=== PATIENT | male | born 1960 | race Caucasian/White ===

== ENCOUNTER → 2017-06-23 07:42 | Outpatient (CLI) | payer MEDICAID, SELFPAY ==
[2017-06-23 08:14] VITALS: PULSE 100; PULSE 101; PULSE 102; PULSE 103; PULSE 104; PULSE 88; PULSE 90; PULSE 97; O2SAT 94; O2SAT 95; O2SAT 96; O2SAT 98
--- NOTE | 2017-06-24 05:35 | WT_ITS ---
PSN 6 Minute Walk Test - 6 Minute Walk Test 6 Minute Walk Test: 6 Minute Walk Test PSN:6-Minute Walk Test Start: 06/23/17 08: 14 Freq: Status: Active Protocol: RESP.6MINW Document 06/23/17 08:14 AJ (Rec: 06/23/17 08:16 AJ [id number]) 6 Minute Walk Test Date Performed 06/23/17 Time Performed 07:50 Height 5 ft 7 in Weight: 118.841 kg Weight in Pounds 262.[address]: Gordon Verde Assistive device used: None Pre-test Oxygen Delivery Method Room Air Pulse Ox (%) 96 Pulse Rate (60-100 beats/min) 90 Dyspnea Israel Scale (0-10) 0 Exertion Israel Scale (6-20) 6 1st minute Oxygen Delivery Method Room Air Pulse Ox (%) 95 Pulse Rate (60-100 beats/min) 97 2nd minute Oxygen Delivery Method Room Air Pulse Ox (%) 94 Pulse Rate (60-100 beats/min) 100 3rd minute Oxygen Delivery Method Room Air Pulse Ox (%) 95 Pulse Rate (60-100 beats/min) 101 H 4th minute Oxygen Delivery Method Room Air Pulse Ox (%) 95 Pulse Rate (60-100 beats/min) 102 H 5th minute Oxygen Delivery Method Room Air Pulse Ox (%) 96 Pulse Rate (60-100 beats/min) 103 H 6th minute Oxygen Delivery Method Room Air Pulse Ox (%) 96 Pulse Rate (60-100 beats/min) 104 H Dyspnea Israel Scale (0-10) 1 Exertion Israel Scale (6-20) 14 Post-test Oxygen Delivery Method Room Air Pulse Ox (%) 98 Pulse Rate (60-100 beats/min) 88 Full Laps Walked 18 Partial Lap, Number of Tiles Walked 53 Total Distance Walked (ft) 1115 - Interpretation Interpretation: The patient was able to ambulate 1115 feet over the course of 6 minutes on room air with no assistive devices. The patient did not have any significant desaturation with testing, but did have a slight elevation in heart rate with a peak heart rate of 104 bpm. These findings are consistent with deconditioning. The patient did report leg pain at the end of ambulation and did present to the ER for evaluation. These findings are consistent with deconditioning. - Recommendations Recommendations: No supplemental oxygen is indicated at this time. Patient may benefit from initiation of an exercise program.
== END ==
PROVIDERS: Family Provider Internal Medicine; PCP Internal Medicine; Visit Provider Internal Medicine Critical Care Medicine
DX: J44.9 Chronic obstructive pulmonary disease, unspecified (principal)
CPT/HCPCS: 94618

== ENCOUNTER 2017-06-23 10:56 | Emergency (ER) | payer MEDICAID, SELFPAY ==
[2017-06-23 10:57] VITALS: BP 131/77; PULSE 69; RESP 18; TEMP 36.7; O2SAT 96; BMI 40.7
--- NOTE | 2017-06-23 11:24 | VDLE_ITS ---
Reason For Study: RLE Pain RIGHT LEFT GSV is normal. CFV is compressible, spontaneous, phasic, CFV is compressible, spontaneous, phasic, competent, and demonstrates normal competent and demonstrates normal augmentation. augmentation. FV is compressible, spontaneous, phasic, competent and demonstrates normal augmentation. POP V is compressible, spontaneous, phasic, competent and demonstrates normal augmentation. T/P Trunk is compressible. PTV is compressible. RT PerV is compressible. Procedure Exam performed portable in ED. A preliminary report was called and/or faxed to Dr. Jean. Interpretation Summary Deep veins of the right lower extremity are patent and compressible segmentally. There is no evidence of right lower extremity deep vein thrombosis. Valvular competence appears intact within the proximal deep venous system on the right . The right greater saphenous vein appears patent and compressible segmentally. Ordering Physician: Benson Jean Referring Physician: Mony Morrison Performed By: Ashleigh Cox, IRAJ, RVT
--- NOTE | 2017-06-23 11:29 | ED.DCSUM_ITS ---
- ER Visit Summary Date of Service: 06/23/17 Chief Complaint: Leg pain History of Present Illness: The patient is a 56 M with pain behind his right knee. The patient went to urgent care and was concerned he needed an x-ray. No specific injury, but the pain has been gradually getting worse over days. He was sent to the emergency department to check for DVT. He has no history of DVTs. No chest pain or shortness of breath. Physical Examination: Afebrile and vital signs unremarkable. Right leg shows normal inspection. No edema. He does have some tenderness in the right popliteal fossa region. Neurovascular intact distally. Good range of motion. Test Results: US and x-ray pending. Emergency Department Course and Treatment: Ultrasound negative for clot. X-ray showed no acute abnormalities. Treatment Plan: Rest, ice, elevate. Anti-inflammatories for pain. Follow-up with primary care. Disposition: Discharged Impression: 1. Right knee pain This note was generated with [employer] dictation software. It may contain incorrect words, spelling, and punctuation that were not noted in review of the chart prior to signing ED Disposition - Plan for ED Patient: Chief Complaint: Lower Extremity Injury Referrals: Mony Morrison MD [Primary Care Provider] -
--- NOTE | 2017-06-23 12:30 | RAD_ITS ---
STUDY: X-RAY - RIGHT KNEE REASON FOR EXAM: Male, 56 years old. 7 day history of pain. No known injury. TECHNIQUE: 4 view(s) of the knee. COMPARISON: None. FINDINGS: Normal visualized distal femur. Normal visualized proximal tibia and fibula. Normal proximal tibiofibular articulation. Normal medial femorotibial compartment. Normal lateral femorotibial compartment. Normal patellofemoral articulation. Small joint effusion. RAD/Knee 4 or More Views IMPRESSION: Small joint effusion. Electronically Signed: Reji Muñiz MD at 12:54 EDT Tel [phone], Service support ,
--- NOTE | 2017-06-23 13:36 | ED.DEP ---
ED Disposition - Plan for ED Patient: Chief Complaint: Lower Extremity Injury Instructions: ED Knee Pain [facility] Referrals: Mony Morrison MD [Primary Care Provider] -
[2017-06-23 13:59] VITALS: BP 154/79; PULSE 72; RESP 16; O2SAT 97
== END 2017-06-23 14:00 | disposition home or self-care (01) ==
LOC: ED 11:24
PROVIDERS: Emergency Provider Emergency Medicine; Family Provider Internal Medicine; PCP Internal Medicine
DX: M25.561 Pain in right knee (principal); J44.9 Chronic obstructive pulmonary disease, unspecified; E11.9 Type 2 diabetes mellitus without complications; I10 Essential (primary) hypertension; G47.33 Obstructive sleep apnea (adult) (pediatric); Z72.0 Tobacco use; Z79.82 Long term (current) use of aspirin; Z79.899 Other long term (current) drug therapy
CPT/HCPCS: 73564; 93971; 94618; 99282

== ENCOUNTER → 2017-06-24 06:56 | Outpatient (CLI) | payer MEDICAID, SELFPAY ==
--- NOTE | 2017-06-24 10:44 | PFTCOMP ---
COMPLETE PULMONARY FUNCTION TEST INTERPRETATION Brief HPI: Patient is a 56 year old male, currently under the care of Dr. Verde, who presents to [facility] for complete pulmonary function tests secondary to diagnosis of COPD. Respiratory therapist reports good effort and reproducible results. Interpretation: Forced expiration spirometry shows no large airways obstructive ventilatory defect with an FEV1 of 74% predicted. There is no significant bronchodilator response by ATS criteria. Spirograms are of good quality and plateau slowly, indicating slowly emptying areas of the lungs. The respiratory flow volume loop shows a normal pattern. Lung volumes by body plethysmography show a normal total lung capacity at 6.71 L, 111% predicted. There is a trend towards air-trapping in remaining lung volumes, but this does not reach clinical significance by ATS criteria. Diffusion capacity by carbon monoxide is normal at 83% predicted. The airway resistance is normal. Compared to previous pulmonary function tests from 09/03/2016, there has been no significant change. Impression: These pulmonary function tests are grossly within normal limits. There is some subtle signs of small airways obstruction.
--- NOTE | 2017-06-24 10:47 | PFTCOMP_ITS ---
COMPLETE PULMONARY FUNCTION TEST INTERPRETATION Brief HPI: Patient is a 56 year old male, currently under the care of Dr. Verde, who presents to [facility] for complete pulmonary function tests secondary to diagnosis of COPD. Respiratory therapist reports good effort and reproducible results. Interpretation: Forced expiration spirometry shows no large airways obstructive ventilatory defect with an FEV1 of 74% predicted. There is no significant bronchodilator response by ATS criteria. Spirograms are of good quality and plateau slowly, indicating slowly emptying areas of the lungs. The respiratory flow volume loop shows a normal pattern. Lung volumes by body plethysmography show a normal total lung capacity at 6.71 L , 111% predicted. There is a trend towards air-trapping in remaining lung volumes, but this does not reach clinical significance by ATS criteria. Diffusion capacity by carbon monoxide is normal at 83% predicted. The airway resistance is normal. Compared to previous pulmonary function tests from 09/03/2016, there has been no significant change. Impression: These pulmonary function tests are grossly within normal limits. There is some subtle signs of small airways obstruction.
== END ==
PROVIDERS: Family Provider Internal Medicine; PCP Internal Medicine; Visit Provider Internal Medicine Critical Care Medicine
DX: J44.9 Chronic obstructive pulmonary disease, unspecified (principal); F17.200 Nicotine dependence, unspecified, uncomplicated
CPT/HCPCS: 94060; 94726; 94729

== ENCOUNTER 2017-09-22 14:26 | Emergency (ER) | payer MEDICAID, SELFPAY ==
[2017-09-22 14:26] VITALS: BP 147/73; PULSE 73; RESP 16; TEMP 36.8; O2SAT 97; BMI 40.7
--- NOTE | 2017-09-22 15:13 | ED.VISSUMM ---
- ER Visit Summary Date of Service: 09/22/17 Chief Complaint: Low back pain History of Present Illness: The patient is a 56 M low back pain for the past few weeks. 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 Patient states pain down his leg to the back of his calf. Occasional tingling. No loss of bowel or bladder control. Patient has seen chiropractor 4 times since then, states symptoms relieved only short-term. Last seen a week ago. Has not seen his PCP. Has not tried any medications. History of gastric reflux, no ulcer history. Denies acute kidney injury. States had back pain in the past however self-limiting. No new injuries. Physical Examination: General: Alert and oriented ?3, no acute distress HEENT: Normocephalic, atraumatic. Moist mucosa membranes Neck: supple, nontender. Cardiovascular: Regular rate and rhythm, no murmurs Respiratory: Normal breath sounds, symmetric, no distress Abdomen: Soft, nontender, nondistended Back: Tender palpation right lower lumbar, no midline tenderness. Straight leg test negative bilaterally. 1+ patellar reflex bilaterally. Extremities: Nontender, no edema, pulses intact ?4 Neuro: no focal neurological deficits. Test Results: Lumbar spine x-rays: Degenerative changes noted. No fracture or dislocation. Emergency Department Course and Treatment: Patient presents with sciatica symptoms. No cauda equina symptoms. Has not seen his PCP, has seen the chiropractor. Did obtain a baseline lumbar film noted degenerative changes. Started on Motrin. Given muscle relaxer for nighttime use. Will call his PCP outpatient evaluation and further treatment. All questions were answered. Treatment Plan: [] Disposition: Discharge Impression: Sciatica This note was generated with [employer] dictation software. It may contain incorrect words, spelling, and punctuation that were not noted in review of the chart prior to signing ED Disposition - Plan for ED Patient: Disposition: Home or Assisted Living Chief Complaint: Back Diagnosis: Sciatica Instructions: ED Sciatica Prescriptions: Diazepam [Valium] 5 mg PO QHS PRN PRN #10 tablet PRN Reason: back spasm Ibuprofen 600 mg PO 4X/DAY PRN #30 tablet PRN Reason: Pain Referrals: Mony Morrison MD [Primary Care Provider] - 2 Days
[2017-09-22] MEDS: Ibuprofen 600 MG Tablet PO (15:16)
== END 2017-09-22 16:35 | disposition home or self-care (01) ==
PROVIDERS: Emergency Provider Emergency Medicine; Family Provider Internal Medicine; PCP Internal Medicine
DX: M54.40 Lumbago with sciatica, unspecified side (principal); I10 Essential (primary) hypertension; K21.9 Gastro-esophageal reflux disease without esophagitis; Z79.82 Long term (current) use of aspirin; Z79.899 Other long term (current) drug therapy; Z87.891 Personal history of nicotine dependence
CPT/HCPCS: 72100; 99282

== ENCOUNTER 2018-12-11 11:07 | Emergency (ER) | payer MEDICAID, SELFPAY ==
[2018-12-11 11:09] VITALS: BP 159/84; PULSE 80; RESP 16; TEMP 36.1; O2SAT 99; BMI 45.1
--- NOTE | 2018-12-11 11:20 | ED.DCSUM_ITS ---
History of Present Illness Chief Complaint: Back Detail of Chief Complaint: Sciatica Informant: Patient Onset: Weeks - 2 to 3 weeks Maximum Severity: Moderate Narrative: Patient presents with right-sided sciatica ongoing for the past 2 or 3 weeks. He is been seeing his chiropractor. He states typically when he gets like this he needs to be on a course of steroids. He is been taking tybq-zwv-jyndgjw painkillers such as Tylenol at home. Pain does radiate down the right leg. He has had no problems with bowel or bladder control. No direct trauma to his back. 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 Past Medical History - Allergies and Home Meds Allergies/Adverse Reactions: Allergies Penicillins Allergy (Verified 12/11/18 11:09) Unknown venom-honey bee [bee venom (honey bee)] Allergy (Verified 12/11/18 11:09) Swelling Primary Care Physician: Mony Morrison MD [Primary Care Provider] - Prior records reviewed: Yes Past Medical History: - - Reviewed Surgical History: no surgical history Smoking Status: Current every day smoker Drugs: Marijuana - Family History Maternal Family History: Family History (Last Reviewed 03/05/18 @ 07:05 by Elaine Rosenberg) Mother Cancer Father Diabetes Sister Diabetes Family History: Reports: - - mother of skin CA Paternal Family History: Family History (Last Reviewed 03/05/18 @ 07:05 by Elaine Rosenberg) Mother Cancer Father Diabetes Sister Diabetes Family History: Reports: Diabetes, Dementia, - - father is in a NH and has demnetia and PD and DM Sibling Family History: Family History (Last Reviewed 03/05/18 @ 07:05 by Elaine Rosenberg) Mother Cancer Father Diabetes Sister Diabetes Family History: Reports: Diabetes - in his sister Review of Systems General: Denies: Chills, Fever Eyes: Denies: Visual changes - bilaterally ENT: Denies: Bilateral ear pain Cardiovascular: Denies: Chest pain Respiratory: Denies: Dyspnea, Cough Gastrointestinal: Denies: Abdominal pain, Nausea, Vomiting, Diarrhea Musculoskeletal: Reports: Back pain, Extremity Pain - Right leg pain radiating from back Skin: Denies: Rash Neurological: Denies: Headache, Weakness, Parasthesia, Numbness Psych: Denies: Depression Hematologic: Denies: Easy bruising Allergy: Denies: Uticaria Physical Exam Vital Signs/Narrative: Vital Signs Temp Pulse Resp BP Pulse Ox 12/11/18 11:09 97 F L 80 16 159/84 H 99 Inital Vital Signs reviewed: Yes General: Well nourished, Well developed ENT: Moist mucous membranes Neck: Supple Cardiovascular: Regular rate, Regular rhythm Respiratory: No distress, CTA bilaterally Abdomen: Soft, Nontender, Normal bowel sounds Back: - - Reproducible tenderness in the right lower lumbar paraspinal muscles and over the sciatic notch. No midline tenderness. No ecchymosis or abrasions. Extremities: Nontender Skin: Normal color, No rash Neurological: Alert, Oriented x3, Normal Strength, Normal Sensation, - - Straight leg raise test is negative. Psychological: Normal affect Diagnostic/Tx/Re-eval - Medical Decision Making Patient be given a prednisone taper. He will continue to take his wazm-yhy-vejpwpy pain medication and follow-up with his chiropractor. ED Disposition - Plan for ED Patient: Disposition: Home or Assisted Living Diagnosis: Sciatica Instructions: BACK PAIN w/ SCIATICA Prescriptions: Prednisone 10 mg PO DAILY #63 tablet Referrals: Mony Morrison MD [Primary Care Provider] - 1 Week if not improving
[2018-12-11] MEDS: predniSONE 20 MG Tablet 60 MG PO (11:28)
== END 2018-12-11 11:36 | disposition home or self-care (01) ==
LOC: ED 11:34
PROVIDERS: Emergency Provider Emergency Medicine; Family Provider Internal Medicine; PCP Internal Medicine
DX: M54.31 Sciatica, right side (principal); F17.200 Nicotine dependence, unspecified, uncomplicated; Z88.0 Allergy status to penicillin
CPT/HCPCS: 99283

== ENCOUNTER → 2019-02-11 08:55 | Outpatient (CLI) | payer MEDICAID, SELFPAY ==
--- NOTE | 2019-02-11 14:01 | PFT ---
INTRODUCTION: The patient is a 58-year-old male who presents for pulmonary function studies secondary to a diagnosis of COPD. Respiratory therapy reports good patient effort. Bronchodilators were used during testing. INTERPRETATION: Forced expiration spirometry demonstrates the presence of a mild large airways obstructive ventilatory defect. There was no significant response to aerosolized bronchodilators. Spirograms are of good quality and plateau gradually. Body plethysmography was performed and reveals lung volumes to be within normal limits. Diffusing capacity by single breath CO is also within normal limits. When compared to previous pulmonary function studies from June 2017, there has been an 11% reduction in FEV1 along with a 27% reduction in total lung capacity. IMPRESSION: Irreversible mild large airways obstructive ventilatory defect with preserved lung volumes and diffusing capacity.
== END ==
PROVIDERS: Family Provider Internal Medicine; PCP Internal Medicine; Referring Provider Internal Medicine Critical Care Medicine; Visit Provider Internal Medicine Critical Care Medicine
DX: J44.9 Chronic obstructive pulmonary disease, unspecified (principal)
CPT/HCPCS: 94060; 94726; 94729

== ENCOUNTER → 2019-03-22 20:00 | Outpatient (CLI) | payer MEDICAID, SELFPAY ==
[2019-03-02 12:54] VITALS: BMI 47.0
== END ==
PROVIDERS: PCP Internal Medicine; Referring Provider Internal Medicine Critical Care Medicine; Visit Provider Internal Medicine Critical Care Medicine
DX: G47.33 Obstructive sleep apnea (adult) (pediatric) (principal)
CPT/HCPCS: 95811

== ENCOUNTER → 2019-04-14 07:30 | Outpatient (CLI) | payer MEDICAID, SELFPAY ==
[2019-03-02 12:54] VITALS: BMI 47.0
== END ==
PROVIDERS: PCP Internal Medicine; Referring Provider Nurse Practitioner Acute Care; Visit Provider Nurse Practitioner Acute Care
DX: Z46.89 Encounter for fitting and adjustment of other specified devices (principal)

== ENCOUNTER → 2019-07-01 13:00 | Outpatient (CLI) | payer MEDICAID, SELFPAY ==
[2019-05-26 08:48] VITALS: BMI 44.9
== END ==
PROVIDERS: PCP Internal Medicine; Referring Provider Nurse Practitioner Acute Care; Visit Provider Nurse Practitioner Acute Care
DX: G47.33 Obstructive sleep apnea (adult) (pediatric) (principal)
CPT/HCPCS: 98960; G0463

== ENCOUNTER → 2019-07-20 07:55 | Outpatient (CLI) | payer MEDICAID, SELFPAY ==
[2019-07-08 07:46] VITALS: BMI 44.9
--- NOTE | 2019-07-20 07:56 | CT_ITS ---
STUDY: LOW DOSE CT LUNG CANCER SCREENING REASON FOR EXAM: Male, 58 years old. CURRENT SMOKER X 1 PPD FOR 42 YRS, COPD, DB RADIATION DOSAGE (If Supplied By Facility): CTDIvol = ( 4.02 ) mGy, DLP = ( 144.46 ) mGycm TECHNIQUE: No contrast was administered. Low dose technique was utilized (average mAS-38 and kVp 120). 1.25 mm axial source images with a slice interval of 1.25-mm were reconstructed in lung windows. 2.5 mm axial source images with a slice interval of 2.5-mm were reconstructed in lung windows. 5.0 mm axial source images with a slice interval of 5.0-mm were reconstructed in soft tissue windows. Nodule measured using lung windows on PACS and/or independent workstation with automated measurement of minimum and maximum diameter. Nodule measurement reported as average diameter rounded to the nearest whole number. Growth is defined as an increase ins size of greater than 1.5 mm. COMPARISON: Comparison is made with prior examination dated October 31, 2015. NODULES: There is a 1.3 cm x 2.7 cm x 2.1 cm irregular infiltrate/nodular density in the posterior aspect of the left upper lobe as seen on axial image #61 and coronal image #2014. Correlation with a PET scan is recommended for further evaluation. There is also evidence of a 6 mm noncalcified nodule in the lateral aspect of the right upper lobe as seen on axial image #98. This was not seen on prior study. Stable small calcified granuloma in the lateral aspect of the right upper lobe. Aorta: Mild atherosclerotic plaque of the aortic arch. Coronary arteries: Coronary artery calcification. Mediastinal nodes: Small mediastinal lymph nodes. Other chest and abdominal findings: Stable 2 cm x 2 cm fat-containing nodule in the right adrenal gland. CT/Low Dose CT Lung Screening IMPRESSION: Lung-RADS category 4B - Chest CT with or without contrast, PET/CT and/or tissue sampling can be obtained depending on the probability of malignancy and comorbidities. IMPORTANT NOTES FOR USE: ACR Lung-RADS Version 1.0 Assessment Categories Release Date: June 07, 2013 Category: Coded 0-4 bases on nodule(s) with highest degree of suspicion. Negative screen is defined as categories 1 and 2; a positive screen is defined as categories 3 and 4. Category 3 and 4A nodules that are unchanged on interval CT should be coded as category 2, and individuals returned to screening in 12 months. Category 4X: Category 3 or 4 nodules with additional imaging findings that increase the suspicion of lung cancer, such as spiculation, GGN that doubles in size in 1 year, enlarged lymph notes, etc. Category Modifiers: S (significant finding unrelated to lung cancer) and C (prior history of treated lung cancer) may be added to the 0-4 Lung-RADS Electronically Signed: Reji Muñiz, at 8:46 EDT , Service support ,
== END ==
PROVIDERS: PCP Internal Medicine; Referring Provider Nurse Practitioner Acute Care; Visit Provider Nurse Practitioner Acute Care
DX: F17.210 Nicotine dependence, cigarettes, uncomplicated (principal)
CPT/HCPCS: G0297

== ENCOUNTER → 2019-09-21 15:50 | Outpatient (CLI) | payer MEDICAID, SELFPAY ==
[2019-09-01 13:42] VITALS: BMI 44.9
--- NOTE | 2019-09-21 16:00 | PET_ITS ---
EXAMINATION: FDG PET-CT INDICATIONS: A 58-year-old male with a reported history of pulmonary nodularity presenting for restaging examination. COMPARISON EXAMINATION: Previous CT of the chest report dated 07/20/19. TECHNIQUE: Following the intravenous administration of 14.7 mCi of F-18 deoxyglucose via the left hand, multiplanar image acquisitions of the head, neck, chest, abdomen and pelvis to level of mid-thigh, lower extremities obtained at one hour post radiopharmaceutical administration contemporaneously interpreted with the current CT of the head, neck, chest, abdomen and pelvis to level of mid-thigh, lower extremities dated 09/21/19 via coregistration and previous CT of the chest report dated 07/20/19 reveal: SERUM GLUCOSE LEVEL: 105 mg/dl. HEIGHT: 65 inches. WEIGHT: 279 lbs. FINDINGS: 1. There is no quantitative scintigraphic evidence of abnormal increased glucose metabolism within the context of the left upper posterior lung-left upper lobe to correlate with structural changes noted on review of CT of the thorax dated 07/20/19. 2. Anatomic stability may be ensured in the left hemithorax parenchymal abnormality with repeat CT of the thorax in 3 months. (Sarah, Seminars in Thoracic and Cardiovascular Surgery 14:292, 2002). 3. Normal physiologic distribution of the radiopharmaceutical is apparent in the hepatic and splenic parenchyma, both renal units, bladder and visualized intestinal tract. The visualized portion of the cerebral cortex demonstrate symmetric and preserved glucose metabolism. Prominent radiopharmaceutical concentration is observed in the left ventricular myocardium commensurate with the [place]. Pertinent CT findings are as follows. CHEST: The vague density defined in the left upper posterior lung-left upper lobe demonstrates no evidence of discernable increased FDG concentration. There is atherosclerotic calcification defined in the thoracic aorta without evidence of dilatation-aneurysm formation. Coronary arterial calcification is demonstrated. Bilateral axillary soft tissue densities with fatty hilus are nonglucose avid. Scattered mediastinal soft tissue demonstrates no evidence of increased tracer uptake. A noncalcified nodular density noted in the right lower lateral lung demonstrates no evidence of increased glucose avidity. ABDOMEN AND PELVIS: Atherosclerotic calcification is defined in the abdominal aorta without evidence of dilatation, aneurysm formation. Pelvic arterial calcification is observed. Calcified granuloma formation is noted within the splenic parenchyma. Bilateral inguinal soft tissue with fatty hilus reveals no evidence of facilitated FDG uptake. SKELETAL: Degenerative changes defined in the cervical, thoracic and lumbar spine demonstrate no evidence of glucose hypermetabolism. PET/PET/CT Tumor Base -Thigh Init IMPRESSION: 1. NEGATIVE EXAMINATION. There is no quantitative scintigraphic evidence of abnormal increased glucose metabolism within the context of the left upper posterior and right lower lateral lung to correlate with structural changes noted on review of CT of the thorax dated 07/20/19. 2. Anatomic stability may be ensured in the nonglucose avid bilateral hemithorax pulmonary parenchymal densities with repeat CT of the thorax in three-six months. (Sarah, Seminars in Thoracic and Cardiovascular Surgery 14:292, 2002). Electronic Signature Pete Moss D.O. Accurate Quantification of SUVs for this report are calculated using the exclusive [employer] Technology. Exclusive [place].S. Patent [employer]? Technology (U.S. Patent No. [id number]). Electronically Signed: Pete Moss DO at 21:59 EDT Tel , Service support ,
== END ==
PROVIDERS: PCP Internal Medicine; Referring Provider Nurse Practitioner Acute Care; Visit Provider Nurse Practitioner Acute Care
DX: R91.8 Other nonspecific abnormal finding of lung field (principal)
CPT/HCPCS: 78815; A9552

== ENCOUNTER → 2020-01-13 08:04 | Outpatient (CLI) | payer MEDICAID, SELFPAY ==
[2019-09-01 13:42] VITALS: BMI 44.9
--- NOTE | 2020-01-13 08:05 | CT_ITS ---
STUDY: CT CHEST WITHOUT CONTRAST REASON FOR EXAM: Male, 59 years old. FOLLOW UP LUNG NODULE -- TOBACCO DEPENDENCY--+SMOKER 1PPD RADIATION DOSAGE (If Supplied By Facility): CTDIvol = ( 20.72 ) mGy, DLP = ( 656.69 ) mGycm TECHNIQUE: Transaxial imaging was performed without the administration of intravenous contrast material. Multiplanar coronal and sagittal images were reformatted. Individualized dose optimization techniques were used for this CT. COMPARISON: Comparison is made with prior study dated 07/20/2019. FINDINGS: Small benign-appearing bilateral axillary lymph nodes. The previously seen infiltrate/nodular density in the posterior aspect of the left upper lobe has resolved. Stable 7 mm noncalcified nodule in the lateral aspect of the right upper lobe as seen on axial image #86. There is no demonstrated pleural abnormality. There are calcifications of the coronary arteries. Normal mediastinum. Calcified right hilar lymph nodes. Normal unenhanced pulmonary arteries. There is atherosclerotic calcification of the aortic arch . There are degenerative changes of the thoracic spine. 2.9 cm x 3.1 cm fat-containing nodule in the right adrenal gland. CT/Chest without Contrast IMPRESSION: The previously seen infiltrate/nodule in the posterior aspect of the left upper lobe has cleared. Stable nodular density in the lateral aspect of the right upper lobe. Electronically Signed: Reji Muñiz, at 9:55 EST , Service support ,
== END ==
PROVIDERS: PCP Internal Medicine; Referring Provider Internal Medicine Critical Care Medicine; Visit Provider Internal Medicine Critical Care Medicine
DX: R91.1 Solitary pulmonary nodule (principal); F17.210 Nicotine dependence, cigarettes, uncomplicated
CPT/HCPCS: 71250

== ENCOUNTER → 2021-01-09 07:50 | Outpatient (CLI) | payer MEDICAID, SELFPAY ==
--- NOTE | 2021-01-09 07:53 | CT_ITS ---
STUDY: LOW DOSE CT LUNG CANCER SCREENING REASON FOR EXAM: Male, 60 years old. Tobacco Dependency RADIATION DOSAGE (If Supplied By Facility): CTDIvol = ( 3.18 ) mGy, DLP = ( 101.65 ) mGycm TECHNIQUE: No contrast was administered. Low dose technique was utilized (average mAS-38 and kVp 120). 1.25 mm axial source images with a slice interval of 1.25-mm were reconstructed in lung windows. 2.5 mm axial source images with a slice interval of 2.5-mm were reconstructed in lung windows. 5.0 mm axial source images with a slice interval of 5.0-mm were reconstructed in soft tissue windows. Nodule measured using lung windows on PACS and/or independent workstation with automated measurement of minimum and maximum diameter. Nodule measurement reported as average diameter rounded to the nearest whole number. Growth is defined as an increase ins size of greater than 1.5 mm. COMPARISON: Comparison is made with prior study dated 01/13/2020. NODULES: The previously seen noncalcified nodule in the peripheral lateral aspect of the right upper lobe has increased in size. It presently measures 10.7 mm. It previously measured 7 mm. This is best seen on axial image #88. Emphysema: Patchy focal alveolar nodular infiltrates in the right upper lobe. These were not seen on prior study. Clinical correlation is recommended. Patchy nodular alveolar infiltrates are also seen in the posterior basilar segment of the right lower lobe. Endobronchial lesion: None Aorta: Atherosclerotic calcific plaques. Coronary arteries: Coronary artery calcification. Heart: Pulmonary artery: Mediastinal nodes: Small mediastinal lymph nodes. Other chest and abdominal findings: CT/Low Dose CT Lung Screening IMPRESSION: Lung-RADS category 4B - Chest CT with or without contrast, PET/CT and/or tissue sampling can be obtained depending on the probability of malignancy and comorbidities. IMPORTANT NOTES FOR USE: ACR Lung-RADS Version 1.1 Assessment Categories Release Date: 2018 Category: Coded 0-4 bases on nodule(s) with highest degree of suspicion. Negative screen is defined as categories 1 and 2; a positive screen is defined as categories 3 and 4. Category 3 and 4A nodules that are unchanged on interval CT should be coded as category 2, and individuals returned to screening in 12 months. Category 4X: Category 3 or 4 nodules with additional imaging findings that increase the suspicion of lung cancer, such as spiculation, GGN that doubles in size in 1 year, enlarged lymph notes, etc. Category Modifiers: S (significant finding unrelated to lung cancer) Electronically Signed: Reji Muñiz MD at 12:50 EST , Service support ,
== END ==
PROVIDERS: PCP Internal Medicine; Referring Provider Internal Medicine Critical Care Medicine; Visit Provider Internal Medicine Critical Care Medicine
DX: F17.201 Nicotine dependence, unspecified, in remission (principal)
CPT/HCPCS: 71271

== ENCOUNTER → 2021-01-23 14:52 | Outpatient (CLI) | payer MEDICAID, SELFPAY ==
--- NOTE | 2021-01-23 14:30 | PET_ITS ---
EXAMINATION: FDG PET-CT INDICATIONS: A 60-year-old male with reported history of pulmonary nodularity. COMPARISON EXAMINATION: CT of the chest report dated 01/09/21 TECHNIQUE: Following the intravenous administration of 13.54 mCi of F-18 deoxyglucose via the left wrist, multiplanar image acquisitions of the neck, chest, abdomen and pelvis to level of mid thigh, obtained at one hour post radiopharmaceutical administration contemporaneously interpreted with the current CT of the neck, chest, abdomen and pelvis, to level of mid thigh, dated 01/23/21 via coregistration reveals: BLOOD GLUCOSE LEVEL:?? 115 mg/dl?HEIGHT:?65 inches?WEIGHT: 269 lbs. FINDINGS: 1. There is no quantitative scintigraphic evidence of abnormal increased glucose metabolism in the right hemithorax pulmonary parenchyma, right upper lobe to correlate with changes on review of CT of the thorax dated 01/15/21. 2. Normal physiologic distribution of the radiopharmaceutical is apparent in the hepatic and splenic parenchyma, both renal units, bladder and visualized intestinal tract. The visualized portion of the cerebral cortical-subcortical structures demonstrate symmetric and preserved glucose metabolism. Diffuse radiopharmaceutical concentration is noted in all four quadrants of the abdomen and pelvis. Prominent radiopharmaceutical concentration is identified in the left ventricular myocardium commensurate with the [place]. Pertinent CT findings are as follows: CHEST: The non-calcified ovoid density manifest in the right mid lateral lung-right upper lobe demonstrates no evidence of increased glucose metabolism. Several additional subcentimeter right upper lung-right upper lobe parenchymal densities reveal no evidence of increased tracer uptake. There is atherosclerotic calcification defined in the thoracic aorta without evidence of dilatation-aneurysm formation. Coronary arterial calcification is observed. Bilateral axillary soft tissue with fatty hilus is ametabolic. Mediastinal and calcified, non-calcified thoracic perihilar soft tissue reveals no evidence of increased tracer uptake. ABDOMEN AND PELVIS: There is atherosclerotic calcification defined in the abdominal aorta without evidence of dilatation-aneurysm formation. Pelvic arterial calcification is observed. Calcified granuloma formation is noted within the splenic parenchyma. Bilateral inguinal soft tissue with fatty hilus is non-glucose avid. SKELETAL: Degenerative changes are noted in the cervical, thoracic and lumbar spine without evidence of increased radiopharmaceutical concentration. PET/PET/CT Tumor Base -Thigh Init IMPRESSION: 1. NEGATIVE EXAMINATION. There is no quantitative scintigraphic evidence of recurrent-metastatic viable neoplasm. 2. There is no evidence of abnormal increased glucose metabolism within the context of the right lateral lung non-glucose avid right upper lobe parenchymal density to correlate with changes defined on CT of the chest dated 01/15/21. 3. Anatomic, metabolic stability may be ensured in the non-glucose avid right upper lobe parenchymal density with repeat FDG PET-CT imaging and/or CT of the chest in 3-6 months if clinically indicated. (Sarah, Seminars in Thoracic and Cardiovascular Surgery 14:292, 2001). Electronic Signature Pete Moss D.O. Accurate Quantification of SUVs for this report are calculated using the exclusive [employer]. ([place].S. Patent No. [id number] [id number]). Standardization and correction of the FDG SUV metric via [employer] technology allow for vendor non-specific objective quantitative examination comparison and optimization of the sensitivity and specificity of the FDG PET-CT examination. Electronically Signed: Pete Moss DO at 23:14 EST Tel , Service support ,
== END ==
PROVIDERS: PCP Internal Medicine; Referring Provider Nurse Practitioner Acute Care; Visit Provider Nurse Practitioner Acute Care
DX: R91.8 Other nonspecific abnormal finding of lung field (principal)
CPT/HCPCS: 78815; A9552

== ENCOUNTER 2021-04-11 08:14 | Outpatient (CLI) | payer MEDICAID, SELFPAY ==
--- NOTE | 2021-04-11 08:19 | CT_ITS ---
STUDY: CT CHEST WITHOUT CONTRAST REASON FOR EXAM: Male, 60 years old. Follow lung mass RADIATION DOSAGE (If Supplied By Facility): CTDIvol = ( 20.15 ) mGy, DLP = ( 800.57 ) mGycm TECHNIQUE: Transaxial imaging was performed without the administration of intravenous contrast material. Multiplanar coronal and sagittal images were reformatted. Individualized dose optimization techniques were used for this CT. COMPARISON: Comparison is made with prior study dated 01/09/2021. FINDINGS: Stable small benign-appearing bilateral axillary lymph nodes. This is an 8.8 mm noncalcified nodule in the peripheral lateral aspect of the right upper lobe as seen on axial image #53. This has decreased slightly in size. Stable 2 mm noncalcified nodule in the anterior lateral aspect of the right upper lobe as seen on axial image #45. There is a 4.8 mm calcified granuloma in the posterior medial segment of the right lower lobe. Mild degree of emphysematous changes. There is no demonstrated pleural abnormality. There are calcifications of the coronary arteries. There are multiple small lymph nodes within the mediastinum, which are normal in size and morphology most compatible with reactive lymph hyperplasia. Calcified right hilar lymph nodes. Normal unenhanced pulmonary arteries. There is atherosclerotic calcification of the aortic arch with tortuosity and elongation of the aortic arch and descending thoracic aorta. There are multi-level degenerative changes of the thoracic spine. Small hiatal hernia. CT/Chest without Contrast IMPRESSION: 8.8 mm noncalcified nodule in the peripheral lateral aspect of the right upper lobe as seen on axial image #53. This has decreased slightly in size as compared to prior study. Electronically Signed: Reji Muñiz MD at 11:13 EST ,
== END 2021-04-11 23:59 | disposition home or self-care (01) ==
LOC: CT 08:15
PROVIDERS: PCP Internal Medicine; Referring Provider Nurse Practitioner Acute Care; Visit Provider Nurse Practitioner Acute Care
DX: R91.1 Solitary pulmonary nodule (principal)
CPT/HCPCS: 71250

== ENCOUNTER → 2021-10-11 | Outpatient (CLI) | payer MEDICAID, SELFPAY ==
--- NOTE | 2021-10-11 07:37 | CT_ITS ---
INDICATION: f/u lung nodule EXAMINATION: CT CHEST WITHOUT CONTRAST - CT Chest W/O Contrast Injection TECHNIQUE: Helically acquired images were obtained of the chest. A radiation dose optimization technique was used for this scan. IV Contrast dosage and agent: None. COMPARISON: 04/11/2021 FINDINGS: LUNGS, PLEURA AND LARGE AIRWAYS: Interval increase in the size of the noncalcified nodule in the periphery of the right upper lobe of the lungs on image 57 and 8 mm in diameter to 14 mm in diameter worrisome for bronchogenic carcinoma. Correlation with PET CT scan is recommended. Other smaller nodules in the right upper lobe appear similar in size. No other noncalcified nodule or mass. No pleural effusion or thickening. No pneumothorax. THYROID: No thyroid lesions. HEART AND PERICARDIUM: Heart size is normal. No pericardial effusion. CORONARY ARTERIES: Coronary artery calcification is seen. VESSELS: Thoracic aorta is not dilated. MEDIASTINUM AND DANNIE: No mediastinal or hilar adenopathy. Esophagus is unremarkable. No hiatal hernia. UPPER ABDOMEN: Adenoma the right adrenal gland. BONES: No suspicious lytic or blastic abnormality. CT/Chest without Contrast IMPRESSION: Enlarging right upper lobe nodule worrisome for bronchogenic carcinoma and correlation with PET CT scan is recommended. Electronically Signed: Pete Hines MD at 8:59 EDT ,
== END | disposition home or self-care (01) ==
LOC: CT 07:36
PROVIDERS: PCP Internal Medicine; Referring Provider Internal Medicine Critical Care Medicine; Visit Provider Internal Medicine Critical Care Medicine
DX: R91.1 Solitary pulmonary nodule (principal)
CPT/HCPCS: 71250

== ENCOUNTER 2021-10-29 19:43 | Inpatient (IN) | payer MEDICAID, SELFPAY ==
[2021-10-29 19:44] VITALS: BP 130/106; PULSE 92; RESP 16; TEMP 36.3; O2SAT 99; BMI 43.9
--- NOTE | 2021-10-29 19:50 | RAD_ITS ---
We are attempting to reach an attending provider to discuss findings. An addendum with communication details will be sent when the communication is complete. STUDY: X-RAY CHEST REASON FOR EXAM: Male, 61 years old. Shortness of breath. Status post procedure. TECHNIQUE: PA and lateral views of the chest. COMPARISON: Chest, 10/29/2021 ([id number]) FINDINGS: There is a large right apical pneumothorax of greater than 50% lung volume. There is diffuse interstitial changes and collapse of the right lung. Left lung appears unchanged. There is no demonstrated pleural abnormality. Normal size heart. Normal mediastinum and jaime. Normal visualized pulmonary arteries. Normal visualized aortic arch and descending thoracic aorta. Normal visualized thoracic spine. Normal visualized ribs, clavicles, and shoulders. There is no demonstrated abnormality of the visualized soft tissue structures of the upper abdomen. RAD/Chest PA and Lateral IMPRESSION: Marked increase in right pneumothorax when compared to the prior study. Electronically Signed: Preston Rouse DO at 20:36 EDT ,
--- NOTE | 2021-10-29 20:23 | RAD_ITS ---
STUDY: X-RAY CHEST REASON FOR EXAM: Male, 61 years old. Chest tube insertion. TECHNIQUE: Single AP portable view of the chest. COMPARISON: 10/29/2021) 1956). FINDINGS: There is now a smallbore catheter with its tip in the lateral mid right thorax. This appears incompletely positioned within the thorax. There is slight decrease in the right pneumothorax predominantly inferiorly. There is an approximate 30% apical pneumothorax remaining. Lungs are otherwise unchanged. Normal size heart. Normal mediastinum and jaime. Normal visualized pulmonary arteries. Normal visualized aortic arch and descending thoracic aorta. Normal visualized thoracic spine. Normal visualized ribs, clavicles, and shoulders. There is no demonstrated abnormality of the visualized soft tissue structures of the upper abdomen. RAD/Chest 1 View (Portable) IMPRESSION: 1. Right chest tube which appears kinked in the scan and the tip does not appear to be fully within the chest cavity. 2. Reduction of right chest tube predominantly in the inferior hemithorax. Apical pneumothorax remains. Electronically Signed: Preston Rouse DO at 21:10 EDT ,
[2021-10-29 20:56] VITALS: O2SAT 94
[2021-10-29 20:59] VITALS: BP 142/79; PULSE 79; RESP 22; O2SAT 95
[2021-10-29 20:59] LABS: Absolute Neutrophil Count 6.7 X10^3/uL (2.0-7.7); Basophil# 0.04 X10^3/uL; Basophil% 0.5 % (0-1); Eosinophil# 0.02 X10^3/uL; Eosinophils% 0.2 % (0-5); Hematocrit 43.5 % (40-54); Hemoglobin 14.6 g/dL (13.0-16.5); Lymphocyte % 10.7 % (19-41); Mean Corp Hgb Conc 33.6 g/dL (32-36); Mean Corpuscular Hgb 29.6 pg (27.0-32.0); Mean Corpuscular Volume 88.1 fL (80-94); Mean Platelet Vol. 8.8 fl (6.2-12.0); Monocyte# 0.73 X10^3/uL; Monocyte% 8.6 % (0-10); NRBC Flagged by Analyzer 0 % (0-5); Neutrophil # 6.73 X10^3/uL (2.7-7.7); Neutrophil % 79.6 % (47-70); Platelet Count 310 K/mm3 (150-450); RBC Distribution Width CV 13.5 % (11.6-14.6); RBC Distribution Width SD 43.6 fl (35.1-43.9); Red Blood Count 4.94 M/mm3 (4.6-6.2); White Blood Count 8.5 K/mm3 (4.4-11.0)
--- NOTE | 2021-10-29 21:02 | ED.VIS.DYS ---
HPI History of Present Illness Chief Complaint: Shortness of Breath Detail of Chief Complaint: Hartness of breath after needle biopsy of lung mass right side of the chest Informant: patient Onset/Context/Timing Onset: Today and Hours Context: sudden Timing: Continuous Quality: Positive for Dyspnea on exertion; Negative for Orthopnea, PND or Wheezing Current Severity: Moderate Maximum Severity: Severe Worsened by: Exertion Relieved by: Nothing Associated Symptoms cough; Negative for rhinorrhea, post nasal drip, ear pain, fever, sore throat, subjective, chills, sweats, clear sputum, white sputum, yellow sputum or green sputum Chest Pain: Positive for Continuous and Sharp Narrative Narrative: Patient is a 61-year-old male with history of obstructive sleep apnea, COPD, lung mass who had a needle biopsy performed today. He presents because of shortness of breath at rest and is worse with activity. He arrived by ambulance. Patient is in respiratory distress. He is not hypoxic on oxygen. He does have history of restless leg syndrome, obesity, tobacco abuse and hiatal hernia. He also admits to smoking marijuana for his anxiety. Patient denies fever, chills night sweats. Patient denies ocular, visual auditory symptoms. Patient denies history of VTE. Patient is not on anticoagulant. Patient denies leg pain, swelling discoloration. Patient denies GI symptoms. PE Risk Factors: Negative for Cancer, OCP + Smoking + > 35, Prior DVT or PE, Recent immobilization, Recent surgery or Recent travel Prior similar symptoms: No Recent Illness/Hospitalization: No [facility] Medical History (Updated 10/29/21 @ 21:[address] Jose Prieto MD) Anxiety and depression Chest pain COPD (chronic obstructive pulmonary disease) Hiatal hernia with GERD HTN (hypertension) Hyperglycemia Marijuana smoker Morbid obesity with BMI of 40.0-44.9, adult Nicotine addiction ALEXANDRA (obstructive sleep apnea) Poor dentition Home Medications amlodipine 10 mg tablet 10 mg PO DAILY 10/31/15 [History Last Taken 10/31/15] bupropion HCl 150 mg 24 hr tablet, extended release 150 mg PO DAILY 10/31/15 [History Last Taken Unknown] losartan 100 mg-hydrochlorothiazide 12.5 mg tablet 1 tab PO DAILY 10/31/15 [History Last Taken 10/31/15] aspirin 81 mg tablet,delayed release 81 mg PO DAILY ##30 11/01/15 [Rx Last Taken 10/21/21] omeprazole 20 mg capsule,delayed release 20 mg PO DAILY 07/26/16 [History Last Taken Unknown] montelukast 10 mg tablet 10 mg PO DAILY #30 tabs 03/29/21 [Rx Last Taken Unknown] budesonide-formoterol HFA 160 mcg-4.5 mcg/actuation aerosol inhaler (Symbicort) 2 puff inhalation BID #1 ea 05/21/21 [Rx Last Taken Unknown] fluticasone propionate 50 mcg/actuation nasal spray,suspension 2 spray intranasal DAILY #16 grams 06/25/21 [Rx Last Taken Unknown] tiotropium bromide 2.5 mcg/actuation mist for inhalation (Spiriva Respimat) 2 puff inhalation QDAY #4 grams 06/25/21 [Rx Last Taken Unknown] metformin 500 mg tablet 500 mg PO DAILY 10/12/21 [History Last Taken Unknown] cetirizine 10 mg capsule (Zyrtec) 10 mg PO HS 10/29/21 [History Last Taken Unknown] Allergy/AdvReac Type Severity Reaction Status Date / Time Penicillins Allergy Unknown Verified 10/29/21 19:46 venom-honey bee Allergy Swelling Verified 10/29/21 19:46 [bee venom (honey bee)] Family History Mother Cancer Father Diabetes Sister Diabetes Surgical History History of arthroplasty of left knee History of tonsillectomy Social History (Updated 10/29/21 @ 21:[address] Jose Prieto MD) household members: none Smoking Status: Current every day smoker tobacco type: cigarettes Tobacco: How many years used: 40 how long ago did patient quit smokin ppd second hand exposure: Yes alcohol intake: current alcohol intake frequency: holidays/special occasions only substance use type: marijuana caffeine: Yes Type: coffee Number of servings: 3 what type of physical activity do you participate in: walking ROS ROS ED Constitutional Constitutional ED: Denies chills, fever(s), sweats or weight loss Eyes Eyes: Denies blurry vision, change in vision or diplopia ENT ENT ED: Denies ear pain, rhinorrhea or sore throat Cardiovascular Cardiovascular: Reports chest pain; Denies orthopnea or paroxysmal nocturnal dyspnea Respiratory/Chest Respiratory/Chest: Reports cough, dyspnea and dyspnea on exertion; Denies orthopnea or paroxysmal nocturnal dyspnea Gastrointestinal Gastrointestinal: Denies abdominal pain, constipation, melena, nausea or vomiting Genitourinary Genitourinary ED: Denies dysuria, hematuria or urinary frequency Musculoskeletal Musculoskeletal: Denies arthralgias, back pain, myalgias or neck pain Integumentary Denies Abrasions or rash Neurologic Neurologic: Denies headache(s), paresthesias or weakness Psychiatric Psychiatric: Denies anxiety or depression Endocrine Endocrinology: Denies cold intolerance, heat intolerance, polydipsia or polyphagia Hematologic/Lymphatic Hematologic/Lymphatic: Denies easy bleeding or easy bruising EXAM Physical Exam Const Vital Signs: 10/29/21 19:44 10/29/21 20:56 10/29/21 20:59 Temperature 97.4 F L Temperature Source Temporal Pulse Rate 92 79 Respiratory Rate 16 22 H Respiratory Effort Short of Breath Blood Pressure 130/106 H 142/79 H Blood Pressure Mean 114 100 Pulse Ox 99 95 Oxygen Delivery Method Room Air Nasal Cannula Nasal Cannula Oxygen Flow Rate (L/min) 2 2 Positive well nourished, well developed and obese General Appearance ED: well developed; Negative for NAD or pallor Nutritional Appearance: obese HEENT Reports TM's clear and dry mucous membranes HEENT Narrative: Nares patent. Ears normal. Mucosa dry. Uvula midline. No deviation tongue with protrusion. Posterior pharynx out erythema or exudate. atraumatic; Negative for tenderness Tympanic Membrane ED: Yes TM's clear Mouth ED: Yes dry mucous membranes Mouth: dry mucous membranes Eyes PERRL and EOMs intact bilaterally General Eye ED: Negative for pale conjunctiva or scleral icterus Neck no lymphadenopathy, supple and no meningeal signs Neck Narrative: Trachea is midline. There is no inspiratory expiratory stridor. Resp No normal respiratory effort and No clear to auscultation bilaterally Resp Narrative: Patient has no breath sounds noted on the right. Auscultation: rales left base Cardio regular rate, regular rhythm, S1 normal heart sound, S2 normal heart sound and no murmurs GI non-tender, non-distended and no masses Auscultation: normoactive bowel sounds Back/Spine no CVA tenderness and normal to inspection Extremity General Extremety ED: Negative for edema or tenderness General Extremity: Negative for edema Neuro oriented x3, CN's II-XII intact bilaterally and no sensory deficits noted Sensorium / Orientation: alert Psych Mood & Affect: anxious Skin no wounds Skin Narrative: Patient has a dressing over the anterior chest, site of biopsy General Skin Exam: Negative for jaundice or pallor MDM MDM MDM Narrative Medical decision making narrative: Patient presents with shortness of breath status post biopsy. Chest x-ray reveals on her present pneumothorax. Differential is pneumothorax versus pneumonia versus hemothorax. Thoracostomy tube placed/Heimlich valve. Case was staffed with Dr. Gordon Verde. He recommended admission to hospitalist service with consultation to him. Lab Data Attestation: I reviewed the patient's lab results. Lab results narrative: I was asked to see patient immediately. Patient's chest x-ray was 100% pneumothorax on the right. Patient was consented for a Heimlich valve. Labs: Laboratory Results - last 24 hr 10/29/21 20:46 WBC 8.5 RBC 4.94 Hgb 14.6 Hct 43.5 MCV 88.1 MCH 29.6 MCHC 33.6 RDW Std Deviation 43.6 RDW Coeff of Ruben 13.5 Plt Count 310 MPV 8.8 Immature Gran % (Auto) 0.400 Neut % (Auto) 79.6 H Lymph % (Auto) 10.7 L [place] % (Auto) 8.6 Eos % (Auto) 0.2 Baso % (Auto) 0.5 Absolute Neuts (auto) 6.7 Absolute Lymphs (auto) 0.90 Nucleated RBC % 0 Radiography Chest X-Ray - ED: 1 View (100% pneumothorax on the right.) and Read by ED Physician (Chest x-ray after thoracostomy tube placement/Heimlich valve placement reveals significant improvement. There is no subcutaneous air noted. Cardiac silhouette and size unremarkable. There is a mass noted in the right side. Osseous structures appear normal.) Diagnostic Testing: Clinical Impression(s) from Imaging Studies Chest X-Ray 10/29/21 19:50 IMPRESSION: Marked increase in right pneumothorax when compared to the prior study. Electronically Signed: Preston Rouse DO at 20:36 EDT Reading Location ID and State: [address] [place] [address] Tel [phone], Service support , ADDENDUM: 10/29/212045 IMPRESSION: Marked increase in right pneumothorax when compared to the prior study. N.B. : JOSE PRIETO MD, confirmed on 10/29/2021 20:39:33 (ET) that the referring physician received the results and does not require a verbal communication. Electronically Signed: Preston Rouse DO at 20:36 EDT Reading Location ID and State: [address] [place] [address] Tel [phone], Service support , Procedures Other Procedures Procedure(s): Patient was consented for thoracostomy tube/Heimlich valve. Patient was prepped draped sterile manner. The area anesthetized. The catheter was placed with air bubbles noted. Heimlich valve indicates proper function. Patient states his breathing is improved. X-ray obtained after thoracostomy tube reveals significant expansion. Discharge Plan Triage Chief Complaint: Shortness of Breath ED Provider: Jose Prieto Dx/Rx/DC Orders Clinical Impression: Iatrogenic pneumothorax, Shortness of breath, Nicotine dependence in remission, COPD (chronic obstructive pulmonary disease) Prescriptions: No Action Spiriva Respimat 2.5 mcg/actuation mist 2 puff inhalation QDAY Qty: 4 6RF fluticasone propionate 50 mcg/actuation spray,suspension 2 spray INTRANASAL DAILY Qty: 16 3RF metformin 500 mg tablet 500 mg PO DAILY amlodipine 10 MG tablet 10 mg PO DAILY Label Comments: blood pressure losartan-hydrochlorothiazide 1 TAB tablet 1 tab PO DAILY Label Comments: blood pressure bupropion HCl [Wellbutrin XL] 150 MG tablet extended release 24 hr 150 mg PO DAILY Label Comments: depression aspirin 81 MG tablet,delayed release (DR/EC) 81 mg PO DAILY Qty: 30 0RF Label Comments: heart health omeprazole 20 MG capsule 20 mg PO DAILY Label Comments: acid reflux Zyrtec 10 mg capsule 10 mg PO HS montelukast 10 mg tablet 10 mg PO DAILY Qty: 30 6RF budesonide-formoterol [Symbicort] 160-4.5 mcg/actuation HFA aerosol inhaler 2 puff inhalation BID Qty: 1 3RF Rx Instructions: administer with spacer, rinse mouth after each use Primary Care Provider: Mony Morrison Referrals: Mony Morrison MD [Primary Care Provider] - Disposition Disposition: Acute Care Hospital [facility]
[2021-10-29 21:09] VITALS: BP 143/79; PULSE 79; RESP 17; RESP 22; TEMP 36.8; O2SAT 95
[2021-10-29 21:17] LABS: Anion Gap 6 (5-15); BUN 17 mg/dL (7-18); BUN/Creat Ratio 18.5 RATIO (10-20); Calcium,Total 8.9 mg/dL (8.5-10.1); Chloride 104 mmol/L (98-107); Creatinine, Serum 0.92 mg/dL (0.70-1.30); EST Glomerular Filtration Rate 89 mL/min (>60); Est Glom Filt Rate - Afr Amer 108 mL/min (>60); Estimated Creatinine Clearance 74.28 ml/min; Glucose 138 mg/dL (74-106); Sodium Level 140 mmol/L (136-145)
--- NOTE | 2021-10-29 21:18 | HP.PCM_ITS ---
[facility] - General General Date of Admission: 10/29/21 Date of Service: 10/29/21 HPI Prabhjot FERMIN, is a 61 M with a significant past medical history of COPD presents to the emergency room by squad due to acute shortness of breath. Earlier today the patient had a right upper lobe needle core biopsy done of a lung mass that is suspicious for bronchogenic carcinoma. Patient had no complications from the procedure and was discharged however later developed acute shortness of breath. In the emergency room chest x-ray reveals a greater than 50% right pneumothorax and a chest tube was placed and patient had relief of his dyspnea. Chest tube was left in place and patient is to be observed overnight in the hospital and plain goods hemmer will be consulted. [facility] Medical History (Updated 10/29/21 @ 21:[address] Jose Prieto MD) Anxiety and depression Chest pain COPD (chronic obstructive pulmonary disease) Hiatal hernia with GERD HTN (hypertension) Hyperglycemia Marijuana smoker Morbid obesity with BMI of 40.0-44.9, adult Nicotine addiction ALEXANDRA (obstructive sleep apnea) Poor dentition Home Medications amlodipine 10 mg tablet 10 mg PO DAILY 10/31/15 [History Last Taken 10/29/21] bupropion HCl 150 mg 24 hr tablet, extended release (Wellbutrin XL) 150 mg PO DAILY 10/31/15 [History Last Taken 10/29/21] losartan 100 mg-hydrochlorothiazide 12.5 mg tablet 1 tab PO DAILY 10/31/15 [History Last Taken 10/29/21] aspirin 81 mg tablet,delayed release 81 mg PO DAILY ##30 11/01/15 [Rx Last Taken 10/21/21] omeprazole 20 mg capsule,delayed release 20 mg PO DAILY 07/26/16 [History Last Taken 10/29/21] budesonide-formoterol HFA 160 mcg-4.5 mcg/actuation aerosol inhaler (Symbicort) 2 puff inhalation BID #1 ea 05/21/21 [Rx Last Taken 10/29/21] fluticasone propionate 50 mcg/actuation nasal spray,suspension 2 spray intranasal DAILY #16 grams 06/25/21 [Rx Last Taken 10/29/21] tiotropium bromide 2.5 mcg/actuation mist for inhalation (Spiriva Respimat) 2 puff inhalation QDAY #4 grams 06/25/21 [Rx Last Taken 10/29/21] metformin 500 mg tablet 500 mg PO DAILY 10/12/21 [History Last Taken Unknown] cetirizine 10 mg tablet 10 mg PO DAILY 10/29/21 [History Last Taken 10/29/21] montelukast 10 mg tablet 10 mg PO QHS ALLERGIES 10/29/21 [History Last Taken 10/28/21] pregabalin 25 mg capsule 25 mg PO BID 10/29/21 [History Last Taken 10/29/21] Allergy/AdvReac Type Severity Reaction Status Date / Time Penicillins Allergy Unknown Verified 10/29/21 19:46 venom-honey bee Allergy Swelling Verified 10/29/21 19:46 [bee venom (honey bee)] Family History Mother Cancer Father Diabetes Sister Diabetes Surgical History History of arthroplasty of left knee History of tonsillectomy Social History (Updated 10/29/21 @ 21:[address] Jose Prieto MD) household members: none Smoking Status: Current every day smoker tobacco type: cigarettes Tobacco: How many years used: 40 how long ago did patient quit smokin ppd second hand exposure: Yes alcohol intake: current alcohol intake frequency: holidays/special occasions only substance use type: marijuana caffeine: Yes Type: coffee Number of servings: 3 what type of physical activity do you participate in: walking ROS Constitutional Constitutional: Denies chills or fever(s) Eyes Eyes: Denies blurry vision ENT HEENT: Denies abnormal hearing Cardiovascular Cardiovascular: Reports chest pain; Denies palpitations Respiratory/Chest Respiratory/Chest: Reports shortness of breath with exertion Gastrointestinal Gastrointestinal: Denies abdominal pain Genitourinary Genitourinary: Denies dysuria Musculoskeletal Musculoskeletal: Denies back pain Integumentary Integumentary: Denies jaundice Neurologic Neurologic: Denies abnormal gait Psychiatric Psychiatric: Reports anxiety Hematologic/Lymphatic Hematologic/Lymphatic: Denies anemia Vital Signs Vital Signs Vital Signs: 10/29/21 19:44 10/29/21 20:56 10/29/21 20:59 Temperature 97.4 F L Temperature Source Temporal Pulse Rate 92 79 Respiratory Rate 16 22 H Respiratory Effort Short of Breath Blood Pressure 130/106 H 142/79 H Blood Pressure Mean 114 100 Pulse Ox 99 95 Oxygen Delivery Method Room Air Nasal Cannula Nasal Cannula Oxygen Flow Rate (L/min) 2 2 Weight Weight: 264 lb Body Mass Index (BMI) 43.9 Physical Exam Const oriented x3 General Appearance: cooperative and well developed HEENT normocephalic Eyes PERRL Neck no lymphadenopathy General: trachea midline Lymph Lymphatic: no lymphadenopathy noted Resp normal air movement and clear to auscultation bilaterally Cardio regular rhythm, S1 normal heart sound and S2 normal heart sound GI normal to inspection, nondistended, normoactive bowel sounds Extremity normal capillary refill Skin General Skin Exam: no breakdown Neuro CN's II-XII intact bilaterally Psych cooperative and affect normal Appearance: appropriate Results Lab / Micro Data Result Diagrams: 10/29/21 20:46 10/29/21 20:46 Labs: Laboratory Results - last 24 hr 10/29/21 20:46: WBC 8.5, RBC 4.94, Hgb 14.6, Hct 43.5, MCV 88.1, MCH 29.6, MCHC 33.6, RDW Std Deviation 43.6, RDW Coeff of Ruben 13.5, Plt Count 310, MPV 8.8, Immature Gran % (Auto) 0.400, Neut % (Auto) 79.6 H, Lymph % (Auto) 10.7 L, [place] % (Auto) 8.6, Eos % (Auto) 0.2, Baso % (Auto) 0.5, Absolute Neuts (auto) 6.7, Absolute Lymphs (auto) 0.90, Nucleated RBC % 0 10/29/21 20:46: Sodium 140, Potassium 4.0, Chloride 104, Carbon Dioxide 30.0, Anion Gap 6, BUN 17, Creatinine 0.92, Estim Creat Clear Calc 74.28, Est GFR (MDRD) Af Amer 108, Est GFR (MDRD) Non-Af 89, BUN/Creatinine Ratio 18.5, Glucose 138 H, Calcium 8.9 Radiology Impression Chest X-Ray 10/29/21 19:50 IMPRESSION: Marked increase in right pneumothorax when compared to the prior study. Electronically Signed: Preston Rouse DO at 20:36 EDT Reading Location ID and State: [facility] / [place] Tel [phone], Service support , ADDENDUM: 10/29/212045 IMPRESSION: Marked increase in right pneumothorax when compared to the prior study. N.B. : JOSE PRIETO MD, confirmed on 10/29/2021 20:39:33 (ET) that the referring physician received the results and does not require a verbal communication. Electronically Signed: Preston RouseDO at 20:36 EDT , Chest X-Ray 10/29/21 20:23 IMPRESSION: 1. Right chest tube which appears kinked in the scan and the tip does not appear to be fully within the chest cavity. 2. Reduction of right chest tube predominantly in the inferior hemithorax. Apical pneumothorax remains. Electronically Signed: Preston NasimDO at 21:10 EDT , Assessment & Plan Assessment/Plan (1) Iatrogenic pneumothorax: (2) Mass of upper lobe of right lung: (3) Nicotine dependence in remission: QUALIFIERS: Nicotine product type: cigarettes Qualified Code(s): F17.211 - Nicotine dependence, cigarettes, in remission (4) Smoking greater than 40 pack years: (5) Obesity: QUALIFIERS: Obesity type: due to excess calories Obesity classification: adult class 3 (BMI >= 40) Serious obesity comorbidity presence: with serious comorbidity Body mass index: BMI 40.0-44.9 Qualified Code(s): E66.01 - Morbid (severe) obesity due to excess calories; Z68.41 - Body mass index (BMI) 40.0-44.9, adult (6) Marijuana smoker: (7) COPD (chronic obstructive pulmonary disease): QUALIFIERS: COPD type: unspecified COPD Qualified Code(s): J44.9 - Chronic obstructive pulmonary disease, unspecified PLAN: Plan 1. Shortness of breath acute secondary to pneumothorax. Chest tube in place, pulse oxygenation stable and he is in no respiratory distress at present time. Repeat chest x-ray in the morning, consult pulmonary physician Dr. Verde. Anticipate likely discharge tomorrow. Continue oxygen per protocol 2. Nicotine dependence and marijuana?cessation encouraged 3. COPD?continue routine home medications 4. DVT prophylaxis we will use SCDs Charges/Coding Visit Charges OBSV E&M: 66714 Initial observation care L2
[2021-10-29 22:31] VITALS: BP 128/72; PULSE 76; RESP 20; TEMP 37.1; O2SAT 95
[2021-10-29 22:35] VITALS: BMI 41.3
[2021-10-29] MEDS: Pregabalin 25 MG Capsule PO (22:59)
[2021-10-29] MEDS: Montelukast 10 MG Tablet PO (22:59)
[2021-10-30] VITALS (10 sets, daily range): BP systolic 139–161; BP diastolic 73–94; PULSE 59–88; RESP 18–22; TEMP 36.4–37.3; O2SAT 91–97
[2021-10-30] MEDS: Ipratropium/Albuterol Sulfate 3 ML AMPUL.NEB INHALATION ×4 (00:35→19:45)
--- NOTE | 2021-10-30 05:46 | CON.PCM.CC_ITS ---
Assessment & Plan Assessment/Plan (1) Iatrogenic pneumothorax: PLAN: Plan RECOMMENDATIONS: 1. Place patient on supplemental oxygen to aid in pneumothorax resorption. 2. Hook chest tube to Pleur-evac and wall suction. Maintain chest tube to wall suction throughout today. 3. Obtain repeat chest x-ray in the morning. 4. Continue scheduled bronchodilators. IMPRESSIONS: 1. Iatrogenic pneumothorax following CT-guided lung biopsy The patient developed an iatrogenic pneumothorax following CT-guided lung biopsy yesterday. He underwent small bore chest tube placement and was admitted to the hospital. Given the patient's underlying lung disease, I would recommend that he be maintained on wall suction today along with supplemental oxygen to aid in pneumothorax resorption. Plan to repeat chest x-ray in the morning in hopes for chest tube removal tomorrow, pending resolution of his pneumothorax. 2. COPD The patient has been on a stable inhaler regimen as an outpatient with Spiriva Respimat and as needed albuterol. The patient is stable from a respiratory perspective. Plan to continue scheduled DuoNebs as ordered. 3. Obstructive sleep apnea The patient remains noncompliant with the use of nocturnal Pap therapy, despite recommendations to the contrary. 4. Nicotine dependence in remission/morbid obesity/hypertension/GERD Complicates care, management, recovery and prognosis. Continue home medications as indicated. This note was generated with [employer] dictation software. It may contain incorrect words, spelling, and punctuation that were not noted in checking the note before signing. HPI Consult Data Date of Consult: 10/30/21 HPI Narrative Reason for Consultation: Iatrogenic pneumothorax HPI Narrative: The patient is a 61-year-old male, with a history as outlined below, who presented to the emergency department with worsening shortness of breath fol lowing CT-guided lung biopsy earlier in the day. The patient has a known history of tobacco dependency in remission, mild obstructive lung disease along with a right upper lobe lung nodule. The patient is followed by myself in the pulmonary medicine clinic on an outpatient basis. Recent CT chest at the beginning of October 2021 demonstrated interval size increase in his right upper lobe pulmonary nodule to 1.4 cm. Accordingly, the patient was referred to undergo a CT-guided lung biopsy, which was completed yesterday. Following the procedure, a small apical pneumothorax was noted. On presentation to the emergency department, the patient was noted to be afebrile and hemodynamically stable. He was initially documented to be saturating 92% on room air. Initial laboratory evaluation revealed no evidence of a leukocytosis. Chemistry profile was unrevealing. Chest x-ray demonstrated an enlarging right pneumothorax. A small bore chest tube was subsequently placed and the patient was admitted to the medical surgical floor for further management. This morning, the patient does report some mild right-sided chest discomfort, but is otherwise clinically stable. [facility] Medical History Anxiety and depression Chest pain COPD (chronic obstructive pulmonary disease) Hiatal hernia with GERD HTN (hypertension) Hyperglycemia Marijuana smoker Morbid obesity with BMI of 40.0-44.9, adult Nicotine addiction ALEXANDRA (obstructive sleep apnea) Poor dentition Home Medications amlodipine 10 mg tablet 10 mg PO DAILY 10/31/15 [History Last Taken 10/29/21] bupropion HCl 150 mg 24 hr tablet, extended release (Wellbutrin XL) 150 mg PO DAILY depression 10/31/15 [History Last Taken 10/29/21] losartan 100 mg-hydrochlorothiazide 12.5 mg tablet 1 tab PO DAILY hypertension 10/31/15 [History Last Taken 10/29/21] aspirin 81 mg tablet,delayed release 81 mg PO DAILY ##30 11/01/15 [Rx Last Taken 10/22/21] omeprazole 20 mg capsule,delayed release 20 mg PO DAILY GERD 07/26/16 [History Last Taken 10/29/21] budesonide-formoterol HFA 160 mcg-4.5 mcg/actuation aerosol inhaler (Symbicort) 2 puff inhalation BID #1 ea 05/21/21 [Rx Last Taken 10/29/21] fluticasone propionate 50 mcg/actuation nasal spray,suspension 2 spray intranasal DAILY #16 grams 06/25/21 [Rx Last Taken 10/29/21] tiotropium bromide 2.5 mcg/actuation mist for inhalation (Spiriva Respimat) 2 puff inhalation QDAY #4 grams 06/25/21 [Rx Last Taken 10/29/21] metformin 500 mg tablet 500 mg PO DAILY diabetes 10/12/21 [History Last Taken Unknown] cetirizine 10 mg tablet 10 mg PO DAILY allergies 10/29/21 [History Last Taken 10/29/21] montelukast 10 mg tablet 10 mg PO QHS ALLERGIES 10/29/21 [History Last Taken 10/28/21] pregabalin 25 mg capsule 25 mg PO BID back pain 10/29/21 [History Last Taken 10/29/21] Allergy/AdvReac Type Severity Reaction Status Date / Time Penicillins Allergy Unknown Verified 10/29/21 19:46 venom-honey bee Allergy Swelling Verified 10/29/21 19:46 [bee venom (honey bee)] Family History Mother Cancer Father Diabetes Sister Diabetes Surgical History History of arthroplasty of left knee History of tonsillectomy Social History (Updated 10/29/21 @ 21:[address] Jose Prieto MD) household members: none Smoking Status: Current every day smoker tobacco type: cigarettes Tobacco: How many years used: 40 how long ago did patient quit smokin ppd second hand exposure: Yes alcohol intake: current alcohol intake frequency: holidays/special occasions only substance use type: marijuana caffeine: Yes Type: coffee Number of servings: 3 what type of physical activity do you participate in: walking ROS ROS Narrative 10 systems were reviewed with pertinent positives as noted in the HPI above. Physical Exam Const alert, oriented x3 and no apparent distress Nutritional Appearance: morbidly obese HEENT normocephalic and head/scalp atraumatic Eyes PERRL, EOMs intact bilaterally and conjunctivae normal Neck supple General: trachea midline Chest inspection of chest normal Resp normal respiratory effort Resp Narrative: Small bore chest tube in place with Heimlich valve Auscultation: diminished lung sounds; Negative for rales, rhonchi or wheezes Cardio regular rate and regular rhythm GI normal to inspection, nondistended, normoactive bowel sounds Extremity no clubbing, cyanosis or edema Skin no rashes or lesions noted Neuro CN's II-XII intact bilaterally, moves all extremities and no focal motor defi cits Psych cooperative and affect normal Lab / Micro Data Result Diagrams: 10/29/21 20:46 10/29/21 20:46 Labs: Laboratory Results - last 24 hr 10/29/21 20:46: WBC 8.5, RBC 4.94, Hgb 14.6, Hct 43.5, MCV 88.1, MCH 29.6, MCHC 33.6, RDW Std Deviation 43.6, RDW Coeff of Ruben 13.5, Plt Count 310, MPV 8.8, Immature Gran % (Auto) 0.400, Neut % (Auto) 79.6 H, Lymph % (Auto) 10.7 L, [place] % (Auto) 8.6, Eos % (Auto) 0.2, Baso % (Auto) 0.5, Absolute Neuts (auto) 6.7, Absolute Lymphs (auto) 0.90, Nucleated RBC % 0 10/29/21 20:46: Sodium 140, Potassium 4.0, Chloride 104, Carbon Dioxide 30.0, Anion Gap 6, BUN 17, Creatinine 0.92, Estim Creat Clear Calc 74.28, Est GFR (MDRD) Af Amer 108, Est GFR (MDRD) Non-Af 89, BUN/Creatinine Ratio 18.5, Glucose 138 H, Calcium 8.9 Radiology Impression Chest X-Ray 10/29/21 19:50 IMPRESSION: Marked increase in right pneumothorax when compared to the prior study. Electronically Signed: Preston Rouse DO at 20:36 EDT Reading Location ID and State: [address] [place] [address] Tel [phone], Service support , ADDENDUM: 10/29/212045 IMPRESSION: Marked increase in right pneumothorax when compared to the prior study. N.B. : JOSE PRIETO MD, confirmed on 10/29/2021 20:39:33 (ET) that the referring physician received the results and does not require a verbal communication. Electronically Signed: Preston Rouse DO at 20:36 EDT Reading Location ID and State: [address] [place] [address] Tel [phone], Service support , Chest X-Ray 10/29/21 20:23 IMPRESSION: 1. Right chest tube which appears kinked in the scan and the tip does not appear to be fully within the chest cavity. 2. Reduction of right chest tube predominantly in the inferior hemithorax. Apical pneumothorax remains. Electronically Signed: Preston Rouse DO at 21:10 EDT Reading Location ID and State: [facility] [place] Tel [phone], Service support , Charges/Coding Visit Charges Inpatient E&M: 93590 Init Hosp L3
--- NOTE | 2021-10-30 05:55 | RAD_ITS ---
INDICATION: Pneumothorax EXAMINATION/TECHNIQUE: X-RAY - XR Chest 2 Views COMPARISON: 10/29 at 8:23 PM. FINDINGS: LINES/DEVICES: Chest drainage tube visualized along the lateral aspect of the right mid lung field. LUNGS: Right apical pneumothorax demonstrates slight prominence in comparison to the prior study. Mild prominence of the bronchovascular markings is visualized, subtle haziness overlying the right costophrenic angle is seen. The left costophrenic angle is unremarkable. No evidence of left pneumothorax. MEDIASTINUM AND CARDIOVASCULAR STRUCTURES: Cardiac silhouette not enlarged. Central airways and mediastinal contour are unremarkable. BONES AND SOFT TISSUES: Subcutaneous surgical emphysema visualized along the right lateral chest wall demonstrates prominence in comparison to the prior study. RAD/Chest PA and Lateral IMPRESSION: Right apical pneumothorax demonstrates slight prominence in comparison to the prior study. Right lateral chest wall subcutaneous surgical emphysema. Electronically Signed: Taran Dorsey MD at 11:31 EDT ,
[2021-10-30] MEDS: Budesonide Respules 0.5 MG/2 ML AMPUL.NEB. INHALATION ×2 (06:53→19:45)
--- NOTE | 2021-10-30 07:21 | PN.HOSP_ITS ---
Subjective Subjective Follow-up for iatrogenic pneumothorax. Patient had pneumothorax after CT-guided lung biopsy. History of COPD, right lung nodule and is still smoking. Patient started smoking early and then he quit recently but relapsed. He was smoking prior to admission. Objective Data Objective Data Vital Signs: Vital Signs Temp Pulse Resp BP Pulse Ox O2 Del Method O2 Flow Rate 98.7 F 80 20 H 139/94 H 96 Nasal Cannula 2 10/30/21 03:50 10/30/21 03:50 10/30/21 03:50 10/30/21 03:50 10/30/21 03:50 10/30/21 05:00 10/30/21 05:00 FiO2 90 10/30/21 00:35 Oxygen Flow Rate (L/min) 2 Oxygen Delivery Method Nasal Cannula Weight: 248 lb 7.375 oz Body Mass Index (BMI) 41.3 Intake & Output: Intake and Output for Last 24 Hours 10/28/21 10/29/21 10/30/21 23:59 23:59 23:59 Output Total 0 / 0 Balance 0 / 0 Lab / Micro Data Result Diagrams: 10/29/21 20:46 10/29/21 20:46 Labs: Laboratory Results - last 24 hr 10/29/21 20:46: WBC 8.5, RBC 4.94, Hgb 14.6, Hct 43.5, MCV 88.1, MCH 29.6, MCHC 33.6, RDW Std Deviation 43.6, RDW Coeff of Ruben 13.5, Plt Count 310, MPV 8.8, Immature Gran % (Auto) 0.400, Neut % (Auto) 79.6 H, Lymph % (Auto) 10.7 L, [place] % (Auto) 8.6, Eos % (Auto) 0.2, Baso % (Auto) 0.5, Absolute Neuts (auto) 6.7, Absolute Lymphs (auto) 0.90, Nucleated RBC % 0 10/29/21 20:46: Sodium 140, Potassium 4.0, Chloride 104, Carbon Dioxide 30.0, Anion Gap 6, BUN 17, Creatinine 0.92, Estim Creat Clear Calc 74.28, Est GFR (MDRD) Af Amer 108, Est GFR (MDRD) Non-Af 89, BUN/Creatinine Ratio 18.5, Glucose 138 H, Calcium 8.9 Radiography Diagnostic Testing: Radiology Impression Chest X-Ray 10/29/21 19:50 IMPRESSION: Marked increase in right pneumothorax when compared to the prior study. Electronically Signed: Preston Rouse at 20:36 EDT Reading Location ID and State: [address] [place] [address] Tel [phone], Service support , ADDENDUM: 10/29/212045 IMPRESSION: Marked increase in right pneumothorax when compared to the prior study. N.B. : MICKY PRIETO MD, confirmed on 10/29/2021 20:39:33 (ET) that the referring physician received the results and does not require a verbal communication. Electronically Signed: Preston Rouse at 20:36 EDT Reading Location ID and State: [address] [place] [address] Tel [phone], Service support , Chest X-Ray 10/29/21 20:23 IMPRESSION: 1. Right chest tube which appears kinked in the scan and the tip does not appear to be fully within the chest cavity. 2. Reduction of right chest tube predominantly in the inferior hemithorax. Apical pneumothorax remains. Electronically Signed: Preston Rouse DO at 21:10 EDT Reading Location ID and State: [address] [place] [address] Tel [phone], Service support , Physical Exam Narrative Physical exam General: Alert, Oriented x3, Cooperative, morbid obesity BMI 41.3 kg/m? HEENT: Atraumatic, PERRLA, EOMI, Normocephalic Oral: No Gingival or Mucosal Lesions/ Ulcerations Neck: Supple, No JVD, Negative Carotid Bruits Lungs: Air entry diminished in the right apex. Small bore right-sided chest tube with underwater seal, connected to wall suction. No air bubble/air leak. No crepitation/rhonchi Cardiovascular: Regular rate, Regular Rhythm, Normal S1, Normal S2, No murmurs Abdomen: Bowel Sounds Present, Soft, Non Tender, Non-Distended : No renal angle tenderness. No suprapubic tenderness. Extremities: No edema, Capillary Refill Less than 3 Seconds Skin: No rashes, No breakdown Musculoskeletal: No Tenderness to Palpation of Joints or Extremities Neurological: Cranial nerves II-XII grossly intact, DTR 2+/4 and Symmetrical, Neuro grossly intact Psych/Mental Status: Normal Affect, Appropriate. Assessment & Plan Assessment/Plan (1) Iatrogenic pneumothorax: (2) Mass of upper lobe of right lung: (3) Nicotine dependence in remission: QUALIFIERS: Nicotine product type: cigarettes Qualified Code(s): F17.211 - Nicotine dependence, cigarettes, in remission (4) Smoking greater than 40 pack years: (5) Obesity: QUALIFIERS: Body mass index: BMI 40.0-44.9 Obesity classification: adult class 3 (BMI >= 40) Obesity type: due to excess calories Serious obesity comorbidity presence: with serious comorbidity Qualified Code(s): E66.01 - Morbid (severe) obesity due to excess calories; Z68.41 - Body mass index (BMI) 40.0-44.9, adult (6) Marijuana smoker: (7) COPD (chronic obstructive pulmonary disease): QUALIFIERS: COPD type: unspecified COPD Qualified Code(s): J44.9 - Chronic obstructive pulmonary disease, unspecified PLAN: Plan This is 61-year-old gentleman admitted with acute worsening of shortness of breath after elective CT-guided lung biopsy on the day of admission. Patient has a history of COPD with chronic smoking and follows in pulmonary clinic. Recent CT chest showed interval increase of right upper lobe nodule 1.4 cm therefore had a scheduled CT-guided lung biopsy. Mild obstructive lung disease. 1. Iatrogenic right upper lobe pneumothorax: Patient is smallbore chest tube. Chest x-ray before procedure and after procedures followed. Patient is still has significant right pneumothorax. Chest tube with underwater seal connected to wall suction. Discussed with the machine hoop maker. Continue oxygen per protocol 2. Chronic cigarette smoking/nicotine dependence and marijuana?nicotine cessation encouraged. Patient has 40 pack years of smoking. 3. COPD with mild ventilatory obstructive lung disease and obstructive sleep apnea, morbid obesity?continue routine home medications. Patient is not interested to nocturnal CPAP therapy. On his Spiriva and as needed albuterol as an outpatient. DuoNeb inpatient as needed. 4. DVT prophylaxis SCDs Charges/Coding Visit Charges Inpatient E&M: 21243 Subs Hosp L2
[2021-10-30] MEDS: HYDROmorphone 0.5 MG/0.5 ML SYRINGE IV ×2 (08:15→12:07)
[2021-10-30] MEDS: 0.9% Saline Lock 10 ML Syringe IV ×4 (08:16→20:48)
[2021-10-30] MEDS: Aspirin E.C. 81 MG Tablet PO (08:59)
[2021-10-30] MEDS: Fluticasone 0.05% 1 SPRAY NASAL.SRY 2 SPRAY NASAL (09:01)
[2021-10-30] MEDS: Loratadine 10 MG Tablet PO (09:01)
[2021-10-30] MEDS: Losartan Potassium 100 MG Tablet PO (09:01)
[2021-10-30] MEDS: Pantoprazole Sodium 20 MG Tablet PO (09:02)
[2021-10-30] MEDS: amLODIPine 10 MG Tablet PO (09:02)
[2021-10-30] MEDS: hydroCHLOROthiazide 12.5mg 12.5 MG PO (09:02)
[2021-10-30] MEDS: buPROPion (XL) 150 MG TABLET.XL PO (09:02)
--- NOTE | 2021-10-30 09:52 | NURSING ---
Pt refused glucophage stating he no longer takes this medication at home. ADENIKE Cintron made aware. Lyrica not in stock in [facility] at this time, note sent to pharmacy and ADENIKE Cintron aware. Will administer when available.
[2021-10-30] MEDS: Pregabalin 25 MG Capsule PO ×2 (10:22→20:48)
--- NOTE | 2021-10-30 13:46 | CASEMGMT ---
ADENIKE ROSE Assessment: Face to Face with pt for initial transition planning/care coordination assessment. ADENIKE ROSE introduced self and role at [facility], pt voices understanding and consents to assessment. Pt is A/O x4 and answers all questions appropriately at this time. Pt has visitor at bedside. Care providers, pharmacy, and demographics verified/updated. Admitting Dx: R pneumothorax PCP:Tamiko Specialists:margarito Verde; Maldonado, prabhakar Preferred Pharmacy: [facility] Insurance: [facility] Prescription Benefit: yes LW/HPOA: Pt denies having a LW/DPOA and denies need for info regarding AD. Pt asked many questions regarding but did not want to speak to SW or receive rack card. LNOK: Quan Gonzáles, brother Living Arrangements: Pt lives with nephew in a single story house with 2 steps to enter with a rail. Pt reports he is I in ADL's and denies concerns at home. Transportation: Pt drives self and denies concerns with transportation. DME/HHC/SNF: Pt has a bipap at home, no other AD. Pt denies hx of HHC or SNF stays. Pt states no concerns with going home at time of dc. Pt states no further concerns/needs. CM to follow. Advised pt to ask CM if any further question/concerns/needs arise, voices understanding. Pt Goal: Home Plan: Home
[2021-10-30] MEDS: HYDROmorphone 1 MG/ML Syringe IV ×2 (16:01→20:48)
[2021-10-30] MEDS: Montelukast 10 MG Tablet PO (20:48)
[2021-10-31] VITALS (8 sets, daily range): BP systolic 146–151; BP diastolic 71–91; PULSE 64–87; RESP 12–22; TEMP 36.6–36.7; O2SAT 93–96
[2021-10-31] MEDS: 0.9% Saline Lock 10 ML Syringe IV (03:28)
[2021-10-31] MEDS: HYDROmorphone 1 MG/ML Syringe IV (03:28)
[2021-10-31] MEDS: Ipratropium/Albuterol Sulfate 3 ML AMPUL.NEB INHALATION ×3 (06:55→19:06)
[2021-10-31] MEDS: Budesonide Respules 0.5 MG/2 ML AMPUL.NEB. INHALATION ×2 (06:55→19:06)
[2021-10-31] MEDS: Aspirin E.C. 81 MG Tablet PO (07:40)
[2021-10-31] MEDS: Loratadine 10 MG Tablet PO (07:40)
[2021-10-31] MEDS: Fluticasone 0.05% 1 SPRAY NASAL.SRY 2 SPRAY NASAL (07:40)
[2021-10-31] MEDS: Losartan Potassium 100 MG Tablet PO (07:40)
[2021-10-31] MEDS: hydroCHLOROthiazide 12.5mg 12.5 MG PO (07:41)
[2021-10-31] MEDS: Pantoprazole Sodium 20 MG Tablet PO (07:41)
--- NOTE | 2021-10-31 08:08 | RAD_ITS ---
We are attempting to reach an attending provider to discuss findings. An addendum with communication details will be sent when the communication is complete. STUDY: X-RAY CHEST REASON FOR EXAM: Male, 61 years old. PTX follow up TECHNIQUE: Single AP portable view of the chest. COMPARISON: 10/30/2021 FINDINGS: Interval retraction of the right-sided small bore thoracostomy tube into the chest wall with a small apical pneumothorax. Subcutaneous emphysema in the right chest wall. The lungs are clear and expanded. There is no demonstrated pleural abnormality. Normal size heart. Normal mediastinum and jaime. Normal visualized pulmonary arteries. Normal visualized aortic arch and descending thoracic aorta. Normal visualized thoracic spine. Normal visualized ribs, clavicles, and shoulders. There is no demonstrated abnormality of the visualized soft tissue structures of the upper abdomen. RAD/Chest 1 View (Portable) IMPRESSION: Interval retraction of right-sided small bore thoracostomy tube into the chest wall with a small apical pneumothorax. Electronically Signed: Pete Hines MD at 9:30 EDT ,
--- NOTE | 2021-10-31 08:58 | CASEMGMT ---
Patient Link referral made at this time.
--- NOTE | 2021-10-31 10:16 | PN.CC_ITS ---
Assessment & Plan Assessment/Plan (1) Iatrogenic pneumothorax: PLAN: Plan RECOMMENDATIONS: 1. Continue supplemental oxygen to aid in pneumothorax resorption. 2. Given the nonfunctional nature of the small bore chest tube, will plan to remove. Obtain follow-up chest x-ray in 2 hours. 3. Continue scheduled bronchodilators. 4. At a minimum, I would recommend we continue to monitor the patient overnight. If there is no significant pneumothorax present on chest x-ray in the morning he can be discharged home. IMPRESSIONS: 1. Iatrogenic pneumothorax following CT-guided lung biopsy The patient developed an iatrogenic pneumothorax following CT-guided lung biopsy yesterday. He underwent small bore chest tube placement and was admitted to the hospital. The patient was initially maintained on wall suction. However, his chest tube eventually became retracted and was no longer functional. Accordingly, the small bore chest tube was removed. Plan to continue to monitor the patient clinically with repeat chest imaging. If the small apical pneumothorax remained stable, no additional intervention will be required. However, if the patient develops a large pneumothorax, tube thoracotomy will need to be entertained. 2. COPD The patient has been on a stable inhaler regimen as an outpatient with Spiriva Respimat and as needed albuterol. The patient is stable from a respiratory perspective. Plan to continue scheduled DuoNebs as ordered. 3. Obstructive sleep apnea The patient remains noncompliant with the use of nocturnal Pap therapy, despite recommendations to the contrary. 4. Nicotine dependence in remission/morbid obesity/hypertension/GERD Complicates care, management, recovery and prognosis. Continue home medications as indicated. This note was generated with [employer] dictation software. It may contain incorrect words, spelling, and punctuation that were not noted in checking the note before signing. Subjective Subjective The patient was seen and examined at the bedside this morning. Events from the last 24 hours have been reviewed. The patient is currently afebrile, hemodynamically stable and maintaining appropriate oxygen saturations on 4 L/min via nasal cannula. Chest imaging from this morning revealed a small residual right apical pneumothorax. However, the patient's small bore chest tube does not appear to be adequately positioned within the chest wall anymore. Objective Data Objective Data The patient's most recent lab work, culture data and imaging studies have all been personally reviewed. Vital Signs: Vital Signs Temp Pulse Resp BP Pulse Ox O2 Del Method O2 Flow Rate 97.9 F 64 18 149/81 H 94 Nasal Cannula 4 10/31/21 09:15 10/31/21 09:15 10/31/21 09:15 10/31/21 09:15 10/31/21 09:15 10/31/21 09:15 10/31/21 09:15 FiO2 90 10/30/21 00:35 Oxygen Flow Rate (L/min) 4 Oxygen Delivery Method Nasal Cannula Weight: 248 lb 7.375 oz Body Mass Index (BMI) 41.3 Intake & Output: Intake and Output for Last 24 Hours 10/29/21 10/30/21 10/31/21 23:59 23:59 23:59 Intake Total 1000 / 1000 Output Total 750 / 750 Balance 250 / 250 Lab / Micro Data Attestation: I reviewed the patient's lab results. Result Diagrams: 10/29/21 20:46 10/29/21 20:46 Radiography Diagnostic Testing: Radiology Impression Chest X-Ray 10/30/21 05:55 IMPRESSION: Right apical pneumothorax demonstrates slight prominence in comparison to the prior study. Right lateral chest wall subcutaneous surgical emphysema. Electronically Signed: Taran Dorsey MD at 11:31 EDT , Chest X-Ray 10/31/21 08:08 IMPRESSION: Interval retraction of right-sided small bore thoracostomy tube into the chest wall with a small apical pneumothorax. Electronically Signed: Pete Hines MD at 9:30 EDT , Physical Exam Const alert, oriented x3 and no apparent distress Nutritional Appearance: morbidly obese HEENT normocephalic and head/scalp atraumatic Eyes PERRL, EOMs intact bilaterally and conjunctivae normal Neck supple General: trachea midline Chest inspection of chest normal Chest: chest tube Resp normal respiratory effort Auscultation: diminished lung sounds; Negative for rales, rhonchi or wheezes Cardio regular rate and regular rhythm GI normal to inspection, nondistended, normoactive bowel sounds Extremity no clubbing, cyanosis or edema Skin no rashes or lesions noted Neuro CN's II-XII intact bilaterally, moves all extremities and no focal motor deficits Psych cooperative and affect normal Charges/Coding Visit Charges Inpatient E&M: 16528 Subs Hosp L3
[2021-10-31] MEDS: amLODIPine 10 MG Tablet PO (10:32)
[2021-10-31] MEDS: Pregabalin 25 MG Capsule PO ×2 (10:32→20:39)
[2021-10-31] MEDS: buPROPion (XL) 150 MG TABLET.XL PO (10:32)
--- NOTE | 2021-10-31 12:15 | RAD_ITS ---
STUDY: X-RAY CHEST REASON FOR EXAM: Male, 61 years old. chest tube removal TECHNIQUE: Single AP portable view of the chest. COMPARISON: 11/01/2019 03/21/2010 FINDINGS: Interval removal of the right-sided thoracostomy tube with no change in the small apical pneumothorax. Also no change in the subcutaneous emphysema in the right chest wall. The lungs are clear and expanded. There is no demonstrated pleural abnormality. Normal size heart. Normal mediastinum and jaime. Normal visualized pulmonary arteries. Normal visualized aortic arch and descending thoracic aorta. Normal visualized thoracic spine. Normal visualized ribs, clavicles, and shoulders. There is no demonstrated abnormality of the visualized soft tissue structures of the upper abdomen. RAD/Chest 1 View (Portable) IMPRESSION: Interval removal of a right-sided thoracostomy tube with no change in small pneumothorax. Electronically Signed: Pete Hines MD at 13:17 EDT ,
--- NOTE | 2021-10-31 16:21 | PN.HOSP_ITS ---
Subjective Subjective Follow-up for iatrogenic pneumothorax. Patient not returned to oxygen nasal cannula and removes it. Most recent pulse ox 90% on 4 L of oxygen. Objective Data Objective Data Vital Signs: Vital Signs Temp Pulse Resp BP Pulse Ox O2 Del Method O2 Flow Rate 98.0 F 74 20 H 151/71 H 95 Nasal Cannula 4 10/31/21 14:00 10/31/21 14:00 10/31/21 14:00 10/31/21 14:00 10/31/21 14:00 10/31/21 14:00 10/31/21 14:00 FiO2 90 10/30/21 00:35 Oxygen Flow Rate (L/min) 4 Oxygen Delivery Method Nasal Cannula Weight: 248 lb 7.375 oz Body Mass Index (BMI) 41.3 Intake & Output: Intake and Output for Last 24 Hours 10/29/21 10/30/21 10/31/21 23:59 23:59 23:59 Intake Total 1000 / 1000 500 / 500 Output Total 750 / 750 Balance 250 / 250 500 / 500 Lab / Micro Data Result Diagrams: 10/29/21 20:46 10/29/21 20:46 Radiography Diagnostic Testing: Radiology Impression Chest X-Ray 10/31/21 08:08 IMPRESSION: Interval retraction of right-sided small bore thoracostomy tube into the chest wall with a small apical pneumothorax. Chest X-Ray 10/31/21 12:15 IMPRESSION: Interval removal of a right-sided thoracostomy tube with no change in small pneumothorax. Electronically Signed: Pete Hines MD at 13:17 EDT , Physical Exam Narrative Physical exam General: Alert, Oriented x3, Cooperative, morbid obesity BMI 41.3 kg/m? HEENT: Atraumatic, PERRLA, EOMI, Normocephalic Oral: No Gingival or Mucosal Lesions/ Ulcerations Neck: Supple, No JVD, Negative Carotid Bruits Lungs: Air entry diminished in the right apex. Mild subcutaneous right sided chest wall emphysema. Small bore right-sided chest tube on the chest wall on chest x-ray. No air bubble/air leak on underwater seal. No crepitation/rhonchi Cardiovascular: Regular rate, Regular Rhythm, Normal S1, Normal S2, No murmurs Abdomen: Bowel Sounds Present, Soft, Non Tender, Non-Distended : No renal angle tenderness. No suprapubic tenderness. Extremities: No edema, Capillary Refill Less than 3 Seconds Skin: No rashes, No breakdown Musculoskeletal: No Tenderness to Palpation of Joints or Extremities Neurological: Cranial nerves II-XII grossly intact, DTR 2+/4 and Symmetrical, Neuro grossly intact Psych/Mental Status: Normal Affect, Appropriate. Assessment & Plan Assessment/Plan (1) Iatrogenic pneumothorax: (2) Mass of upper lobe of right lung: (3) Nicotine dependence in remission: QUALIFIERS: Nicotine product type: cigarettes Qualified Code(s): F17.211 - Nicotine dependence, cigarettes, in remission (4) Smoking greater than 40 pack years: (5) Obesity: QUALIFIERS: Obesity type: due to excess calories Obesity classification: adult class 3 (BMI >= 40) Serious obesity comorbidity presence: with serious comorbidity Body mass index: BMI 40.0-44.9 Qualified Code(s): E66.01 - Morbid (severe) obesity due to excess calories; Z68.41 - Body mass index (BMI) 40.0-44.9, adult (6) Marijuana smoker: (7) COPD (chronic obstructive pulmonary disease): QUALIFIERS: COPD type: unspecified COPD Qualified Code(s): J44.9 - Chronic obstructive pulmonary disease, unspecified PLAN: Plan This is 61-year-old gentleman admitted with acute worsening of shortness of breath after elective CT-guided lung biopsy on the day of admission. Patient has a history of COPD with chronic smoking and follows in pulmonary clinic. Recent CT chest showed interval increase of right upper lobe nodule 1.4 cm therefore had a scheduled CT-guided lung biopsy. Mild obstructive lung disease. 1. Iatrogenic right upper lobe pneumothorax: Patient is smallbore chest tube. Chest x-ray before procedure and after procedures followed. Patient is still has significant right pneumothorax. Chest tube with underwater seal connected to wall suction. Discussed with the hoisting engineer pile driving. Continue oxygen per protocol 10/31: Repeat chest x-ray individually reviewed and shows a small bore chest tube and right-sided chest wall. Mild subcutaneous chest wall emphysema but no obvious crepitation felt. Critical finding on chest x-ray, discussed with the radiologist. Discussed with the hoisting engineer pile driving and chest tube removed as it was nonfunctional. His pneumothorax was small, no additional intervention recommended or required. Continue scheduled bronchodilator. Repeat chest x-ray tomorrow morning. 2. Chronic cigarette smoking/nicotine dependence and marijuana?nicotine cessation encouraged. Patient has 40 pack years of smoking. 3. COPD with mild ventilatory obstructive lung disease and obstructive sleep apnea, morbid obesity?continue routine home medications. Patient is not interested to nocturnal CPAP therapy. On his Spiriva and as needed albuterol as an outpatient. DuoNeb inpatient as needed. 4. DVT prophylaxis SCDs Charges/Coding Visit Charges Inpatient E&M: 46102 Subs Hosp L2
[2021-10-31] MEDS: Montelukast 10 MG Tablet PO (20:39)
[2021-11-01] VITALS (8 sets, daily range): BP systolic 130–151; BP diastolic 61–86; PULSE 68–80; RESP 16–18; TEMP 36.4–36.7; O2SAT 93–97
--- NOTE | 2021-11-01 05:55 | RAD_ITS ---
STUDY: X-RAY CHEST REASON FOR EXAM: Male, 61 years old patient with small apical right-sided pneumothorax. TECHNIQUE: Single AP portable view of the chest. COMPARISON: Chest radiograph dated 10/31/2021. FINDINGS: There is a large amount of soft tissue emphysema within the right lateral chest wall. This appears similar to previous study. The lungs are clear and hyperexpanded. There is residual right apical pneumothorax measuring approximately 1.9 cm. This appears similar to previous study. No pleural effusions are visualized. Normal size heart. Normal mediastinum and jaime. Normal visualized pulmonary arteries. Normal visualized aortic arch and descending thoracic aorta. Normal visualized thoracic spine. Normal visualized ribs, clavicles, and shoulders. There is no demonstrated abnormality of the visualized soft tissue structures of the upper abdomen. RAD/Chest 1 View (Portable) IMPRESSION: Unchanged appearance of right apical pneumothorax and right-sided soft tissue emphysema. Electronically Signed: Sonia Pretty MD at 7:20 EDT ,
[2021-11-01] MEDS: Ipratropium/Albuterol Sulfate 3 ML AMPUL.NEB INHALATION ×2 (06:42→13:37)
[2021-11-01] MEDS: Budesonide Respules 0.5 MG/2 ML AMPUL.NEB. INHALATION (06:42)
--- NOTE | 2021-11-01 08:45 | PN.CC_ITS ---
Assessment & Plan Assessment/Plan (1) Iatrogenic pneumothorax: PLAN: Plan RECOMMENDATIONS: 1. Continue supplemental oxygen to aid in pneumothorax resorption. 2. Continue scheduled bronchodilators. 3. Encourage incentive spirometer use and mobilize patient as tolerated. 4. Perform walking oximetry study. 5. Given stability in the size of the small right apical pneumothorax, the patient can be discharged home with outpatient pulmonary follow-up. IMPRESSIONS: 1. Iatrogenic pneumothorax following CT-guided lung biopsy The patient developed an iatrogenic pneumothorax following CT-guided lung biopsy. He underwent small bore chest tube placement and was admitted to the hospital. The patient was initially maintained on wall suction. However, his chest tube eventually became retracted and was no longer functional. Accor dingly, the small bore chest tube was removed. Despite this, the patient's right apical pneumothorax remains exceedingly small. Therefore, the patient can likely be discharged home with outpatient pulmonary follow-up at this time. I would recommend a walking oximetry study prior to consideration for discharge home. 2. COPD The patient has been on a stable inhaler regimen as an outpatient with Spiriva Respimat and as needed albuterol. The patient is stable from a respiratory perspective. Plan to continue scheduled DuoNebs as ordered. 3. Obstructive sleep apnea The patient remains noncompliant with the use of nocturnal Pap therapy, despite recommendations to the contrary. 4. Nicotine dependence in remission/morbid obesity/hypertension/GERD Complicates care, management, recovery and prognosis. Continue home medications as indicated. This note was generated with [email or web address] dictation software. It may contain incorrect words, spelling, and punctuation that were not noted in checking the note before signing. Subjective Subjective The patient was seen and examined at the bedside this morning. Events from the last 24 hours have been reviewed. The patient small bore chest tube was removed yesterday after was found to be no longer functional and retracted out of the chest wall. The patient's chest imaging from this morning appears stable with only a small right apical pneumothorax, unchanged from previous. Objective Data Objective Data The patient's most recent lab work, culture data and imaging studies have all been personally reviewed. Vital Signs: Vital Signs Temp Pulse Resp BP Pulse Ox O2 Del Method O2 Flow Rate 98.1 F 68 18 141/81 H 96 Nasal Cannula 4 11/01/21 07:57 11/01/21 07:57 11/01/21 07:57 11/01/21 07:57 11/01/21 07:57 11/01/21 08:02 11/01/21 08:02 FiO2 90 10/30/21 00:35 Oxygen Flow Rate (L/min) 4 Oxygen Delivery Method Nasal Cannula Weight: 248 lb 7.375 oz Body Mass Index (BMI) 41.3 Intake & Output: Intake and Output for Last 24 Hours 10/30/21 10/31/21 11/01/21 23:59 23:59 23:59 Intake Total 1000 / 1000 900 / 900 Output Total 750 / 750 Balance 250 / 250 900 / 900 Lab / Micro Data Attestation: I reviewed the patient's lab results. Result Diagrams: 10/29/21 20:46 10/29/21 20:46 Radiography Diagnostic Testing: Radiology Impression Chest X-Ray 10/31/21 08:08 IMPRESSION: Interval retraction of right-sided small bore thoracostomy tube into the chest wall with a small apical pneumothorax. Electronically Signed: Pete Hines MD at 9:30 EDT , ADDENDUM: 10/31/21 1047 IMPRESSION: Interval retraction of right-sided small bore thoracostomy tube into the chest wall with a small apical pneumothorax. N.B. : The above Results were Read Back by Pete Hines MD to Renetta Cameron OT, and understanding confirmed on 10/31/2021 10:40:15 (ET). Electronically Signed: Pete Hines MD at 9:30 EDT , ADDENDUM: 10/31/21 1144 IMPRESSION: Interval retraction of right-sided small bore thoracostomy tube into the chest wall with a small apical pneumothorax. N.B. : The above Results were Read Back by Pete Hines MD to Steve Schmitz MD, and understanding confirmed on 10/31/2021 11:37:20 (ET). Electronically Signed: Pete Hines MD at 9:30 EDT , Chest X-Ray 10/31/21 12:15 IMPRESSION: Interval removal of a right-sided thoracostomy tube with no change in small pneumothorax. Electronically Signed: Pete Hines MD at 13:17 EDT , Chest X-Ray 11/01/21 05:55 IMPRESSION: Unchanged appearance of right apical pneumothorax and right-sided soft tissue emphysema. Electronically Signed: Sonia Pretty MD at 7:20 EDT , Physical Exam Const alert, oriented x3 and no apparent distress Nutritional Appearance: morbidly obese HEENT normocephalic and head/scalp atraumatic Eyes PERRL, EOMs intact bilaterally and conjunctivae normal Neck supple General: trachea midline Chest inspection of chest normal Resp normal respiratory effort Auscultation: diminished lung sounds; Negative for rales, rhonchi or wheezes Cardio regular rate and regular rhythm GI normal to inspection, nondistended, normoactive bowel sounds Extremity no clubbing, cyanosis or edema Skin no rashes or lesions noted Neuro CN's II-XII intact bilaterally, moves all extremities and no focal motor deficits Psych cooperative and affect normal Charges/Coding Visit Charges Inpatient E&M: 16955 Subs Hosp L2
[2021-11-01] MEDS: Aspirin E.C. 81 MG Tablet PO (09:07)
[2021-11-01] MEDS: Loratadine 10 MG Tablet PO (09:07)
[2021-11-01] MEDS: Losartan Potassium 100 MG Tablet PO (09:08)
[2021-11-01] MEDS: Pregabalin 25 MG Capsule PO (09:08)
[2021-11-01] MEDS: hydroCHLOROthiazide 12.5mg 12.5 MG PO (09:08)
[2021-11-01] MEDS: Fluticasone 0.05% 1 SPRAY NASAL.SRY 2 SPRAY NASAL (09:08)
[2021-11-01] MEDS: Pantoprazole Sodium 20 MG Tablet PO (09:09)
[2021-11-01] MEDS: buPROPion (XL) 150 MG TABLET.XL PO (09:09)
[2021-11-01] MEDS: amLODIPine 10 MG Tablet PO (09:09)
--- NOTE | 2021-11-01 10:31 | DCINST_ITS ---
Discharge Instructions Diet Discharge Diet: Low fat / Low cholesterol and 2000 mg Sodium Diet Activity Discharge Activity: Return to Normal Activity and May Not Drive (For 2 weeks until sees PCP) Dressing / Incision Call your doctor if you observe: Fever of 101 or Higher, Coldness, Increased Pain, Numbness or Tingling, Change in Color, Inability to urinate, Inability to have a bowel movement, Shortness of breath, Dizziness, Fainting spells, Swelling in the ankles, Chest pain, Prolonged hiccupping, Increased palpitations (irregular heartbeat), Calf discomfort and Uncontrolled pain Follow Up Care Test Results: Test results from this visit will be discussed in further detail at your follow- up appointment, if applicable. Discharge Plan Admission Admit Date/Time: 10/29/21 21:26 Primary Reason for Your Visit: Iatrogenic right apical pneumothorax Attending Provider: Steve Schmitz Primary Care Provider: Mony Morrison Consulting Providers: Bony Capellan ; Gordon Verde ; Shukri Govea ; Rylie Edwards NP ; Naveen Hill Discharge Orders/Prescriptions Prescriptions: Continued Spiriva Respimat 2.5 mcg/actuation mist 2 puff inhalation QDAY Qty: 4 6RF fluticasone propionate 50 mcg/actuation spray,suspension 2 spray INTRANASAL DAILY Qty: 16 3RF metformin 500 mg tablet 500 mg PO DAILY amlodipine 10 MG tablet 10 mg PO DAILY Label Comments: blood pressure losartan-hydrochlorothiazide 1 TAB tablet 1 tab PO DAILY Label Comments: blood pressure bupropion HCl [Wellbutrin XL] 150 MG tablet extended release 24 hr 150 mg PO DAILY Label Comments: depression aspirin 81 MG tablet,delayed release (DR/EC) 81 mg PO DAILY Qty: 30 0RF Label Comments: heart health omeprazole 20 MG capsule 20 mg PO DAILY Label Comments: acid reflux cetirizine 10 mg Tablet 10 mg PO DAILY pregabalin 25 mg capsule 25 mg PO BID montelukast 10 mg tablet 10 mg PO QHS budesonide-formoterol [Symbicort] 160-4.5 mcg/actuation HFA aerosol inhaler 2 puff inhalation BID Qty: 1 3RF Rx Instructions: administer with spacer, rinse mouth after each use Referrals / Follow Up: Mony Morrison MD [Primary Care Provider] - Within 1 Week Brown,Gordon, DO [Med Staff - Active Staff] - Within 2 Weeks Disposition Disposition (needs filled in before D/C Order can be placed): Home, Self Care
--- NOTE | 2021-11-01 10:49 | CASEMGMT ---
Addendum entered by Yari Kraft 11/01/21 14:27: Pt did not qualify for home oxygen. Original Note: ADENIKE CM in to pt room, discussed local in network DME companies should pt need oxygen. Pt states he would like to use [employer] as he gets his bipap from there. Discussed to call [employer] once home for delivery of concentrator. Also made pt aware a pox will be provided if he qualifies for home oxygen. Pt verbalizes understanding and denies further homegoing needs.
--- NOTE | 2021-11-01 11:24 | PHA.DC.MR ---
Pharmacy Service has performed discharge medication reconciliation for this patient. No new medications at time of discharge medication review. Medications reviewed are from previously reported home medications. Home Medications amlodipine 10 mg tablet 10 mg PO DAILY 10/31/15 bupropion HCl 150 mg 24 hr tablet, extended release (Wellbutrin XL) 150 mg PO DAILY depression 10/31/15 losartan 100 mg-hydrochlorothiazide 12.5 mg tablet 1 tab PO DAILY hypertension 10/31/15 aspirin 81 mg tablet,delayed release 81 mg PO DAILY ##30 11/01/15 omeprazole 20 mg capsule,delayed release 20 mg PO DAILY GERD 07/26/16 budesonide-formoterol HFA 160 mcg-4.5 mcg/actuation aerosol inhaler (Symbicort) 2 puff inhalation BID #1 ea 05/21/21 fluticasone propionate 50 mcg/actuation nasal spray,suspension 2 spray intranasal DAILY #16 grams 06/25/21 tiotropium bromide 2.5 mcg/actuation mist for inhalation (Spiriva Respimat) 2 puff inhalation QDAY #4 grams 06/25/21 metformin 500 mg tablet 500 mg PO DAILY diabetes 10/12/21 cetirizine 10 mg tablet 10 mg PO DAILY allergies 10/29/21 montelukast 10 mg tablet 10 mg PO QHS ALLERGIES 10/29/21 pregabalin 25 mg capsule 25 mg PO BID back pain 10/29/21 The patient's discharge medication list was reviewed for discrepancies and discrepancies were resolved.
--- NOTE | 2021-11-01 14:06 | PCM.DC.SUM ---
Providers Date of Admission: 10/29/21 Date of Discharge: 11/01/21 Primary Care Physician: Dr. Mony Morrison MD Consultations 10/29/21 22:15 Consult: Contact Lens Flashing Puncher / Pulmonary Medicine Routine Consulting Provider: Pulmonary Medicine wong Varela Reason for Consult: Right pneumothorax EMERGENT Consult: No MD Notified: Yes Date Notified: 10/29/21 Time Notified: 21:33 Method of Notification: ED Physician Initiated Reason For Visit: RIGHT PNEUMOTHORAX Diagnosis Discharge Diagnosis (1) Iatrogenic pneumothorax: Status: Acute Code(s): J95.811 - Postprocedural pneumothorax Medications at Discharge Home Medications amlodipine 10 mg tablet 10 mg PO DAILY 10/31/15 bupropion HCl 150 mg 24 hr tablet, extended release (Wellbutrin XL) 150 mg PO DAILY depression 10/31/15 losartan 100 mg-hydrochlorothiazide 12.5 mg tablet 1 tab PO DAILY hypertension 10/31/15 aspirin 81 mg tablet,delayed release 81 mg PO DAILY ##30 11/01/15 omeprazole 20 mg capsule,delayed release 20 mg PO DAILY GERD 07/26/16 budesonide-formoterol HFA 160 mcg-4.5 mcg/actuation aerosol inhaler (Symbicort) 2 puff inhalation BID #1 ea 05/21/21 fluticasone propionate 50 mcg/actuation nasal spray,suspension 2 spray intranasal DAILY #16 grams 06/25/21 tiotropium bromide 2.5 mcg/actuation mist for inhalation (Spiriva Respimat) 2 puff inhalation QDAY #4 grams 06/25/21 metformin 500 mg tablet 500 mg PO DAILY diabetes 10/12/21 cetirizine 10 mg tablet 10 mg PO DAILY allergies 10/29/21 montelukast 10 mg tablet 10 mg PO QHS ALLERGIES 10/29/21 pregabalin 25 mg capsule 25 mg PO BID back pain 10/29/21 Hospital Course Summary of Care Provided Hospital Course: This is 61-year-old gentleman admitted with acute worsening of shortness of breath after elective CT-guided lung biopsy on the day of admission. Patient has a history of COPD with chronic smoking and follows in pulmonary clinic. Recent CT chest showed interval increase of right upper lobe nodule 1.4 cm therefore had a scheduled CT-guided lung biopsy. Mild obstructive lung disease. 1. Iatrogenic right upper lobe pneumothorax: Patient is smallbore chest tube. Chest x-ray before procedure and after procedures followed. Patient is still has significant right pneumothorax. Chest tube with underwater seal connected to wall suction. Discussed with the thread pulling machine attendant. Continue oxygen per protocol 10/31: Repeat chest x-ray individually reviewed and shows a small bore chest tube and right-sided chest wall. Mild subcutaneous chest wall emphysema but no obvious crepitation felt. Critical finding on chest x-ray, discussed with the radiologist. Discussed with the thread pulling machine attendant and chest tube removed as it was nonfunctional. His pneumothorax was small, no additional intervention recommended or required. Continue scheduled bronchodilator. 10/19/21: Repeat chest x-ray today shows residual right apical pneumothorax measuring about 1.9 cm. Continue oxygen supplement. Pulmonary follow-up reviewed. Patient can be discharged on oxygen supplement. Continue incentive spirometry. Advised quitting smoking. 2. Chronic cigarette smoking/nicotine dependence and marijuana?nicotine cessation encouraged. Patient has 40 pack years of smoking. 3. COPD with mild ventilatory obstructive lung disease and obstructive sleep apnea, morbid obesity?continue routine home medications. Patient is not interested to nocturnal CPAP therapy. On his Spiriva and as needed albuterol as an outpatient. DuoNeb inpatient as needed. 4. DVT prophylaxis SCDs Physical Exam Narrative Physical exam General: Alert, Oriented x3, Cooperative, morbid obesity BMI 41.3 kg/m? HEENT: Atraumatic, PERRLA, EOMI, Normocephalic Oral: No Gingival or Mucosal Lesions/ Ulcerations Neck: Supple, No JVD, Negative Carotid Bruits Lungs: Air entry diminished bilaterally mild subcutaneous right sided chest wall emphysema. No crepitation/rhonchi Cardiovascular: Regular rate, Regular Rhythm, Normal S1, Normal S2, No murmurs Abdomen: Bowel Sounds Present, Soft, Non Tender, Non-Distended : No renal angle tenderness. No suprapubic tenderness. Extremities: No edema, Capillary Refill Less than 3 Seconds Skin: No rashes, No breakdown Musculoskeletal: No Tenderness to Palpation of Joints or Extremities Neurological: Cranial nerves II-XII grossly intact, DTR 2+/4 and Symmetrical, Neuro grossly intact Psych/Mental Status: Normal Affect, Appropriate. Weight / BMI Weight Weight: 248 lb 7.375 oz Body Mass Index (BMI) 41.3 ABG / Lab / Microbiology Data Result Diagrams: 10/29/21 20:46 10/29/21 20:46 Radiography Diagnostic Testing: Radiology Impression Chest X-Ray 10/31/21 08:08 IMPRESSION: Interval retraction of right-sided small bore thoracostomy tube into the chest wall with a small apical pneumothorax. Electronically Signed: Pete Hines MD at 9:30 EDT Reading Location ID and State: [id number] / [place] [employer] , Service support , ADDENDUM: 10/31/21 1047 IMPRESSION: Interval retraction of right-sided small bore thoracostomy tube into the chest wall with a small apical pneumothorax. N.B. : The above Results were Read Back by Pete Hines MD to Renetta Cameron OT, and understanding confirmed on 10/31/2021 10:40:15 (ET). Electronically Signed: Pete Hines MD at 9:30 EDT Reading Location ID and State: [id number] / [place] [employer] , Service support , ADDENDUM: 10/31/21 1144 IMPRESSION: Interval retraction of right-sided small bore thoracostomy tube into the chest wall with a small apical pneumothorax. N.B. : The above Results were Read Back by Pete Hines MD to Steve Schmitz MD, and understanding confirmed on 10/31/2021 11:37:20 (ET). Electronically Signed: Pete Hines MD at 9:30 EDT Reading Location ID and State: [id number] / [place] [employer] , Service support , Chest X-Ray 10/31/21 12:15 IMPRESSION: Interval removal of a right-sided thoracostomy tube with no change in small pneumothorax. Electronically Signed: Pete Hines MD at 13:17 EDT Reading Location ID and State: [id number] / [place] [employer] , Service support , Chest X-Ray 11/01/21 05:55 IMPRESSION: Unchanged appearance of right apical pneumothorax and right-sided soft tissue emphysema. Electronically Signed: Sonia Pretty MD at 7:20 EDT Reading Location ID and State: [facility] / [place] , Service support , Meaningful Use Info Meaningful Use Diagnoses (Choose all that apply): None applicable Discharge Plan Admission Admit Date/Time: 10/29/21 21:26 Primary Reason for Your Visit: Iatrogenic right apical pneumothorax Attending Provider: Steve Schmitz Primary Care Provider: Mony Morrison Consulting Providers: Bony Capellan ; Gordon Verde ; Shukri Govea ; Rylie Edwards NP ; [place]aveen [place] Discharge Orders/Prescriptions Prescriptions: Continued Spiriva Respimat 2.5 mcg/actuation mist 2 puff inhalation QDAY Qty: 4 6RF fluticasone propionate 50 mcg/actuation spray,suspension 2 spray INTRANASAL DAILY Qty: 16 3RF metformin 500 mg tablet 500 mg PO DAILY amlodipine 10 MG tablet 10 mg PO DAILY Label Comments: blood pressure losartan-hydrochlorothiazide 1 TAB tablet 1 tab PO DAILY Label Comments: blood pressure bupropion HCl [Wellbutrin XL] 150 MG tablet extended release 24 hr 150 mg PO DAILY Label Comments: depression aspirin 81 MG tablet,delayed release (DR/EC) 81 mg PO DAILY Qty: 30 0RF Label Comments: heart health omeprazole 20 MG capsule 20 mg PO DAILY Label Comments: acid reflux cetirizine 10 mg Tablet 10 mg PO DAILY pregabalin 25 mg capsule 25 mg PO BID montelukast 10 mg tablet 10 mg PO QHS budesonide-formoterol [Symbicort] 160-4.5 mcg/actuation HFA aerosol inhaler 2 puff inhalation BID Qty: 1 3RF Rx Instructions: administer with spacer, rinse mouth after each use Referrals / Follow Up: Gordon Verde DO [Med Staff - Active Staff] - Within 2 Weeks Mony Morrison MD [Primary Care Provider] - Within 1 Week Disposition Disposition (needs filled in before D/C Order can be placed): Home, Self Care Charges/Coding Visit Charges Inpatient E&M: 41421 Disch Hosp
== END 2021-11-01 15:45 | disposition home or self-care (01) | DRG 143 ==
LOC: ED 21:09 → MS3 21:37
PROVIDERS: Admitting Provider Family Medicine; Emergency Provider Emergency Medicine; PCP Internal Medicine; Visit Provider Internal Medicine
DX: J95.811 Postprocedural pneumothorax (principal); E66.01 Morbid (severe) obesity due to excess calories; I95.9 Hypotension, unspecified; J44.9 Chronic obstructive pulmonary disease, unspecified; Z68.41 Body mass index [BMI] 40.0-44.9, adult; T81.82XA Emphysema (subcutaneous) resulting from a procedure, initial encounter; G47.33 Obstructive sleep apnea (adult) (pediatric); I10 Essential (primary) hypertension; F41.9 Anxiety disorder, unspecified; F17.210 Nicotine dependence, cigarettes, uncomplicated; K21.9 Gastro-esophageal reflux disease without esophagitis; R11.10 Vomiting, unspecified; R91.1 Solitary pulmonary nodule; F32.A Depression, unspecified; Z91.19 Patient's noncompliance with other medical treatment and regimen; Z79.82 Long term (current) use of aspirin; Z79.51 Long term (current) use of inhaled steroids
CPT/HCPCS: 36415; 71045; 71046; 77012; 80048; 85025; 85049; 85610; 85730; 88172; 88305; 88313; 94640; 99156; 99157; 99285; 99406; J7030; J7050; A4216

== ENCOUNTER → 2021-10-29 | Outpatient (CLI) | payer MEDICAID, SELFPAY ==
[2021-10-29] VITALS (14 sets, daily range): BP systolic 54–154; BP diastolic 13–98; PULSE 50–74; RESP 12–25; TEMP 36.4; O2SAT 88–97; BMI 43.2
--- NOTE | 2021-10-29 | ASPIGT_PTH ---
PATIENT: LARISA FERMIN LOC: [place] U#:[id number] AGE/SX: 61/M ROOM: RE10/29/[address]: MANDI Duran : 1960 BED: DIS: 10/29/2021 SPEC #: [id number] RECD: 10/29/21 10:25 STATUS: FACUNDO JULIANNE #: [id number] DUDLEY: 10/29/21 00:[address]: Rylie Edwards NP DEPT: SURGICAL PATHOLOGY RECD BY: Alli Low ENTERED: 10/29/21 10:26 SP TYPE: ASP RAD OTHR DR: Dr. Mony Morrison MD Tissues: Lung, NOS Procedures: FNA Specimen Adequacy Special Stain Group II Surgery Specimen Level IV Imprint (control) HEADER OPERATION: Right lung, CT-guided core biopsy PRE-OP DIAGNOSIS: Lung nodule TISSUE SUBMITTED: Right lung 20-gauge core x3 MICROSCOPIC DIAGNOSIS Right lung mass, CT-guided core biopsy: Scant minute fragment of lung parenchymal tissue, negative for malignancy. See comment. LINDA:yesenia 10/30/2021 COMMENT The specimen is evaluated at the time of biopsy by Dr. Fontana. Immediate Evaluation = Negative for malignant cells. Correlation with clinical, radiologic findings and appropriate follow up are necessary. Re-biopsy is suggested if clinically indicated. Case has been reviewed in consultation with Dr. Hendrickson who concurs with the above diagnosis. IDC:AM MICROSCOPIC DESCRIPTION Slides are reviewed. GROSS DESCRIPTION Received in fixative is one container labeled with the patient's name and designated right lung. The specimen consists of a scant amount of soft tissue. The specimen is totally submitted for cell block preparation. One touch imprint is prepared at the time of core biopsy. / LINDA:yesenia 10/29/2021 TC:5 CPT: 31007, 84799
[2021-10-29 08:17] LABS: Platelet Count 293 K/mm3 (150-450)
[2021-10-29 08:27] LABS: International Normalized Ratio 0.9; Prothrombin Time (Protime)PT. 12.1 SECONDS (11.7-14.9)
[2021-10-29 08:28] LABS: Partial Thromboplast Time 25.3 Seconds (24.1-36.2)
--- NOTE | 2021-10-29 09:09 | CT_ITS ---
FINDINGS: PROCEDURE: CT-guided percutaneous left lung biopsy. CLINICAL HISTORY: Male, 61 years old. mass RUL incereased size CONSENT: Informed, written consent was obtained from the patient, prior to procedure and following discussion of risks, benefits, alternatives and personnel. Patient oriented dose modulation technique utilized. SEDATION: VERSED 2 mg and FENTANYL 100 mcg intravenous. PERFORMING PHYSICIAN: Taran Dorsey MD DATE OF PROCEDURE: 10/29/2021 BULLET CASTING OPERATOR: None. ESTIMATED BLOOD LOSS: Negligible SPECIMENS REMOVED: Sample sent to laboratory with appropriate orders. COMPLICATIONS: None TECHNIQUE: Patient was positioned supine on the CT table. A timeout procedure was obtained. Images CT scan scan of the chest was performed and demonstrated the 1 cm lesion in the inferior lateral right upper lobe. An access site was marked on the patient''s skin after which the overlying skin was prepared in standard, sterile fashion. The skin was anesthetized with lidocaine and a small skin incision was made. Under CT fluoroscopic guidance a 19-gauge coaxial introducer needle was intermittently advanced in to the proximity of the lesion. A 20 gauge coaxial core biopsy needle was then inserted through the needle and a core biopsy specimen was obtained and evaluated by the pathologist on site. 2 additional 20-gauge core biopsy specimens were then obtained and placed in formalin and sent to lab for analysis. The access needle was removed and sterile dressing was applied. Follow-up imaging demonstrated minimal parenchymal contusions, no evidence of pneumothorax is seen. The patient tolerated the procedure well with no immediate complications and was transferred to recovery in stable condition. Serial follow-up chest x-rays will be obtained. CT/Biopsy/Inj or Needle Placement IMPRESSION: Technically successful percutaneous CT biopsy of a right upper lobe lesion,three 20-gauge core biopsy specimens obtained and sent to lab for analysis. Electronically Signed: Taran Dorsey MD at 10:48 EDT ,
[2021-10-29] MEDS: Midazolam 2 MG/2 ML Syringe IV ×2 (09:27→09:37)
[2021-10-29] MEDS: fentaNYL 100 MCG/2 ML Ampul IV ×2 (09:27→09:37)
--- NOTE | 2021-10-29 09:30 | RAD_ITS ---
INDICATION: post biopsy -- Immediately post lung biopsy EXAMINATION/TECHNIQUE: X-RAY - XR Chest 2 Views COMPARISON: CT scan of the chest obtained the same day. FINDINGS: LINES/DEVICES: None. LUNGS: Subtle patchy density visualized in the inferior lateral aspect of the right upper lobe consistent with focal parenchymal contusion that was visualized on the CT scan. No evidence of pneumothorax or pleural fluid is seen. No consolidation, edema or effusion. MEDIASTINUM AND CARDIOVASCULAR STRUCTURES: Cardiac silhouette not enlarged. Central airways and mediastinal contour are unremarkable. BONES AND SOFT TISSUES: Unremarkable. RAD/Chest Insp/Exp 2 View IMPRESSION: Subtle focal parenchymal contusion in the right lung at the biopsy site, no evidence of pneumothorax is seen. Electronically Signed: Taran Dorsey MD at 10:44 EDT ,
[2021-10-29] MEDS: Lidocaine 2% (10 ml mdv) 10 ML Vial INFILT (09:35)
[2021-10-29] MEDS: 0.9% Normal Saline 1,000 ML 999 ML IV (10:12)
--- NOTE | 2021-10-29 10:30 | RAD_ITS ---
INDICATION: post bx, hypotension, vomiting EXAMINATION/TECHNIQUE: X-RAY - XR Chest 1 View COMPARISON: Chest x-ray obtained same day.. FINDINGS: LINES/DEVICES: None. LUNGS: A small apical pneumothorax is seen. Follow-up chest x-ray will be obtained. Pneumothorax demonstrates no increase in comparison to the prior study. No consolidation, edema or effusion. MEDIASTINUM AND CARDIOVASCULAR STRUCTURES: Cardiac silhouette not enlarged. Central airways and mediastinal contour are unremarkable. BONES AND SOFT TISSUES: Unremarkable. RAD/Chest 1 View (Portable) IMPRESSION: A small apical pneumothorax is seen. Follow-up chest x-ray will be obtained. Electronically Signed: Taran Dorsey MD at 12:28 EDT ,
--- NOTE | 2021-10-29 12:13 | RAD_ITS ---
INDICATION: POST BX EXAMINATION/TECHNIQUE: X-RAY - XR Chest 2 Views COMPARISON: Chest x-ray obtained same day 2 hours prior. FINDINGS: LINES/DEVICES: None. LUNGS: Small right apical pneumothorax demonstrates no significant change in comparison to the prior study. Subtle parenchymal contusion at the biopsy site demonstrate no change. No evidence of pleural fluid is seen. The right costophrenic angle is unremarkable. MEDIASTINUM AND CARDIOVASCULAR STRUCTURES: Cardiac silhouette not enlarged. Central airways and mediastinal contour are unremarkable. BONES AND SOFT TISSUES: Unremarkable. RAD/Chest Insp/Exp 2 View IMPRESSION: Right apical pneumothorax demonstrates no significant change in comparison to the prior study. Electronically Signed: Taran Dorsey MD at 12:54 EDT ,
== END | disposition home or self-care (01) ==
LOC: CT 08:01
PROVIDERS: PCP Internal Medicine; Referring Provider Nurse Practitioner Acute Care; Visit Provider Nurse Practitioner Acute Care
DX: R91.1 Solitary pulmonary nodule (principal); J93.9 Pneumothorax, unspecified; I95.9 Hypotension, unspecified; R11.10 Vomiting, unspecified; R06.02 Shortness of breath
CPT/HCPCS: 32408; 36415; 71045; 71046; 85049; 85610; 85730; 88305; 88313; 99156; 99157; 77012; 88172; J7030; J7050; A4216

== ENCOUNTER → 2021-11-14 | Outpatient (CLI) | payer MEDICAID, SELFPAY ==
--- NOTE | 2021-11-14 08:00 | PET_ITS ---
EXAMINATION: FDG PET-CT INDICATIONS: A 61-year-old male with a history of pulmonary nodularity. COMPARISON EXAMINATION: FDG PET CT report dated 01/23/21. INDEX LESION SIZE SUV INTERPRETATION NEW: Right upper lung, right upper lobe 14.4 mm 2.7 Fulfills quantitative criteria for viable neoplasm, histopathologic analysis recommended. TECHNIQUE: Following the intravenous administration of 12.17 mCi of F-18 deoxyglucose via the right hand, multiplanar image acquisitions of the head, neck, chest, abdomen and pelvis to level of mid-thigh, lower extremities obtained at one hour post radiopharmaceutical administration contemporaneously interpreted with the current CT of the head, neck, chest, abdomen and pelvis to level of mid-thigh, lower extremities dated 11/14/21 via coregistration and FDG PET CT report dated 01/23/21 reveal: SERUM GLUCOSE LEVEL: 116mg/dl. HEIGHT: 65 inches. WEIGHT: 254 lbs. FINDINGS: Head/Neck: There is no evidence of abnormal increased glucose metabolism in the pharyngeal mucosal space, parapharyngeal space, bilateral-lateral and anterior neck, hypopharynx and distribution of the laryngeal structures. The visualized portion of the cerebral cortical-subcortical structures demonstrate symmetric and preserved glucose metabolism. CHEST: A focus of enhanced glucose metabolism is identified in the right upper lateral hemithorax pulmonary parenchyma, right upper lobe. The calculated maximum standard uptake value is 2.7. The maximum axial diameter of the metabolic, morphologic abnormality is 14.4 mm. Prominent radiopharmaceutical concentration is identified in the left ventricular myocardium commensurate with the [place]. Prominent tracer uptake is defined in the descending thoracic commensurate with activated leukocytes associated with atherosclerotic plaque formation. Subcutaneous emphysema is noted in the right anterolateral chest wall. Otherwise the previously defined morphologic-anatomic changes described on the prior FDG PET-CT report dated 01/23/21, are essentially unchanged on the current examination. Abdomen/Pelvis: Normal physiologic distribution of the radiopharmaceutical is apparent in the hepatic (3.6) and splenic parenchyma, both renal units, bladder and visualized intestinal tract. Diffuse radiopharmaceutical concentration is noted in all four quadrants of the abdomen and pelvis. Otherwise the previously defined morphologic-anatomic changes described on the prior FDG PET-CT report dated 01/23/21, are essentially unchanged on the current examination. Skeletal: Degenerative changes are noted in the cervical, thoracic and lumbar spine without evidence of increased radiopharmaceutical concentration. There is no visualized sclerotic-lytic changes manifest on review of the appendicular-axial skeletal structures. PET/PET/CT Tumor Base -Thigh Init IMPRESSION: 1. Increased FDG uptake defined in the right upper lung field, right upper lobe fulfills quantitative criteria for viable neoplasm. Histopathologic analysis is recommended. (Morales et al, Annals of Internal Medicine, 138:724, 2003). 2. Overall, compared to the prior FDG PET CT study dated 01/23/21, the currently defined metabolic, morphologic abnormality noted in the right upper lung field, right upper lobe warrants histopathologic investigation. Electronic Signature Pete Moss D.O. Accurate Quantification of SUVs for this report are calculated using the exclusive [employer]. (U.S. Patent No. [id number] [id number] 983). Standardization and correction of the FDG SUV metric via [employer] technology allow for vendor non-specific objective quantitative examination comparison and optimization of the sensitivity and specificity of the FDG PET-CT examination. Electronically Signed: Pete Moss, at 8:42 EDT ,
== END | disposition home or self-care (01) ==
LOC: ONC 07:45
PROVIDERS: PCP Internal Medicine; Referring Provider Nurse Practitioner Acute Care; Visit Provider Nurse Practitioner Acute Care
DX: R91.8 Other nonspecific abnormal finding of lung field (principal)
CPT/HCPCS: 78815; A9552

== ENCOUNTER → 2022-02-07 | Outpatient (CLI) | payer MEDICAID, SELFPAY ==
[2022-02-07 14:29] LABS: ALB/GLOB Ratio 0.9 RATIO (0.9-2.4); AST(SGOT) 8 U/L (15-37); Alanine Aminotransfer ALT/SGPT 19 U/L (16-61); Albumin, Serum 3.2 g/dL (3.2-5.0); Alkaline Phosphatase 65 U/L (45-117); Anion Gap 2 (5-15); BUN 12 mg/dL (7-18); Calcium,Total 8.5 mg/dL (8.5-10.1); Chloride 101 mmol/L (98-107); EST Glomerular Filtration Rate 104 mL/min (>60); Est Glom Filt Rate - Afr Amer 126 mL/min (>60); Globulin 3.4 g/dL (2.2-4.2); Glucose 116 mg/dL (74-106); Potassium 3.8 mmol/L (3.5-5.1); Protein, Total 6.6 g/dL (6.4-8.2); Sodium Level 135 mmol/L (136-145)
== END | disposition home or self-care (01) ==
PROVIDERS: PCP Internal Medicine
DX: C34.91 Malignant neoplasm of unspecified part of right bronchus or lung (principal)
CPT/HCPCS: 36415; 80053

== ENCOUNTER → 2022-02-18 | Outpatient (CLI) | payer MEDICAID, SELFPAY ==
--- NOTE | 2022-02-18 16:56 | MRI_ITS ---
INDICATION: LUNG CA, METASTATIC EVALUATION, no neuro symptoms EXAMINATION: MRI - MR Brain WO/W Contrast TECHNIQUE: Multiplanar and multisequence MR images of the brain were obtained without and with gadolinium. IV Contrast Dosage and Agent: 22 cc Clariscan. COMPARISON: None. FINDINGS: BRAIN AND EXTRA-AXIAL SPACES: No intracranial mass, mass effect, or midline shift. No enhancing lesion. No hemorrhage, territorial infarct or acute ischemia. Mild T2 signal hyperintensity in the white matter consistent with microvascular ischemia. Basal cisterns are unremarkable. SELLA: Pituitary gland is normal in height. AUDITORY SYSTEM: Unremarkable. BONES/JOINTS: Unremarkable. SINUSES: Unremarkable as visualized. Clear. MASTOID AIR CELLS: Unremarkable as visualized. Clear. ORBITS: Unremarkable as visualized. VASCULATURE: Normal flow voids in the major intracranial circulation. MRI/Brain W/WO Contrast IMPRESSION: No acute findings. No enhancing lesion. Mild chronic microvascular ischemic changes. Electronically Signed: Emily Almazan MD at 21:59 EST Reading Location ID and State: [id number] / Tel , Service support ,
== END | disposition home or self-care (01) ==
PROVIDERS: PCP Internal Medicine
DX: C34.91 Malignant neoplasm of unspecified part of right bronchus or lung (principal)
CPT/HCPCS: 70553; A9575

== ENCOUNTER 2022-05-12 16:02 | Emergency (ER) | payer MEDICAID, SELFPAY ==
[2022-05-12 16:04] VITALS: BP 140/85; PULSE 96; RESP 20; TEMP 36.9; O2SAT 94; BMI 38.1
--- NOTE | 2022-05-12 16:14 | RAD_ITS ---
EXAM: XR CHEST, 2 VIEWS CLINICAL INDICATION: cough TECHNIQUE: Frontal and lateral views of the chest. This report was created using [employer] (acquired by [employer] in 2014) report generation technology. COMPARISON: 11/01/2021 FINDINGS: LUNGS AND PLEURAL SPACES: There is a small right-sided pleural effusion. No pneumothorax. HEART: Unremarkable. Cardiac silhouette not enlarged. MEDIASTINUM: Central airways and mediastinal contour are unremarkable. BONES/JOINTS: Unremarkable. SOFT TISSUES: Unremarkable. RAD/Chest PA and Lateral IMPRESSION: Small right-sided pleural effusion. Electronically Signed: Naif Xiao MD at 17:04 EDT ,
--- NOTE | 2022-05-12 16:14 | EX.ED.DYSGE1 ---
HPI History of Present Illness Chief Complaint: Cold Sx Detail of Chief Complaint: Cold symptoms x4 days Informant: patient Narrative Narrative: Patient presents to the emergency department with cold-like symptoms x4 days. He has had sinus drainage as well as cough and sore throat as well as body aches and intermittent headaches. Denies sick contacts. He has had no fever. He has not had a COVID-vaccine or flu vaccine. Patient is a smoker. Patient at times bringing up green to milky white phlegm. PFSH PFSH Medical History Anxiety and depression Chest pain COPD (chronic obstructive pulmonary disease) Hiatal hernia with GERD HTN (hypertension) Hyperglycemia Iatrogenic pneumothorax Marijuana smoker Mass of upper lobe of right lung Morbid obesity with BMI of 40.0-44.9, adult Nicotine addiction Nicotine dependence in remission Obesity ALEXANDRA (obstructive sleep apnea) Poor dentition Smoking greater than 40 pack years Home Medications amlodipine 10 mg tablet 10 mg PO DAILY 10/31/15 [History Last Taken 10/29/21] bupropion HCl 150 mg 24 hr tablet, extended release (Wellbutrin XL) 150 mg PO DAILY depression 10/31/15 [History Last Taken 10/29/21] losartan 100 mg-hydrochlorothiazide 12.5 mg tablet 1 tab PO DAILY hypertension 10/31/15 [History Last Taken 10/29/21] omeprazole 20 mg capsule,delayed release 20 mg PO DAILY GERD 07/26/16 [History Last Taken 10/29/21] cetirizine 10 mg tablet 10 mg PO DAILY allergies 10/29/21 [History Last Taken 10/29/21] pregabalin 25 mg capsule 25 mg PO BID back pain 10/29/21 [History Last Taken 10/29/21] budesonide-formoterol HFA 160 mcg-4.5 mcg/actuation aerosol inhaler (Symbicort) 2 puff inhalation BID #3 ea 11/27/21 [Rx Last Taken Unknown] fluticasone propionate 50 mcg/actuation nasal spray,suspension 2 spray intranasal DAILY #16 grams 11/27/21 [Rx Last Taken Unknown] tiotropium bromide 2.5 mcg/actuation mist for inhalation (Spiriva Respimat) 2 puff inhalation QDAY #4 grams 01/18/22 [Rx Last Taken Unknown] montelukast 10 mg tablet 10 mg PO QHS ALLERGIES #90 tabs 03/06/22 [Rx Last Taken Unknown] azithromycin 250 mg tablet 250 mg PO DAILY #4 TABLETS 05/12/22 [Rx Last Taken Unknown] benzonatate 200 mg capsule 200 mg PO TID PRN cough #20 caps 05/12/22 [Rx Last Taken Unknown] Allergy/AdvReac Type Severity Reaction Status Date / Time Penicillins Allergy Unknown Verified 05/12/22 16:05 venom-honey bee Allergy Swelling Verified 05/12/22 16:05 [bee venom (honey bee)] Family History Mother Cancer Father Diabetes Sister Diabetes Surgical History History of arthroplasty of left knee History of tonsillectomy Social History household members: none Smoking Status: Current every day smoker tobacco type: cigarettes Tobacco: How many years used: 40 how long ago did patient quit smokin ppd second hand exposure: Yes alcohol intake: current alcohol intake frequency: holidays/special occasions only substance use type: marijuana caffeine: Yes Type: coffee Number of servings: 3 what type of physical activity do you participate in: walking ROS ROS ED Review of Systems ROS Unobtainable: other Constitutional Constitutional ED: Reports lethargy; Denies chills, fever(s), sweats or weight loss Eyes Eyes: Denies blurry vision, change in vision or diplopia ENT ENT ED: Reports rhinorrhea and sore throat Cardiovascular Cardiovascular: Denies chest pain, orthopnea or racing heartbeat Respiratory/Chest Respiratory/Chest: Reports cough; Denies dyspnea, dyspnea on exertion, orthopnea or sputum Gastrointestinal Gastrointestinal: Denies abdominal pain, diarrhea, nausea or vomiting Genitourinary Genitourinary ED: Denies dysuria, hematuria or urinary frequency Musculoskeletal Musculoskeletal: Denies arthralgias, back pain, myalgias or neck pain Integumentary Denies abscess, Abrasions or rash Neurologic Neurologic: Denies headache(s) or weakness Psychiatric Psychiatric: Denies anxiety, depression or suicidal thoughts Endocrine Endocrinology: Denies polydipsia, polyphagia or polyuria Hematologic/Lymphatic Hematologic/Lymphatic: Denies easy bleeding, easy bruising or lymphadenopathy Allergic/Immunologic Allergic/Immunologic ED: Denies mouth swelling, tongue swelling or urticaria EXAM Physical Exam Const Vital Signs: 05/12/22 16:04 05/12/22 16:21 Temperature 98.5 F Temperature Source Temporal Pulse Rate 96 Respiratory Rate 20 H Respiratory Effort Short of Breath Labored Blood Pressure 140/85 H Blood Pressure Mean 103 Pulse Ox 94 Oxygen Delivery Method Room Air Room Air Positive well nourished and well developed General Appearance ED: well developed and NAD HEENT Reports TM's clear and moist mucous membranes normocephalic and atraumatic; Negative for trauma or tenderness Tympanic Membrane ED: Yes TM's clear Eyes PERRL and EOMs intact bilaterally General Eye ED: Negative for pale conjunctiva or scleral icterus Neck no lymphadenopathy, supple and no JVD General: Negative for tenderness Chest Wall inspection of chest normal and palpation of chest normal Chest: Negative for tenderness Resp normal respiratory effort and clear to auscultation bilaterally Effort and Inspection: Negative for respiratory distress or pain with movement Auscultation: Negative for rhonchi, wheezes or diminished lung sounds Cardio regular rate, regular rhythm, S1 normal heart sound, S2 normal heart sound and no murmurs Peripheral Pulses: pulses 2+ throughout GI normal to inspection, nondistended, normoactive bowel sounds, soft to palpation, non-tender, non-distended and no masses Back/Spine no CVA tenderness and no thoracic nor lumbar tenderness Extremity normal to inspection General Extremety ED: Negative for edema General Extremity: Negative for edema Neuro oriented x3, CN's II-XII intact bilaterally, no sensory deficits noted and gait normal Sensorium / Orientation: awake, alert, oriented to person, oriented to place and oriented to time Motor Exam: strength 5/5 throughout and strength abnormal Psych mental status grossly normal Skin no rashes or lesions noted and no wounds MDM MDM MDM Narrative Medical decision making narrative: Patient with URI symptoms for 4 days and some sputum. Chest x-ray does not show pneumonia. COVID and flu testing were negative. Patient was started on Zithromax and Tessalon Perles. Advised to follow-up with primary care physician 3 to 5 days. Patient advised to return if increasing shortness of breath or condition should worsen anyway. Radiography Diagnostic Testing: Clinical Impression(s) from Imaging Studies Chest X-Ray 05/12/22 16:14 IMPRESSION: Small right-sided pleural effusion. Electronically Signed: Naif Xiao MD at 17:04 EDT , 1 view chest x-ray obtained interpreted by myself as small right-sided pleural effusion. There is no evidence of infiltrate or pneumothorax. Radiology in agreement. Discharge Plan Triage Chief Complaint: Cold Sx ED Provider: Berenice Redding Dx/Rx/DC Orders Clinical Impression: Bronchitis Instructions: ED Upper Resp Infec Abx Tx Prescriptions: New azithromycin [azithromycin] 250 mg tablet 250 mg PO DAILY Qty: 4 0RF benzonatate 200 mg capsule 200 mg PO TID PRN (Reason: cough) Qty: 20 0RF No Action budesonide-formoterol [Symbicort] 160-4.5 mcg/actuation HFA aerosol inhaler 2 puff inhalation BID Qty: 3 3RF Rx Instructions: administer with spacer, rinse mouth after each use fluticasone propionate 50 mcg/actuation spray,suspension 2 spray INTRANASAL DAILY Qty: 16 11RF amlodipine 10 MG tablet 10 mg PO DAILY Label Comments: blood pressure losartan-hydrochlorothiazide 1 TAB tablet 1 tab PO DAILY Label Comments: blood pressure bupropion HCl [Wellbutrin XL] 150 MG tablet extended release 24 hr 150 mg PO DAILY Label Comments: depression omeprazole 20 MG capsule 20 mg PO DAILY Label Comments: acid reflux cetirizine 10 mg Tablet 10 mg PO DAILY pregabalin 25 mg capsule 25 mg PO BID Spiriva Respimat 2.5 mcg/actuation mist 2 puff inhalation QDAY Qty: 4 11RF montelukast 10 mg tablet 10 mg PO QHS Qty: 90 3RF Primary Care Provider: Mony Morrison Referrals: Mony Morrison MD [Primary Care Provider] - 3-5 Days Disposition Disposition: Home, Self Care
[2022-05-12 16:21] VITALS: O2SAT 94
[2022-05-12] MEDS: Azithromycin 250 MG Tablet 500 MG PO (18:22)
== END 2022-05-12 18:26 | disposition home or self-care (01) ==
PROVIDERS: Emergency Provider Emergency Medicine; PCP Internal Medicine; Visit Provider Emergency Medicine
DX: J40 Bronchitis, not specified as acute or chronic (principal); J44.9 Chronic obstructive pulmonary disease, unspecified; J02.9 Acute pharyngitis, unspecified; I10 Essential (primary) hypertension; F17.210 Nicotine dependence, cigarettes, uncomplicated; Z28.310 Unvaccinated for COVID-19; Z79.899 Other long term (current) drug therapy
CPT/HCPCS: 71046; 87428; 99283

== ENCOUNTER → 2022-05-31 | Outpatient (CLI) | payer MEDICAID, SELFPAY ==
[2022-05-31 16:19] LABS: ALB/GLOB Ratio 0.9 RATIO (0.9-2.4); AST(SGOT) 16 U/L (15-37); Alanine Aminotransfer ALT/SGPT 22 U/L (16-61); Albumin, Serum 3.4 g/dL (3.2-5.0); Alkaline Phosphatase 70 U/L (45-117); Anion Gap 5 (5-15); BUN 16 mg/dL (7-18); Calcium,Total 9.2 mg/dL (8.5-10.1); Chloride 101 mmol/L (98-107); EST Glomerular Filtration Rate 81 mL/min (>60); Est Glom Filt Rate - Afr Amer 98 mL/min (>60); Globulin 3.6 g/dL (2.2-4.2); Glucose 102 mg/dL (74-106); Potassium 3.9 mmol/L (3.5-5.1); Sodium Level 134 mmol/L (136-145)
== END | disposition home or self-care (01) ==
LOC: LAB 14:44
PROVIDERS: PCP Internal Medicine
DX: C34.91 Malignant neoplasm of unspecified part of right bronchus or lung (principal)
CPT/HCPCS: 36415; 80053

== ENCOUNTER → 2022-06-11 | Outpatient (CLI) | payer MEDICAID, SELFPAY ==
--- NOTE | 2022-06-11 07:54 | CT_ITS ---
STUDY: CT CHEST T ABDOMEN WITH CONTRAST REASON FOR EXAM: Male, 61 years old. RIGHT LUNG CA follow-up. Prior right lobectomy. RADIATION DOSAGE (If Supplied By Facility): CTDIvol = ( 14.84 ) mGy, DLP = ( 631.20 ) mGycm TECHNIQUE: Transaxial imaging was performed following intravenous administration of IV 100mL Isovue-370. Multiplanar coronal and sagittal images were reformatted. Individualized dose optimization techniques were used for this CT. COMPARISON: Comparison is made with prior examination of October 11, 2021. FINDINGS: CHEST A right-sided Port-A-Cath is seen with the tip in the superior vena cava. Mildly enlarged right axillary lymph node measuring 1.7 cm. This was not visualized on prior examination due to imaging parameters. The patient is status post right upper lobectomy with loss in the right hemithorax. There is a 2 mm noncalcified nodule in the anterior medial aspect of the right middle lobe as seen on axial image #55 and coronal image #101. Stable focal linear scar in the lateral posterior aspect of the right lower lateral. Stable calcified granuloma in the posterior medial segment of the right lower lobe. There is no demonstrated pleural abnormality. There are calcifications of the coronary arteries. Normal mediastinum. Normal hilar regions. Normal unenhanced pulmonary arteries. There is atherosclerotic calcification of the aortic arch. There are degenerative changes of the thoracic spine. There is no demonstrated abnormality of the visualized upper abdomen. CT/Chest WITH Contrast IMPRESSION: Status post right upper lobectomy. 2 mm noncalcified nodule in the anterior medial aspect of the right middle lobe axial maximum #55 and coronal image #101. Electronically Signed: Reji Muñiz MD at 14:55 EDT ,
== END | disposition home or self-care (01) ==
LOC: CT 07:52
PROVIDERS: PCP Internal Medicine
DX: C34.91 Malignant neoplasm of unspecified part of right bronchus or lung (principal)
CPT/HCPCS: 71260; Q9967

== ENCOUNTER → 2022-09-03 | Outpatient (CLI) | payer MEDICAID, SELFPAY ==
--- NOTE | 2022-09-03 17:31 | CT_ITS ---
STUDY: CT CHEST WITH CONTRAST REASON FOR EXAM: Male, 61 years old. mediastinal lymphadenopathy. Shortness of breath. History of lung cancer. RADIATION DOSAGE (If Supplied By Facility): CTDIvol = ( 16.25 ) mGy, DLP = ( 726.23 ) mGycm TECHNIQUE: Transaxial imaging was performed following intravenous administration of IV 100mL Isovue-300. Multiplanar coronal and sagittal images were reformatted. Individualized dose optimization techniques were used for this CT. COMPARISON: Comparison is made with prior study of June 11, 2022. FINDINGS: CHEST A right-sided portacatheter is seen with the tip in the superior vena cava. Stable 1.7 cm lymph node in the right axilla. Once again, the patient is status post right upper lobectomy with volume loss in the right hemithorax. Stable 2 mm noncalcified nodule in the anterior medial aspect of the right middle lobe as seen on axial image #51. There is a new 1.17 cm nodule in the peripheral lateral aspect of the right middle lobe as seen on axial image #66. There is no demonstrated pleural abnormality. There are calcifications of the coronary arteries. There is a new 1 cm rounded nodule in the lateral aspect of the pericardial fat on the right side. There is a 2.3 cm x 1.4 cm lymph node in the right paratracheal region. There is also evidence of precarinal lymph node. Enlargement of the right hilar lymph nodes. Normal unenhanced pulmonary arteries. Normal aorta arch and descending thoracic aorta. There are multi-level degenerative changes of the thoracic spine. There is evidence of a 3 cm x 2.3 cm hypodense nodule in the right adrenal gland. This is unchanged. CT/Chest WITH Contrast IMPRESSION: Status post right upper lobectomy. New 1.17 cm nodule in the peripheral lateral aspect of the right middle lobe as seen on axial image #66. Right paratracheal and right precarinal lymph node. Enlarged right hilar lymph nodes. Electronically Signed: Reji Muñiz MD at 14:28 EDT ,
[2022-09-03 18:09] LABS: CREATININE FINGERSTICK 1.2 mg/dL (0.70-1.30); EGFR FINGERSTICK > 60.0000 mL/min (>60)
== END | disposition home or self-care (01) ==
LOC: CT 17:29
PROVIDERS: PCP Internal Medicine; Referring Provider Nurse Practitioner Acute Care; Visit Provider Nurse Practitioner Acute Care
DX: C34.90 Malignant neoplasm of unspecified part of unspecified bronchus or lung (principal)
CPT/HCPCS: 71260; Q9967

== ENCOUNTER → 2022-09-17 | Outpatient (CLI) | payer MEDICAID, SELFPAY | END | disposition home or self-care (01) | LOC: SL 11:11 | PROVIDERS: PCP Internal Medicine; Visit Provider Nurse Practitioner Acute Care | DX: G47.33 Obstructive sleep apnea (adult) (pediatric) (principal) | CPT/HCPCS: 98960; G0463 ==

== ENCOUNTER → 2022-11-05 | Outpatient (CLI) | payer MEDICAID, SELFPAY ==
--- NOTE | 2022-11-05 08:00 | PET_ITS ---
PROCEDURE: WHOLE BODY PET/CT SCAN, MID SKULL TO MID THIGH REASON FOR EXAM: New right middle lobe mass. Personal history of adenocarcinoma of the right lung. COMPARISON EXAMINATION: PET scan 11/14/2021, chest CT 09/03/2022. TECHNIQUE: Following the intravenous administration of 11.9 mCi of F-18 FDG, multiplanar imaging acquisitions of the neck, chest, abdomen/pelvis to the mid thigh, obtained at 1 hour post radiopharmaceutical administration. Interpretation is with co-registeration of similar anatomic distribution of CT. Findings: Normal and physiologic distribution of radioisotope identified in the expected intensity of the hepatic and splenic parenchyma, urinary tract and gastrointestinal structures. There is gross anatomic distribution of the intracranial contents. INDEX LESION SIZE SUV INTERPRETATION: 1. Soft tissue nodules of the anterior and lateral epicardial fat (described as right middle lobe on prior chest CT) on image 118 of series 202 measures up to 2.1 x 2.4 cm (SUV 4.8). The nodule measured up to 1.2 cm on recent chest CT. 2. Left subpectoral lymph node on image 72 series 2 measures 1.5 x 1.6 cm (SUV 6.0), new since prior PET scan 3. Mildly nodular pleural thickening of the anterior and posterior right hemithorax on image 111 of series 202 measures of 1.4 x 1.7 cm (SUV 4.2). 4. 2.3 x 2.3 cm (SUV 8.7) soft tissue nodule right lateral to the trachea on image [address] portion of the exam: Right upper lobectomy. No pleural effusion. Axillary lymph nodes are stable, without abnormal FDG activity. Normal heart and pericardium. There are calcifications of the coronary arteries. Normal unenhanced pulmonary arteries. There is atherosclerotic calcification of the aortic arch with tortuosity and elongation of the aortic arch and descending thoracic aorta. Normal liver. Normal gallbladder and extrahepatic biliary system. There are multiple benign calcified granulomata of the spleen. Normal pancreas. 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 No hydronephrosis. Normal visualized stomach. No dilated small bowel. No colon wall thickening. The appendix is visualized and appears normal. There is diffuse atherosclerotic calcification of the abdominal aorta, without a demonstrated aneurysm. Normal inferior vena cava. Normal urinary bladder. There are diffuse degenerative changes of the visualized lumbar spine. PET/PET/CT Tumor Base -Thigh Init IMPRESSION: 1. ABNORMAL EXAMINATION. Right epicardial nodule (reported as right middle lobe on prior CT), right paratracheal adenopathy, right subpectoral adenopathy and nodular right pleural activity meet criteria for viable neoplasm. 2. Chronic changes, as detailed above. Electronically Signed: Constantin Olson MD ([place]) at 9:29 EDT ,
== END | disposition home or self-care (01) ==
LOC: ONC 08:01
PROVIDERS: PCP Internal Medicine; Referring Provider Nurse Practitioner Acute Care; Visit Provider Nurse Practitioner Acute Care
DX: R91.8 Other nonspecific abnormal finding of lung field (principal)
CPT/HCPCS: 78815; A9552

== ENCOUNTER → 2023-01-09 | Outpatient (CLI) | payer MEDICAID, SELFPAY ==
[2023-01-09 11:17] LABS: ALB/GLOB Ratio 0.8 RATIO (0.9-2.4); AST(SGOT) 8 U/L (15-37); Alanine Aminotransfer ALT/SGPT 15 U/L (16-61); Albumin, Serum 3.2 g/dL (3.2-5.0); Alkaline Phosphatase 71 U/L (45-117); Anion Gap 6 (5-15); BUN 17 mg/dL (7-18); BUN/Creat Ratio 17.1 RATIO (10-20); Chloride 98 mmol/L (98-107); Creatinine, Serum 0.99 mg/dL (0.70-1.30); EST Glomerular Filtration Rate 81 mL/min (>60); Est Glom Filt Rate - Afr Amer 99 mL/min (>60); Globulin 3.9 g/dL (2.2-4.2); Glucose 120 mg/dL (74-106); Potassium 4.5 mmol/L (3.5-5.1); Protein, Total 7.1 g/dL (6.4-8.2); Sodium Level 135 mmol/L (136-145)
== END | disposition home or self-care (01) ==
LOC: LAB 10:16
PROVIDERS: PCP Internal Medicine; Referring Provider Internal Medicine Hematology & Oncology; Visit Provider Internal Medicine Hematology & Oncology
DX: C34.91 Malignant neoplasm of unspecified part of right bronchus or lung (principal)
CPT/HCPCS: 36415; 80053

== ENCOUNTER → 2023-01-17 | Outpatient (CLI) | payer MEDICAID, SELFPAY ==
--- NOTE | 2023-01-17 06:47 | MRI_ITS ---
HISTORY: LUNG CA RESTAGING, NO NEURO COMPLAINTS. TECHNIQUE: Multiplanar and multisequence MR images of the brain were obtained before and after the intravenous administration of 20 cc Clariscan. 657 images. COMPARISON: 02/18/2022. FINDINGS: BRAIN PARENCHYMA: Mild foci of increased T2 FLAIR signal in the bilateral cerebral white matter, similar to prior. No enhancing lesion in the brain parenchyma. No abnormal focus of restricted diffusion to suggest acute infarct. No acute intracranial hemorrhage identified. CSF SPACES: Cerebral ventricles, cortical sulci, and other extra-axial CSF spaces within normal limits in size for age. No significant midline shift or other mass effect.No extra-axial fluid collection. VASCULAR SYSTEM: Major intracranial flow voids are maintained. PARANASAL SINUSES AND MASTOID AIR CELLS: Very mild right maxillary sinus mucosal thickening. ORBITS: Symmetric contents. MRI/Brain W/WO Contrast IMPRESSION: No evidence for enhancing intracranial mass. Mild chronic small vessel ischemic gliosis. Electronically Signed: Cici An MD at 12:20 EST ,
== END | disposition home or self-care (01) ==
LOC: MRI 06:29
PROVIDERS: PCP Internal Medicine; Referring Provider Internal Medicine Hematology & Oncology; Visit Provider Internal Medicine Hematology & Oncology
DX: C34.91 Malignant neoplasm of unspecified part of right bronchus or lung (principal)
CPT/HCPCS: 70553; A9575

== ENCOUNTER → 2023-01-22 | Outpatient (CLI) | payer MEDICAID, SELFPAY ==
[2023-01-22] VITALS (14 sets, daily range): BP systolic 95–154; BP diastolic 50–83; PULSE 67–77; RESP 13–18; TEMP 36.4; O2SAT 92–98; BMI 37.5
--- NOTE | 2023-01-22 | IMM_PTH ---
PATIENT: LARISA FERMIN LOC: CT U#:[id number] AGE/SX: 62/M ROOM: RE01/22/[address]: Dr. Fernandez Patel MD : 1960 BED: DIS: 01/22/2023 SPEC #: [id number] RECD: 01/22/23 13:15 STATUS: FACUNDO REQ #: [id number] DUDLEY: 01/22/23 00:[address]: Fernandez Patel DEPT: IMMUNOHISTOCHEMISTRY RECD BY: Emily Mcclellan ENTERED: 01/22/23 13:16 SP TYPE: IMMUNO OTHR DR: Dr. Mony Morrison MD Tissues: Chest wall, NOS Procedures: RCC (add) NAPSIN A (add) CK20 (add) CK5-6 (add) CK7 (add) CK8 (add) HEP PAR (add) TTF1 (add) Pankeratin (initial) P40 (add) PSAP (add) PHYSICIAN & [address] [address] SPECIMEN INFORMATION: Tissue Source: Right chest wall Clinical Info: Right lung nodule Specimen Number: [id number] CPT code: 01017, 22215 x10 METHODOLOGY: Deparaffinized sections of prefer/formalin-fixed tissue or PAP/DQ stained slides are incubated with monoclonal/polyclonal antibodies/oligonucleotide probes. Localization is made via biotin free immunoperoxidase method. Appropriate controls are performed and reacted as expected. Results on target cell population are indicated in the following table: RESULTS: ANTIBODY / CLONE RESULT AE1-3 (AE1/AE3/PCK26) positive CK7 (OV-TL12/30) positive CK8 (54dsofN09) positive CK20 (KS20.8) negative TTF-1 (8G7G3/1) negative Napsin A (Rabbit Polyclonal) negative HepPar (OCh1E5) positive, rare cells RCC (PN-15) negative PSAP (PASE/4LJ) negative CK5-6 (D5 & 1684) negative P40 (BC28) negative These tests were developed and their performance characteristics determined by [facility]. They may not have been cleared or approved by the U.S. Food and Drug Administration. The FDA has determined that such clearance or approval is not necessary. The above immunohistochemical/dualISH markers are ordered and reviewed by the Pathologist. INTERPRETATION: Right chest wall, CT-guided core biopsy: Metastatic adenocarcinoma. See comment. SJ:yesenia 01/23/2023 Comment: IHC profile is noncontributory for primary site of origin. Case has been reviewed in consultation with Dr. Hendrickson who concurs with the above diagnosis. IDC:AM
[2023-01-22 08:59] LABS: Absolute Neutrophil Count 4.9 X10^3/uL (2.0-7.7); Basophil# 0.04 X10^3/uL; Basophil% 0.6 % (0-1); Eosinophil# 0.03 X10^3/uL; Eosinophils% 0.5 % (0-5); Hematocrit 42.6 % (40-54); Hemoglobin 14.1 g/dL (13.0-16.5); Lymphocyte % 13.7 % (19-41); Mean Corp Hgb Conc 33.1 g/dL (32-36); Mean Corpuscular Hgb 29.1 pg (27.0-32.0); Mean Platelet Vol. 8.4 fl (6.2-12.0); Monocyte# 0.72 X10^3/uL; NRBC Flagged by Analyzer 0 % (0-5); Neutrophil # 4.86 X10^3/uL (2.7-7.7); Neutrophil % 73.9 % (47-70); Platelet Count 321 K/mm3 (150-450); RBC Distribution Width CV 12.9 % (11.6-14.6); RBC Distribution Width SD 41.8 fl (35.1-43.9); Red Blood Count 4.84 M/mm3 (4.6-6.2); White Blood Count 6.6 K/mm3 (4.4-11.0)
[2023-01-22 09:11] LABS: Partial Thromboplast Time 26.5 Seconds (24.1-36.2); Prothrombin Time (Protime)PT. 13.3 SECONDS (11.7-14.9)
[2023-01-22] MEDS: Midazolam 2 MG/2 ML Syringe IV (10:03)
[2023-01-22] MEDS: fentaNYL 100 MCG/2 ML Ampul IV ×2 (10:05→10:25)
[2023-01-22] MEDS: Lidocaine 2% (20 ml mdv) 20 ML Vial INFILT (10:21)
--- NOTE | 2023-01-22 10:30 | RAD_ITS ---
STUDY: X-RAY CHEST REASON FOR EXAM: Male, 62 years old. Immediately post biopsy -- Immediately post lung biopsy TECHNIQUE: Single AP portable view of the chest. COMPARISON: Comparison is made with prior study dated May 12, 2022. FINDINGS: The patient is status post right lung biopsy. No evidence of pneumothorax. RAD/Chest 1 View IMPRESSION: No evidence of pneumothorax on the immediate post right lung biopsy radiograph. Electronically Signed: Reji Muñiz MD at 10:48 EST ,
--- NOTE | 2023-01-22 10:30 | ASPIGT_PTH ---
PATIENT: LARISA FERMIN LOC: CT U#:[id number] AGE/SX: 62/M ROOM: RE01/22/[address]: Dr. Fernandez Patel MD : 1960 BED: DIS: 01/22/2023 SPEC #: [id number] RECD: 01/22/23 10:50 STATUS: FACUNDO REMarcus #: [id number] DUDLEY: 01/22/23 10:[address]: Fernandez Patel DEPT: SURGICAL PATHOLOGY RECD BY: Karina Zapata ENTERED: 01/22/23 10:50 SP TYPE: ASP RAD OT DR: Dr. Mony Morrison MD Tissues: Lung, NOS Procedures: FNA Specimen Adequacy Special Stain Group II Surgery Specimen Level IV Imprint (control) HEADER OPERATION: CT-guided lung biopsy PRE-OP DIAGNOSIS: Right lung nodule TISSUE SUBMITTED: Right lung nodule 20-gauge x5 MICROSCOPIC DIAGNOSIS Right chest wall nodule, CT guided biopsy: Metastatic adenocarcinoma. See comment. LINDA/yesenia 01/23/2023 COMMENT The specimen is evaluated at the time of biopsy by Dr. Fontana. Immediate Evaluation = Malignant cells present derived from non-small cell carcinoma. Immunohistochemistry ([id number]) supports the above diagnosis. IHC profile is noncontributory for primary site of origin. Case has been reviewed in consultation with Dr. Hendrickson who concurs with the above diagnosis. IDC:AM MICROSCOPIC DESCRIPTION Slides are reviewed. GROSS DESCRIPTION Received in fixative is one container labeled with the patient's name and designated chest. The specimen consists of multiple irregular fragments of light campbell soft tissue that in aggregate measure 1.0 x 0.2 x 0.1 cm. The specimen is totally submitted in one cassette. Two touch imprints are prepared at the time of core biopsy. / LINDA:yesenia 01/22/2023 TC:0 CPT: 36366, 01187 ADDENDUM ADDENDUM ADDENDUM ADDENDUM ADDENDUM ADDENDUM ADDENDUM ADDENDUM ADDENDUM ADDENDUM ADDENDUM ADDENDUM ADDENDUM ADDENDUM ADDENDUM ADDENDUM ADDENDUM ADDENDUM ADDENDUM ADDENDUM ADDENDUM ADDENDUM ADDENDUM ADDENDUM ADDENDUM 02/26/2023 08:55 ADDENDUM 02/26/2023 08:55 ADDENDUM 02/26/2023 08:55 ADDENDUM 02/26/2023 08:55 ADDENDUM 02/26/2023 08:55 PD-L1 (KEYTRUDA) IMMUNOHISTOCHEMICAL ANALYSIS FROM [facility] RESULTS: Tumor proportion score: 5% / Positive [facility] ADVANCED LUNG CANCER NGS REPORT FROM [facility] RESULT SUMMARY: Abnormal DETECTED GENOMIC ALTERATIONS: Tier II: Variants of Potential Clinical Significance STK11 p.? KRAS p.([id number]) IMMUNOTHERAPY BIOMARKERS: Tumor Mutation [place]: Low (4.7 Mutations / MB) Microsatellite Instability: MSI Negative (3.45%) PERTINENT NEGATIVE RESULTS: The following genes are NEGATIVE for clinically relevant mutations. Mutational hotspots and surrounding exonic regions were interrogated for DNA level point mutations and indels (fusions not assayed). AKT1, ALK, ATR, BRAF, CHEK1, DDR2, EGFR, ERBB2, ERBB3, FGFR1, HRAS, MAP2K1, MET, NRAS, NTRK1, PIK3CA, POLD1, POLE, ROS1, TERT, TP53 Please see complete report in e-chart or EMR
--- NOTE | 2023-01-22 10:39 | PCM.OP.PRO ---
Procedure Report Date of Procedure: 01/22/23 Assessment & Plan Assessment/Plan (1) Metastatic adenocarcinoma: PLAN: PROCEDURE: CT GUIDED CORE NEEDLE biopsy of right chest wall/pericardial lesion ORDERING PROVIDER: Dr. Patel INDICATION: Male, 62 years old. Right chest wall/pericardial lesion. PROVIDER: FREDI Fernando CONSENT: Written informed consent was obtained having explained the risks, benefits and alternatives in detail with the patient who accepted the risks and agreed to proceed. Laboratory review and clinical assessment was performed. PRE-PROCEDURE SEDATION ASSESSMENT: Current history and physical dictated by referring physician and reviewed. No clinical changes since date of exam. Patient has an ASA Class of 2. PROCEDURAL SEDATION PROTOCOL: The Drugs used were: 2 mg Versed, IV, and 50 mcg Fentanyl, IV. The sedation time was: 26 minutes, starting at 1003 and terminated at 1029. The procedural sedation protocol was independently monitored by the department nurse. RADIATION DOSAGE (If Supplied By Facility): CTDIvol = 23.39 mGy, DLP = 653.53 mGycm Individualized dose optimization techniques were used for this CT. TECHNIQUE: The patient was placed in a supine position. A noncontrast CT was performed to localize the lesion in the right anterior chest wall. The skin surface was prepped and draped in a sterile fashion. 2% lidocaine was used for local anesthesia. Using CT guidance, a 20-gauge coaxial biopsy device was advanced to the periphery of the lesion. A total of 6 core specimens were obtained. Specimens were microscopically reviewed by pathology in the CT suite and placed in formalin solution. A sterile occlusive dressing was applied to the biopsy site. The patient tolerated the procedure well. An immediate chest xray was ordered, per protocol. A negative biopsy does not exclude malignancy. Further imaging or clinical followup based on patient condition and degree of clinical suspicion for malignancy. Suggest rebiopsy, if biopsy results do not match with clinical scenario. IMPRESSION: 1. CT directed core needle biopsy of right chest wall/pericardial lesion using CT image guidance with image documentation as described. Pathology results are pending. 2. Procedural Sedation protocol utilized with independent monitoring by the department nurse. Procedures Radiology Radiology CT Procedures: 13264 Biopsy Lung (RIGHT CHEST WALL/PERICARDIAL LESION)
== END | disposition home or self-care (01) ==
LOC: CT 08:45
PROVIDERS: PCP Internal Medicine; Referring Provider Internal Medicine Medical Oncology; Visit Provider Internal Medicine Medical Oncology
DX: C34.2 Malignant neoplasm of middle lobe, bronchus or lung (principal); R91.1 Solitary pulmonary nodule
CPT/HCPCS: 21550; 36415; 71045; 77012; 85025; 85610; 85730; 88172; 88305; 88313; 88341; 88342; 99156; A4216

== ENCOUNTER 2023-02-14 12:53 | Emergency (ER) | payer MEDICAID, SELFPAY ==
[2023-02-14 12:54] VITALS: BP 132/76; PULSE 89; RESP 14; TEMP 36.8; O2SAT 96; BMI 34.7
--- NOTE | 2023-02-14 13:12 | RAD_ITS ---
STUDY: X-RAY - ABDOMEN/PELVIS REASON FOR EXAM: Male, 62 years old. Constipation TECHNIQUE: Multiple AP views of the abdomen / pelvis. COMPARISON: None. FINDINGS: There is right lower lung consolidation and pleural effusion. There is moderate gaseous distention of small bowel loops. There is no demonstrated free abdominal air. Normal soft tissue structures. There are diffuse degenerative changes of the visualized lumbar spine. RAD/Abdomen Single View IMPRESSION: Gaseous distention of small bowel loops with ileus or partial obstruction.. Electronically Signed: Boy Gaines MD at 14:04 EST ,
--- NOTE | 2023-02-14 13:12 | ED.VIS.GI ---
HPI HPI - GI History of Present Illness Chief Complaint: Constipation Informant: patient Abdominal Pain/Flank Pain Onset: Days Context: Gradual Onset Timing: Continuous Current Severity: Mild Maximum Severity: Mild Nausea/Vomiting/Emesis GI Symptom: Negative for Nausea or Vomiting Diarrhea/Melena/Hematochezia GI Symptom: Negative for Diarrhea, Melena or Hematochezia Associated Symptoms Associated Symptoms: Negative for Dysuria, Frequency or Hematuria Narrative Narrative: 62-year-old male history of COPD undergoing chemotherapy for lung cancer. States has been constipated since Friday. This has happened to him before. He denies any abdominal pain other than feeling full and no vomiting. States that he does not watch it while he is getting his chemotherapy gets constipation. Prior similar symptoms: Yes Recent Illness/Hospitalization: No PFSH PFSH Medical History Anxiety and depression Chest pain COPD (chronic obstructive pulmonary disease) Hiatal hernia with GERD HTN (hypertension) Hyperglycemia Iatrogenic pneumothorax Marijuana smoker Mass of upper lobe of right lung Morbid obesity with BMI of 40.0-44.9, adult Nicotine addiction Nicotine dependence in remission Obesity ALEXANDRA (obstructive sleep apnea) Poor dentition Smoking greater than 40 pack years Home Medications amlodipine 10 mg tablet 10 mg PO DAILY 10/31/15 [History Last Taken 10/29/21] bupropion HCl 150 mg 24 hr tablet, extended release (Wellbutrin XL) 150 mg PO DAILY depression 10/31/15 [History Last Taken 10/29/21] losartan 100 mg-hydrochlorothiazide 12.5 mg tablet 1 tab PO DAILY hypertension 10/31/15 [History Last Taken 10/29/21] omeprazole 20 mg capsule,delayed release 20 mg PO DAILY GERD 07/26/16 [History Last Taken 10/29/21] cetirizine 10 mg tablet 10 mg PO DAILY allergies 10/29/21 [History Last Taken 10/29/21] pregabalin 25 mg capsule 25 mg PO BID back pain 10/29/21 [History Last Taken 10/29/21] fluticasone propionate 50 mcg/actuation nasal spray,suspension 2 spray intranasal DAILY #16 grams 08/26/22 [Rx Last Taken Unknown] montelukast 10 mg tablet 10 mg PO QHS ALLERGIES #90 tabs 08/26/22 [Rx Last Taken Unknown] tiotropium bromide 2.5 mcg/actuation mist for inhalation (Spiriva Respimat) 2 puff inhalation QDAY #4 grams 08/26/22 [Rx Last Taken Unknown] budesonide-formoterol HFA 160 mcg-4.5 mcg/actuation aerosol inhaler (Symbicort) 2 puff inhalation BID #3 ea 01/01/23 [Rx Last Taken Unknown] Allergy/AdvReac Type Severity Reaction Status Date / Time Penicillins Allergy Unknown Verified 02/14/23 12:54 venom-honey bee Allergy Swelling Verified 02/14/23 12:54 [bee venom (honey bee)] Family History Mother Cancer Father Diabetes Sister Diabetes Surgical History History of arthroplasty of left knee History of bronchoscopy History of tonsillectomy Social History household members: none Smoking Status: Current every day smoker tobacco type: cigarettes Tobacco: How many years used: 40 how long ago did patient quit smokin ppd second hand exposure: Yes alcohol intake: current alcohol intake frequency: holidays/special occasions only substance use type: marijuana caffeine: Yes Type: coffee Number of servings: 3 what type of physical activity do you participate in: walking ROS ROS ED ROS Narrative Constipation. No vomiting. No fever. Review of Systems ROS Unobtainable: Denies due to encephalopathy Constitutional Constitutional ED: Denies chills or fever(s) ENT ENT ED: Denies ear pain Cardiovascular Cardiovascular: Denies chest pain Respiratory/Chest Respiratory/Chest: Denies cough or dyspnea Gastrointestinal Gastrointestinal: Reports constipation; Denies abdominal pain, diarrhea, melena, nausea or vomiting Genitourinary Genitourinary ED: Denies dysuria or hematuria Musculoskeletal Musculoskeletal: Denies arthralgias Integumentary Denies abscess Neurologic Neurologic: Denies headache(s) Psychiatric Psychiatric: Denies anxiety Endocrine Endocrinology: Denies polydipsia Hematologic/Lymphatic Hematologic/Lymphatic: Denies easy bleeding Allergic/Immunologic Allergic/Immunologic ED: Denies mouth swelling or tongue swelling EXAM Physical Exam Narrative Exam Narrative: Well-appearing 62-year-old male. Vital signs stable afebrile. HEENT exam unremarkable. Neck nontender. Lungs clear to auscultation bilaterally. Heart regular rhythm no murmur. Abdomen soft, nontender, nondistended, normal bowel sounds without peritoneal signs. No signs of obstruction. Moving all 4 extremities. Nontender no edema. Neurologically is awake and alert with no focal motor deficits. Const Vital Signs: 02/14/23 12:54 Temperature 98.2 F Temperature Source Temporal Pulse Rate 89 Respiratory Rate 14 Blood Pressure 132/76 H Blood Pressure Mean 94 Pulse Ox 96 Oxygen Delivery Method Room Air Positive well nourished and well developed; Negative for cachectic, contractures or unkempt General Appearance ED: well developed and NAD; Negative for unkempt, cachectic, contractures or pallor Nutritional Appearance: Negative for cachectic HEENT Reports moist mucous membranes normocephalic and atraumatic; Negative for trauma or tenderness Eyes PERRL and EOMs intact bilaterally General Eye ED: Negative for pale conjunctiva or scleral icterus Neck no lymphadenopathy, supple and no JVD General: Negative for tenderness Carotids: Negative for other Lymph Lymphatic: other Resp normal respiratory effort and clear to auscultation bilaterally Effort and Inspection: Negative for respiratory distress Auscultation: Negative for rales, rhonchi or wheezes Cardio regular rate, regular rhythm, S1 normal heart sound, S2 normal heart sound and no murmurs Rate: Negative for bradycardia or tachycardic Rhythm: Negative for abnormal rhythm GI non-tender, non-distended and no masses Inspection: Negative for abdominal distention Auscultation: normoactive bowel sounds Palpation: soft; Negative for tender or guarding Back/Spine no CVA tenderness General Back: Negative for CVA tenderness Cervical Spine: Negative for cervical spine tenderness Thoracic Spine / Upper Back: Negative for thoracic spinal tenderness Lumbar Spine / Lower Back: Negative for lumbar spinal tenderness Coccyx: Negative for other Extremity full ROM General Extremety ED: Negative for edema or tenderness General Extremity: Negative for edema Neuro CN's II-XII intact bilaterally and moves all extremities Sensorium / Orientation: alert, oriented to person, oriented to place and oriented to time; Negative for orientation impaired, confused, lethargic or stuporous Motor Exam: strength 5/5 throughout; Negative for general weakness or strength abnormal Psych mental status grossly normal and thought process normal Appearance: Negative for unkempt Attitude: No agitated Mood & Affect: Negative for depressed, anxious or tearful Skin no wounds General Skin Exam: Negative for jaundice or pallor Lesions: no lesions Rashes: no rashes Trauma: Negative for abrasion Nails: Negative for discolored MDM MDM MDM Narrative Medical decision making narrative: 62-year-old male constipated. KUB being obtained. Abdomen is nontender. No signs of obstruction. He will be discharged home on GoLytely. Repeat exam patient is doing well at. No peritoneal signs. 2 PM. Abdomen is benign. Will be discharged home on GoLytely. History & Record Review Discussion w/independent historian: Patient Additional record(s) reviewed:: Prior inpatient record, Prior outpatient record, Prior ED visit and Prior labs Radiography Diagnostic Testing: KUB single view interpreted by myself shows Increased stool in the right Colon. No obstruction. Interpreted by myself. 4 views. Discharge Plan Triage Chief Complaint: Constipation ED Provider: Constantine Acuna Dx/Rx/DC Orders Clinical Impression: History of COPD, History of lung cancer, Acute constipation Instructions: ED Constipation (Adult) Prescriptions: No Action fluticasone propionate 50 mcg/actuation spray,suspension 2 spray INTRANASAL DAILY Qty: 16 11RF Spiriva Respimat 2.5 mcg/actuation mist 2 puff inhalation QDAY Qty: 4 11RF montelukast 10 mg tablet 10 mg PO QHS Qty: 90 3RF amlodipine 10 MG tablet 10 mg PO DAILY Patient Comments: blood pressure losartan-hydrochlorothiazide 1 TAB tablet 1 tab PO DAILY Patient Comments: blood pressure bupropion HCl [Wellbutrin XL] 150 MG tablet extended release 24 hr 150 mg PO DAILY Patient Comments: depression omeprazole 20 MG capsule 20 mg PO DAILY Patient Comments: acid reflux cetirizine 10 mg Tablet 10 mg PO DAILY pregabalin 25 mg capsule 25 mg PO BID budesonide-formoterol [Symbicort] 160-4.5 mcg/actuation HFA aerosol inhaler 2 puff inhalation BID Qty: 3 3RF Rx Instructions: administer with spacer, rinse mouth after each use Primary Care Provider: Mony Morrison Referrals: Mony Morrison MD [Primary Care Provider] - 3-5 Days if not improving Activity Restrictions/Additional Instructions: Drink an 8 ounce glass of GoLytely every hour until you have a large bowel movement. Plenty of fluids, fruits, vegetables and fiber to help prevent constipation. Follow-up with your doctor as needed. Return if worse. Disposition Disposition: Home, Self Care
--- OUTSIDE RECORDS SUMMARY | 2023-02-14 13:57 | XMS RPT_ITS | CCD ---
Author Name Unknown Address [facility] [id number] [place] [address] Organization [facility] Care Team Providers Care Hall Monitor Name Role Phone Liliya Lopez Unavailable Unavailable Liliya Lopez Unavailable Unavailable Liliya Lopez Unavailable Unavailable Liliya Lopez Unavailable Unavailable Jerry PADILLA, Rylie S Unavailable [phone] Liliya Lopez Unavailable Unavailable Joy Mims MD Primary Care Provider Joy Mims MD Primary Care Provider Joy Mims MD Primary Care Provider Felicita Joy Natalia Primary Care Provider Chante Figueroa RN Unavailable Unavailable Ngozi Maldonado MD Unavailable Talampas, Joy D Primary Care Provider Chante Figueroa RN Unavailable Unavailable Ngozi Maldonado MD Unavailable TALAMPAS, JOY D Attending Unavailable GIBBS, CORRIE Referring Unavailable TALAMPAS, JOY D Primary Care Unavailable GIBBS, CORRIE Referring Unavailable TALAMPAS, JOY D Primary Care Unavailable GIBBS, CORRIE Attending Unavailable TALAMPAS, JOY D Primary Care Unavailable PRADEEP HERZOG Attending Unavailable GUICHO MAHARAJ Referring Unavailable TALAMPAS, JOY D Primary Care Unavailable YEYO OKEEFE Attending Unavailable TALAMPAS, JOY D Primary Care Unavailable Farhan Douglas MD Unavailable TALAMPJAMIE, JOY, Primary Care Unavailable NGOZI MALDONADO Attending Unavailable NGOZI MALDONADO Attending Unavailable TALAMPAS, JOY, Primary Care Unavailable NGOZI MALDONADO Attending Unavailable MATHEW, NGOZI Referring Unavailable TALAMPAS, JOY, Primary Care Unavailable MATHEW, NGOZI Attending Unavailable TALAMPAS, JOY, Primary Care Unavailable MATHEW, NGOZI Referring Unavailable MATHEW, NGOZI Attending Unavailable MATHEW, NGOZI Referring Unavailable TALAMPAS, JOY, Primary Care Unavailable MATHEW, NGOZI Referring Unavailable MATHEW, NGOZI Attending Unavailable MATHEW, NGOZI Attending Unavailable MATHEW, NGOZI Referring Unavailable TALAMPAS, JOY, Primary Care Unavailable MATHEW, NGOZI Attending Unavailable TALAMPAS, JOY, Primary Care Unavailable MATHEW, NGOZI Attending Unavailable MATHEW, NGOZI Referring Unavailable TALAMPAS, JOY, Primary Care Unavailable MATHEW, NGOZI Attending Unavailable MATHEW, NGOZI Referring Unavailable TALAMPAS, JOY, Primary Care Unavailable MATHEW, NGOZI Attending Unavailable MURILLO, RUBY A Referring Unavailable TALAMPAS, JOY, Primary Care Unavailable DONCALS, FARHAN Attending Unavailable TALAMPAS, JOY, Primary Care Unavailable HARSHIL-JOSE ALEJANDRO, LYNN Attending Unava ilable MURILLO, RUBY A Referring Unavailable MATHEW, NGOZI Attending Unavailable TALAMPAS, JOY, Primary Care Unavailable HARSHIL-JOSE ALEJANDRO, LYNN Attending Unava ilable TALAMPAS, JOY, Primary Care Unavailable TALAMPAS, JOY, Primary Care Unavailable MURILLO, RUBY A Attending Unavailable MATHEW, NGOZI Attending Unavailable MATHEW, NGOZI Referring Unavailable MATHEW, NGOZI Attending Unavailable MATHEW, NGOZI Referring Unavailable TALAMPAS, JOY, Primary Care Unavailable MATHEW, NGOZI Attending Unavailable MATHEW, NGOZI Referring Unavailable TALAMPAS, JOY, Primary Care Unavailable MATHEW, NGOZI Attending Unavailable TALAMPAS, JOY, Primary Care Unavailable MATHEW, NGOZI Referring Unavailable TALAMPAS, JOY, Primary Care Unavailable HARSHIL-JOSE ALEJANDRO, LYNN Attending Unava ilable CHETAN SHELTONSEA Admitting Unava ilable MATHEW, NGOZI Attending Unavailable MATHEW, NGOZI Referring Unavailable TALAMPAS, JOY, Primary Care Unavailable TALAMPAS, JOY, Primary Care Unavailable MATHEW, NGOZI Attending Unavailable Allergies Allergy Classification Reported Allergen(s) Allergy Type Date of Onset Reaction(s) Facility (12 sources) Bee/Wasp/Ant venom; Translations: [BEE STINGS] allergy to substance 4 anaphylaxic shock [facility] Work Phone: (6 sources) penicillin drug allergy 4 [facility] Work Phone: (6 sources) penicillin v drug allergy 4 Unknown, was discovered as a kid [facility] Work Phone: (13 sources) Penicillins; Translations: [PENICILLINS] Drug Allergy 4 Unknown [facility] (13 sources) Bees; Translations: [BEES] Allergy to substance 7 Anaphylaxis [facility] Work Phone: (3 sources) Honey bee venom Propensity to adverse reactions 2 Anaphylaxis [facility] [employer] (20 sources) Penicillins Drug Intolerance 4 Other, Unknown [facility] (20 sources) bee venom Propensity to adverse reactions 2 Anaphylaxis [facility] [employer] Medications Current Medications Medication Drug Class(es) Dates Sig (Normalized) Sig (Original) [id number] 200 actuat albuterol 0.09 mg/actuat metered dose inhaler (20 sources) beta2-Adrenergic Agonist Start: 04-03-2017 albuterol 108 (90 Base) MCG/ACT inhaler Inhale 1 puff as needed. 0 04/03/2017 Active Completed/Discontinued Medications Medication Drug Class(es) Dates Sig (Normalized) Sig (Original) albuterol 0.833 mg/ml / ipratropium bromide 0.167 mg/ml inhalation solution (2 sources) Anticholinergic, beta2-Adrenergic Agonist Start: 12-19-2022 End: 12-19-2022 ipratropium-albut mickey (Duo-Neb) 0.5-2.5 mg/3 mL nebulizer solution 3 mL aspirin 81 mg delayed release oral tablet (20 sources) Nonsteroidal Anti-inflammatory Drug Start: 11-16-2015 take 1 tablet by mouth once daily ASPIRIN EC 81 MG TBEC one tablet by mouth daily ASPIRIN [id number] Harumi Y DeFinis Problems Active Problems Problem Classification Problem Date Documented Date Episodic/Chronic Blindness and vision defects (2 sources) Bilateral hyperopia of eyes; Translations: [Hypermetropia, bilateral] 10-03-2022 Episodic Cancer of bronchus; lung (20 sources) Non-small cell lung cancer; Translations: [Malignant neoplasm of unspecified part of right bronchus or lung] Onset: 01-21-2022 Chronic Cataract (2 sources) Bilateral senile combined form cataracts of eyes; Translations: [Combined forms of age-related cataract, bilateral] Chronic Chronic obstructive pulmonary disease and bronchiectasis (20 sources) Chronic obstructive lung disease; Translations: [Chronic obstructive pulmonary disease, unspecified] Onset: 11-16-2015 11-16-2015 Chronic Diabetes mellitus without complication (20 sources) Newly diagnosed diabetes; Translations: [Type 2 diabetes mellitus without complications] Onset: 04-02-2019 Chronic Esophageal disorders (20 sources) Gastroesophageal reflux disease; Translations: [Gastro-esophageal reflux disease without esophagitis] Onset: 12-20-2021 01-29-2016 Chronic Essential hypertension (20 sources) Hypertensive disorder; Translations: [Essential (primary) hypertension] Onset: 12-20-2021 01-29-2016 Chronic Immunizations and screening for infectious disease (2 sources) Patient encounter status; Translations: [Encounter for immunization] Onset: 11-08-2022 11-08-2022 Episodic Lymphadenitis (3 sources) Lymphadenopathy; Translations: [Enlarged lymph nodes, unspecified] Onset: 12-24-2022 12-12-2022 Episodic Malignant neoplasm without specification of site (2 sources) Malignant (primary) neoplasm, unspecified; Translations: [Malignant (primary) neoplasm, unspecified (HCC)] Onset: 12-24-2022 Chronic Mycoses (2 sources) Onychomycosis; Translations: [Tinea unguium] Episodic Other connective tissue disease (2 sources) Pain of toe of left foot; Translations: [Pain in left toe(s)] Episodic Other connective tissue disease (2 sources) Pain of toe of right foot; Translations: [Pain in right toe(s)] Episodic Other eye disorders (1 source) Optic disc cup finding; Translations: [Other disorders of optic disc, bilateral] Chronic Other lower respiratory disease (1 source) Nodule of lung; Translations: [Solitary pulmonary nodule] 12-12-2022 Episodic Other nervous system disorders (1 source) Other chronic pain; Translations: [Chronic pain of right hip] Onset: 11-08-2022 Chronic Other non-traumatic joint disorders (1 source) Hip pain; Translations: [Pain in right hip] 11-08-2022 Episodic Other non-traumatic joint disorders (1 source) Pain in right hip; Translations: [Chronic pain of right hip] Onset: 11-08-2022 Episodic Other nutritional; endocrine; and metabolic disorders (18 sources) Obesity; Translations: [Obesity, unspecified] Onset: 11-16-2015 11-16-2015 Chronic Residual codes; unclassified (1 source) Other specified postprocedural states; Translations: [History of knee surgery] Onset: 11-08-2022 Episodic Residual codes; unclassified (1 source) History of thoracic surgery; Translations: [Other specified postprocedural states] 12-03-2022 Episodic Retinal detachments; defects; vascular occlusion; and retinopathy (2 sources) Hypertensive retinopathy; Translations: [Hypertensive retinopathy, bilateral] Chronic Screening or history of mental health and substance abuse (10 sources) Tobacco dependence in remission; Translations: [Tobacco dependence syndrome] Onset: 11-16-2015 12-27-2015 Chronic Spondylosis; intervertebral disc disorders; other back problems (12 sources) Degeneration of lumbar intervertebral disc; Translations: [Other intervertebral disc degeneration, lumbar region] Onset: 01-29-2016 01-29-2016 Chronic Substance-related disorders (17 sources) Tobacco dependence syndrome; Translations: [Cigarette smoker ] Onset: 11-16-2015 11-16-2015 Chronic Unclassified (20 sources) Obstructive sleep apnea syndrome; Translations: [Obstructive sleep apnea (adult) (pediatric)] Onset: 11-16-2015 11-16-2015 Chronic Unclassified (10 sources) Encounter for screening for malignant neoplasm of colon; Translations: [Patient encounter status] Onset: 11-08-2022 08-11-2013 Episodic Unclassified (2 sources) New Patient; Translations: [New Patient] Onset: 12-12-2022 Unclassified (2 sources) Lung Nodule; Translations: [Lung Nodule] Onset: 12-12-2022 Past or Other Problems Problem Classification Problem Date Documented Da te Episodic/Chronic Complications of surgical procedures or medical care (2 sources) Iatrogenic pneumothorax; Translations: [Postprocedural pneumothorax] Onset: 11-05-2021 11-08-2022 Episodic Other lower respiratory disease (9 sources) Solitary nodule of lung; Translations: [Solitary pulmonary nodule] Onset: 09-14-2021 09-14-2021 Episodic Other lower respiratory disease (20 sources) Lung mass; Translations: [Other nonspecific abnormal finding of lung field] Onset: 12-26-2021 12-26-2021 Episodic Spondylosis; intervertebral disc disorders; other back problems (20 sources) Sciatica; Translations: [Sciatica, right side] Onset: 01-29-2016 01-29-2016 Episodic Results Test Name Value Interpretation Reference Range Facil ity Vital Signs Date Time Vital Sign Value Performing Clinician Faci lity 01-27-2023 13:31-0500 Body height 165.1 cm Ngozi Maldonado MD Work Phone: [employer] 01-27-2023 13:31-0500 Body mass index (BMI) [Ratio] 36.49 kg/m2 Ngozi Maldonado MD Work Phone: [employer] 01-27-2023 13:31-0500 Body temperature 98.8 [degF] Ngozi Maldonado MD Work Phone: [employer] 01-27-2023 13:31-0500 Body weight 99.47 kg Ngozi Maldonado MD Work Phone: [employer] 01-27-2023 13:31-0500 Diastolic blood pressure 62 mm[Hg] Ngozi Maldonado MD Work Phone: [employer] 01-27-2023 13:31-0500 Heart rate 70 /min Ngozi Maldonado MD Work Phone: [employer] 01-27-2023 13:31-0500 SaO2% (BldA) [Mass fraction] 93 % Ngozi Maldonado MD Work Phone: [employer] 01-27-2023 13:31-0500 Systolic blood pressure 109 mm[Hg] Ngozi Maldonado MD Work Phone: [employer] 12-26-2022 10:48-0500 Body height 165.1 cm Ngozi Maldonado MD Work Phone: [employer] 12-26-2022 10:48-0500 Body mass index (BMI) [Ratio] 37.72 kg/m2 Ngozi Maldonado MD Work Phone: [employer] 12-26-2022 10:48-0500 Body temperature 97.7 [degF] Ngozi Maldonado MD Work Phone: [employer] 12-26-2022 10:48-0500 Body weight 102.83 kg Ngozi Maldonado MD Work Phone: [facility] [employer] 12-26-2022 10:48-0500 Diastolic blood pressure 71 mm[Hg] Ngozi Maldonado MD Work Phone: [facility] [employer] 12-26-2022 10:48-0500 Heart rate 71 /min Ngozi Maldonado MD Work Phone: [employer] 12-26-2022 10:48-0500 SaO2% (BldA) [Mass fraction] 96 % Ngozi Maldonado MD Work Phone: [facility] [employer] 12-26-2022 10:48-0500 Systolic blood pressure 116 mm[Hg] Ngozi Maldonado MD Work Phone: [facility] [employer] 12-19-2022 14:00-0500 Diastolic blood pressure 72 mm[Hg] Lynn Harshil-Jose Alejandro DO Work Phone: [facility] [employer] 12-19-2022 14:00-0500 Heart rate 80 /min Lynn Harshil-Jose Alejandro DO Work Phone: [employer] 12-19-2022 14:00-0500 Respiratory rate 18 /min Lnyn Harshil-Jose Alejandro DO Work Phone: [employer] 12-19-2022 14:00-0500 SaO2% (BldA) [Mass fraction] 96 % Lynn Harshil-Jose Alejandro DO Work Phone: [employer] 12-19-2022 14:00-0500 Systolic blood pressure 119 mm[Hg] Lynn Harshil-Jose Alejandro DO Work Phone: [employer] 12-19-2022 10:20-0500 Body temperature 97.3 [degF] Lynn Harshil-Jose Alejandro DO Work Phone: [employer] 12-12-2022 11:01-0400 Body height 165.1 cm Lynn Harshil-Jose Alejandro DO Work Phone: [employer] 12-12-2022 11:01-0400 Body mass index (BMI) [Ratio] 37.84 kg/m2 Lynn Shelton DO Work Phone: [employer] 12-12-2022 11:01-0400 Body weight 103.15 kg Lynn Shelton DO Work Phone: [facility] [employer] 12-12-2022 11:01-0400 Diastolic blood pressure 70 mm[Hg] Lynn Shelton DO Work Phone: [facility] [employer] 12-12-2022 11:01-0400 Heart rate 66 /min Lynn Shelton DO Work Phone: [employer] 12-12-2022 11:01-0400 Respiratory rate 18 /min Lynn Shelton DO Work Phone: [facility] [employer] 12-12-2022 11:01-0400 SaO2% (BldA) [Mass fraction] 96 % Lynn Shelton DO Work Phone: [facility] [employer] Encounters Encounter Date Encounter Type Care Provider Facility Start: 02-12-2023 Telephone encounter [facility] Start: 01-27-2023 End: 01-27-2023 ambulatory FELICITA HAMILTON [facility] Start: 01-27-2023 Telephone encounter Ngozi ochoa MD Work Phone: [facility] [place] Procedures Date Procedure Procedure Detail Performing Clinician Start: 12-19-2022 FL AN ELECTIVE ENDOTRACHEAL AIRWAY Evens Clay CLIENT EXPERIENCE SPECIALIST - PRICING ACTUARY Work Phone: Start: 11-08-2022 History of operative procedure on knee History of knee surgery Corrie Gibbs CLIENT EXPERIENCE SPECIALIST.THIRD RIGGER Work Phone: Start: 05-10-2022 Hemoglobin A1c/Hemoglobin.total in Blood Joy Mims MD Work Phone: Start: 03-13-2022 Follow-up visit Follow-up NGOZI SANTIAGO Start: 10-03-2021 Computerized ophthal maritza imaging retina Guicho Maharaj MD Work Phone: Start: 09-14-2021 Adult depression screening assessment Guicho Maharaj MD Work Phone: Start: 07-10-2018 Adult depression screening assessment Corrie Hammers CLIENT EXPERIENCE SPECIALIST.THIRD RIGGER Work Phone: Start: 12-11-2016 Colonoscopy Corrie bynum CLIENT EXPERIENCE SPECIALIST.THIRD RIGGER Work Phone: Start: 03-28-2016 End: 09-02-2016 BWA Rylie James CLAM SHUCKING MACHINE TENDER Work Phone: Start: 03-28-2016 End: 03-28-2016 Demo&/eval of pt utiliz aersl gen/neb/inhlr/ip Rylie Edwards CARBIDE DIE MAKER Work Phone: Start: 03-28-2016 End: 09-02-2016 Follow Up Appt 6 months Rylie Dasilval er CARBIDE DIE MAKER Work Phone: Start: 03-28-2016 End: 09-02-2016 Pulmonary Function Test - complete Rylie Edwards CARBIDE DIE MAKER Work Phone: Start: 03-28-2016 End: 09-02-2016 Pulmonary stress test/simple Rylie S Edwards CARBIDE DIE MAKER Work Phone: Start: 03-28-2016 End: 09-02-2016 BWA Rylie Edwards C CLAM SHUCKING MACHINE TENDER Work Phone: Start: 03-28-2016 End: 03-28-2016 Evaluate pt use of inhaler Rylie Edwards CARBIDE DIE MAKER Work Phone: Start: 03-28-2016 End: 09-02-2016 Follow Up Appt 6 months Rylie S Sigifredo er CARBIDE DIE MAKER Work Phone: Start: 03-28-2016 End: 09-02-2016 Pulmonary Function Test - complete Rylie S Edwards CARBIDE DIE MAKER Work Phone: Start: 03-28-2016 End: 09-02-2016 Pulmonary stress test/simple Rylie S Edwards CARBIDE DIE MAKER Work Phone: Start: 11-16-2015 End: 03-22-2016 DMB Gordon Verde DO Work Phone: Start: 11-16-2015 End: 03-22-2016 Follow Up Appt 6 weeks Gordon Verde DO Work Phone: Start: 11-16-2015 End: 03-22-2016 Pulmonary Function Test - complete Gordon Verde [employer] Work Phone: Start: 11-16-2015 End: 03-22-2016 Pulmonary stress test/simple Gordon Verde DO Work Phone: Start: 11-16-2015 End: 03-22-2016 Retitration with follow up (patient on CPAP currently) Gordon Blanca Verde DO Work Phone: Start: 11-16-2015 End: 03-22-2016 FABIANO Gordon Verde [employer] Work Phone: Start: 11-16-2015 End: 03-22-2016 Follow Up Appt 6 weeks Gordon Verde DO Work Phone: Start: 11-16-2015 End: 03-22-2016 Pulmonary Function Test - complete Gordon Verde [employer] Work Phone: Start: 11-16-2015 End: 03-22-2016 Pulmonary stress test/simple Gordon Verde [employer] Work Phone: Start: 11-16-2015 End: 03-22-2016 Retitration with follow up (patient on CPAP currently) Gordon Blanca Verde DO Work Phone: Plan of Treatment Date Care Activity Detail Author Start: 11-09-2027 Prostate Cancer Scre ening Discussion Prostate Cancer Screening Discussion [facility] Start: 06-18-2027 DTaP/Tdap/Td Vaccine s (2 - Td or Tdap) DTaP/Tdap/Td Vaccines (2 - Td or Tdap) [facility] Start: 06-18-2027 Urine microalbumin profile [facility] Start: 12-11-2026 Screening for malign ant neoplasm of colon [facility] Start: 11-09-2023 BP Controlled (<130/80) BP Controlle d (<130/80) [facility] Start: 11-09-2023 Hemoglobin A1c measurement Diabetes: Hemoglobin A1C [facility] Start: 11-09-2023 Hepatitis B screening Urine Al bumin:Creatinine Ratio [facility] Start: 11-09-2023 Hepatitis B surface antibody level LDL Cholesterol [facility] Start: 10-04-2023 Hepatitis C antibody , confirmatory test DILATED RETINAL EXAM [facility] Start: 08-28-2023 3 comp foot exam completed DIABETIC FOOT EXAM [facility] Start: 05-11-2023 ANNUAL PCP TEAM MANAGER [employer] TOMASZ DISEASE VISIT ANNUAL PCP TEAM CHRONIC DISEASE VISIT [facility] Start: 05-11-2023 BP CONTROLLED (<130/80) BP CONTROLLE D (<130/80) [facility] Start: 05-11-2023 COVID-19 VACCINE (#1) COVID-19 VACCI NE (#1) [facility] Immunizations Immunization Date Immunization Notes Care Provider Az friend 11-30-2019 influenza nasal, unspecified formulation Joy Mims MD Work Phone: [facility] 11-30-2019 Influenza, injectabl e, Madin Anne Canine Kidney, preservative free, quadrivalent Guicho Maharaj MD Work Phone: [facility] Work Phone: 11-30-2019 influenza, injectabl e, quadrivalent, contains preservative Guicho Maharaj MD Work Phone: [facility] Work Phone: 11-30-2019 influenza, seasonal, injectable, preservative free Corrie Gibbs CLIENT EXPERIENCE SPECIALIST.THIRD RIGGER Work Phone: [facility] 11-30-2019 influenza virus vacc ine, unspecified formulation Ngozi Maldonado MD Work Phone: [facility] 12-31-2017 influenza, injectabl e, quadrivalent, contains preservative Corrie Gibbs CLIENT EXPERIENCE SPECIALIST.THIRD RIGGER Work Phone: [facility] 12-31-2017 influenza virus vacc ine, unspecified formulation Chante Figueroa RN [facility] 06-17-2017 tetanus toxoid, redu smith diphtheria toxoid, and acellular pertussis vaccine, adsorbed Corrie Gibbs CLIENT EXPERIENCE SPECIALIST.THIRD RIGGER Work Phone: [facility] 12-12-2015 influenza, seasonal, injectable Corrie Gibbs CLIENT EXPERIENCE SPECIALIST.THIRD RIGGER Work Phone: [facility] 11-17-2015 influenza, seasonal, injectable, preservative free Corrie Gibbs CLIENT EXPERIENCE SPECIALIST.THIRD RIGGER Work Phone: [facility] 08-22-2014 pneumococcal polysaccharide vaccine, 23 valent Corrieángel Gibbs CLIENT EXPERIENCE SPECIALIST.THIRD RIGGER Work Phone: [facility] Payers Date Payer Category Payer Medicaid [id number] 2019 Medicaid [id number] 2015 Medicaid [employer] [facility] MED[facility] [id number] 2015-Present [phone] [address] [place] [address] Medicaid [id number] 2015 Medicaid [id number] Social History Date Type Detail Facility Start: 02-10-1974 End: 12-12-2022 Tobacco smoking status NHIS Smokes tobacco daily [facility] Work Phone: Start: [birth year]-10-1974 End: 11-10-2021 History of tobacco use Cigarette Smoker [facility] Work Phone: Start: 07-10-2018 End: 01-27-2023 Cigarettes smoked current (pack per day) - Reported 1.5 [facility] Work Phone: Start: 07-10-2018 End: 12-12-2022 Tobacco use and exposure Smokeless tobacco non-user [facility] Work Phone: Start: 09-21-2020 End: 10-03-2022 Alcohol intake Ex-drinker (finding) [facility] Start: 04-06-2019 History SDOH Alcohol Comment rarely [facility] Start: 03-24-2020 End: 10-12-2021 Tobacco Comment Down to 8 cig per day now (09/03/19)--down to half PPD still [facility] Start: 1960 Sex Assigned At Not on file [facility] Start: 08-05-2021 End: 04-26-2022 Exposure to SARS-CoV-2 (event) Not sure [facility] Start: 04-25-2022 End: 01-27-2023 Alcohol intake Current drinker of alcohol (finding) [facility] Start: 05-10-2022 Tobacco Comment [Down to 8 cig per day now (09/03/19)--down to half PPD still.] Had quit but started again--down to half PPD. Trying to quit again. Stress appears to be the trigger. May 10, 2022 [facility] Start: 08-27-2022 End: 01-27-2023 Tobacco use panel [facility] Work Phone: Adult Depression Screening Assessment 2 [facility] Work Phone: Within the last year , have you been afraid of your partner or ex-partner? No [facility] Start: 12-26-2022 Alcohol Comment occ [facility] Clinical Notes 08-26-2021 to 02-12-2023 Telephone Encounter - ELIA Nj - 02/12/2023 1:55 PM ESTTelephone Encounter - ELIA Nj - 02/12/2023 1:55 PM ESTTelephone Encounter - Ngozi Maldonado MD - 01/27/2023 2:04 PM EST Note Date & Type Note Facility 02-12-2023 Telephone encounter Note Pt called this worker stating that he had questions regarding applying for SSD. Answered pts questions and provided dates pt needed for when his surgery and chemo infusions were. [facility] 02-12-2023 Miscellaneous Notes Pt called this worker stating that he had questions regarding applying for SSD. Answered pts questions and provided dates pt needed for when his surgery and chemo infusions were. documented in this encounter [facility] 01-27-2023 Telephone encounter Note Patient saw Dr. Patel in [place]. Does not need additional oncology FU with us. [facility] 01-27-2023 Miscellaneous Notes Patient saw Dr. Patel in [place]. Does not need additional oncology FU with us. documented in this encounter [facility] 01-27-2023 History of Presen t illness Narrative Images from the original note were not included. Patient ID: Larisa Gonzáles is a 62 y.o. male. Referring Physician: No referring provider defined for this encounter. Primary Care Provider: JOY MIMS Assessment and plan 62M with right upper lobe pT2 N2 NSCLC adenocarcinoma. Resected [id number] 2021. MRI brain 108 2022 wnl. 112 2022: adjuvant cisplatin and pemetrexed initiated. Completed adjuvant (chemotherapy) 314 2022. As per patient, radiation oncology team in [place] did not recommend PORT due to anatomic concerns. 1101 2022: concern for recurrence based on PET in [place] area. 1108 2022: bronch/EBUS: confirms recurrent disease 4R and other stations. NCCN 6.2021 NSCL-4; Dr. Maldonado entered staging into Epic 1211 2021. Salient biomarkers Nsclc adenocarcinoma: EGFR non mutated; PDL1 IHC negative as per 22C3 mAB, 1115 2021 resection. Counseled and discussed with the patient. He has established oncologic care in [place] with Dr. Patel. Have sent cough suppressant to local pharmacy. I anticipate patient will get 2L nivolumab. All questions answered. FU pending 22 minutes reviewing previous notes, test results and face to face with the patient discussing the diagnosis and importance of compliance with the treatment plan as well as documenting on the day of the visit. Here to FU the above. Rad onc team in [place] concerned re: recurrence at sub pec region. Pt has established care with Dr. Patel in [place]. Subjective HPI 61M referred by Funmilayo [place] for early stage lung cancer. 1115 2021, patient underwent Right thoracotomy, wedge resection pulmonary nodule right upper lobe, completion right upper lobectomy with mediastinal lymph node sampling (levels 4, 7, 12) for right upper lung lesion. Pathology is below. Previous pathology was non diagnostic biopsy. A PET scan 1213 2021 indicated disease restricted to the RUL. No prior hematologic or oncologic history. Relevant pathology: Fine needle aspiration: [id number] Order: [id number] Collected 12/19/2022 11:57 Status: Final result Visible to patient: No (inaccessible in MyChart) Dx: Malignant neoplasm of unspecified par... 0 Result Notes Component Final Diagnosis A - Mediastinal Lymph Node Station 11L - Transbronchial Fine Needle Aspirate: NO MALIGNANT CELLS IDENTIFIED. Adequate lymph node sample B - Mediastinal Lymph Node Station 7 - Transbronchial Fine Needle Aspirate: RARE ATYPICAL CELLS PRESENT OF UNCERTAIN SIGNIFICANCE. Extremely rare atypical cells are present in the smears and they are not present in the cell block for further delineation. C - Mediastinal Lymph Node Station 4L - Transbronchial Fine Needle Aspirate: NONDIAGNOSTIC SPECIMEN: INSUFFICIENT CELLULARITY. D - Mediastinal Lymph Node Station 4R - Transbronchial Fine Needle Aspirate: POSITIVE FOR MALIGNANT CELLS. Cytomorphologically adenocarcinoma, consistent with patient's known history. E - Mediastinal Lymph Node Station 11R - Transbronchial Fine Needle Aspirate: POSITIVE FOR MALIGNANT CELLS. F - Bronchus Intermedius - Brushing, Cytology: POSITIVE FOR MALIGNANT CELLS. NO SIGNIFICANT MICROORGANISMS OR VIRAL CELLULAR CHANGES IDENTIFIED. at 1608 exam: [id number] Order: [id number] Collected 12/26/2021 08:00 Status: Final result Visible to patient: No (inaccessible in MyChart) Dx: Solitary pulmonary nodule 0 Result Notes Component Final Diagnosis A. LUNG, RIGHT UPPER LOBE, WEDGE EXCISION-INVASIVE, MODERATELY TO POORLY DIFFERENTIATED ADENOCARCINOMA Comment: Immunohistochemical stains are performed on the specimen and results are as follows: CK7-diffusely positive within the tumor GB21-xuygoszf XPQ-0-fzqkacid within a better differentiated area within the tumor The above results are supportive of a pulmonary primary. B. LYMPH NODE, LEVEL 12, EXCISION- ONE LYMPH NODE, NEGATIVE FOR MALIGNANCY (0/1) C. LYMPH NODE, LEVEL 7, EXCISION- ONE LYMPH NODE, POSITIVE FOR METASTATIC CARCINOMA (1/1) D. LUNG, RIGHT UPPER LOBE, LOBECTOMY-PORTION OF LUNG WITH FOCAL ADENOCARCINOMA WITHIN THE LYMPHATIC CHANNELS NEAR WEDGE RESECTION STAPLE LINE -2 OF 6 ADDITIONAL LYMPH NODES, POSITIVE FOR METASTATIC CARCINOMA E. LYMPH NODE, LEVEL 4, EXCISION- ONE LYMPH NODE, NEGATIVE FOR MALIGNANCY (0/1) at 1532 Synoptic Checklist LUNG 8th Edition - Protocol posted: 09/05/2020 LUNG: RESECTION - B, D SPECIMEN Procedure Wedge resection Lobectomy Specimen Laterality Right TUMOR Tumor Focality Single focus Tumor Site Upper lobe of lung Tumor Size Total Tumor Size (size of entire tumor) Greatest Dimension (Centimeters): 1.7 cm Histologic Type Invasive acinar adenocarcinoma Histologic Patterns Present Acinar Solid Histologic Grade G3, poorly differentiated Visceral Pleura Invasion Present Direct Invasion of Adjacent Structures Not applicable (no adjacent structures present) Treatment Effect No known presurgical therapy Lymphovascular Invasion Lymphatic invasion present Tumor Comment Lymphatic invasion is extensive MARGINS Margin Status for Invasive Carcinoma All margins negative for invasive carcinoma Closest Margin(s) to Invasive Carcinoma Parenchymal: The final parenchymal margin of the right upper lobe is negative for the main tumor mass, but tumor within a lymph node is present at this margin. Distance from Invasive Carcinoma to Closest Margin Greater than: 1 cm Margin Status for Non-Invasive Tumor All margins negative for non-invasive tumor REGIONAL LYMPH NODES Lymph Node(s) from Prior Procedures Not included Regional Lymph Node Status Tumor present in regional lymph node(s) Number of Lymph Nodes with Tumor 3 Ariel Site(s) with Tumor 10R: Hilar 7: Subcarinal Number of Lymph Nodes Examined 9 Ariel Site(s) Examined 4R: Lower paratracheal 10R: Hilar 12R: Lobar 7: Subcarinal PATHOLOGIC STAGE CLASSIFICATION (pTNM, AJCC 8th Edition) The suffix m (or a specific number) should only be used in the setting of multifocal ground-glass / lepidic nodules that histologically present as adenocarcinomas with prominent lepidic component or multifocal tumors of same histologic type that are too numerous for individual separate synoptic report and that are not better classified as intrapulmonary metastases (e.g. numerous carcinoid tumors). Multiple primary lung cancers showing different histologic type or different morphology based on comprehensive histologic subtyping are better staged as independent tumors without m suffix. pT Category pT2a pN Category pN2 . Intraoperative Consultation FROZEN SECTION DIAGNOSIS: FS1: Non-small cell carcinoma Barry Wilson M.D./H. Brown, D.O. Clinical Information Solitary pulmonary nodule (R91.1) Gross Description A. Received fresh for frozen labeled right upper lobe wedge is campbell soft tissue measuring 6.2 x 5.9 x 0.9 cm. The specimen weighs 36 grams. The resection line previously stapled is inked in black. The cut surfaces reveal a white nodule measuring 1.7 cm. This white nodule is grossly 1.0 cm away from the inked resection margin and appears to be at the pleura grossly. The serosal surface of the nodule was inked in orange. Telephone Information Clerk sections are submitted into a total of six cassettes. Cassette Summary: A1 previously frozen piece; A2 nodule along with the resection margin and pleural margin; A3 nodule and pleura; A4 nodule; A5-6 normal-appearing lung parenchyma B. Received in formalin labeled level 12 lymph node are two fragments of pink-campbell tissue aggregating to 0.8 x 0.5 x 0.2 cm. The specimen is entirely submitted in a single cassette. C. Received in formalin labeled level 7 lymph node are two fatty tissue segments measuring 1.8 x 1.5 x 0.7 cm. A lymph node is identified. The specimen is entirely submitted in a single cassette. D. Received in formalin labeled right upper lobe is a lobectomy specimen that measures 15 x 9 x 3.5 cm. The specimen weighs 187 grams. The pleural surface of the specimen is purple to pink campbell. The staple line is removed and inked in black. The cut surfaces of the specimen reveal no nodules. Telephone Information Clerk sections are submitted into six cassettes. Cassette Summary: D1-3 bronchial resection margins; D4-5 normal-appearing lung tissue; 6 parenchyma resection margin E. Received in formalin labeled level 4 lymph node are multiple fragments of hceek-campbell tissue aggregating to 3.0 x 2.0 x 1.0 cm. The specimen is entirely submitted in two cassettes. Disclaimer The interpretation of this case included the use of immunohistochemistry or special stains. These tests have not been cleared or approved by the U.S. Food and Drug Administration. The FDA has determined that such clearance or approval is not necessary. These tests are used for clinical purposes and should not be regarded as investigational or for research. This laboratory is certified to perform high complexity testing under the Clinical Laboratory Improvement Amendments of 1998. Pathologist Interpretation Location [facility], [address] [place], [place] [id number], CLIA: [id number]; Joint Commission: [id number]; CAP: [id number] Resulting Agency [facility] Specimen Collected: 12/26/21 08:00 Last Resulted: 12/28/21 15:32 Order Details View Encounter Lab and Collection Details Routing Result History View Encounter Conversation Review of Systems Constitutional: Negative. HENT: Negative. Eyes: Negative. Respiratory: Negative. Cardiovascular: Negative. Gastrointestinal: Negative. Endocrine: Negative. Genitourinary: Negative. Neurological: Negative. Hematological: Negative. Objective BSA: There is no height or weight on file to calculate BSA. There were no vitals taken for this visit. Physical Exam Vitals reviewed. Constitutional: Appearance: Normal appearance. HENT: Head: Normocephalic and atraumatic. Nose: Nose normal. Cardiovascular: Rate and Rhythm: Normal rate. Pulmonary: Effort: Pulmonary effort is normal. Breath sounds: Normal breath sounds. Abdominal: General: Abdomen is flat. Palpations: Abdomen is soft. Musculoskeletal: General: Normal range of motion. Cervical back: Normal range of motion. Skin: General: Skin is warm and dry. Neurological: General: No focal deficit present. Mental Status: He is alert. Past medical and surgical history: see above, non contributory, as above. Family and social history: some etoh, significant tobacco previously. 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 Treatment Details Treatment goal Curative Plan Name OP Non-Small Cell Lung: PEMEtrexed/CISplatin Status Active Start Date 02/20/2022 End Date 04/26/2022 Provider Ngozi Maldonado MD Chemotherapy cyanocobalamin (Vitamin B-12) injection 1,000 mcg, 1,000 mcg, IntraMUSCular, Once, 2 of 2 cycles Administration: 1,000 mcg (02/20/2022), 1,000 mcg (04/24/2022) palonosetron (Aloxi) injection 0.25 mg, 0.25 mg, IntraVENous, Once, 4 of 4 cycles Administration: 0.25 mg (02/20/2022), 0.25 mg (04/03/2022), 0.25 mg (04/24/2022), 0.25 mg (03/13/2022) CISplatin (Platinol) 170 mg in sodium chloride 0.9 % 500 mL chemo IVPB, 75 mg/m2 = 170 mg, IntraVENous, Once, 4 of 4 cycles Administration: 170 mg (02/20/2022), 170 mg (04/03/2022), 170 mg (04/24/2022), 170 mg (03/13/2022) fosaprepitant (Emend) 150 mg in sodium chloride 0.9 % 250 mL IVPB, 150 mg, IntraVENous, Once, 4 of 4 cycles Administration: 150 mg (02/20/2022), 150 mg (04/03/2022), 150 mg (04/24/2022), 150 mg (03/13/2022) documented in this encounter [facility] 01-24-2023 Telephone encounter Note Received call from pt. He was not sure when his appt with Dr. Maldonado was. Provided pt with upcoming appt date/time of Jan 27 at 1:45pm. Provided the contact number for Dr. Maldonado's office if he would have any further needs. [facility] 01-24-2023 Miscellaneous Notes Received call from pt. He was not sure when his appt with Dr. Maldonado was. Provided pt with upcoming appt date/time of Jan 27 at 1:45pm. Provided the contact number for Dr. Maldonado's office if he would have any further needs. documented in this encounter [facility] 01-15-2023 Telephone encounter Note Rcvd call from pt. He had questions about who his doctors were, as the [employer] application needed this information. Sent pt an email at [email or web address] Provided Dr. Maldonado and Dr. Douglas info to pt via email. [facility] 01-15-2023 Miscellaneous Notes Rcvd call from pt. He had questions about who his doctors were, as the [employer] application needed this information. Sent pt an email at [email or web address] Provided Dr. Maldonado and Dr. Douglas info to pt via email. documented in this encounter [facility] 01-07-2023 Note Received call from p t. He was concerned that his radiation tx was to begin before the MRI was scheduled. Wanted to talk with someone about this. Sent referral to RN Chante Figueroa for follow up. [facility] 01-07-2023 Telephone encounter Note Received call from pt. He was concerned that his radiation tx was to begin before the MRI was scheduled. Wanted to talk with someone about this. Sent referral to ADENIKE Figueroa for follow up. [facility] 01-07-2023 Miscellaneous Notes Received call from pt. He was concerned that his radiation tx was to begin before the MRI was scheduled. Wanted to talk with someone about this. Sent referral to ADENIKE Figueroa for follow up. documented in this encounter [facility] 12-27-2022 Telephone encounter Note Received message that Dr. Dennis Nunez from [facility] (Radiation Oncology) would like to discuss patient. [phone]. Discussed with him. Concern that [address] represents advanced disease. Tentative plan is to place him on chemo xrt; patient is being referred him to med onc in [facility]. [facility] 12-27-2022 Miscellaneous Notes Received message that Dr. Dennis Nunez from [facility] (Radiation Oncology) would like to discuss patient. [phone]. Discussed with him. Concern that [address] represents advanced disease. Tentative plan is to place him on chemo xrt; patient is being referred him to med onc in [facility]. Patient with recurrent non small cell lung cancer. Probably a candidate for radiation therapy but would need FU with radiation team in [place] after MRI brain I have ordered. Would get make sure radiation team has this MRI report. documented in this encounter [facility] 12-27-2022 Telephone encounter Note Placed call today to check in with pt and offer support/resources. Informed pt that he is eligible for the [employer]ari Mclain Aristeo, as well as [employer]. Pt shared that he may be seeking tx in [place] for radiation as it is closer to his home. He might do chemo in [place] but is unsure yet. Reviewed that if [employer] was not helpful, then Tari Mclain would be the application to complete. Reviewed that this worker could place application in the mail if he would like. Pt agreed to application being mailed. Will place in mail today for him. Reviewed ways this worker can be of assistance to pt. Provided this workers contact information and encouraged him to call back. [facility] 12-27-2022 Miscellaneous Notes Placed call today to check in with pt and offer support/resources. Informed pt that he is eligible for the [employer] Aristeo, as well as [employer]. Pt shared that he may be seeking tx in [place] for radiation as it is closer to his home. He might do chemo in [place] but is unsure yet. Reviewed that if [employer] was not helpful, then Tari Mclain would be the application to complete. Reviewed that this worker could place application in the mail if he would like. Pt agreed to application being mailed. Will place in mail today for him. Reviewed ways this worker can be of assistance to pt. Provided this workers contact information and encouraged him to call back. documented in this encounter [facility] 12-26-2022 History of Presen t illness Narrative Oncology Nurse Navigator followed up with patient outside medical oncology office. Patient reports financial stress from treatment earlier this year and is concerned about inability to work/pay bills as must undergo further treatment for recurrence. Patient was informed about [employer] and was provided an application. Patient states has not applied for assistance previously. Nurse also sent referral to financial team and social service manager to assist. Patient would like evaluation by radiation oncologist in [place] as it is closer to home. Nurse spoke w/Nani at [facility] and faxed records. Imaging was done at [place] and is available in there system. Nani will follow up w/patient upon receipt of records. documented in this encounter [facility] 12-26-2022 Note Received referral fr om Chante Figueroa/hand blocker that pt wanted to explore financial assistance and resources. Per Chante, she has provided pt with [employer] Aristeo for pt to apply. Placed call to pt today. Reviewed purpose of the call and explained SW role. Reviewed that this worker wanted to share additional financial resources such as [employer] for persons living in [facility], and [facility]. Provided this workers contact information and reviewed that she will try to reach pt tomorrow as well. [facility] 12-26-2022 Telephone encounter Note Patient with recurrent non small cell lung cancer. Probably a candidate for radiation therapy but would need FU with radiation team in [place] after MRI brain I have ordered. Would get make sure radiation team has this MRI report. [facility] 12-26-2022 History of Presen t illness Narrative Images from the original note were not included. Patient ID: Larisa Gonzáles is a 62 y.o. male. Referring Physician: No referring provider defined for this encounter. Primary Care Provider: JOY MIMS Assessment and plan 62M with right upper lobe pT2 N2 NSCLC adenocarcinoma. Resected 1115 2021. MRI brain 108 2022 wnl. 112 2022: adjuvant cisplatin and pemetrexed initiated. Completed adjuvant (chemotherapy) 314 2022. As per patient, radiation oncology team in [place] did not recommend PORT due to anatomic concerns. 1101 2022: concern for recurrence based on PET in [facility]. 1108 2022: bronch/EBUS: confirms recurrent disease 4R and other stations. NCCN 6.2021 NSCL-4; Dr. Maldonado entered staging into Epic 1211 2021. Salient biomarkers Nsclc adenocarcinoma: EGFR non mutated; PDL1 IHC negative as per 22C3 mAB, 1115 2021 resection. Counseled and discussed with the patient. We will have patient evaluated by original radiation oncologist in [facility]; message sent to thoracic navigator re: this. MRI brain ordered. Will have forwarded to radiation oncologist in [employer]. I anticipate patient will get 2L nivolumab. All questions answered. FU 2-3 weeks 31 minutes reviewing previous notes, test results and face to face with the patient discussing the diagnosis and importance of compliance with the treatment plan as well as documenting on the day of the visit. Here to FU the above. 1108 2022 bronch/ebus confirms recurrent nsclc Subjective HPI 61M referred by Funmilayo [place] for early stage lung cancer. 1115 2021, patient underwent Right thoracotomy, wedge resection pulmonary nodule right upper lobe, completion right upper lobectomy with mediastinal lymph node sampling (levels 4, 7, 12) for right upper lung lesion. Pathology is below. Previous pathology was non diagnostic biopsy. A PET scan 1213 2021 indicated disease restricted to the RUL. No prior hematologic or oncologic history. Relevant pathology: Fine needle aspiration: [id number] Order: [id number] Collected 12/19/2022 11:57 Status: Final result Visible to patient: No (inaccessible in MyChart) Dx: Malignant neoplasm of unspecified par... 0 Result Notes Component Final Diagnosis A - Mediastinal Lymph Node Station 11L - Transbronchial Fine Needle Aspirate: NO MALIGNANT CELLS IDENTIFIED. Adequate lymph node sample B - Mediastinal Lymph Node Station 7 - Transbronchial Fine Needle Aspirate: RARE ATYPICAL CELLS PRESENT OF UNCERTAIN SIGNIFICANCE. Extremely rare atypical cells are present in the smears and they are not present in the cell block for further delineation. C - Mediastinal Lymph Node Station 4L - Transbronchial Fine Needle Aspirate: NONDIAGNOSTIC SPECIMEN: INSUFFICIENT CELLULARITY. D - Mediastinal Lymph Node Station 4R - Transbronchial Fine Needle Aspirate: POSITIVE FOR MALIGNANT CELLS. Cytomorphologically adenocarcinoma, consistent with patient's known history. E - Mediastinal Lymph Node Station 11R - Transbronchial Fine Needle Aspirate: POSITIVE FOR MALIGNANT CELLS. F - Bronchus Intermedius - Brushing, Cytology: POSITIVE FOR MALIGNANT CELLS. NO SIGNIFICANT MICROORGANISMS OR VIRAL CELLULAR CHANGES IDENTIFIED. at 1608 exam: [id number] Order: [id number] Collected 12/26/2021 08:00 Status: Final result Visible to patient: No (inaccessible in MyChart) Dx: Solitary pulmonary nodule 0 Result Notes Component Final Diagnosis A. LUNG, RIGHT UPPER LOBE, WEDGE EXCISION-INVASIVE, MODERATELY TO POORLY DIFFERENTIATED ADENOCARCINOMA Comment: Immunohistochemical stains are performed on the specimen and results are as follows: CK7-diffusely positive within the tumor JK57-vrihnagn GTR-3-gdpihevs within a better differentiated area within the tumor The above results are supportive of a pulmonary primary. B. LYMPH NODE, LEVEL 12, EXCISION- ONE LYMPH NODE, NEGATIVE FOR MALIGNANCY (0/1) C. LYMPH NODE, LEVEL 7, EXCISION- ONE LYMPH NODE, POSITIVE FOR METASTATIC CARCINOMA (1/1) D. LUNG, RIGHT UPPER LOBE, LOBECTOMY-PORTION OF LUNG WITH FOCAL ADENOCARCINOMA WITHIN THE LYMPHATIC CHANNELS NEAR WEDGE RESECTION STAPLE LINE -2 OF 6 ADDITIONAL LYMPH NODES, POSITIVE FOR METASTATIC CARCINOMA E. LYMPH NODE, LEVEL 4, EXCISION- ONE LYMPH NODE, NEGATIVE FOR MALIGNANCY (0/1) at 1532 Synoptic Checklist LUNG 8th Edition - Protocol posted: 09/05/2020 LUNG: RESECTION - B, D SPECIMEN Procedure Wedge resection Lobectomy Specimen Laterality Right TUMOR Tumor Focality Single focus Tumor Site Upper lobe of lung Tumor Size Total Tumor Size (size of entire tumor) Greatest Dimension (Centimeters): 1.7 cm Histologic Type Invasive acinar adenocarcinoma Histologic Patterns Present Acinar Solid Histologic Grade G3, poorly differentiated Visceral Pleura Invasion Present Direct Invasion of Adjacent Structures Not applicable (no adjacent structures present) Treatment Effect No known presurgical therapy Lymphovascular Invasion Lymphatic invasion present Tumor Comment Lymphatic invasion is extensive MARGINS Margin Status for Invasive Carcinoma All margins negative for invasive carcinoma Closest Margin(s) to Invasive Carcinoma Parenchymal: The final parenchymal margin of the right upper lobe is negative for the main tumor mass, but tumor within a lymph node is present at this margin. Distance from Invasive Carcinoma to Closest Margin Greater than: 1 cm Margin Status for Non-Invasive Tumor All margins negative for non-invasive tumor REGIONAL LYMPH NODES Lymph Node(s) from Prior Procedures Not included Regional Lymph Node Status Tumor present in regional lymph node(s) Number of Lymph Nodes with Tumor 3 Ariel Site(s) with Tumor 10R: Hilar 7: Subcarinal Number of Lymph Nodes Examined 9 Ariel Site(s) Examined 4R: Lower paratracheal 10R: Hilar 12R: Lobar 7: Subcarinal PATHOLOGIC STAGE CLASSIFICATION (pTNM, AJCC 8th Edition) The suffix m (or a specific number) should only be used in the setting of multifocal ground-glass / lepidic nodules that histologically present as adenocarcinomas with prominent lepidic component or multifocal tumors of same histologic type that are too numerous for individual separate synoptic report and that are not better classified as intrapulmonary metastases (e.g. numerous carcinoid tumors). Multiple primary lung cancers showing different histologic type or different morphology based on comprehensive histologic subtyping are better staged as independent tumors without m suffix. pT Category pT2a pN Category pN2 . Intraoperative Consultation FROZEN SECTION DIAGNOSIS: FS1: Non-small cell carcinoma Barry Wilson M.D./Barry Verde D.O. Clinical Information Solitary pulmonary nodule (R91.1) Gross Description A. Received fresh for frozen labeled right upper lobe wedge is campbell soft tissue measuring 6.2 x 5.9 x 0.9 cm. The specimen weighs 36 grams. The resection line previously stapled is inked in black. The cut surfaces reveal a white nodule measuring 1.7 cm. This white nodule is grossly 1.0 cm away from the inked resection margin and appears to be at the pleura grossly. The serosal surface of the nodule was inked in orange. Telephone Information Clerk sections are submitted into a total of six cassettes. Cassette Summary: A1 previously frozen piece; A2 nodule along with the resection margin and pleural margin; A3 nodule and pleura; A4 nodule; A5-6 normal-appearing lung parenchyma B. Received in formalin labeled level 12 lymph node are two fragments of pink-campbell tissue aggregating to 0.8 x 0.5 x 0.2 cm. The specimen is entirely submitted in a single cassette. C. Received in formalin labeled level 7 lymph node are two fatty tissue segments measuring 1.8 x 1.5 x 0.7 cm. A lymph node is identified. The specimen is entirely submitted in a single cassette. D. Received in formalin labeled right upper lobe is a lobectomy specimen that measures 15 x 9 x 3.5 cm. The specimen weighs 187 grams. The pleural surface of the specimen is purple to pink campbell. The staple line is removed and inked in black. The cut surfaces of the specimen reveal no nodules. Telephone Information Clerk sections are submitted into six cassettes. Cassette Summary: D1-3 bronchial resection margins; D4-5 normal-appearing lung tissue; 6 parenchyma resection margin E. Received in formalin labeled level 4 lymph node are multiple fragments of cheek-campbell tissue aggregating to 3.0 x 2.0 x 1.0 cm. The specimen is entirely submitted in two cassettes. Disclaimer The interpretation of this case included the use of immunohistochemistry or special stains. These tests have not been cleared or approved by the U.S. Food and Drug Administration. The FDA has determined that such clearance or approval is not necessary. These tests are used for clinical purposes and should not be regarded as investigational or for research. This laboratory is certified to perform high complexity testing under the Clinical Laboratory Improvement Amendments of 1998. Pathologist Interpretation Location [facility], [address] [place] [id number], CLIA: [id number]; Joint Commission: [id number]; CAP: [id number] Resulting Agency [facility] Specimen Collected: 12/26/21 08:00 Last Resulted: 12/28/21 15:32 Order Details View Encounter Lab and Collection Details Routing Result History View Encounter Conversation Review of Systems Constitutional: Negative. HENT: Negative. Eyes: Negative. Respiratory: Negative. Cardiovascular: Negative. Gastrointestinal: Negative. Endocrine: Negative. Genitourinary: Negative. Neurological: Negative. Hematological: Negative. Objective BSA: There is no height or weight on file to calculate BSA. There were no vitals taken for this visit. Physical Exam Vitals reviewed. Constitutional: Appearance: Normal appearance. HENT: Head: Normocephalic and atraumatic. Nose: Nose normal. Cardiovascular: Rate and Rhythm: Normal rate. Pulmonary: Effort: Pulmonary effort is normal. Breath sounds: Normal breath sounds. Abdominal: General: Abdomen is flat. Palpations: Abdomen is soft. Musculoskeletal: General: Normal range of motion. Cervical back: Normal range of motion. Skin: General: Skin is warm and dry. Neurological: General: No focal deficit present. Mental Status: He is alert. Past medical and surgical history: see above, non contributory, as above. Family and social history: some etoh, significant tobacco previously. 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 Treatment Details Treatment goal Curative Plan Name OP Non-Small Cell Lung: PEMEtrexed/CISplatin Status Active Start Date 02/20/2022 End Date 04/26/2022 Provider Ngozi Maldonado MD Chemotherapy cyanocobalamin (Vitamin B-12) injection 1,000 mcg, 1,000 mcg, IntraMUSCular, Once, 2 of 2 cycles Administration: 1,000 mcg (02/20/2022), 1,000 mcg (04/24/2022) palonosetron (Aloxi) injection 0.25 mg, 0.25 mg, IntraVENous, Once, 4 of 4 cycles Administration: 0.25 mg (02/20/2022), 0.25 mg (04/03/2022), 0.25 mg (04/24/2022), 0.25 mg (03/13/2022) CISplatin (Platinol) 170 mg in sodium chloride 0.9 % 500 mL chemo IVPB, 75 mg/m2 = 170 mg, IntraVENous, Once, 4 of 4 cycles Administration: 170 mg (02/20/2022), 170 mg (04/03/2022), 170 mg (04/24/2022), 170 mg (03/13/2022) fosaprepitant (Emend) 150 mg in sodium chloride 0.9 % 250 mL IVPB, 150 mg, IntraVENous, Once, 4 of 4 cycles Administration: 150 mg (02/20/2022), 150 mg (04/03/2022), 150 mg (04/24/2022), 150 mg (03/13/2022) documented in this encounter [facility] 12-19-2022 Note Addendum created 11/02 1455 by TODD Ewing CRNA Attestation recorded in Intraprocedure, Intraprocedure Attestations filed [facility] 12-19-2022 Note Patient: Larisa garcia Procedure Summary Date: 12/19/22 Room / Location: [facility] END[facility] 7 / [facility] Gastroenterology Anesthesia Start: 1138 Anesthesia Stop: 1310 Procedure: BRONCH EBUS WITH XRAY Diagnosis: Malignant neoplasm of unspecified part of unspecified bronchus or lung (HCC) (Malignant neoplasm of unspecified part of unspecified bronchus or lung (HCC) [C34.90]) Providers: Lynn Shelton DO Responsible Provider: Anesthesia Type: TIVA ASA Status: 3 Anesthesia Type: TIVA Vitals Value Taken Time BP 119/72 12/19/22 1400 Temp 97f 12/19/22 1435 Pulse 77 12/19/22 1435 Resp 16 12/19/22 1345 SpO2 93 % 12/19/22 1435 Vitals shown include unfiled device data. Anesthesia Post Evaluation Patient location during evaluation: PACU Patient participation: complete - patient participated Level of consciousness: awake and alert Pain management: satisfactory to patient Airway patency: patent Dental Injury: no Cardiovascular status: acceptable, blood pressure returned to baseline and hemodynamically stable Respiratory status: acceptable and spontaneous ventilation Hydration status: euvolemic Nausea/Vomiting: controlled No notable events documented. Patient can be discharged once all PACU criteria has been met. [facility] 12-19-2022 Note Patient: Larisa garcia Procedure Summary Date: 12/19/22 Room / Location: [facility] END[facility] 7 / [facility] Gastroenterology Anesthesia Start: 1138 Anesthesia Stop: 1310 Procedure: BRONCH EBUS WITH XRAY Diagnosis: Malignant neoplasm of unspecified part of unspecified bronchus or lung (HCC) (Malignant neoplasm of unspecified part of unspecified bronchus or lung (HCC) [C34.90]) Providers: Lynn Shelton DO Responsible Provider: Anesthesia Type: TIVA ASA Status: 3 Anesthesia Type: TIVA Vitals Value Taken Time BP 119/72 12/19/22 1400 Temp 97f 12/19/22 1435 Pulse 81 12/19/22 1434 Resp 16 12/19/22 1345 SpO2 92 % 12/19/22 1434 Vitals shown include unfiled device data. Anesthesia Post Evaluation Patient location during evaluation: PACU Patient participation: waiting for patient participation Level of consciousness: responsive to light touch Pain management: adequate Multimodal analgesia pain management approach Airway patency: patent Two or more strategies used to mitigate risk of obstructive sleep apnea Cardiovascular status: acceptable and hemodynamically stable Respiratory status: acceptable and face mask Hydration status: acceptable No notable events documented. MIPS #430 PONV Patient received an inhalational anesthetic (4554F) Patient exhibits three or more risk factors for PONV (4556F) Patient received at leaset 2 prophylactic Rx PONV anti-emtic agents of different classes preop and/or intraop (G9775) MIPS # 424 Perioperative Temperature Management Anesthesia time was 60 minutes or longer (4255F) Anesthesai administered was General (inhalational or TIVA) or Neuraxial block (X0424) At least one body temperature greater than 95.8F/35.5C achieved within the 30 mins immediately prior to or the 15 minutes immediately following anesthesia end time (G9771) MIPS #477 Multimodal Pain Management Not emergent case Patient was administered multimodal pain management (two or more drugs and/or interventions excluding systemic opioids) in the periopeartive period occurring at some time between 6 hours prior to anesthesia start time until discharged from PACU (G2148) MIPS #404 Anesthesiology Smoking Abstinence The patient is a current smoker (G9642) (e.g. cigarette, cigar, pipe, e-cigarette/vaping/marijuana) The patient underwent an elective surgery or procedure requiring anesthesia (G9643) The patient did not receive preop smoking cessation instructions prior to the day of surgery or procedure by , [employer] market development director proxy staff ([id number]) The patient did not smoke the day of the procedure (G9644) I completed my handoff to the receiving clinician during which we: 1. Identified the patient 2. Identified the responsible provider 3. Reviewed the pertinent medical history 4. Discussed the surgical course 5. Reviewed intra-op anesthesia management and issues during anesthesia 6. Set expectations for post-procedure period 7. Allowed opportunity for questions and acknowledgement of understanding. [facility] 12-19-2022 Note Formatting of this n ote is different from the original. Addendum created 12/19/22 1455 by TODD Ewing CRNA Attestation recorded in Intraprocedure, Intraprocedure Attestations filed [facility] 12-19-2022 Note Formatting of this n ote might be different from the original. Pt ambulated to bathroom with minimal assistance needed. Voided. Denies complaints. Pending ride home from [place] [facility] 12-19-2022 Note Formatting of this n ote might be different from the original. Pt ambulated to bathroom with minimal assistance needed. Voided. Denies complaints. Pending ride home from [place] [facility] 12-19-2022 Miscellaneous Notes Pt ambulated to bathroom with minimal assistance needed. Voided. Denies complaints. Pending ride home from friend [place] Discharge instructions reviewed with pt Date: 12/12/2022 - 12/19/2022 Location: [facility] ENDOSCOPY Name: Larisa Gonzáles, : 1960, Diagnosis Pre-op Diagnosis * Malignant neoplasm of unspecified part of unspecified bronchus or lung (HCC) [C34.90] Post-op Diagnosis * Malignant neoplasm of unspecified part of unspecified bronchus or lung (HCC) [C34.90] Procedures BRONCH EBUS WITH XRAY 01045 - FL BRNSCHSC CADS EBUS DX/TX INTERVENTION PERP LES Surgeons * Lynn Harshil-Jose Alejandro - Primary Procedure Summary Anesthesia: General ASA: III Estimated Blood Loss: Minimal Drains: * None in log * Specimens ID Source Type Tests Collected By Collected At [facility]? Priority Lab ID 1 Other Brushing NON-GYNECOLOGIC CYTOLOGY Lynn Harshil-Jose Alejandro, DO 12/19/22 1154 No Routine Description: bronchus intermedius 2 Mediastinal Lymph Node Station 11L Transbronchial Needle Aspirate FINE NEEDLE ASPIRATION Lynn Harshil-Jose Alejandro, DO 12/19/22 1157 No Routine Description: EBUS 11L TBNA SLIDES AND CYTO 3 Mediastinal Lymph Node Station 7 Transbronchial Needle Aspirate FINE NEEDLE ASPIRATION Lynn Harshil-Jose Alejandro, DO 12/19/22 1206 Description: EBUS S7 TBNA SLIDES AND CYTO 4 Mediastinal Lymph Node Station 4L Transbronchial Needle Aspirate FINE NEEDLE ASPIRATION Lynn Harshil-Jose Alejandro, DO 12/19/22 1208 Description: EBUS 4L TBNA SLIDES AND CYTO 5 Mediastinal Lymph Node Station 4R Transbronchial Needle Aspirate FINE NEEDLE ASPIRATION Lynn Harshil-Jose Alejandro, DO 12/19/22 1222 Description: EBUS 4R TBNA SLIDES AND CYTO 6 Mediastinal Lymph Node Station 11R Transbronchial Needle Aspirate FINE NEEDLE ASPIRATION Lynn Harshil-Jose Alejandro, DO 12/19/22 1233 Description: EBUS 11R TBNA SLIDES AND CYTO Staff: Endo Nurse: Priscila Medley, RN; Yris Rosas, RN; Pilo Hardin, RN; Kady Becker RN Findings: S/p bronchoscopy with EBUS and TBNA of lymph nodes 11L, 4L, 7, 4R and 11R. S/p R bronchus intermedius endobronchial brushing. Please refer to provation note for further details. Complications: None; patient tolerated the procedure well. Specimens Collected: Order Name Source Comment Collection Info Order Time NON-GYNECOLOGIC CYTOLOGY Other Pre-op diagnosis: Malignant neoplasm of unspecified part of unspecified bronchus or lung (HCC) [C34.90] Collected By: Lynn Shelton DO 12/19/2022 11:54 AM FINE NEEDLE ASPIRATION Mediastinal Lymph Node Station 11L Pre-op diagnosis: Malignant neoplasm of unspecified part of unspecified bronchus or lung (HCC) [C34.90] Collected By: Lynn Shelton DO 12/19/2022 12:[facility] Larisa [facility]les Procedure Date: 12/19/2022 11:30 AM Gender: Male Date of : 1960 Age: 62 Admit Type: Outpatient Note Status: Finalized Attending MD: Lynn Shelton DO, [id number] Procedure: Bronchoscopy Indications: Hilar lymphadenopathy of the right side, Paratracheal adenopathy Findings: The endotracheal tube is in good position. The visualized portion of the trachea is of normal caliber. The edmundo is sharp. The tracheobronchial tree was examined to at least the first subsegmental level. There was mucosal nodularity at the prior right upper lobe lobectomy site, right mainstem and the bronchus intermedius. There were thick clear secretions throughout the bronchial tree. Brushings of a lesion were obtained in the bronchus intermedius with a cytology brush and sent for routine cytology. One sample was obtained. An endobronchial ultrasound endoscope was utilized in order to assist with fine needle aspiration of the hilar and paratracheal lymph nodes. Transbronchial needle aspirations were performed using a [employer] Expect 25 gauge needle and sent for routine cytology. The procedure was guided by ultrasound. Transbronchial needle aspiration technique was selected because the sampling site was not visible endoscopically. The sampling device penetrated the full thickness of the bronchial wall to obtain the needle aspiration of lymph node tissue. Four to six samples were obtained each from lymph nodes 11L, 4L, 7, 4R, and 11R. Impression: - Hilar lymphadenopathy of the right side - Paratracheal adenopathy - There was mucosal nodularity at the prior right upper lobe lobectomy site, right mainstem bronchus and the bronchus intermedius - Endobronchial ultrasound was performed. - Brushings were obtained. - A transbronchial needle aspiration was performed. Recommendation: - Discharge patient to home. - Await brushing and cytology results. - Patient has a contact number available for emergencies. The signs and symptoms of potential delayed complications were discussed with the patient. Return to normal activities tomorrow. Written discharge instructions were provided to the patient. - Follow up with bronchoscopist in one week. Referring MD: Ruby Murillo MD Medicines: See the Anesthesia note for documentation of the administered medications Procedure: Pre-Anesthesia Assessment: - A History and Physical has been performed. The patient's medications, allergies and sensitivities have been reviewed. After I obtained informed consent, the scope was passed under direct vision. Throughout the procedure, the patient's blood pressure, pulse, and oxygen saturations were monitored continuously. The bronchoscope was introduced through the mouth, via the endotracheal tube (the patient was intubated for the procedure) and advanced to the tracheobronchial tree of both lungs. The procedure was accomplished without difficulty. The patient tolerated the procedure well. Complications: No immediate complications Moderate Sedation: See the Anesthesia note for documentation of the administered medications Comorbidities Refer to note in patient chart for documentation of history. Procedure Code(s): --- Professional --- 69318, Bronchoscopy, rigid or flexible, including fluoroscopic guidance, when performed; with transbronchial needle aspiration biopsy(s), trachea, main stem and/or lobar bronchus(i) 94970, Bronchoscopy, rigid or flexible, including fluoroscopic guidance, when performed; with brushing or protected brushings 34314, Bronchoscopy, rigid or flexible, including fluoroscopic guidance, when performed; with transendoscopic endobronchial ultrasound (EBUS) during bronchoscopic diagnostic or therapeutic intervention(s) for peripheral lesion(s) (List separately in addition to code for primary procedure[s]) CPT copyright 2021 [employer]. All rights reserved. The codes documented in this report are preliminary and upon heater operator review may be revised to meet current compliance requirements. Attending Participation: I personally performed the entire procedure. Lynn Shelton DO 12/19/2022 1:02:37 PM This report has been signed electronically. Number of Addenda: 0 Note Initiated On: 12/19/2022 11:30 AM documented in this encounter [facility] 12-19-2022 Miscellaneous Notes Addendum created 12/19/22 1455 by TODD Ewing CRNA Attestation recorded in Intraprocedure, Intraprocedure Attestations filed Patient: Larisa Gonzáles Procedure Summary Date: 12/19/22 Room / Location: [facility] 7 / [facility] Gastroenterology Anesthesia Start: 1138 Anesthesia Stop: 1310 Procedure: BRONCH EBUS WITH XRAY Diagnosis: Malignant neoplasm of unspecified part of unspecified bronchus or lung (HCC) (Malignant neoplasm of unspecified part of unspecified bronchus or lung (HCC) [C34.90]) Providers: Lynn Shelton DO Responsible Provider: Anesthesia Type: TIVA ASA Status: 3 Anesthesia Type: TIVA Vitals Value Taken Time BP 119/72 12/19/22 1400 Temp 97f 12/19/22 1435 Pulse 77 12/19/22 1435 Resp 16 12/19/22 1345 SpO2 93 % 12/19/22 1435 Vitals shown include unfiled device data. Anesthesia Post Evaluation Patient location during evaluation: PACU Patient participation: complete - patient participated Level of consciousness: awake and alert Pain management: satisfactory to patient Airway patency: patent Dental Injury: no Cardiovascular status: acceptable, blood pressure returned to baseline and hemodynamically stable Respiratory status: acceptable and spontaneous ventilation Hydration status: euvolemic Nausea/Vomiting: controlled No notable events documented. Patient can be discharged once all PACU criteria has been met. documented in this encounter [facility] 12-19-2022 Note Formatting of this n ote is different from the original. Patient: Larisa Gonzáles Procedure Summary Date: 12/19/22 Room / Location: [address] Gastroenterology Anesthesia Start: 1137 Anesthesia Stop: 1310 Procedure: BRONCH EBUS WITH XRAY Diagnosis: Malignant neoplasm of unspecified part of unspecified bronchus or lung (HCC) (Malignant neoplasm of unspecified part of unspecified bronchus or lung (HCC) [C34.90]) Providers: Lynn Shelton DO Responsible Provider: Anesthesia Type: TIVA ASA Status: 3 Anesthesia Type: TIVA Vitals Value Taken Time BP 119/72 12/19/22 1400 Temp 97f 12/19/22 1435 Pulse 77 12/19/22 1435 Resp 16 12/19/22 1345 SpO2 93 % 12/19/22 1435 Vitals shown include unfiled device data. Anesthesia Post Evaluation Patient location during evaluation: PACU Patient participation: complete - patient participated Level of consciousness: awake and alert Pain management: satisfactory to patient Airway patency: patent Dental Injury: no Cardiovascular status: acceptable, blood pressure returned to baseline and hemodynamically stable Respiratory status: acceptable and spontaneous ventilation Hydration status: euvolemic Nausea/Vomiting: controlled No notable events documented. Patient can be discharged once all PACU criteria has been met. [facility] 12-19-2022 Anesthesiology Postoperative evaluation and management note Patient: Larisa Gonzáles Procedure Summary Date: 12/19/22 Room / Location: [address] Gastroenterology Anesthesia Start: 1137 Anesthesia Stop: 1310 Procedure: BRONCH EBUS WITH XRAY Diagnosis: Malignant neoplasm of unspecified part of unspecified bronchus or lung (HCC) (Malignant neoplasm of unspecified part of unspecified bronchus or lung (HCC) [C34.90]) Providers: Lynn Shelton DO Responsible Provider: Anesthesia Type: TIVA ASA Status: 3 Anesthesia Type: TIVA Vitals Value Taken Time BP 119/72 12/19/22 1400 Temp 97f 12/19/22 1435 Pulse 81 12/19/22 1434 Resp 16 12/19/22 1345 SpO2 92 % 12/19/22 1434 Vitals shown include unfiled device data. Anesthesia Post Evaluation Patient location during evaluation: PACU Patient participation: waiting for patient participation Level of consciousness: responsive to light touch Pain management: adequate Multimodal analgesia pain management approach Airway patency: patent Two or more strategies used to mitigate risk of obstructive sleep apnea Cardiovascular status: acceptable and hemodynamically stable Respiratory status: acceptable and face mask Hydration status: acceptable No notable events documented. MIPS #430 PONV Patient received an inhalational anesthetic (4554F) Patient exhibits three or more risk factors for PONV (4556F) Patient received at leaset 2 prophylactic Rx PONV anti-emtic agents of different classes preop and/or intraop (G9775) MIPS # 424 Perioperative Temperature Management Anesthesia time was 60 minutes or longer (4255F) Anesthesai administered was General (inhalational or TIVA) or Neuraxial block (X0424) At least one body temperature greater than 95.8F/35.5C achieved within the 30 mins immediately prior to or the 15 minutes immediately following anesthesia end time (G9771) MIPS #477 Multimodal Pain Management Not emergent case Patient was administered multimodal pain management (two or more drugs and/or interventions excluding systemic opioids) in the periopeartive period occurring at some time between 6 hours prior to anesthesia start time until discharged from PACU (G2148) MIPS #404 Anesthesiology Smoking Abstinence The patient is a current smoker (G9642) (e.g. cigarette, cigar, pipe, e-cigarette/vaping/marijuana) The patient underwent an elective surgery or procedure requiring anesthesia (G9643) The patient did not receive preop smoking cessation instructions prior to the day of surgery or procedure by , [employer] market development director proxy staff ([id number]) The patient did not smoke the day of the procedure (G9644) I completed my handoff to the receiving clinician during which we: 1. Identified the patient 2. Identified the responsible provider 3. Reviewed the pertinent medical history 4. Discussed the surgical course 5. Reviewed intra-op anesthesia management and issues during anesthesia 6. Set expectations for post-procedure period 7. Allowed opportunity for questions and acknowledgement of understanding. [facility] [place] Phone: 12-19-2022 Surgical operatio n note Patient: Larisa Gonzáles Procedure Summary Date: 12/19/22 Room / Location: [facility] 7 / [facility] Gastroenterology Anesthesia Start: 1138 Anesthesia Stop: 1310 Procedure: BRONCH EBUS WITH XRAY Diagnosis: Malignant neoplasm of unspecified part of unspecified bronchus or lung (HCC) (Malignant neoplasm of unspecified part of unspecified bronchus or lung (HCC) [C34.90]) Providers: Lynn Shelton DO Responsible Provider: Anesthesia Type: TIVA ASA Status: 3 Anesthesia Type: TIVA Vitals Value Taken Time BP 119/72 12/19/22 1400 Temp 97f 12/19/22 1435 Pulse 81 12/19/22 1434 Resp 16 12/19/22 1345 SpO2 92 % 12/19/22 1434 Vitals shown include unfiled device data. Anesthesia Post Evaluation Patient location during evaluation: PACU Patient participation: waiting for patient participation Level of consciousness: responsive to light touch Pain management: adequate Multimodal analgesia pain management approach Airway patency: patent Two or more strategies used to mitigate risk of obstructive sleep apnea Cardiovascular status: acceptable and hemodynamically stable Respiratory status: acceptable and face mask Hydration status: acceptable No notable events documented. MIPS #430 PONV Patient received an inhalational anesthetic (4554F) Patient exhibits three or more risk factors for PONV (4556F) Patient received at leaset 2 prophylactic Rx PONV anti-emtic agents of different classes preop and/or intraop (G9775) MIPS # 424 Perioperative Temperature Management Anesthesia time was 60 minutes or longer (4255F) Anesthesai administered was General (inhalational or TIVA) or Neuraxial block (X0424) At least one body temperature greater than 95.8F/35.5C achieved within the 30 mins immediately prior to or the 15 minutes immediately following anesthesia end time (G9771) MIPS #477 Multimodal Pain Management Not emergent case Patient was administered multimodal pain management (two or more drugs and/or interventions excluding systemic opioids) in the periopeartive period occurring at some time between 6 hours prior to anesthesia start time until discharged from PACU (G2148) [facility] #404 Anesthesiology Smoking Abstinence The patient is a current smoker (G9642) (e.g. cigarette, cigar, pipe, e-cigarette/vaping/marijuana) The patient underwent an elective surgery or procedure requiring anesthesia (G9643) The patient did not receive preop smoking cessation instructions prior to the day of surgery or procedure by MD, [employer] market development director proxy staff (Y0404) The patient did not smoke the day of the procedure (G9644) I completed my handoff to the receiving clinician during which we: 1. Identified the patient 2. Identified the responsible provider 3. Reviewed the pertinent medical history 4. Discussed the surgical course 5. Reviewed intra-op anesthesia management and issues during anesthesia 6. Set expectations for post-procedure period 7. Allowed opportunity for questions and acknowledgement of understanding. Associated Order(s): Airway Airway Date/Time: 12/19/2022 11:43 AM Urgency: scheduled Airway not difficult General Information and Staff Patient location during procedure: Procedural Resident/PRICING ACTUARY: TODD Ewing CRNA Performed: SRNA Performed by: TODD Ewing CRNA Authorized by: TODD Ewing CRNA Indications and Patient Condition Indications for airway management: anesthesia Sedation level: Asleep Preoxygenated: yes Patient position: sniffing Mask difficulty assessment: 2 - vent by mask + OA or adjuvant +/- NMBA Final Airway Details Final airway type: endotracheal airway Successful airway: ETT Cuffed: yes Successful intubation technique: direct laryngoscopy Facilitating devices/methods: anterior pressure/BURP and intentional mainstem Endotracheal tube insertion site: oral Blade: Roseline Blade size: #3 ETT size (mm): 9.0 Cormack-Lehane Classification: grade IIa - partial view of glottis Placement verified by: capnometry Measured from: lips ETT to lips (cm): 23 Number of attempts at approach: 1 Patient: Larisa Gonzáles Procedure Information Date/Time: 12/26/21 0700 Procedure: BRONCHOSCOPY, RIGHT THORACOTOMY (Chest) Location: [facility] OR Operating Room Surgeons: Ruby Murillo MD Relevant Problems Anesthesia (+) ALEXANDRA (obstructive sleep apnea) Cardio (+) HTN (hypertension) Endo (+) Diabetes mellitus, type 2 (HCC) GI (+) Gastroesophageal reflux disease Pulmonary (+) Chronic obstructive pulmonary disease (HCC) (+) ALEXANDRA (obstructive sleep apnea) Other (+) Malignant neoplasm of unspecified part of unspecified bronchus or lung (HCC) (+) Malignant neoplasm of upper lobe of right lung (HCC) Past Medical History: Past Medical History: No date: Anxiety No date: Cancer (CMS/HCC) (HCC) No date: COPD (chronic obstructive pulmonary disease) (HCC) No date: Depression No date: Hiatal hernia with GERD No date: HTN (hypertension) No date: Hyperglycemia No date: Iatrogenic pneumothorax No date: Marijuana smoker No date: Mass of upper lobe of right lung No date: Morbid obesity with BMI of 40.0-44.9, adult (HCC) No date: Nicotine addiction No date: Nicotine dependence in remission No date: ALEXANDRA (obstructive sleep apnea) Comment: HAS A BIPAP BUT DOES NOT USE No date: Poor dentition No date: Sciatica No date: Smoking greater than 40 pack years Past Surgical History: Past Surgical History: 12/26/2021: LUNG BIOPSY; Right 12/26/2021: OTHER SURGICAL HISTORY Comment: Right thoracotomy, wedge resection pulmonary nodule right upper lobe, completion right upper lobectomy with mediastinal lymph node sampling Social History: TOBACCO: reports that he has been smoking cigarettes. He started smoking about 48 years ago. He has a 12.50 pack-year smoking history. He has never used smokeless tobacco. ETOH: reports current alcohol use of about 3.0 standard drinks of alcohol per week. Social History Substance and Sexual Activity Drug Use Yes Frequency: 7.0 times per week Types: Marijuana Family History: Family History Problem Relation Name Age of Onset Cancer Mother Cancer Cousin Screening: unknown Clinical information reviewed: Physical Exam Airway Mallampati: III TM distance: >3 FB Neck ROM: full Comments: Prior G2a view with Glidescope 3 blade, easy maskMouth Open: normalendotracheal tube not in place Cardiovascular - normal exam Dental (+) missing, poor dentition Pulmonary Abdominal Anesthesia Plan patient is NPO appropriate Any family history or previous problems with anesthesia no ASA 3 TIVA Any family history or previous problems with anesthesia no The patient is a current smoker. Patient was not previously instructed to abstain from smoking on day of procedure. Patient did not smoke on day of procedure. Anesthetic plan and risks discussed with patient. ALEXANDRA Screening diagnosed and non compliant Labs: Lab Results Component Value Date WBC 3.1 (L) 04/24/2022 HGB 13.0 04/24/2022 HCT 38.4 (L) 04/24/2022 MCV 92.4 04/24/2022 PLT 355 04/24/2022 Lab Results Component Value Date NA 134 (L) 04/24/2022 K 4.3 04/24/2022 CL 99 04/24/2022 CO2 29 04/24/2022 BUN 26 (H) 04/24/2022 CREATININE 0.84 04/24/2022 GLUCOSE 163 (H) 04/24/2022 CALCIUM 9.4 04/24/2022 PROT 7.0 04/24/2022 ALKPHOS 64 04/24/2022 AST 24 04/24/2022 ALT 15 04/24/2022 EGFR >90.0 04/24/2022 No components found for: LVEF , LVEFMODE No echocardiogram results found for the past 14 days 12/20/21 ECG 12-LEAD (Preliminary) This result has not been signed. Information might be incomplete. Impression Sinus rhythm documented in this encounter [facility] 12-19-2022 Note Airway Date/Time: 12/19/2022 11:43 AM Urgency: scheduled Airway not difficult General Information and Staff Patient location during procedure: Procedural Resident/PRICING ACTUARY: TODD Ewing CRNA Performed: SRNA Performed by: TODD Ewing CRNA Authorized by: TODD Ewing CRNA Indications and Patient Condition Indications for airway management: anesthesia Sedation level: Asleep Preoxygenated: yes Patient position: sniffing Mask difficulty assessment: 2 - vent by mask + OA or adjuvant +/- NMBA Final Airway Details Final airway type: endotracheal airway Successful airway: ETT Cuffed: yes Successful intubation technique: direct laryngoscopy Facilitating devices/methods: anterior pressure/BURP and intentional mainstem Endotracheal tube insertion site: oral Blade: Roseline Blade size: #3 ETT size (mm): 9.0 Cormack-Lehane Classification: grade IIa - partial view of glottis Placement verified by: capnometry Measured from: lips ETT to lips (cm): 23 Number of attempts at approach: 1 [facility] 12-19-2022 Note Formatting of this n ote might be different from the original. Discharge instructions reviewed with pt [facility] 12-19-2022 Note Formatting of this n ote might be different from the original. Discharge instructions reviewed with pt [facility] Events Date Time Event Comment 12/19/2022 1136 In Room 1138 An Start 1138 An Start Data 1139 Start Auxiliary O2 1141 An Induction The patient was reevaluated immediately before moderate or deep sedation use and before anesthesia induction. 1142 An Intubation 1252 An Extubation - Spontaneous ventilation - Patient suctioned - Airway removed without difficulty - Spontaneous ventilation maintained 1255 Out of Room 1257 an stop data 1310 An Stop Meds * Agents Name O2 N2O Air Isoflurane * Blood No blood administrations on file. Lines, Drains, and Airways Type Details Placement Removal Wound/Incision 12/26/21; 0824; N; Incision 12/26/21 0824 by Lacey Leon RN Wound/Incision 12/26/21; 0939; Other 12/26/21 0 939 by Heladio Clay RN Peripheral IV Placement Date: 12/19/22; Placement Time: 1056; Catheter Size: 20 G; Orientation: Left; Location: Antecubital; Site Prep: Alcohol; Inserted by: CB; Insertion Attempts: 2 ( 20 RHand [place]); Patient Tolerance: Tolerated well; Removal Date: 12/19/22; Removal Time: 1455 12/19/22 1056 by Lynn Gonsales RN 12/19/22 1455 by Christel Enriquez RN ETT Placement Date: 12/19/22; Placement Time: 1143 (created via procedure documentation); Type: ETT - single; Single Lumen Tube Size: 9 mm; Cuffed: Yes; Location: Oral; Placement Verification: Capnometry; Removal Date: 12/19/22; Removal Time: 1252 12/19/22 1143 by TODD Ewing CRNA 12/19/22 1252 by TODD Ewing CRNA [id number] Patient Name: Larisa Gonzáles Procedure Date: 12/19/2022 11:30 AM Gender: Male Date of : 1960 Age: 62 Admit Type: Outpatient Note Status: Finalized Attending MD: Lynn Shelton DO, [id number] Procedure: Bronchoscopy Indications: Hilar lymphadenopathy of the right side, Paratracheal adenopathy Findings: The endotracheal tube is in good position. The visualized portion of the trachea is of normal caliber. The edmundo is sharp. The tracheobronchial tree was examined to at least the first subsegmental level. There was mucosal nodularity at the prior right upper lobe lobectomy site, right mainstem and the bronchus intermedius. There were thick clear secretions throughout the bronchial tree. Brushings of a lesion were obtained in the bronchus intermedius with a cytology brush and sent for routine cytology. One sample was obtained. An endobronchial ultrasound endoscope was utilized in order to assist with fine needle aspiration of the hilar and paratracheal lymph nodes. Transbronchial needle aspirations were performed using a [employer] Expect 25 gauge needle and sent for routine cytology. The procedure was guided by ultrasound. Transbronchial needle aspiration technique was selected because the sampling site was not visible endoscopically. The sampling device penetrated the full thickness of the bronchial wall to obtain the needle aspiration of lymph node tissue. Four to six samples were obtained each from lymph nodes 11L, 4L, 7, 4R, and 11R. Impression: - Hilar lymphadenopathy of the right side - Paratracheal adenopathy - There was mucosal nodularity at the prior right upper lobe lobectomy site, right mainstem bronchus and the bronchus intermedius - Endobronchial ultrasound was performed. - Brushings were obtained. - A transbronchial needle aspiration was performed. Recommendation: - Discharge patient to home. - Await brushing and cytology results. - Patient has a contact number available for emergencies. The signs and symptoms of potential delayed complications were discussed with the patient. Return to normal activities tomorrow. Written discharge instructions were provided to the patient. - Follow up with bronchoscopist in one week. Referring MD: Ruby Murillo MD Medicines: See the Anesthesia note for documentation of the administered medications Procedure: Pre-Anesthesia Assessment: - A History and Physical has been performed. The patient's medications, allergies and sensitivities have been reviewed. After I obtained informed consent, the scope was passed under direct vision. Throughout the procedure, the patient's blood pressure, pulse, and oxygen saturations were monitored continuously. The bronchoscope was introduced through the mouth, via the endotracheal tube (the patient was intubated for the procedure) and advanced to the tracheobronchial tree of both lungs. The procedure was accomplished without difficulty. The patient tolerated the procedure well. Complications: No immediate complications Moderate Sedation: See the Anesthesia note for documentation of the administered medications Comorbidities Refer to note in patient chart for documentation of history. Procedure Code(s): --- Professional --- 76540, Bronchoscopy, rigid or flexible, including fluoroscopic guidance, when performed; with transbronchial needle aspiration biopsy(s), trachea, main stem and/or lobar bronchus(i) 04224, Bronchoscopy, rigid or flexible, including fluoroscopic guidance, when performed; with brushing or protected brushings 80665, Bronchoscopy, rigid or flexible, including fluoroscopic guidance, when performed; with transendoscopic endobronchial ultrasound (EBUS) during bronchoscopic diagnostic or therapeutic intervention(s) for peripheral lesion(s) (List separately in addition to code for primary procedure[s]) CPT copyright 2021 [employer]. All rights reserved. The codes documented in this report are preliminary and upon heater operator review may be revised to meet current compliance requirements. Attending Participation: I personally performed the entire procedure. Lynn Shelton DO 12/19/2022 1:02:37 PM This report has been signed electronically. Number of Addenda: 0 Note Initiated On: 12/19/2022 11:30 [facility] [id number] Hospital Discharge instructions* Discharge Instructions* Lynn Shelton DO - 12/19/2022 12:44 PM EST You may have a sore throat and cough with blood tinged sputum. If you develop shortness of breath, chest pain, or worsening bleeding, please call the office at [phone] or go to the Emergency Room. documented in this [facility]11-09-2023 NotePatient: Larisa Gonzáles Procedure Information Date/Time: 12/26/21 0700 Procedure: BRONCHOSCOPY, RIGHT THORACOTOMY (Chest) Location: [facility] OR [facility] Operating Room Surgeons: Ruby Murillo MD Relevant Problems Anesthesia (+) ALEXANDRA (obstructive sleep apnea) Cardio (+) HTN (hypertension) Endo (+) Diabetes mellitus, type 2 (HCC) GI (+) Gastroesophageal reflux disease Pulmonary (+) Chronic obstructive pulmonary disease (HCC) (+) ALEXANDRA (obstructive sleep apnea) Other (+) Malignant neoplasm of unspecified part of unspecified bronchus or lung (HCC) (+) Malignant neoplasm of upper lobe of right lung (HCC) Past Medical History: Past Medical History: No date: Anxiety No date: Cancer (CMS/HCC) (HCC) No date: COPD (chronic obstructive pulmonary disease) (HCC) No date: Depression No date: Hiatal hernia with GERD No date: HTN (hypertension) No date: Hyperglycemia No date: Iatrogenic pneumothorax No date: Marijuana smoker No date: Mass of upper lobe of right lung No date: Morbid obesity with BMI of 40.0-44.9, adult (HCC) No date: Nicotine addiction No date: Nicotine dependence in remission No date: ALEXANDRA (obstructive sleep apnea) Comment: HAS A BIPAP BUT DOES NOT USE No date: Poor dentition No date: Sciatica No date: Smoking greater than 40 pack years Past Surgical History: Past Surgical History: 12/26/2021: LUNG BIOPSY; Right 12/26/2021: OTHER SURGICAL HISTORY Comment: Right thoracotomy, wedge resection pulmonary nodule right upper lobe, completion right upper lobectomy with mediastinal lymph node sampling Social History: TOBACCO: reports that he has been smoking cigarettes. He started smoking about 48 years ago. He has a 12.50 pack-year smoking history. He has never used smokeless tobacco. ETOH: reports current alcohol use of about 3.0 standard drinks of alcohol per week. Social History Substance and Sexual Activity Drug Use Yes ? Frequency: 7.0 times per week ? Types: Marijuana Family History: Family History Problem Relation Name Age of Onset ? Cancer Mother ? Cancer Cousin Screening: unknown Clinical information reviewed: Physical Exam Airway Mallampati: III TM distance: >3 FB Neck ROM: full Comments: Prior G2a view with Glidescope 3 blade, easy maskMouth Open: normalendotracheal tube not in place Cardiovascular - normal exam Dental (+) missing, poor dentition Pulmonary Abdominal Anesthesia Plan patient is NPO appropriate Any family history or previous problems with anesthesia no ASA 3 TIVA Any family history or previous problems with anesthesia no The patient is a current smoker. Patient was not previously instructed to abstain from smoking on day of procedure. Patient did not smoke on day of procedure. Anesthetic plan and risks discussed with patient. ALEXANDRA Screening diagnosed and non compliant Labs: Lab Results Component Value Date WBC 3.1 (L) 04/24/2022 HGB 13.0 04/24/2022 HCT 38.4 (L) 04/24/2022 MCV 92.4 04/24/2022 PLT 355 04/24/2022 Lab Results Component Value Date NA 134 (L) 04/24/2022 K 4.3 04/24/2022 CL 99 04/24/2022 CO2 29 04/24/2022 BUN 26 (H) 04/24/2022 CREATININE 0.84 04/24/2022 GLUCOSE 163 (H) 04/24/2022 CALCIUM 9.4 04/24/2022 PROT 7.0 04/24/2022 ALKPHOS 64 04/24/2022 AST 24 04/24/2022 ALT 15 04/24/2022 EGFR >90.0 04/24/2022 No components found for: LVEF , LVEFMODE No echocardiogram results found for the past 14 days 12/20/21 ECG 12-LEAD (Preliminary) This result has not been signed. Information might be incomplete. Impression [facility]esthesiology procedure note* Anesthesia Procedure Notes - Evens Clay APRN - PRICING ACTUARY - 12/19/2022 11:55 AM EST Associated Order(s): Airway Airway Date/Time: 12/19/2022 11:43 AM Urgency: scheduled Airway not difficult General Information and Staff Patient location during procedure: Procedural Resident/PRICING ACTUARY: TODD Ewing CRNA Performed: SRNA Performed by: TODD Ewing CRNA Authorized by: TODD Ewing CRNA Indications and Patient Condition Indications for airway management: anesthesia Sedation level: Asleep Preoxygenated: yes Patient position: sniffing Mask difficulty assessment: 2 - vent by mask + OA or adjuvant +/- NMBA Final Airway Details Final airway type: endotracheal airway Successful airway: ETT Cuffed: yes Successful intubation technique: direct laryngoscopy Facilitating devices/methods: anterior pressure/BURP and intentional mainstem Endotracheal tube insertion site: oral Blade: Roseline Blade size: #3 ETT size (mm): 9.0 Cormack-Lehane Classification: grade IIa - partial view of glottis Placement verified by: capnometry Measured from: lips ETT to lips (cm): 23 Number of attempts at approach: 1 [id number]* Brief Op Note - Lynn Shelton DO - 12/19/2022 11:36 AM EST Date: 12/12/2022 - 12/19/2022 Location: [facility] ENDOSCOPY Name: Larisa Gonzáles, : 1960, Diagnosis Pre-op Diagnosis * Malignant neoplasm of unspecified part of unspecified bronchus or lung (HCC) [C34.90] Post-op Diagnosis * Malignant neoplasm of unspecified part of unspecified bronchus or lung (HCC) [C34.90] Procedures BRONCH EBUS WITH XRAY 57320 - [place] BRNSCHSC CADSC EBUS DX/TX INTERVENTION [facility] Surgeons * Lynn Shelton - Primary Procedure Summary Anesthesia: General ASA: III Estimated Blood Loss: Minimal Drains: * None in log * Specimens ID Source Type Tests Collected By Collected At [facility]? Priority Lab ID 1 Other Brushing NON-GYNECOLOGIC CYTOLOGY Lynn Shelton DO 12/19/22 1154 No Routine Description: bronchus intermedius 2 Mediastinal Lymph Node Station 11L Transbronchial Needle Aspirate FINE NEEDLE ASPIRATION Lynn Shelton, DO 12/19/22 1157 No Routine Description: EBUS 11L TBNA SLIDES AND CYTO 3 Mediastinal Lymph Node Station 7 Transbronchial Needle Aspirate FINE NEEDLE ASPIRATION Lynn Shelton, DO 12/19/22 1206 Description: EBUS S7 TBNA SLIDES AND CYTO 4 Mediastinal Lymph Node Station 4L Transbronchial Needle Aspirate FINE NEEDLE ASPIRATION Lynn Shelton, DO 12/19/22 1208 Description: EBUS 4L TBNA SLIDES AND CYTO 5 Mediastinal Lymph Node Station 4R Transbronchial Needle Aspirate FINE NEEDLE ASPIRATION Lynn Shelton, DO 12/19/22 1222 Description: EBUS 4R TBNA SLIDES AND CYTO 6 Mediastinal Lymph Node Station 11R Transbronchial Needle Aspirate FINE NEEDLE ASPIRATION Lynn Shelton, DO 12/19/22 1233 Description: EBUS 11R TBNA SLIDES AND CYTO Staff: Endo Nurse: Priscila Medley RN; Yris Rosas, RN; Pilo Hardin, RN; Kady Becker RN Findings: S/p bronchoscopy with EBUS and TBNA of lymph nodes 11L, 4L, 7, 4R and 11R. S/p R bronchusintermedius endobronchial brushing. Please refer to provation note for further details. Complications: None; patient tolerated the procedure well. Specimens Collected: Order Name Source Comment Collection Info Order Time NON-GYNECOLOGIC CYTOLOGY Other Pre-op diagnosis: Malignant neoplasm of unspecified part of unspecified bronchus or lung (HCC) [C34.90] Collected By:Lynn Shelton DO 12/19/2022 11:54 AM FINE NEEDLE ASPIRATION Mediastinal Lymph Node Station 11L Pre-op diagnosis: Malignant neoplasm of unspecified part of unspecified bronchus or lung (HCC) [C34.90] Collected By:Lynn Shelton DO 12/19/2022 12:43 PM [facility]11-09-2023 Note* Brief Op Note - Lynn Shelton, DO - 12/19/2022 11:36 AM EST Date: 12/12/2022 - 12/19/2022 Location: [facility] ENDOSCOPY Name: Larisa Gonzáles, : 1960, Diagnosis Pre-op Diagnosis * Malignant neoplasm of unspecified part of unspecified bronchus or lung (HCC) [C34.90] Post-op Diagnosis * Malignant neoplasm of unspecified part of unspecified bronchus or lung (HCC) [C34.90] Procedures BRONCH EBUS WITH XRAY 71221 - [place] BRNSCHSC TNDSC [facility] DX[facility] * Lynn Chua-Jose Alejandro - Primary Procedure Summary Anesthesia: General ASA: III Estimated Blood Loss: Minimal Drains: * None in log * Specimens ID Source Type Tests Collected By Collected At Frozen? Priority Lab ID 1 Other Brushing NON-GYNECOLOGIC CYTOLOGY Lynn Chua-Jose Alejandro, DO 12/19/22 1154 No Routine Description: bronchus intermedius 2 Mediastinal Lymph Node Station 11L Transbronchial Needle Aspirate FINE NEEDLE ASPIRATION Lynn Chua-Jose Alejandro, DO 12/19/22 1157 No Routine Description: EBUS 11L TBNA SLIDES AND CYTO 3 Mediastinal Lymph Node Station 7 Transbronchial Needle Aspirate FINE NEEDLE ASPIRATION Lynn Chua-Jose Alejandro, DO 12/19/22 1206 Description: EBUS S7 TBNA SLIDES AND CYTO 4 Mediastinal Lymph Node Station 4L Transbronchial Needle Aspirate FINE NEEDLE ASPIRATION Lynn Harshil-Jose Alejandro, DO 12/19/22 1208 Description: EBUS 4L TBNA SLIDES AND CYTO 5 Mediastinal Lymph Node Station 4R Transbronchial Needle Aspirate FINE NEEDLE ASPIRATION Lynn Harshil-Jose Alejandro, DO 12/19/22 1222 Description: EBUS 4R TBNA SLIDES AND CYTO 6 Mediastinal Lymph Node Station 11R Transbronchial Needle Aspirate FINE NEEDLE ASPIRATION Lynn Harshil-Jose Alejandro, DO 12/19/22 1233 Description: EBUS 11R TBNA SLIDES AND CYTO Staff: Endo Nurse: Priscila Medley RN; Yris Rosas, RN; Pilo Hardin, RN; Kady Becker RN Findings: S/p bronchoscopy with EBUS and TBNA of lymph nodes 11L, 4L, 7, 4R and 11R. S/p R bronchusintermedius endobronchial brushing. Please refer to provation note for further details. Complications: None; patient tolerated the procedure well. Specimens Collected: Order Name Source Comment Collection Info Order Time NON-GYNECOLOGIC CYTOLOGY Other Pre-op diagnosis: Malignant neoplasm of unspecified part of unspecified bronchus or lung (HCC) [C34.90] Collected By:Lynn Shelton DO 12/19/2022 11:54 AM FINE NEEDLE ASPIRATION Mediastinal Lymph Node Station 11L Pre-op diagnosis: Malignant neoplasm of unspecified part of unspecified bronchus or lung (HCC) [C34.90] Collected By:Lynn Shelton DO 12/19/2022 12:43 PM [id number]* Op Note - Lynn Shelton DO - 12/19/2022 11:30 AM [facility] Name: Larisa Gonzáles Procedure Date: 12/19/2022 11:30 AM Gender: Male Date of : 1960 Age: 62 Admit Type: Outpatient Note Status: Finalized Attending MD: Lynn Shelton DO, [id number] Procedure: Bronchoscopy Indications: Hilar lymphadenopathy of the right side, Paratracheal adenopathy Findings: The endotracheal tube is in good position. The visualized portion of the trachea is of normal caliber. The edmundo is sharp. The tracheobronchial tree was examined to at least the first subsegmental level. There was mucosal nodularity at the prior right upper lobe lobectomy site, right mainstem and the bronchus intermedius. There were thick clear secretions throughout the bronchial tree. Brushings of a lesion were obtained in the bronchus intermedius with a cytology brush and sent for routine cytology. One sample was obtained. An endobronchial ultrasound endoscope was utilized in order to assist with fine needle aspiration of the hilar and paratracheal lymph nodes. Transbronchial needle aspirations were performed using a [employer] Expect 25 gauge needle and sent for routine cytology. The procedure was guided by ultrasound. Transbronchial needle aspiration technique was selected because the sampling site was not visible endoscopically. The sampling device penetrated the full thickness of the bronchial wall to obtain the needle aspiration of lymph node tissue. Four to six samples were obtained each from lymph nodes 11L, 4L, 7, 4R, and 11R. Impression: - Hilar lymphadenopathy of the right side - Paratracheal adenopathy - There was mucosal nodularity at the prior right upper lobe lobectomy site, right mainstem bronchus and the bronchus intermedius - Endobronchial ultrasound was performed. - Brushings were obtained. - A transbronchial needle aspiration was performed. Recommendation: - Discharge patient to home. - Await brushing and cytology results. - Patient has a contact number available for emergencies. The signs and symptoms of potential delayed complications were discussed with the patient. Return to normal activities tomorrow. Written discharge instructions were provided to the patient. - Follow up with bronchoscopist in one week. Referring MD: Ruby Murillo MD Medicines: See the Anesthesia note for documentation of the administered medications Procedure: Pre-Anesthesia Assessment: - A History and Physical has been performed. The patient's medications, allergies and sensitivities have been reviewed. After I obtained informed consent, the scope was passed under direct vision. Throughout the procedure, the patient's blood pressure, pulse, and oxygen saturations were monitored continuously. The bronchoscope was introduced through the mouth, via the endotracheal tube (the patient was intubated for the procedure) and advanced to the tracheobronchial tree of both lungs. The procedure was accomplished without difficulty. The patient tolerated the procedure well. Complications: No immediate complications Moderate Sedation: See the Anesthesia note for documentation of the administered medications Comorbidities Refer to note in patient chart for documentation of history. Procedure Code(s): --- Professional --- 82488, Bronchoscopy, rigid or flexible, including fluoroscopic guidance, when performed; with transbronchial needle aspiration biopsy(s), trachea, main stem and/or lobar bronchus(i) 02084, Bronchoscopy, rigid or flexible, including fluoroscopic guidance, when performed; with brushing or protected brushings 06493, Bronchoscopy, rigid or flexible, including fluoroscopic guidance, when performed; with transendoscopic endobronchial ultrasound (EBUS) during bronchoscopic diagnostic or therapeutic intervention(s) for peripheral lesion(s) (List separately in addition to code for primary procedure[s]) CPT copyright 2021 [employer]. All rights reserved. The codes documented in this report are preliminary and upon heater operator review may be revised to meet current compliance requirements. Attending Participation: I personally performed the entire procedure. Lynn Shelton DO 12/19/2022 1:02:37 PM This report has been signed electronically. Number of Addenda: 0 Note Initiated On: 12/19/2022 11:30 AM [id number]* Op Note - Lynn Shelton DO - 12/19/2022 11:30 AM EST [facility] Name: Larisa Gonzáles Procedure Date: 12/19/2022 11:30 AM Gender: Male Date of : 1960 Age: 62 Admit Type: Outpatient Note Status: Finalized Attending MD: Lynn Shelton DO, [id number] Procedure: Bronchoscopy Indications: Hilar lymphadenopathy of the right side, Paratracheal adenopathy Findings: The endotracheal tube is in good position. The visualized portion of the trachea is of normal caliber. The edmundo is sharp. The tracheobronchial tree was examined to at least the first subsegmental level. There was mucosal nodularity at the prior right upper lobe lobectomy site, right mainstem and the bronchus intermedius. There were thick clear secretions throughout the bronchial tree. Brushings of a lesion were obtained in the bronchus intermedius with a cytology brush and sent for routine cytology. One sample was obtained. An endobronchial ultrasound endoscope was utilized in order to assist with fine needle aspiration of the hilar and paratracheal lymph nodes. Transbronchial needle aspirations were performed using a [employer] Expect 25 gauge needle and sent for routine cytology. The procedure was guided by ultrasound. Transbronchial needle aspiration technique was selected because the sampling site was not visible endoscopically. The sampling device penetrated the full thickness of the bronchial wall to obtain the needle aspiration of lymph node tissue. Four to six samples were obtained each from lymph nodes 11L, 4L, 7, 4R, and 11R. Impression: - Hilar lymphadenopathy of the right side - Paratracheal adenopathy - There was mucosal nodularity at the prior right upper lobe lobectomy site, right mainstem bronchus and the bronchus intermedius - Endobronchial ultrasound was performed. - Brushings were obtained. - A transbronchial needle aspiration was performed. Recommendation: - Discharge patient to home. - Await brushing and cytology results. - Patient has a contact number available for emergencies. The signs and symptoms of potential delayed complications were discussed with the patient. Return to normal activities tomorrow. Written discharge instructions were provided to the patient. - Follow up with bronchoscopist in one week. Referring MD: Ruby Murillo MD Medicines: See the Anesthesia note for documentation of the administered medications Procedure: Pre-Anesthesia Assessment: - A History and Physical has been performed. The patient's medications, allergies and sensitivities have been reviewed. After I obtained informed consent, the scope was passed under direct vision. Throughout the procedure, the patient's blood pressure, pulse, and oxygen saturations were monitored continuously. The bronchoscope was introduced through the mouth, via the endotracheal tube (the patient was intubated for the procedure) and advanced to the tracheobronchial tree of both lungs. The procedure was accomplished without difficulty. The patient tolerated the procedure well. Complications: No immediate complications Moderate Sedation: See the Anesthesia note for documentation of the administered medications Comorbidities Refer to note in patient chart for documentation of history. Procedure Code(s): --- Professional --- 97632, Bronchoscopy, rigid or flexible, including fluoroscopic guidance, when performed; with transbronchial needle aspiration biopsy(s), trachea, main stem and/or lobar bronchus(i) 93806, Bronchoscopy, rigid or flexible, including fluoroscopic guidance, when performed; with brushing or protected brushings 28689, Bronchoscopy, rigid or flexible, including fluoroscopic guidance, when performed; with transendoscopic endobronchial ultrasound (EBUS) during bronchoscopic diagnostic or therapeutic intervention(s) for peripheral lesion(s) (List separately in addition to code for primary procedure[s]) CPT copyright 2021 [employer]. All rights reserved. The codes documented in this report are preliminary and upon heater operator review may be revised to meet current compliance requirements. Attending Participation: I personally performed the entire procedure. Lynn Shelton DO 12/19/2022 1:02:37 PM This report has been signed electronically. Number of Addenda: 0 Note Initiated On: 12/19/2022 11:30 AM [facility]11-09-2023 Anesthesiology Preoperative evaluation and management note* Anesthesia Preprocedure Evaluation - Evens Clay APRN - [facility] - 12/19/2022 9:57 AM EST Patient: Larisa Gonzáles Procedure Information Date/Time: 12/26/21 0700 Procedure: BRONCHOSCOPY, RIGHT THORACOTOMY (Chest) Location: [address] Operating Room Surgeons: Ruby Murillo MD Relevant Problems Anesthesia (+) ALEXANDRA (obstructive sleep apnea) Cardio (+) HTN (hypertension) Endo (+) Diabetes mellitus, type 2 (HCC) GI (+) Gastroesophageal reflux disease Pulmonary (+) Chronic obstructive pulmonary disease (HCC) (+) ALEXANDRA (obstructive sleep apnea) Other (+) Malignant neoplasm of unspecified part of unspecified bronchus or lung (HCC) (+) Malignant neoplasm of upper lobe of right lung (HCC) Past Medical History: Past Medical History: No date: Anxiety No date: Cancer (CMS/HCC) (HCC) No date: COPD (chronic obstructive pulmonary disease) (HCC) No date: Depression No date: Hiatal hernia with GERD No date: HTN (hypertension) No date: Hyperglycemia No date: Iatrogenic pneumothorax No date: Marijuana smoker No date: Mass of upper lobe of right lung No date: Morbid obesity with BMI of 40.0-44.9, adult (HCC) No date: Nicotine addiction No date: Nicotine dependence in remission No date: ALEXANDRA (obstructive sleep apnea) Comment: HAS A BIPAP BUT DOES NOT USE No date: Poor dentition No date: Sciatica No date: Smoking greater than 40 pack years Past Surgical History: Past Surgical History: 12/26/2021: LUNG BIOPSY; Right 12/26/2021: OTHER SURGICAL HISTORY Comment: Right thoracotomy, wedge resection pulmonary nodule right upper lobe, completion right upper lobectomy with mediastinal lymph node sampling Social History: TOBACCO: reports that he has been smoking cigarettes. He started smoking about 48 years ago. He hasa 12.50 pack-year smoking history. He has never used smokeless tobacco. ETOH: reports current alcohol use of about 3.0 standard drinks of alcohol per week. Social History Substance and Sexual Activity Drug Use Yes Frequency: 7.0 times per week Types: Marijuana Family History: Family History Problem Relation Name Age of Onset Cancer Mother Cancer Cousin Screening: unknown Clinical information reviewed: Physical Exam Airway Mallampati: III TM distance: >3 FB Neck ROM: full Comments: Prior G2a view with Glidescope 3 blade, easy maskMouth Open: normalendotracheal tube not in place Cardiovascular - normal exam Dental (+) missing, poor dentition Pulmonary Abdominal Anesthesia Plan patient is NPO appropriate Any family history or previous problems with anesthesia no ASA 3 TIVA Any family history or previous problems with anesthesia no The patient is a current smoker. Patient was not previously instructed to abstain from smoking on day of procedure. Patient did not smoke on day of procedure. Anesthetic plan and risks discussed with patient. ALEXANDRA Screening diagnosed and non compliant Labs: Lab Results Component Value Date WBC 3.1 (L) 04/24/2022 HGB 13.0 04/24/2022 HCT 38.4 (L) 04/24/2022 MCV 92.4 04/24/2022 PLT 355 04/24/2022 Lab Results Component Value Date NA 134 (L) 04/24/2022 K 4.3 04/24/2022 CL 99 04/24/2022 CO2 29 04/24/2022 BUN 26 (H) 04/24/2022 CREATININE 0.84 04/24/2022 GLUCOSE 163 (H) 04/24/2022 CALCIUM 9.4 04/24/2022 PROT 7.0 04/24/2022 ALKPHOS 64 04/24/2022 AST 24 04/24/2022 ALT 15 04/24/2022 EGFR >90.0 04/24/2022 No components found for: LVEF , LVEFMODE No echocardiogram results found for the past 14 days 11/10/22 ECG 12-LEAD (Preliminary) This result has not been signed. Information might be incomplete. 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 Past Medical History Past Medical History: Diagnosis Date Anxiety Cancer (CMS/HCC) (HCC) COPD (chronic obstructive pulmonary disease) (HCC) Depression Hiatal hernia with GERD HTN (hypertension) Hyperglycemia Iatrogenic pneumothorax Marijuana smoker Mass of upper lobe of right lung Morbid obesity with BMI of 40.0-44.9, adult (HCC) Nicotine addiction Nicotine dependence in remission ALEXANDRA (obstructive sleep apnea) HAS A BIPAP BUT DOES NOT USE Poor dentition Sciatica Smoking greater than 40 pack years Past Surgical History Past Surgical History: Procedure Laterality Date LUNG BIOPSY Right 12/26/2021 OTHER SURGICAL HISTORY 12/26/2021 Right thoracotomy, wedge resection pulmonary nodule right upper lobe, completion right upper lobectomy with mediastinal lymph node sampling Allergies Allergies Allergen Reactions Bee Venom Anaphylaxis Penicillins Other and Unknown Pt does not know what happens Medications No current facility-administered medications on file prior to encounter. Current Outpatient Medications on File Prior to Encounter Medication Sig Dispense Refill albuterol 108 (90 Base) MCG/ACT inhaler Inhale 1 puff as needed. amLODIPine (Norvasc) 10 MG tablet Take 10 mg by mouth in the morning. aspirin 81 MG EC tablet Take 81 mg by mouth in the morning. budesonide-formoterol (Symbicort) 160-4.5 MCG/ACT inhaler Take 2 puffs by mouth in the morning. buPROPion XL (Wellbutrin XL) 150 MG 24 hr tablet Take 150 mg by mouth every morning. dexAMETHasone (Decadron) 4 MG tablet Take 1 tab PO BID the day before each chemo 8 tablet 0 famotidine (Pepcid) 20 MG tablet Take 20 mg by mouth every 24 hours as needed. fluticasone (Flonase) 50 MCG/ACT nasal spray Administer 2 sprays into each nostril in the morning. folic acid (Folvite) 1 MG tablet Take 1 tablet (1 mg) by mouth daily. 30 tablet 3 loratadine (Claritin) 10 MG tablet Take 10 mg by mouth in the morning. losartan-hydroCHLOROthiazide (Hyzaar) 100-12.5 MG tablet Take 1 tablet by mouth in the morning. montelukast (Singulair) 10 MG tablet Take 10 mg by mouth Nightly. OLANZapine (ZyPREXA) 5 MG tablet Take 1 tab po nightly on days 1-5 of each chemotherapy cycle or as directed 20 tablet 0 ondansetron (Zofran) 8 MG tablet Take 1 tab PO every 8 hours as needed for nausea/vomiting. Do not start until 2 days after chemo. 20 tablet 3 pregabalin (Lyrica) 25 MG capsule Take 25 mg by mouth in the morning and 25 mg before bedtime. prochlorperazine (Compazine) 10 MG tablet Take 1 tablet (10 mg) by mouth every 6 hours as needed for nausea. 40 tablet 3 Spiriva Respimat 2.5 MCG/ACT inhaler Inhale 2 puffs in the morning. Social History Social History Tobacco Use Smoking status: Every Day Packs/day: 0.50 Years: 25.00 Additional pack years: 0.00 Total pack years: 12.50 Types: Cigarettes Start date: 1973 Smokeless tobacco: Never Substance Use Topics Alcohol use: Yes Alcohol/week: 3.0 standard drinks of alcohol Types: 3 Standard drinks or equivalent per week Family History Family History Problem Relation Name Age of Onset Cancer Mother Cancer Cousin Review of Systems Review of Systems Constitutional: Negative. Negative for fatigue, fever and unexpected weight change. HENT: Negative. Eyes: Negative. Respiratory: Negative for cough, chest tightness, shortness of breath and wheezing. Cardiovascular: Negative. Negative for chest pain and leg swelling. Gastrointestinal: Negative. Endocrine: Negative. Genitourinary: Negative. Musculoskeletal: Negative. Skin: Negative. Allergic/Immunologic: Negative. Neurological: Negative. Hematological: Negative. Psychiatric/Behavioral: Negative. Physical Exam There were no vitals filed for this visit. Physical Exam Vitals reviewed. Constitutional: General: He is not in acute distress. Appearance: He is obese. HENT: Head: Normocephalic and atraumatic. Nose: No congestion. Mouth/Throat: Mouth: Mucous membranes are moist. Eyes: General: No scleral icterus. Extraocular Movements: Extraocular movements intact. Cardiovascular: Rate and Rhythm: Normal rate and regular rhythm. Pulmonary: Effort: Pulmonary effort is normal. No respiratory distress. Breath sounds: Normal breath sounds. No wheezing or rales. Skin: General: Skin is warm and dry. Neurological: Mental Status: He is alert and oriented to person, place, and time. Psychiatric: Mood and Affect: Mood normal. 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 Past Medical History Past Medical History: Diagnosis Date Anxiety Cancer (CMS/HCC) (HCC) COPD (chronic obstructive pulmonary disease) (HCC) Depression Hiatal hernia with GERD HTN (hypertension) Hyperglycemia Iatrogenic pneumothorax Marijuana smoker Mass of upper lobe of right lung Morbid obesity with BMI of 40.0-44.9, adult ([facility]) Nicotine addiction Nicotine dependence in remission ALEXANDRA (obstructive sleep apnea) HAS A BIPAP BUT DOES NOT USE Poor dentition Sciatica Smoking greater than 40 pack years Past Surgical History Past Surgical History: Procedure Laterality Date LUNG BIOPSY Right 12/26/2021 OTHER SURGICAL HISTORY 12/26/2021 Right thoracotomy, wedge resection pulmonary nodule right upper lobe, completion right upper lobectomy with mediastinal lymph node sampling Allergies Allergies Allergen Reactions Bee Venom Anaphylaxis Penicillins Other and Unknown Pt does not know what happens Medications No current facility-administered medications on file prior to encounter. Current Outpatient Medications on File Prior to Encounter Medication Sig Dispense Refill albuterol 108 (90 Base) MCG/ACT inhaler Inhale 1 puff as needed. amLODIPine (Norvasc) 10 MG tablet Take 10 mg by mouth in the morning. aspirin 81 MG EC tablet Take 81 mg by mouth in the morning. budesonide-formoterol (Symbicort) 160-4.5 MCG/ACT inhaler Take 2 puffs by mouth in the morning. buPROPion XL (Wellbutrin XL) 150 MG 24 hr tablet Take 150 mg by mouth every morning. dexAMETHasone (Decadron) 4 MG tablet Take 1 tab PO BID the day before each chemo 8 tablet 0 famotidine (Pepcid) 20 MG tablet Take 20 mg by mouth every 24 hours as needed. fluticasone (Flonase) 50 MCG/ACT nasal spray Administer 2 sprays into each nostril in the morning. folic acid (Folvite) 1 MG tablet Take 1 tablet (1 mg) by mouth daily. 30 tablet 3 loratadine (Claritin) 10 MG tablet Take 10 mg by mouth in the morning. losartan-hydroCHLOROthiazide (Hyzaar) 100-12.5 MG tablet Take 1 tablet by mouth in the morning. montelukast (Singulair) 10 MG tablet Take 10 mg by mouth Nightly. OLANZapine (ZyPREXA) 5 MG tablet Take 1 tab po nightly on days 1-5 of each chemotherapy cycle or asdirected 20 tablet 0 ondansetron (Zofran) 8 MG tablet Take 1 tab PO every 8 hours as needed for nausea/vomiting. Do not start until 2 days after chemo. 20 tablet 3 pregabalin (Lyrica) 25 MG capsule Take 25 mg by mouth in the morning and 25 mg before bedtime. prochlorperazine (Compazine) 10 MG tablet Take 1 tablet (10 mg) by mouth every 6 hours as needed for nausea. 40 tablet 3 Spiriva Respimat 2.5 MCG/ACT inhaler Inhale 2 puffs in the morning. Social History Social History Tobacco Use Smoking status: Every Day Packs/day: 0.50 Years: 25.00 Additional pack years: 0.00 Total pack years: 12.50 Types: Cigarettes Start date: 1974 Smokeless tobacco: Never Substance Use Topics Alcohol use: Yes Alcohol/week: 3.0 standard drinks of alcohol Types: 3 Standard drinks or equivalent per week Family History Family History Problem Relation Name Age of Onset Cancer Mother Cancer Cousin Review of Systems Review of Systems Constitutional: Negative. Negative for fatigue, fever and unexpected weight change. HENT: Negative. Eyes: Negative. Respiratory: Negative for cough, chest tightness, shortness of breath and wheezing. Cardiovascular: Negative. Negative for chest pain and leg swelling. Gastrointestinal: Negative. Endocrine: Negative. Genitourinary: Negative. Musculoskeletal: Negative. Skin: Negative. Allergic/Immunologic: Negative. Neurological: Negative. Hematological: Negative. Psychiatric/Behavioral: Negative. Physical Exam There were no vitals filed for this visit. Physical Exam Vitals reviewed. Constitutional: General: He is not in acute distress. Appearance: He is obese. HENT: Head: Normocephalic and atraumatic. Nose: No congestion. Mouth/Throat: Mouth: Mucous membranes are moist. Eyes: General: No scleral icterus. Extraocular Movements: Extraocular movements intact. Cardiovascular: Rate and Rhythm: Normal rate and regular rhythm. Pulmonary: Effort: Pulmonary effort is normal. No respiratory distress. Breath sounds: Normal breath sounds. No wheezing or rales. Skin: General: Skin is warm and dry. Neurological: Mental Status: He is alert and oriented to person, place, and time. Psychiatric: Mood and Affect: Mood normal. Assessment and Plan: Paratracheal and hilar adenopathy -Bronchoscopy with endobronchial ultrasound and transbronchial needle aspiration of hilar and paratracheal lymph nodes. 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 Past Medical History Past Medical History: Diagnosis Date Anxiety Cancer (CMS/HCC) (HCC) COPD (chronic obstructive pulmonary disease) ([facility]) Depression Hiatal hernia with GERD HTN (hypertension) Hyperglycemia Iatrogenic pneumothorax Marijuana smoker Mass of upper lobe of right lung Morbid obesity with BMI of 40.0-44.9, adult ([facility]) Nicotine addiction Nicotine dependence in remission ALEXANDRA (obstructive sleep apnea) HAS A BIPAP BUT DOES NOT USE Poor dentition Sciatica Smoking greater than 40 pack years Past Surgical History Past Surgical History: Procedure Laterality Date LUNG BIOPSY Right 12/26/2021 OTHER SURGICAL HISTORY 12/26/2021 Right thoracotomy, wedge resection pulmonary nodule right upper lobe, completion right upper lobectomy with mediastinal lymph node sampling Allergies Allergies Allergen Reactions Bee Venom Anaphylaxis Penicillins Other and Unknown Pt does not know what happens Medications No current facility-administered medications on file prior to encounter. Current Outpatient Medications on File Prior to Encounter Medication Sig Dispense Refill albuterol 108 (90 Base) MCG/ACT inhaler Inhale 1 puff as needed. amLODIPine (Norvasc) 10 MG tablet Take 10 mg by mouth in the morning. aspirin 81 MG EC tablet Take 81 mg by mouth in the morning. budesonide-formoterol (Symbicort) 160-4.5 MCG/ACT inhaler Take 2 puffs by mouth in the morning. buPROPion XL (Wellbutrin XL) 150 MG 24 hr tablet Take 150 mg by mouth every morning. dexAMETHasone (Decadron) 4 MG tablet Take 1 tab PO BID the day before each chemo 8 tablet 0 famotidine (Pepcid) 20 MG tablet Take 20 mg by mouth every 24 hours as needed. fluticasone (Flonase) 50 MCG/ACT nasal spray Administer 2 sprays into each nostril in the morning. folic acid (Folvite) 1 MG tablet Take 1 tablet (1 mg) by mouth daily. 30 tablet 3 loratadine (Claritin) 10 MG tablet Take 10 mg by mouth in the morning. losartan-hydroCHLOROthiazide (Hyzaar) 100-12.5 MG tablet Take 1 tablet by mouth in the morning. montelukast (Singulair) 10 MG tablet Take 10 mg by mouth Nightly. OLANZapine (ZyPREXA) 5 MG tablet Take 1 tab po nightly on days 1-5 of each chemotherapy cycle or asdirected 20 tablet 0 ondansetron (Zofran) 8 MG tablet Take 1 tab PO every 8 hours as needed for nausea/vomiting. Do not start until 2 days after chemo. 20 tablet 3 pregabalin (Lyrica) 25 MG capsule Take 25 mg by mouth in the morning and 25 mg before bedtime. prochlorperazine (Compazine) 10 MG tablet Take 1 tablet (10 mg) by mouth every 6 hours as needed for nausea. 40 tablet 3 Spiriva Respimat 2.5 MCG/ACT inhaler Inhale 2 puffs in the morning. Social History Social History Tobacco Use Smoking status: Every Day Packs/day: 0.50 Years: 25.00 Additional pack years: 0.00 Total pack years: 12.50 Types: Cigarettes Start date: 1974 Smokeless tobacco: Never Substance Use Topics Alcohol use: Yes Alcohol/week: 3.0 standard drinks of alcohol Types: 3 Standard drinks or equivalent per week Family History Family History Problem Relation Name Age of Onset Cancer Mother Cancer Cousin Review of Systems Review of Systems Constitutional: Negative. Negative for fatigue, fever and unexpected weight change. HENT: Negative. Eyes: Negative. Respiratory: Negative for cough, chest tightness, shortness of breath and wheezing. Cardiovascular: Negative. Negative for chest pain and leg swelling. Gastrointestinal: Negative. Endocrine: Negative. Genitourinary: Negative. Musculoskeletal: Negative. Skin: Negative. Allergic/Immunologic: Negative. Neurological: Negative. Hematological: Negative. Psychiatric/Behavioral: Negative. Physical Exam There were no vitals filed for this visit. Physical Exam Vitals reviewed. Constitutional: General: He is not in acute distress. Appearance: He is obese. HENT: Head: Normocephalic and atraumatic. Nose: No congestion. Mouth/Throat: Mouth: Mucous membranes are moist. Eyes: General: No scleral icterus. Extraocular Movements: Extraocular movements intact. Cardiovascular: Rate and Rhythm: Normal rate and regular rhythm. Pulmonary: Effort: Pulmonary effort is normal. No respiratory distress. Breath sounds: Normal breath sounds. No wheezing or rales. Skin: General: Skin is warm and dry. Neurological: Mental Status: He is alert and oriented to person, place, and time. Psychiatric: Mood and Affect: Mood normal. Assessment and Plan: Paratracheal and hilar adenopathy -Bronchoscopy with endobronchial ultrasound and transbronchial needle aspiration of hilar and paratracheal lymph nodes. documented in this [facility]11-02-2023 NoteRADIATION ONCOLOGY INITIAL CONSULTATION PATIENT: Larisa Gonzáles DATE OF SERVICE: 12/12/22 : 1960 AGE: 62 y.o. PRIMARY SITE AND HISTOPATHOLOGY: Right upper lobe of the lung, grade 3 acinar adenocarcinoma. Originally diagnosed in 2021. EGFR nonmutated. PD-L1 IHC negative by report. STAGE: pT2a N2 M0, III HISTORY OF PRESENT ILLNESS: This is a 62-year-old gentleman who was found to have a mass in the right upper lobe of the lung in 2021. It was diagnosed at an outside center. He was referred for surgery and on 12/26/2021 underwent a right thoracotomy, wedge resection of the right upper lobe pulmonary nodule, completion right upper lobectomy with mediastinal node sampling. Pathology revealed invasive acinar adenocarcinoma, grade 3, measuring 1.7 cm. There was lymphovascular invasion.. They noted that the final parenchymal margin of the right upper lobe was negative for tumor was within a lymph node at this margin. 3 out of 9 nodes were involved, level 10 R and 7. The patient was referred for postoperative radiation therapy and chemotherapy evaluation. By report the patient was seen at [place] radiation department. He notes that the risk were too high with his heart and he did not receive radiation therapy. He received adjuvant cisplatin and pemetrexed starting 02/22/2022 and completing 04/24/2022. The patient continued to be followed. At an outside center, CT of the chest with contrast on 09/03/2022 identified a stable 1.7 cm node in the right axilla. Surgical changes were noted with volume loss on the right. A stable 2 mm noncalcified nodule in a right middle lobe. A new 1.17 cm nodule in the right middle lobe peripheral laterally. A new 1 cm nodule in the pericardial fat on the right side laterally. A 2.3 x 1.4 cm node in the right paratracheal area. Evidence of a precarinal node. Unchanged 3 x 2.3 cm hypodense nodule in the right adrenal gland. The patient went on to have a PET/CT at [facility] on 11/05/2022 which identified a 2.1 x 2.4 cm soft tissue nodule in the anterior and lateral epicardial fat with an SUV max of 4.8. A left subpectoral lymph node measuring 1.5 x 1.6 cm with an SUV max of 6 which is new from prior PET. Mild nodular pleural thickening in the right hemithorax with an SUV max of4.2. A 2.2 x 2.3 cm soft tissue nodule near the right lateral trachea. The patient is scheduled to see medical oncology today and pulmonary to be evaluated for biopsy. At this point he notes that his appetite is stable. No significant weight loss. He notes chronic pain in the back and legs, has sciatica and follows with a chiropractor. Today he rates it as a 5 out of 10. He has dyspnea on exertion. Occasional dry cough. He is working on tobacco cessation and is down to half a pack per day. 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 We have been consulted for consideration of radiation therapy. PAST MEDICAL HISTORY: Past Medical History: Diagnosis Date Anxiety Cancer (CMS/HCC) (HCC) COPD (chronic obstructive pulmonary disease) (HCC) Depression Hiatal hernia with GERD HTN (hypertension) Hyperglycemia Iatrogenic pneumothorax Marijuana smoker Mass of upper lobe of right lung Morbid obesity with BMI of 40.0-44.9, adult (HCC) Nicotine addiction Nicotine dependence in remission ALEXANDRA (obstructive sleep apnea) HAS A BIPAP BUT DOES NOT USE Poor dentition Sciatica Smoking greater than 40 pack years PAST SURGICAL HISTORY: Past Surgical History: Procedure Laterality Date LUNG BIOPSY Right 12/26/2021 OTHER SURGICAL HISTORY 12/26/2021 Right thoracotomy, wedge resection pulmonary nodule right upper lobe, completion right upper lobectomy with mediastinal lymph node sampling SOCIAL HISTORY: 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 Follows with the [place]. Social History Socioeconomic History Marital status: Spouse name: Not on file Number of children: Not on file Years of education: Not on file Highest education level: Not on file Occupational History Not on file Tobacco Use Smoking status: Every Day Packs/day: 0.50 Years: 25.00 Additional pack years: 0.00 Total pack years: 12.50 Types: Cigarettes Smokeless tobacco: Never Vaping Use Vaping Use: Never used Substance and Sexual Activity Alcohol use: Yes Alcohol/week: 3.0 standard drinks of alcohol Types: 3 Standard drinks or equivalent per week Drug use: Yes Frequency: 7.0 times per week Types: Marijuana Sexual activity: Not on file Other Topics Concern Not on file Social History Narrative Not on file Social Determinants of Health Financial Resource Strain: Not on file Food Insecurity: Not on file Transportation Needs: Not on file Physical Activity: Not on file Stress: Not on file Social Connections: Not on file Intima (more content not included)...[facility]11-02-2023 History of Present illness Narrative* Lynn Shelton, - 12/12/2022 11:00 AM EDT [facility] [place] [address] [place] [id number] Pulmonary Patient Visit - New 12/12/2022 Referring Physician: JOY MIMS Reason for Referral: Lung Nodule History of Present Illness Larisa Gonzáles is a 62 y.o. male with history of right lung T2N2 adenocarcinoma s/p right upper lobectomy 12/2021, s/p adjuvant chemotherapy, unable to complete adjuvent radiation due to anatomic concerns, COPD on Spiriva/symbicort, ALEXANDRA noncompliant with CPAP, DMT2 who presented for a 1.17 cm pet avid RML pulmonary nodule and R paratracheal adenopathy. Follows with pulmonary Dr Verde in [place]. Reports currently feeling well. Stated his COPD is well controlled. Denied any SOB, cough, wheezing, hemoptysis, chest pain, unintentional weight loss, night sweats. 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 Colonoscopy: Previously normal PastMedical History Past Medical History: Diagnosis Date Anxiety Cancer (CMS/HCC) (HCC) COPD (chronic obstructive pulmonary disease) (HCC) Depression Hiatal hernia with GERD HTN (hypertension) Hyperglycemia Iatrogenic pneumothorax Marijuana smoker Mass of upper lobe of right lung Morbid obesity with BMI of 40.0-44.9, adult (HCC) Nicotine addiction Nicotine dependence in remission ALEXANDRA (obstructive sleep apnea) HAS A BIPAP BUT DOES NOT USE Poor dentition Sciatica Smoking greater than 40 pack years Past Surgical History Past Surgical History: Procedure Laterality Date LUNG BIOPSY Right 12/26/2021 OTHER SURGICAL HISTORY 12/26/2021 Right thoracotomy, wedge resection pulmonary nodule right upper lobe, completion right upper lobectomy with mediastinal lymph node sampling Allergies Allergies Allergen Reactions Bee Venom Anaphylaxis Penicillins Other and Unknown Pt does not know what happens Medications Medication Documentation Review Audit Reviewed by Conchita Servin Rai, MA (Fleet Assistant) on 12/12/22 at 1101 Medication Order Taking? Sig Documenting Provider Last Dose Status albuterol 108 (90 Base) MCG/ACT inhaler [id number] Yes Inhale 1 puff as needed. Historical MD Brinda Taking Active amLODIPine (Norvasc) 10 MG tablet [id number] Yes Take 10 mg by mouth in the morning. Historical MD Brinda Taking Active aspirin 81 MG EC tablet [id number] Yes Take 81 mg by mouth in the morning. Historical MD Brinda Taking Active budesonide-formoterol (Symbicort) 160-4.5 MCG/ACT inhaler [id number] Yes Take 2 puffs by mouth in themorning. Berkley Parry MD Taking Active buPROPion XL (Wellbutrin XL) 150 MG 24 hr tablet [id number] Yes Take 150 mg by mouth every morning. Historical MD Brinda Taking Active dexAMETHasone (Decadron) 4 MG tablet [id number] Yes Take 1 tab PO BID the day before each chemo Ngozi Maldonado MD Taking Active famotidine (Pepcid) 20 MG tablet [id number] Yes Take 20 mg by mouth every 24 hours as needed. Berkley Parry MD Taking Active fluticasone (Flonase) 50 MCG/ACT nasal spray [id number] Yes Administer 2 sprays into each nostril in the morning. Berkley Parry MD Taking Active folic acid (Folvite) 1 MG tablet [id number] No Take 1 tablet (1 mg) by mouth daily. Patient not taking: Reported on 12/03/2022 Ngozi Maldonado MD Not Taking Active loratadine (Claritin) 10 MG tablet [id number] Yes Take 10 mg by mouth in the morning. Historical MD Brinda Taking Active losartan-hydroCHLOROthiazide (Hyzaar) 100-12.5 MG tablet [id number] Yes Take 1 tablet by mouth in themorning. Berkley Parry MD Taking Active montelukast (Singulair) 10 MG tablet [id number] Yes Take 10 mg by mouth Nightly. Berkley Parry MD Taking Active OLANZapine (ZyPREXA) 5 MG tablet [id number] Yes Take 1 tab po nightly on days 1-5 of each chemotherapy cycle or as directed Ngozi Maldonado MD Taking Active ondansetron (Zofran) 8 MG tablet [id number] Yes Take 1 tab PO every 8 hours as needed for nausea/vomiting. Do not start until 2 days after chemo. Ngozi Maldonado MD Taking Active pregabalin (Lyrica) 25 MG capsule [id number] Yes Take 25 mg by mouth in the morning and 25 mg before bedtime. Historical Provider, Taking Active prochlorperazine (Compazine) 10 MG tablet [id number] Yes Take 1 tablet (10 mg) by mouth every 6 hoursas needed for nausea. Ngozi Maldonado MD Taking Active Spiriva Respimat 2.5 MCG/ACT inhaler [id number] Yes Inhale 2 puffs in the morning. Historical Provider, Taking Active Social History Social History Tobacco Use Smoking status: Every Day Packs/day: 0.50 Years: 25.00 Additional pack years: 0.00 Total pack years: 12.50 Types: Cigarettes Start date: 1974 Smokeless tobacco: Never Substance Use Topics Alcohol use: Yes Alcohol/week: 3.0 standard drinks of alcohol Types: 3 Standard drinks or equivalent per week FamilyHistory Family History Problem Relation Name Age of Onset Cancer Mother Cancer Cousin Review of Systems Review of Systems Constitutional: Negative. Negative for fatigue, fever and unexpected weight change. HENT: Negative. Eyes: Negative. Respiratory: Negative for cough, chest tightness, shortness of breath and wheezing. Cardiovascular: Negative. Negative for chest pain and leg swelling. Gastrointestinal: Negative. Endocrine: Negative. Genitourinary: Negative. Musculoskeletal: Negative. Skin: Negative. Allergic/Immunologic: Negative. Neurological: Negative. Hematological: Negative. Psychiatric/Behavioral: Negative. Physical Exam Vitals: 12/12/22 1101 BP: 108/70 Pulse: 66 Resp: 18 SpO2: 96% Weight: 227 lb 6.4 oz (103 kg) Height: 5' 5 (1.651 m) Physical Exam Vitals reviewed. Constitutional: General: He is not in acute distress. Appearance: He is obese. HENT: Head: Normocephalic and atraumatic. Nose: Nose normal. Mouth/Throat: Mouth: Mucous membranes are moist. Eyes: General: No scleral icterus. Extraocular Movements: Extraocular movements intact. Cardiovascular: Rate and Rhythm: Normal rate and regular rhythm. Pulmonary: Effort: Pulmonary effort is normal. No respiratory distress. Breath sounds: Normal breath sounds. No wheezing or rales. Abdominal: General: Abdomen is flat. Palpations: Abdomen is soft. Tenderness: There is no abdominal tenderness. Musculoskeletal: General: No swelling or tenderness. Skin: General: Skin is warm and dry. Neurological: Mental Status: He is alert and oriented to person, place, and time. Psychiatric: Mood and Affect: Mood normal. Labs: Available studies were reviewed Radiology: Personally reviewed and interpreted Chest CT 09/03/22: New 1.17cm RML pulmonary nodule. R paratracheal and precarinal lymph node. Enlarged right hilar lymph nodes. PET CT 11/05/22: Right epicardial nodule, right paratracheal adenopathy, right subpectoral adenopathy, and nodular right pleural activity meet criteria for viable neoplasm. PFT's: Assessment/plan: Pet avid 1.17 RML pulmonary nodule and R paratracheal and hilar adenopathy COPD ALEXANDRA -Chest Ct and PET CT reviewed with patient including pet avid pulmonary nodule and adenopathy. Recommended for EBUS to evaluate lymph nodes. Procedure explained in detail to patient including risks of bleeding and pneumothorax. Patient has no history of coagulopathies or liver disease, does not take anticoagulation. Labwork reviewed. All questions answered. Patient agreeable to proceed. -Will continue to follow with his display designer outside Dr. Verde in [place] for his COPD and ALEXANDRA Follow up: After bronchoscopy to review results. Please seek immediate medical attention for any worsening or worrying new symptoms. Patient education, benefits, risks, and precautions provided. Management plan was discussed in detail and in agreement. All questions or concerns answered to satisfaction and understood. Lynn Shelton DO 11:10 AM 12/12/22 Pulmonary and Critical Care Medicine documented in this [facility]11-02-2023 Instructions* Patient Instructions* Conchita Servin Rai, MA - 12/12/2022 11:00 AM EDT YOUR APPOINTMENT TODAY WAS WITH THE [facility] LUNG NODULE [facility], COPD CLINIC, PULMONARY AND SLEEP MEDICINE OFFICE. PLEASE CALL OUR OFFICE AT [phone] IF YOU HAVE NOT RECEIVED YOUR TEST RESULTS 7 DAYS AFTER TESTING IS COMPLETED. PLEASE REMEMBER TO REQUEST REFILLS AT YOUR OFFICE VISITS. PHONE/FAX REQUESTS REQUIRE 48-72 HOURS FOR RESPONSE. A FRIENDLY REMINDER COPAYS ARE DUE AT TIME OF SERVICE. THANK YOU. Our Patients Are Important! We want to improve and you can help. After your visit we want you to feel: Listened to, Respected and have your health care explained. You may receive a survey asking you about your visit. Please complete the survey. We will use your feedback to make improvements. COVID-19 VACCINATION INFORMATION: PH. [phone] [email or web address] [facility] [phone] [facility] [phone] documented in this [facility]11-02-2023 Consult note* Farhan Douglas MD - 12/12/2022 10:00 AM EDT RADIATION ONCOLOGY INITIAL CONSULTATION PATIENT: Larisa Gonzáles DATE OF SERVICE: 12/12/22 : 1960 AGE: 62 y.o. PRIMARY SITE AND HISTOPATHOLOGY: Right upper lobe of the lung, grade 3 acinar adenocarcinoma. Originally diagnosed in 2021. EGFR nonmutated. PD-L1 IHC negative by report. STAGE: pT2a N2 M0, III HISTORY OF PRESENT ILLNESS: This is a 62-year-old gentleman who was found to have a mass in the right upper lobe of the lung in 2021. It was diagnosed at an outside center. He was referred for surgery and on 12/26/2021 underwent a right thoracotomy, wedge resection of the right upper lobe pulmonarynodule, completion right upper lobectomy with mediastinal node sampling. Pathology revealed invasive acinar adenocarcinoma, grade 3, measuring 1.7 cm. There was lymphovascular invasion.. They noted that the final parenchymal margin of the right upper lobe was negative for tumor was within a lymph node at this margin. 3 out of 9 nodes were involved, level 10 R and 7. The patient was referred for postoperative radiation therapy and chemotherapy evaluation. By report the patient was seen at [place] radiation department. He notes that the risk were too high with his heart and he did not receive radiation therapy. He received adjuvant cisplatin and pemetrexed starting 02/22/2022 and completing 04/24/2022. The patient continued to be followed. At an outside center, CT of the chest with contrast on 09/03/2022 identified a stable 1.7 cm node in the right axilla. Surgical changes were noted with volume loss on the right. A stable 2 mm noncalcified nodule in a right middle lobe. A new 1.17 cm nodule in the right middle lobe peripheral laterally. A new 1 cm nodule in the pericardial fat on the right sidelaterally. A 2.3 x 1.4 cm node in the right paratracheal area. Evidence of a precarinal node. Unchanged 3 x 2.3 cm hypodense nodule in the right adrenal gland. [facility] which identified a 2.1 x 2.4 cm soft tissue nodule in the anterior and lateral epicardial fat with an SUV max of 4.8. A left subpectoral lymph node measuring 1.5 x 1.6 cm with an SUV max of 6 which is new from prior PET. Mild nodular pleural thickening in theright hemithorax with an SUV max of 4.2. A 2.2 x 2.3 cm soft tissue nodule near the right lateral trachea. The patient is scheduled to see medical oncology today and pulmonary to be evaluated for biopsy. At this point he notes that his appetite is stable. No significant weight loss. He notes chronic pain in the back and legs, has sciatica and follows with a chiropractor. Today he rates it as a 5 out of 10. He has dyspnea on exertion. Occasional dry cough. He is working on tobacco cessation and is down to half a pack per day. 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 We have been consulted for consideration of radiation therapy. PAST MEDICAL HISTORY: Past Medical History: Diagnosis Date Anxiety Cancer (CMS/HCC) (HCC) COPD (chronic obstructive pulmonary disease) (HCC) Depression Hiatal hernia with GERD HTN (hypertension) Hyperglycemia Iatrogenic pneumothorax Marijuana smoker Mass of upper lobe of right lung Morbid obesity with BMI of 40.0-44.9, adult (HCC) Nicotine addiction Nicotine dependence in remission ALEXANDRA (obstructive sleep apnea) HAS A BIPAP BUT DOES NOT USE Poor dentition Sciatica Smoking greater than 40 pack years PAST SURGICAL HISTORY: Past Surgical History: Procedure Laterality Date LUNG BIOPSY Right 12/26/2021 OTHER SURGICAL HISTORY 12/26/2021 Right thoracotomy, wedge resection pulmonary nodule right upper lobe, completion right upper lobectomy with mediastinal lymph node sampling SOCIAL HISTORY: 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 Follows with the [place]. Social History Socioeconomic History Marital status: Spouse name: Not on file Number of children: Not on file Years of education: Not on file Highest education level: Not on file Occupational History Not on file Tobacco Use Smoking status: Every Day Packs/day: 0.50 Years: 25.00 Additional pack years: 0.00 Total pack years: 12.50 Types: Cigarettes Smokeless tobacco: Never Vaping Use Vaping Use: Never used Substance and Sexual Activity Alcohol use: Yes Alcohol/week: 3.0 standard drinks of alcohol Types: 3 Standard drinks or equivalent per week Drug use: Yes Frequency: 7.0 times per week Types: Marijuana Sexual activity: Not on file Other Topics Concern Not on file Social History Narrative Not on file Social Determinants of Health Financial Resource Strain: Not on file Food Insecurity: Not on file Transportation Needs: Not on file Physical Activity: Not on file Stress: Not on file Social Connections: Not on file Intimate Partner Violence: Not on file Housing Stability: Not on file FAMILY HISTORY: Family History Problem Relation Name Age of Onset Cancer Mother Cancer Cousin ALLERGIES: Allergies as of 12/12/2022 - Reviewed 12/12/2022 Allergen Reaction Noted Bee venom Anaphylaxis 12/04/2021 Penicillins Other and Unknown 06/28/2013 MEDICATIONS: Current Outpatient Medications Medication Sig Dispense Refill albuterol 108 (90 Base) MCG/ACT inhaler Inhale 1 puff as needed. amLODIPine (Norvasc) 10 MG tablet Take 10 mg by mouth in the morning. budesonide-formoterol (Symbicort) 160-4.5 MCG/ACT inhaler Take 2 puffs by mouth in the morning. buPROPion XL (Wellbutrin XL) 150 MG 24 hr tablet Take 150 mg by mouth every morning. fluticasone (Flonase) 50 MCG/ACT nasal spray Administer 2 sprays into each nostril in the morning. loratadine (Claritin) 10 MG tablet Take 10 mg by mouth in the morning. losartan-hydroCHLOROthiazide (Hyzaar) 100-12.5 MG tablet Take 1 tablet by mouth in the morning. montelukast (Singulair) 10 MG tablet Take 10 mg by mouth Nightly. pregabalin (Lyrica) 25 MG capsule Take 25 mg by mouth in the morning and 25 mg before bedtime. Spiriva Respimat 2.5 MCG/ACT inhaler Inhale 2 puffs in the morning. aspirin 81 MG EC tablet Take 81 mg by mouth in the morning. dexAMETHasone (Decadron) 4 MG tablet Take 1 tab PO BID the day before each chemo 8 tablet 0 famotidine (Pepcid) 20 MG tablet Take 20 mg by mouth every 24 hours as needed. folic acid (Folvite) 1 MG tablet Take 1 tablet (1 mg) by mouth daily. (Patient not taking: Reportedon 12/03/2022) 30 tablet 3 OLANZapine (ZyPREXA) 5 MG tablet Take 1 tab po nightly on days 1-5 of each chemotherapy cycle or asdirected 20 tablet 0 ondansetron (Zofran) 8 MG tablet Take 1 tab PO every 8 hours as needed for nausea/vomiting. Do not start until 2 days after chemo. 20 tablet 3 prochlorperazine (Compazine) 10 MG tablet Take 1 tablet (10 mg) by mouth every 6 hours as needed for nausea. 40 tablet 3 No current facility-administered medications for this encounter. SUMMARY OF SIGNIFICIANT X-RAY/LABORATORY FINDINGS: Radiology as per history. No recent blood work. REVIEW OF SYSTEMS: Review of Systems Constitutional: Positive for fatigue. Negative for appetite change, chills, diaphoresis, fever and unexpected weight change. HENT: Negative for sore throat and trouble swallowing. Has deafness in the left ear. Eyes: Has glasses. Respiratory: Positive for cough and shortness of breath. Negative for chest tightness and hemoptysis. Has dyspnea on exertion. Denies shortness of breath at rest. Has a periodic cough of clear sputum. Cardiovascular: Negative. Gastrointestinal: Negative. Genitourinary: Positive for frequency. History of urinary frequency, no change. Musculoskeletal: Positive for arthralgias, back pain and neck pain. Follows with a chiropractor. He notes that he has several disc issues as well as arthritis and sciatica. Skin: Wound on the left thumb that is healing. Neurological: Negative. Hematological: Negative. Psychiatric/Behavioral: The patient is nervous/anxious. Anxiety with the new diagnosis. KPS: 90 PHYSICAL EXAM: BP 130/69 Pulse 73 Temp 97.3 F (36.3 C) Resp 20 Ht 5' 5 (1.651 m) Wt 225 lb 9.6 oz (102 kg) SpO2 98% BMI 37.54 kg/m Pain Score: 5 - Moderate pain (chronic back and bilateral leg pain. He sees a chiropractor) GENERAL: Awake, alert, oriented, mild anxiety, dressed appropriately, appears of stated age. Ambulates without assistance. Speech pattern fluent. HEAD AND NECK: Good tongue movement. No exudate or thrush. Poor dentition work. Nonicteric sclera. LUNGS: Clear to auscultation. No rales or rhonchi. HEART: Regular rate and rhythm, S1-S2 noted no murmur. NECK: Symmetric. No thyroid nodule. NODES: No neck, supraclavicular, infraclavicular, or axillary adenopathy. ABDOMEN: Soft, nontender, nondistended. No hepatosplenomegaly, no suspicious mass. MUSCULOSKELETAL: No swelling or calf tenderness bilaterally. Motor strength 5/5 in upper and lower extremities with sensation intact to light touch. No spine or posterior chest wall tenderness. No dullness to percussion. SKIN: Without excessive bruising. No rash. Healing laceration on the left thumb. NEURO: PERRLA, EOMI. CN 2-12 grossly intact except full vision lau were not tested. Able to hearlight finger rub bilaterally. IMPRESSION: Larisa Gonzáles is a 62 y.o. gentleman with history of right lung cancer treated with surgery and chemotherapy. He now presents with changes on CT and PET concerning for recurrence or another primary. He is in the process of work-up. If it is deemed appropriate, we discussed the use of radiation therapy. We went over what a treatment course would entail including set up and planning a lot of possible side effects both acute and long-term. The patient notes that if he does have radiation therapy he would like to have it done at the [facility] due to the proximity of his home. I told him that Dr. Maldonado can arrange this if required. Otherwise he had opportunity ask questions. PLAN: His care is discharged to his medical oncologist. We thank you for the consultation. Farhan Douglas MD [facility] Department of Radiation Oncology is an Accredited Facility of the [employer] (ACR). Total time: 60 minutes in chart review, radiology evaluation/interpretation, patient exam, patient counseling and care coordination. This document was completed utilizing speech recognition software. Grammatical errors, random word insertions, pronoun errors, and incomplete sentences are an occasional consequence of this system due to software limitations, ambient noise, and hardware issues. Any formal questions or concerns about the content, text or information contained within the body of this dictation should be directly addressed to the provider for clarification. [id number] Consult note* Farhan Douglas MD - 12/12/2022 10:00 AM EDT RADIATION ONCOLOGY INITIAL CONSULTATION PATIENT: Larisa Gonzálse DATE OF SERVICE: 12/12/22 : 1960 AGE: 62 y.o. PRIMARY SITE AND HISTOPATHOLOGY: Right upper lobe of the lung, grade 3 acinar adenocarcinoma. Originally diagnosed in 2021. EGFR nonmutated. PD-L1 IHC negative by report. STAGE: pT2a N2 M0, III HISTORY OF PRESENT ILLNESS: This is a 62-year-old gentleman who was found to have a mass in the right upper lobe of the lung in 2021. It was diagnosed at an outside center. He was referred for surgery and on 12/26/2021 underwent a right thoracotomy, wedge resection of the right upper lobe pulmonarynodule, completion right upper lobectomy with mediastinal node sampling. Pathology revealed invasive acinar adenocarcinoma, grade 3, measuring 1.7 cm. There was lymphovascular invasion.. They noted that the final parenchymal margin of the right upper lobe was negative for tumor was within a lymph node at this margin. 3 out of 9 nodes were involved, level 10 R and 7. The patient was referred for postoperative radiation therapy and chemotherapy evaluation. By report the patient was seen at [facility]. He notes that the risk were too high with his heart and he did not receive radiation therapy. He received adjuvant cisplatin and pemetrexed starting 02/22/2022 and completing 04/24/2022. The patient continued to be followed. At an outside center, CT of the chest with contrast on 09/03/2022 identified a stable 1.7 cm node in the right axilla. Surgical changes were noted with volume loss on the right. A stable 2 mm noncalcified nodule in a right middle lobe. A new 1.17 cm nodule in the right middle lobe peripheral laterally. A new 1 cm nodule in the pericardial fat on the right sidelaterally. A 2.3 x 1.4 cm node in the right paratracheal area. Evidence of a precarinal node. Unchanged 3 x 2.3 cm hypodense nodule in the right adrenal gland. [facility] which identified a 2.1 x 2.4 cm soft tissue nodule in the anterior and lateral epicardial fat with an SUV max of 4.8. A left subpectoral lymph node measuring 1.5 x 1.6 cm with an SUV max of 6 which is new from prior PET. Mild nodular pleural thickening in theright hemithorax with an SUV max of 4.2. A 2.2 x 2.3 cm soft tissue nodule near the right lateral trachea. The patient is scheduled to see medical oncology today and pulmonary to be evaluated for biopsy. At this point he notes that his appetite is stable. No significant weight loss. He notes chronic pain in the back and legs, has sciatica and follows with a chiropractor. Today he rates it as a 5 out of 10. He has dyspnea on exertion. Occasional dry cough. He is working on tobacco cessation and is down to half a pack per day. 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 We have been consulted for consideration of radiation therapy. PAST MEDICAL HISTORY: Past Medical History: Diagnosis Date Anxiety Cancer (CMS/HCC) (HCC) COPD (chronic obstructive pulmonary disease) (HCC) Depression Hiatal hernia with GERD HTN (hypertension) Hyperglycemia Iatrogenic pneumothorax Marijuana smoker Mass of upper lobe of right lung Morbid obesity with BMI of 40.0-44.9, adult (HCC) Nicotine addiction Nicotine dependence in remission ALEXANDRA (obstructive sleep apnea) HAS A BIPAP BUT DOES NOT USE Poor dentition Sciatica Smoking greater than 40 pack years PAST SURGICAL HISTORY: Past Surgical History: Procedure Laterality Date LUNG BIOPSY Right 12/26/2021 OTHER SURGICAL HISTORY 12/26/2021 Right thoracotomy, wedge resection pulmonary nodule right upper lobe, completion right upper lobectomy with mediastinal lymph node sampling SOCIAL HISTORY: 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 Follows with the [place]. Social History Socioeconomic History Marital status: Spouse name: Not on file Number of children: Not on file Years of education: Not on file Highest education level: Not on file Occupational History Not on file Tobacco Use Smoking status: Every Day Packs/day: 0.50 Years: 25.00 Additional pack years: 0.00 Total pack years: 12.50 Types: Cigarettes Smokeless tobacco: Never Vaping Use Vaping Use: Never used Substance and Sexual Activity Alcohol use: Yes Alcohol/week: 3.0 standard drinks of alcohol Types: 3 Standard drinks or equivalent per week Drug use: Yes Frequency: 7.0 times per week Types: Marijuana Sexual activity: Not on file Other Topics Concern Not on file Social History Narrative Not on file Social Determinants of Health Financial Resource Strain: Not on file Food Insecurity: Not on file Transportation Needs: Not on file Physical Activity: Not on file Stress: Not on file Social Connections: Not on file Intimate Partner Violence: Not on file Housing Stability: Not on file FAMILY HISTORY: Family History Problem Relation Name Age of Onset Cancer Mother Cancer Cousin ALLERGIES: Allergies as of 12/12/2022 - Reviewed 12/12/2022 Allergen Reaction Noted Bee venom Anaphylaxis 12/04/2021 Penicillins Other and Unknown 06/28/2013 MEDICATIONS: Current Outpatient Medications Medication Sig Dispense Refill albuterol 108 (90 Base) MCG/ACT inhaler Inhale 1 puff as needed. amLODIPine (Norvasc) 10 MG tablet Take 10 mg by mouth in the morning. budesonide-formoterol (Symbicort) 160-4.5 MCG/ACT inhaler Take 2 puffs by mouth in the morning. buPROPion XL (Wellbutrin XL) 150 MG 24 hr tablet Take 150 mg by mouth every morning. fluticasone (Flonase) 50 MCG/ACT nasal spray Administer 2 sprays into each nostril in the morning. loratadine (Claritin) 10 MG tablet Take 10 mg by mouth in the morning. losartan-hydroCHLOROthiazide (Hyzaar) 100-12.5 MG tablet Take 1 tablet by mouth in the morning. montelukast (Singulair) 10 MG tablet Take 10 mg by mouth Nightly. pregabalin (Lyrica) 25 MG capsule Take 25 mg by mouth in the morning and 25 mg before bedtime. Spiriva Respimat 2.5 MCG/ACT inhaler Inhale 2 puffs in the morning. aspirin 81 MG EC tablet Take 81 mg by mouth in the morning. dexAMETHasone (Decadron) 4 MG tablet Take 1 tab PO BID the day before each chemo 8 tablet 0 famotidine (Pepcid) 20 MG tablet Take 20 mg by mouth every 24 hours as needed. folic acid (Folvite) 1 MG tablet Take 1 tablet (1 mg) by mouth daily. (Patient not taking: Reportedon 12/03/2022) 30 tablet 3 OLANZapine (ZyPREXA) 5 MG tablet Take 1 tab po nightly on days 1-5 of each chemotherapy cycle or asdirected 20 tablet 0 ondansetron (Zofran) 8 MG tablet Take 1 tab PO every 8 hours as needed for nausea/vomiting. Do not start until 2 days after chemo. 20 tablet 3 prochlorperazine (Compazine) 10 MG tablet Take 1 tablet (10 mg) by mouth every 6 hours as needed for nausea. 40 tablet 3 No current facility-administered medications for this encounter. SUMMARY OF SIGNIFICIANT X-RAY/LABORATORY FINDINGS: Radiology as per history. No recent blood work. REVIEW OF SYSTEMS: Review of Systems Constitutional: Positive for fatigue. Negative for appetite change, chills, diaphoresis, fever and unexpected weight change. HENT: Negative for sore throat and trouble swallowing. Has deafness in the left ear. Eyes: Has glasses. Respiratory: Positive for cough and shortness of breath. Negative for chest tightness and hemoptysis. Has dyspnea on exertion. Denies shortness of breath at rest. Has a periodic cough of clear sputum. Cardiovascular: Negative. Gastrointestinal: Negative. Genitourinary: Positive for frequency. History of urinary frequency, no change. Musculoskeletal: Positive for arthralgias, back pain and neck pain. Follows with a chiropractor. He notes that he has several disc issues as well as arthritis and sciatica. Skin: Wound on the left thumb that is healing. Neurological: Negative. Hematological: Negative. Psychiatric/Behavioral: The patient is nervous/anxious. Anxiety with the new diagnosis. KPS: 90 PHYSICAL EXAM: BP 130/69 Pulse 73 Temp 97.3 F (36.3 C) Resp 20 Ht 5' 5 (1.651 m) Wt 225 lb 9.6 oz (102 kg) SpO2 98% BMI 37.54 kg/m Pain Score: 5 - Moderate pain (chronic back and bilateral leg pain. He sees a chiropractor) GENERAL: Awake, alert, oriented, mild anxiety, dressed appropriately, appears of stated age. Ambulates without assistance. Speech pattern fluent. HEAD AND NECK: Good tongue movement. No exudate or thrush. Poor dentition work. Nonicteric sclera. LUNGS: Clear to auscultation. No rales or rhonchi. HEART: Regular rate and rhythm, S1-S2 noted no murmur. NECK: Symmetric. No thyroid nodule. NODES: No neck, supraclavicular, infraclavicular, or axillary adenopathy. ABDOMEN: Soft, nontender, nondistended. No hepatosplenomegaly, no suspicious mass. MUSCULOSKELETAL: No swelling or calf tenderness bilaterally. Motor strength 5/5 in upper and lower extremities with sensation intact to light touch. No spine or posterior chest wall tenderness. No dullness to percussion. SKIN: Without excessive bruising. No rash. Healing laceration on the left thumb. NEURO: PERRLA, EOMI. CN 2-12 grossly intact except full vision lau were not tested. Able to hearlight finger rub bilaterally. IMPRESSION: Larisa Gonzáles is a 62 y.o. gentleman with history of right lung cancer treated with surgery and chemotherapy. He now presents with changes on CT and PET concerning for recurrence or another primary. He is in the process of work-up. If it is deemed appropriate, we discussed the use of radiation therapy. We went over what a treatment course would entail including set up and planning a lot of possible side effects both acute and long-term. The patient notes that if he does have radiation therapy he would like to have it done at the [facility] due to the proximity of his home. I told him that Dr. Maldonado can arrange this if required. Otherwise he had opportunity ask questions. PLAN: His care is discharged to his medical oncologist. We thank you for the consultation. Farhan Douglas MD [facility] Department of Radiation Oncology is an Accredited Facility of the [employer] (ACR). Total time: 60 minutes in chart review, radiology evaluation/interpretation, patient exam, patient counseling and care coordination. This document was completed utilizing speech recognition software. Grammatical errors, random word insertions, pronoun errors, and incomplete sentences are an occasional consequence of this system due to software limitations, ambient noise, and hardware issues. Any formal questions or concerns about the content, text or information contained within the body of this dictation should be directly addressed to the provider for clarification. documented in this encounterSReg[facility] Hospital [facility] [id number] Nurse Note* Maurisio Blake RN - 12/12/2022 10:00 AM EDT The patient is here at [facility] by himself for a new consult with Dr. Douglas. The patient denies any previous history radiation therapy. He has previously received chemotherapy under the care of Dr. Maldonado. The patient denies having a pacemaker or any other implanted devices. The patient has 5/10 chronic lower back and bilateral leg pain. The patient states his appetite is WNL. The RN will make a referral to the Dietitian for a nutrition screening score of 3. He reports a fatigue level 4/10 and he is not sleeping well related to waking up frequently throughout the night. The RN gave and reviewed an external radiation information packet and a patient resource guide. The patient verbalized understa nding. [id number] Nurse Note* Maurisio Blake RN - 12/12/2022 10:00 AM EDT The patient is here at [facility] by himself for a new consult with Dr. Douglas. The patient denies any previous history radiation therapy. He has previously received chemotherapy under the care of Dr. Maldonado. The patient denies having a pacemaker or any other implanted devices. The patient has 5/10 chronic lower back and bilateral leg pain. The patient states his appetite is WNL. The RN will make a referral to the Dietitian for a nutrition screening score of 3. He reports a fatigue level 4/10 and he is not sleeping well related to waking up frequently throughout the night. The RN gave and reviewed an external radiation information packet and a patient resource guide. The patient verbalized understa nding. documented in this [facility]10-31-2023 History of Present illness Narrative* Chante Figueroa RN - 12/10/2022 10:15 AM EDT THORACIC ONCOLOGY AND LUNG NODULE TUMOR BOARD RECOMMENDATIONS Consensus Recommendation Summary Privileged Information TUMOR BOARD CLINICAL SUMMARY Basic Demographic Information Larisa Gonzáles Date of presentation: 12/10/22 1960 Presenting physician: Dr. Hanson for Dr. Murillo 62 y.o. [] Previous presentation date: Not Applicable Presentation Type [x] Prospective [] Retrospective [] Nodule Brief Clinical Summary & Tumor Board Recommendations 4 Diagnosis Adenocarcinoma Presenter: Dr. Murillo Screenin01/09/21 Name Larisa Gonzáles Surgeon: Dr. Murillo CTC: 04/11/21; 10/11/21; 09/03/22 MR#/Epic [id number] Oncologist: Dr. Maldonado 12/12/22 CTAP: /Age 9 1960 62 yo Rad Oncologist:Dr. Douglas 12/12/22 MRI: 02/18/22 Gender Male Automotive Service Director: Klaudia Edwards CNP PET: 01/23/21; 11/14/21; 11/05/22 Smoking History: ?Current [] Former [] Never PCP: Dr. Mims PFT: 02/11/19-FEV1 2.27/74 DLCO 82% ?Prospective []Retrospective Other: PATH: 12/26/21 RUL Resection; 10/29/21 CT Lung bx @ [facility] Clinical Stage: T N M Path Stage: T2a N2 M0 (RUL 12/26/21) Other: Brief Summary: Hx COPD/DM, referred from [facility] Nov 2021 for enlarging right upper lobe nodule. CTguided bx done and resulted in a pneumothorax that required a 7 day hospital admission. PET performed. Patient declined another bio10/29/21 which was inadequ psy and opted for surgical resection. Patient underwent right upper lobectomy 12/26/21. Patient referred to [facility], completed adjuvant chemotherapy 04/24/22. Referred to radiation oncology Nichole (pt preference), team did not recommend radiation due to anatomic concerns. Surveillance CT noted new 1.17 cm nodule in right middle lobe, PET performed. Presents now to review imaging and plan of care. Recommendations: 1. Consider Pulm Eval to discuss EBUS /Possible ENB Available Protocol Recommendation [] Yes Protocol: Report Completed by Chante Figueroa RN 12/10/2022 Thoracic Tumor Board Moderator-Peter Hanson MD Recommendations from Tumor Conference are based on national evidence based guidelines. The plan used by the managing physician(s) may vary based on the status of the individual patient and the reports results made available at time of presentation. We recognize that this data set may change and that the final treatment plan may differ from this recommendation. documented in this [facility]10-24-2023 NoteOrders Placed This Encounter Procedures [facility] [place] Standing Status: Future Standing Expiration Date: 06/04/2023 Referral Priority: Routine Referral Type: Consultation Referral Reason: Specialty Services Required Requested Specialty: Radiation Oncology Number of Visits Requested: 1 [facility] [place] Standing Status: Future Standing Expiration Date: 06/04/2023 Referral Priority: Routine Referral Type: Consultation Referral Reason: Specialty Services Required Referred to Provider: Ngozi Maldonado MD Requested Specialty: Hematology and Oncology [facility]: [facility] History of Present illness Narrative* Ruby Murillo MD - 12/03/2022 11:00 AM EDT Images from the original note were not included. [facility] CARDIOVASCULAR & THORACIC SURGERY [address] [facility] [id number] Dept: [phone] Dept Loc: [phone] Visit type: Established Reason for Visit: Status post right upper lobectomy in December 2021 with adjuvant chemotherapy [id number] adenocarcinoma of the lung. Assessment and plan There appears to be a potential recurrence of the adenocarcinoma of the right lung. His original tumor was T2N2 and he received adjuvant chemotherapy but no radiation therapy. On imaging, it appears as though there is a PET positive lesion within the middle lobe and enlargedlymph nodes within the hilum and have a standard uptake value of 4. I suspect that this is recurrent malignancy that should be treated nonoperatively. We will present his case at our multidisciplinary tumor board and refer him back to medical oncology as well as radiation oncology. Further recommendations to follow History of Present Illness Larisa Gonzáles is a 62 y.o. male known to Dr. Murillo s/p right thoracotomy with RUL on 12/26/21. Per notes, patient completed brain MRI on 02/18/22 that was WNL. He completed adjuvant chemotherapy on 04/24/22. Patient had CT chest on 09/03/22 that showed a new 1.17 cm nodule right middle lobe, rightparatracheal and right precarinal lymph node, and an enlarged right hilar lymph nodes. Patient had a PET scan on 11/05/22 that demonstrated an abnormal exam see below. Patient is a current smoker. Patient is here today for an evaluation. Past Medical History Past Medical History: Diagnosis Date Anxiety COPD (chronic obstructive pulmonary disease) (HCC) Depression Hiatal hernia with GERD HTN (hypertension) Hyperglycemia Iatrogenic pneumothorax Marijuana smoker Mass of upper lobe of right lung Morbid obesity with BMI of 40.0-44.9, adult (HCC) Nicotine addiction Nicotine dependence in remission ALEXANDRA (obstructive sleep apnea) HAS A BIPAP BUT DOES NOT USE Poor dentition Smoking greater than 40 pack years Past Surgical History No past surgical history on file. Family History No family history on file. Social History Social History Tobacco Use Smoking status: Every Day Packs/day: 1.00 Years: 25.00 Additional pack years: 0.00 Total pack years: 25.00 Types: Cigarettes Last attempt to quit: 11/2021 Years since quittin.0 Smokeless tobacco: Never Vaping Use Vaping Use: Never used Substance Use Topics Alcohol use: Yes Alcohol/week: 7.0 standard drinks of alcohol Types: 7 Standard drinks or equivalent per week Drug use: Yes Frequency: 7.0 times per week Types: Marijuana Allergies Allergies Allergen Reactions Bee Venom Anaphylaxis Penicillins Other and Unknown Pt does not know what happens Medications Current Outpatient Medications: albuterol 108 (90 Base) MCG/ACT inhaler, Inhale 1 puff as needed., Disp: , Rfl: amLODIPine (Norvasc) 10 MG tablet, Take 10 mg by mouth in the morning., Disp: , Rfl: aspirin 81 MG EC tablet, Take 81 mg by mouth in the morning., Disp: , Rfl: budesonide-formoterol (Symbicort) 160-4.5 MCG/ACT inhaler, Take 2 puffs by mouth in the morning., Disp: , Rfl: buPROPion XL (Wellbutrin XL) 150 MG 24 hr tablet, Take 150 mg by mouth every morning., Disp: , Rfl: dexAMETHasone (Decadron) 4 MG tablet, Take 1 tab PO BID the day before each chemo, Disp: 8 tablet, Rfl: 0 famotidine (Pepcid) 20 MG tablet, Take 20 mg by mouth every 24 hours as needed., Disp: , Rfl: fluticasone (Flonase) 50 MCG/ACT nasal spray, Administer 2 sprays into each nostril in the morning., Disp: , Rfl: folic acid (Folvite) 1 MG tablet, Take 1 tablet (1 mg) by mouth daily., Disp: 30 tablet, Rfl: 3 loratadine (Claritin) 10 MG tablet, Take 10 mg by mouth in the morning., Disp: , Rfl: losartan-hydroCHLOROthiazide (Hyzaar) 100-12.5 MG tablet, Take 1 tablet by mouth in the morning., Disp: , Rfl: montelukast (Singulair) 10 MG tablet, Take 10 mg by mouth Nightly., Disp: , Rfl: OLANZapine (ZyPREXA) 5 MG tablet, Take 1 tab po nightly on days 1-5 of each chemotherapy cycle or as directed, Disp: 20 tablet, Rfl: 0 ondansetron (Zofran) 8 MG tablet, Take 1 tab PO every 8 hours as needed for nausea/vomiting. Do notstart until 2 days after chemo., Disp: 20 tablet, Rfl: 3 pregabalin (Lyrica) 25 MG capsule, Take 25 mg by mouth in the morning and 25 mg before bedtime., Disp: , Rfl: prochlorperazine (Compazine) 10 MG tablet, Take 1 tablet (10 mg) by mouth every 6 hours as needed for nausea., Disp: 40 tablet, Rfl: 3 Spiriva Respimat 2.5 MCG/ACT inhaler, Inhale 2 puffs in the morning., Disp: , Rfl: Review of Systems Review of Systems Constitutional: Positive for fatigue. Respiratory: Positive for cough (with activity) and shortness of breath. All other systems reviewed and are negative. Physical Exam Vitals: There were no vitals taken for this visit. Constitutional: General: Not in acute distress. Appearance: Normal appearance. Not toxic-appearing. Ear, nose, mouth: Bilateral external ear and nose normal. Nose: Nose normal. Mouth: Appearance normal, no bleeding, moist mucus membranes Eyes: General: No scleral icterus. No discharge from bilateral eyes Extraocular Movements: Extraocular movements intact. Pupils equal and reactive bilaterally Cardiovascular: Heart: Regular rhythm. Normal heart sounds. Edema: no edema in bilateral lower extremities Pulmonary: Effort: Pulmonary effort is normal. No respiratory distress. Breath sounds: Normal breath sounds. No wheezing. Chest wall: No tenderness. Abdominal: Appearance: Not distended Palpations: There is no abdominal tenderness, no guarding. Musculoskeletal: Bilateral upper and lower extremities: Normal range of motion, no deformity Head: Normocephalic and atraumatic. Neck: Normal range of motion and neck supple. No muscular tenderness. Lymphadenopathy: Cervical: No cervical adenopathy. Skin: General: Skin is warm and dry. Coloration: Skin is not jaundiced. Neurological: General: No focal deficit present. Cranial Nerves: No obvious cranial nerve deficit. Psychiatric: Mood and Affect: Mood normal. Thought Content: Thought content normal. Patient has good judgement and insight Mental Status: Alert and oriented to place, person, and time. Labs Auto WBC Date/Time Value Ref Range Status 04/24/2022 09:19 AM 3.1 (L) 3.6 - 10.7 10*3/uL Final 04/03/2022 09:21 AM 3.4 (L) 3.6 - 10.7 10*3/uL Final Hemoglobin Date/Time Value Ref Range Status 04/24/2022 09:19 AM 13.0 13.0 - 18.0 g/dL Final 04/03/2022 09:21 AM 13.9 13.0 - 18.0 g/dL Final Platelets Date/Time Value Ref Range Status 04/24/2022 09:19 AM 355 140 - 440 10*3/uL Final 04/03/2022 09:21 AM 398 140 - 440 10*3/uL Final SODIUM Date/Time Value Ref Range Status 04/24/2022 09:19 AM 134 (L) 135 - 145 mmol/L Final 04/03/2022 09:21 AM 133 (L) 135 - 145 mmol/L Final POTASSIUM Date/Time Value Ref Range Status 04/24/2022 09:19 AM 4.3 3.5 - 5.1 mmol/L Final 04/03/2022 09:21 AM 4.9 3.5 - 5.1 mmol/L Final CREATININE Date/Time Value Ref Range Status 04/24/2022 09:19 AM 0.84 0.66 - 1.25 mg/dL Final 04/03/2022 09:21 AM 0.74 0.66 - 1.25 mg/dL Final Imaging Pet Scan 11/05/22 CT CHEST 09/03/22 MRI Brain 02/18/22 Patient Care Team: PCP: Dr. Joy Mims, Hem/ Onc: Dr. Ngozi Maldonado MD Disclaimer INFORMED CONSENT:The nature and purpose of the proposed treatment or procedure have been discussed.The risks and benefits of the proposed treatment or procedures have been reviewed. Alternatives have been reviewed in addition to the risks and benefits of not receiving treatments or undergoing procedures. Pursuant to this discussion, the patient agrees to undergo the proposed treatment or procedure. Captured images seen in this note from are not a substitute for a comprehensive interpretation of the entire data set as reflected by the interpreting physician with regard to radiology, echocardiography, and other diagnostic images. This note may have been dictated using [employer] Medical Practice Edition 2.6 and/or [employer] Voice Recognition Feature. The document was proofread, however unrecognized voice recognition foreign language stenographer errors may be present. documented in this [facility]10-02-2023 Miscellaneous Notes* Telephone Encounter - Priscila Zacarias RN - 11/11/2022 12:17 PM EDT Pt called and is notified of providers results and instructions. Pt voices understanding. Priscila Babulski, RN * Telephone Encounter - Corrie Gibbs APRN.CNS - 11/11/2022 8:39 AM EDT Improved A1c at 6.3%. All other labs in acceptable range. If wanting to avoid medication recommend sticking with a plant based (Mediterranean) and DM diet, portion control and and routine exercise such as walking to help control blood sugar, cholesterol andweight. Recommend a diet plenty of vegetables, fruits,whole grains, fish, chicken, turkey or plant proteins He can let us know if wanting to do anything additional such a medication, metal sponge making machine operator, bariatric provider. The 10-year ASCVD risk score (Zoya CHAIREZ, et al., 2019) is: 21.8% Values used to calculate the score: Age: 62 years Sex: Male Is Non- : No Diabetic: Yes Tobacco smoker: Yes Systolic Blood Pressure: 110 mmHg Is BP treated: Yes HDL Cholesterol: 36 mg/dL Total Cholesterol: 140 mg/dL [facility] NoteHNO ID: [id number] Author: Corrie Gibbs APRN.CNS Service: ? Author Type: Nurse Specialist Type: Progress Notes Filed: 11/08/2022 11:29 AM Note Text: SUBJECTIVE: Spirometry Never done Alpha-1 Antitrypsin Deficiency Screening Never done Shingrix Vaccine(1 of 2) Never done Pneumococcal Vaccine(2 - PCV) due on 08/23/2015 Hepatitis B Vaccine(1 of 3 - Risk 3-dose series) Never done Prostate Cancer Screening Discussion due on 11/13/2021 Colorectal Cancer Screening due on 12/11/2021 Urine Albumin:Creatinine Ratio due on 08/16/2022 LDL Cholesterol due on 09/12/2022 Influenza Vaccine(1) due on 10/11/2022 AMAIRANI Gonzáles is a 62 year old male. PMH significant for ACTIVE PROBLEM LIST Hypertension Gerd (Gastroesophageal Reflux Disease) Copd (Chronic Obstructive Pulmonary Disease) (Hcc) Ddd (Degenerative Disc Disease), Lumbar Sciatica of Right Side Cigarette Smoker Acute Bilateral Low Back Pain With Bilateral Sciatica Obesity Newly Diagnosed Diabetes (Hcc) Solitary Pulmonary Nodule He was seen at [facility] December 26, 2021 for lung mass. He underwent bronchoscopy. He subsequently underwent thoracotomy with [facility] cardiothoracic surgery for malignant neoplasm of lung Ruby Murillo MD. This was followed by chemotherapy Ngozi Flores MD Non-small cell cancer of right lung / adenocarcinoma. MRI brain ordered completed at [facility] February 18, 2022. PCP notes May 10, 2022 indicated radiation oncology team in [place] did not recommend PORT due to anatomic concerns. Presents today for follow-up visit. Smoking: had quit, now smoking 1 pack/week of late. Trying to quit again. Taking Zyban. He has chronic right hip and knee pain for which he is seeing chiropractor. DIABETES MELLITUS: Not currently taking medication. Reports mistrust of metformin. Notes he continues to have numbness and tingling in lower extremities,Notes intermittent numb sensation in feet, calluses, thick nails, no sores. Not sure if gabapentin helps. He is without report of excessive thirst or increased frequency of urination, chest pain or dyspnea , numbness, tingling or pain in extremities, new or unusual visual symptoms, low sugar/hypoglycemic reactions, weight loss/gain, lightheadedness/dizziness, and bowel changes/loose stools. Patient's last HgA1C was 05/10/2022 6.5% POC Hemoglobin A1C (%) Date Value 09/12/2021 6.5 08/16/2021 6.7 03/24/2020 6.9 09/03/2019 6.7 Hemoglobin A1C (POCT) (%) Date Value 05/10/2022 6.5 ) Ophthalmology:[facility], recent exam and glasses, bifocals Hyperlipidemia. Mr. Gonzáles reports doing well on current therapy His most recent lipid panels are: Cholesterol, Total (mg/dL) Date Value 09/12/2021 123 09/25/2017 156 07/30/2016 157 Total Cholesterol, Nonfasting (mg/dL) Date Value 08/16/2021 139 09/03/2019 142 HDL Cholesterol (mg/dL) Date Value 09/12/2021 26 09/25/2017 37 07/30/2016 34 HDL Cholesterol, Nonfasting (mg/dL) Date Value 08/16/2021 32 09/03/2019 33 LDL Cholesterol (mg/dL) Date Value 09/12/2021 83 09/25/2017 107 07/30/2016 103 LDL Cholesterol, Nonfasting (mg/dL) Date Value 08/16/2021 93 09/03/2019 92 Triglyceride (mg/dL) Date Value 09/12/2021 72 09/25/2017 58 07/30/2016 101 Triglycerides, Nonfasting (mg/dL) Date Value 08/16/2021 72 09/03/2019 84 HTN: Without report of headache, chest pain, palpitations, dyspnea, and peripheral edema. Last 3 Encounter BP Readings: Date: BP: 05/10/2022 124/72 09/14/2021 130/70 09/21/2020 136/70 ALEXANDRA: without current complaint He is due for colonsocpy unless done at [facility] - no not done there Last completed 2016, 3 year follow up advised. No recent COPD exacerbations. He sees Dr. Gordon Verde [facility] for COPD ALEXANDRA. Notes some difficulty with using CPAP. Dr Verde has made some adjustments to help with this. Notes has upcoming PFT. DIABETES MELLITUS: He does not check blood sugars at home. No adverse effects of medication noted. Without report of excessive thirst or increased frequency of urination, chest pain or dyspnea , numbness, tingling or pain in extremities, new or unusual visual symptoms, low sugar/hypoglycemic reactions, weight loss/gain, lightheadedness/dizziness and bowel changes/loose stools. 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 Has not seen an eye doctor for some time.. HTN: Mr. Gonzáles indicates that he is without headache, chest pain, palpitations, dyspnea, peripheral edema, orthopnea, fatigue and PND. Last 14 Encounter BP Readings: Date: BP: 09/21/2020 136/70 03/24/2020 96/66 09/03/2019 116/62 04/02/2019 122/80 03/01/2019 104/64 10/28/2018 104/60 07/22/2018 122/80 07/10/2018 124/84 01/26/2018 136/68 12/31/2017 110/70 09/0 (more content not included)...[facility]09-29-2023 History of Present illness Narrative* Corrie GibbsTODD.THIRD RIGGER - 11/08/2022 10:40 AM EDT SUBJECTIVE: Spirometry Never done Alpha-1 Antitrypsin Deficiency Screening Never done Shingrix Vaccine(1 of 2) Never done Pneumococcal Vaccine(2 - PCV) due on 08/23/2015 Hepatitis B Vaccine(1 of 3 - Risk 3-dose series) Never done Prostate Cancer Screening Discussion due on 11/13/2021 Colorectal Cancer Screening due on 12/11/2021 Urine Albumin:Creatinine Ratio due on 08/16/2022 LDL Cholesterol due on 09/12/2022 Influenza Vaccine(1) due on 10/11/2022 HPI Larisa Gonzáles is a 62 year old male. PMH significant for ACTIVE PROBLEM LIST Hypertension Gerd (Gastroesophageal Reflux Disease) Copd (Chronic Obstructive Pulmonary Disease) (Hcc) Ddd (Degenerative Disc Disease), Lumbar Sciatica of Right Side Cigarette Smoker Acute Bilateral Low Back Pain With Bilateral Sciatica Obesity Newly Diagnosed Diabetes (Hcc) Solitary Pulmonary Nodule He was seen at [facility] December 26, 2021 for lung mass. He underwent bronchoscopy. He subsequently underwent thoracotomy with [facility] cardiothoracic surgery for malignant neoplasm of lung Ruby Murillo MD. This was followed by chemotherapy Ngozi Flores MD Non-small cell cancer ofright lung / adenocarcinoma. MRI brain ordered completed at [facility] February 18, 2022. PCP notes May 10, 2022 indicated radiation oncology team in [place] did not recommend PORT due to anatomic concerns. Presents today for follow-up visit. Smoking: had quit, now smoking 1 pack/week of late. Trying to quit again. Taking Zyban. He has chronic right hip and knee pain for which he is seeing chiropractor. DIABETES MELLITUS: Not currently taking medication. Reports mistrust of metformin. Notes he continues to have numbness and tingling in lower extremities,Notes intermittent numb sensation in feet, calluses, thick nails, no sores. Not sure if gabapentin helps. He is without report of excessive thirstor increased frequency of urination, chest pain or dyspnea , numbness, tingling or pain in extremities, new or unusual visual symptoms, low sugar/hypoglycemic reactions, weight loss/gain, lightheadedness/dizziness, and bowel changes/loose stools. Patient's last HgA1C was 05/10/2022 6.5% POC Hemoglobin A1C (%) Date Value 09/12/2021 6.5 08/16/2021 6.7 03/24/2020 6.9 09/03/2019 6.7 Hemoglobin A1C (POCT) (%) Date Value 05/10/2022 6.5 ) Ophthalmology:[facility], recent exam and glasses, bifocals Hyperlipidemia. Mr. Gonzáles reports doing well on current therapy His most recent lipid panels are: Cholesterol, Total (mg/dL) Date Value 09/12/2021 123 09/25/2017 156 07/30/2016 157 Total Cholesterol, Nonfasting (mg/dL) Date Value 08/16/2021 139 09/03/2019 142 HDL Cholesterol (mg/dL) Date Value 09/12/2021 26 09/25/2017 37 07/30/2016 34 HDL Cholesterol, Nonfasting (mg/dL) Date Value 08/16/2021 32 09/03/2019 33 LDL Cholesterol (mg/dL) Date Value 09/12/2021 83 09/25/2017 107 07/30/2016 103 LDL Cholesterol, Nonfasting (mg/dL) Date Value 08/16/2021 93 09/03/2019 92 Triglyceride (mg/dL) Date Value 09/12/2021 72 09/25/2017 58 07/30/2016 101 Triglycerides, Nonfasting (mg/dL) Date Value 08/16/2021 72 09/03/2019 84 HTN: Without report of headache, chest pain, palpitations, dyspnea, and peripheral edema. Last 3 Encounter BP Readings: Date: BP: 05/10/2022 124/72 09/14/2021 130/70 09/21/2020 136/70 ALEXANDRA: without current complaint He is due for colonsocpy unless done at [facility] - no not done there Last completed 2017, 3 year follow up advised. No recent COPD exacerbations. He sees Dr. Gordon Verde [facility] for COPD ALEXANDRA. Notes some difficulty with using CPAP. Dr Verde has made some adjustments to help with this. Notes has upcoming PFT. DIABETES MELLITUS: He does not check blood sugars at home. No adverse effects of medication noted. Without report of excessive thirst or increased frequency of urination, chest pain or dyspnea , numbness, tingling or pain in extremities, new or unusual visual symptoms, low sugar/hypoglycemic reactions, weight loss/gain, lightheadedness/dizziness and bowel changes/loose stools. 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 Has not seen an eye doctor for some time.. HTN: Mr. Gonzáles indicates that he is without headache, chest pain, palpitations, dyspnea, peripheral edema, orthopnea, fatigue and PND. Last 14 Encounter BP Readings: Date: BP: 09/21/2020 136/70 03/24/2020 96/66 09/03/2019 116/62 04/02/2019 122/80 03/01/2019 104/64 10/28/2018 104/60 07/22/2018 122/80 07/10/2018 124/84 01/26/2018 136/68 12/31/2017 110/70 10/17/2017 140/90 09/24/2017 124/82 08/06/2017 90/62 06/23/2017 132/74 Hyperlipidemia. Mr. Gonzáles reports doing well on current therapyHis most recent lipid panels are: Cholesterol, Total (mg/dL) Date Value 09/12/2021 123 09/25/2017 156 07/30/2016 157 Total Cholesterol, Nonfasting (mg/dL) Date Value 08/16/2021 139 09/03/2019 142 HDL Cholesterol (mg/dL) Date Value 09/12/2021 26 09/25/2017 37 07/30/2016 34 HDL Cholesterol, Nonfasting (mg/dL) Date Value 08/16/2021 32 09/03/2019 33 LDL Cholesterol (mg/dL) Date Value 09/12/2021 83 09/25/2017 107 07/30/2016 103 LDL Cholesterol, Nonfasting (mg/dL) Date Value 08/16/2021 93 09/03/2019 92 Triglyceride (mg/dL) Date Value 09/12/2021 72 09/25/2017 58 07/30/2016 101 Triglycerides, Nonfasting (mg/dL) Date Value 08/16/2021 72 09/03/2019 84 GERD: controlled currently. No abdominal pain, nausea, vomiting, diarrhea, constipation, diarrhea, BRBPR, black or tarry stools. Sees chiropractor for chronic back pain, finds it helpful. Review of Systems Constitutional: Negative. Respiratory: Positive for cough and shortness of breath. Cardiovascular: Negative. Endocrine: Negative. Musculoskeletal: Positive for back pain. Neurological: Negative for numbness. Objective There were no vitals taken for this visit. Physical Exam Vitals and nursing note reviewed. Constitutional: General: He is not in acute distress. Appearance: He is obese. He is not ill-appearing or diaphoretic. HENT: Head: Normocephalic and atraumatic. Eyes: Conjunctiva/sclera: Conjunctivae normal. Cardiovascular: Rate and Rhythm: Normal rate and regular rhythm. Heart sounds: Normal heart sounds. Pulmonary: Effort: Pulmonary effort is normal. Breath sounds: Normal breath sounds. Abdominal: General: Bowel sounds are normal. Palpations: Abdomen is soft. Musculoskeletal: Right lower leg: No edema. Left lower leg: No edema. Skin: General: Skin is warm and dry. Neurological: General: No focal deficit present. Mental Status: He is alert and oriented to person, place, and time. Psychiatric: Mood and Affect: Mood normal. ALLERGIES Allergen Reactions Bees Anaphylaxis Penicillins Unknown Medications cetirizine (ZYRTEC) 10 mg tablet DAILY naproxen (NAPROSYN) 500 mg tablet Take 500 mg by mouth. buPROPion SR (ZYBAN SR; WELLBUTRIN SR) 150 mg 12 hr tablet Take 1 tablet by mouth once daily. amLODIPine (NORVASC) 10 mg tablet Take 1 tablet by mouth once daily. folic acid 1 mg tablet Take 1 mg by mouth once daily. (Patient not taking: Reported on 08/27/2022) losartan-hydroCHLOROthiazide (HYZAAR) 100-12.5 mg per tablet Take 1 tablet by mouth once daily. montelukast (SINGULAIR) 10 mg tablet Take 1 tablet by mouth daily at bedtime. pregabalin (LYRICA) 25 mg capsule Take 1 capsule by mouth twice daily for 180 days. for pain/tingling in legs omeprazole (PRILOSEC) 40 mg capsule Take 1 capsule by mouth once daily. budesonide-formoterol (SYMBICORT) 160-4.5 mcg/actuation inhaler Take 2 Puffs by mouth. fluticasone (FLONASE) 50 mcg/actuation nasal spray instill 2 (TWO) sprays in each nostril once daily SPIRIVA RESPIMAT 2.5 mcg/actuation inhaler INHALE 2 PUFFS BY MOUTH EVERY DAY albuterol HFA (PROVENTIL HFA, VENTOLIN HFA) 90 mcg/actuation inhaler EVERY 4 HOURS NEEDED PRN For Sob &/Or Wheezing loratadine (CLARITIN) 10 mg tablet Take 10 mg by mouth once daily. ASPIRIN (ASPIR-81 ORAL) Take by mouth. (Patient not taking: Reported on 05/10/2022) PAST MEDICAL HISTORY Diagnosis Date COPD (chronic obstructive pulmonary disease) ([facility]) Dr. Timi Lopez Diabetes ([facility]) Dysmetabolic syndrome borderline DM GERD (gastroesophageal reflux disease) Hypertension Obesity ALEXANDRA (obstructive sleep apnea) Will be starteed on CPAP through [facility] Social History Tobacco Use Smoking status: Every Day Packs/day: 1.00 Years: 30.00 Additional pack years: 0.00 Total pack years: 30.00 Types: Cigarettes Smokeless tobacco: Never Tobacco comments: [Down to 8 cig per day now (09/03/19)--down to half PPD still.] Had quit but started again--down to half PPD. Trying to quit again. Stress appears to be the trigger. May 10, 2022 Vaping Use Vaping Use: Never used Substance Use Topics Alcohol use: Not Currently Comment: rarely Drug use: Yes Types: Marijuana Component Latest Ref Rng & Units 03/24/2020 08/16/2021 09/12/2021 Protein, Total 6.3 - 8.0 g/dL 6.7 6.5 Albumin 3.9 - 4.9 g/dL 4.1 4.0 Calcium 8.5 - 10.2 mg/dL 9.2 9.4 Bilirubin, Total 0.2 - 1.3 mg/dL 0.3 0.2 Alkaline Phosphatase 38 - 113 U/L 78 66 AST 14 - 40 U/L 15 20 Glucose 74 - 99 mg/dL 132 (H) 138 (H) BUN 9 - 24 mg/dL 17 14 Creatinine 0.73 - 1.22 mg/dL 0.89 0.81 Sodium 136 - 144 mmol/L 135 (L) 135 (L) Potassium 3.7 - 5.1 mmol/L 4.6 4.5 Chloride 97 - 105 mmol/L 97 100 CO2 22 - 30 mmol/L 27 25 Anion Gap 9 - 18 mmol/L 11 10 ALT 10 - 54 U/L 19 24 eGFR- >60 eGFR-All Other Races . >60 eGFR >=60 mL/min/1.73m 102 WBC 3.70 - 11.00 k/uL 5.73 5.24 RBC 4.20 - 6.00 m/uL 5.08 5.49 Hemoglobin 13.0 - 17.0 g/dL 14.7 15.9 Hematocrit 39.0 - 51.0 % 44.7 48.4 MCV 80.0 - 100.0 fL 88.0 88.2 MCH 26.0 - 34.0 pg 28.9 29.0 MCHC 30.5 - 36.0 g/dL 32.9 32.9 RDW-CV 11.5 - 15.0 % 13.6 13.1 Platelet Count 150 - 400 k/uL 317 308 MPV 9.0 - 12.7 fL 9.4 9.0 Absolute nRBC <0.01 k/uL <0.01 <0.01 Cholesterol, Total <200 mg/dL 123 Triglyceride <150 mg/dL 72 HDL Cholesterol >39 mg/dL 26 (L) Non HDL Cholesterol <130 mg/dL 97 Fasting Time hrs 12 VLDL Cholesterol <30 mg/dL 14 TC:HDL Ratio <5.10 4.73 LDL Cholesterol <100 mg/dL 83 LDL:HDL Ratio <2.54 3.19 (H) Total Cholesterol, Nonfasting <200 mg/dL 139 Triglycerides, Nonfasting <150 mg/dL 72 HDL Cholesterol, Nonfasting >39 mg/dL 32 (L) LDL Cholesterol, Nonfasting <100 mg/dL 93 Non HDL Cholesterol, Nonfasting <130 mg/dL 107 VLDL Cholesterol, Nonfasting <30 mg/dL 14 Total Chol/HDL Ratio, Nonfasting <5.10 mg/dL 4.34 LDL/HDL Ratio, Nonfasting <2.54 mg/dL 2.91 (H) Creatinine, Ur Random (UCRR) 20.0 - 300.0 mg/dL 50.1 Albumin, Urine Random mg/L <12.0 Albumin/Creat Ratio <30 mg/g <24 HIV 12 Combo (Ag/Ab) Nonreactive Nonreactive HIV 1/2 Ab HIV Interpretation Hemoglobin A1C 4.3 - 5.6 % 6.9 (H) 6.7 (H) 6.5 (H) Estimated Average Glucose mg/dL 151 146 140 TSH 0.270 - 4.200 uU/mL 1.720 Free T4 0.9 - 1.7 ng/dL 1.0 Vitamin D 25 Hydroxy 31.0 - 80.0 ng/mL 24.3 (L) Magnesium 1.7 - 2.3 mg/dL 2.2 CRP <0.9 mg/dL 1.1 (H) Free T3 2.3 - 4.1 pg/mL 3.6 Hep C Antibody IA Negative Positive (A) HCV RNA by PCR HCV RNA not detected by PCR. HCV RNA not detected by PCR. ASSESSMENT/PLAN: 1. Controlled type 2 diabetes mellitus without complication, without long-term current use of insulin (HCC) - ICD9: 250.00, ICD10: E11.9 (primary diagnosis) Not currently taking medication. Endorse DM diet, exercise and weight loss. - ALBUMIN/CREAT RATIO RND UR - HGB A1C - LIPID PANEL, NONFASTING 2. COPD (chronic obstructive pulmonary disease) (HCC) - ICD9: 496, ICD10: J44.9 Followed by display designer outside Dr. Verde at [facility] 3. Chronic obstructive pulmonary disease, unspecified COPD type (HCC) - ICD9: 496, ICD10: J44.9 - [id number] BL 4. Encounter for immunization - ICD9: V03.89, ICD10: Z23 Declines all 5. Screening for prostate cancer - ICD9: V76.44, ICD10: Z12.5 - PSA/PROSTSPECAG SCRN 6. Screening for colon cancer - ICD9: V76.51, ICD10: Z12.11 Overdue for recheck - CONSULT TO GENERAL SURGERY 7. History of knee surgery - ICD9: V45.89, ICD10: Z98.890 8. Chronic pain of right hip - ICD9: 719.45, 338.29, ICD10: M25.551, G89.29 Seeing chiropractor. No PT, endorse if wanting to go. Trial naproxen to see if this helps. Be sure to take with food 9. Non-small cell lung cancer Followed at [facility] in [place] 6- mo follow up MD Corrie Day APRN.THIRD RIGGER Medical Decision Making: Problems: Moderate: 2+ stable chronic illnesses Data: Unique test(s) ordered: 3+ Risk: Moderate: Drug management Medical Decision Making Level: 4 - Moderate documented in this [facility]The [facility] Miscellaneous Notes* Telephone Encounter - Shanta Phelps LPN - 10/03/2022 11:29 AM EDT Patient has been identified by name and date of : Yes Patient phones for refill(s): Requested Prescriptions Pending Prescriptions Disp Refills buPROPion SR (ZYBAN SR; WELLBUTRIN SR) 150 mg 12 hr tablet 90 tablet 3 Sig: Take 1 tablet by mouth once daily. Date of last office visit in primary care: 08/26/2022 6 month follow-up: 11/08/2022 Last 2 Encounter Wt Readings: Date: Wt: 05/10/2022 103.9 kg (229 lb) 09/14/2021 113.9 kg (251 lb) Previous labs/tests for medication: Not applicable Please advise. Thank you. Shanta Phelps LPN * Telephone Encounter - Nataly Loyd - 10/03/2022 10:42 AM EDT Pharmacy verified in [facility] Patient has been identified by name and date of : Yes Patient aware RX will be sent to pharmacy. No need to notify patient. Patient phones for refill(s): Requested Prescriptions Pending Prescriptions Disp Refills buPROPion SR (ZYBAN SR; WELLBUTRIN SR) 150 mg 12 hr tablet 90 tablet 3 Sig: Take 1 tablet by mouth once daily. Date of last office visit : 05/10/2022 Date of next office visit : 11/08/2022 Last 2 Encounter Wt Readings: Date: Wt: 05/10/2022 103.9 kg (229 lb) 09/14/2021 113.9 kg (251 lb) Not applicable Please advise. Nataly Bazan documented in this encounterThe [facility]08-[facility]23 NoteHNO ID: [id number] Author: Pradeep Herzog, MIRIAM Service: ? Author Type: PIECE DYER Type: Progress Notes Filed: 10/03/2022 9:28 AM Note Text: 1. Type 2 diabetes mellitus without retinopathy (HCC) Risk of diabetic changes and vision loss can be minimized by tight control of blood sugar, blood pressure, and cholesterol levels. Educated patient to continue care with primary care doctor and/or format proofreader to maintain optimum levels as they are important to avoid ocular complications. Encouraged patient to call the office immediately with any changes to vision or visual concerns. Advised to not wait until the next scheduled exam. 2. 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-related cataract, both eyes Mild-monitor 3. Hypertensive retinopathy, bilateral Continue good BP control 4. Hypermetropia, bilateral 5. Presbyopia Finalized spec rx Follow-up in 1 year or sooner as needed Pradeep Herzog, MIRIAM October 03, 2022 9:27 [facility]08-24-2023 History of Present illness Narrative* Pradeep Herzog, OD - 10/03/2022 9:27 AM EDT 1. Type 2 diabetes mellitus without retinopathy (HCC) Risk of diabetic changes and vision loss can be minimized by tight control of blood sugar, blood pressure, and cholesterol levels. Educated patient to continue care with primary care doctor and/or format proofreader to maintain optimum levels as they are important to avoid ocular complications. Encouraged patient to call the office immediately with any changes to vision or visual concerns. Advised to not wait until the next scheduled exam. 2. 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-related cataract, both eyes Mild-monitor 3. Hypertensive retinopathy, bilateral Continue good BP control 4. Hypermetropia, bilateral 5. Presbyopia Finalized spec rx Follow-up in 1 year or sooner as needed Pradeep Herzog, OD October 03, 2022 9:27 AM [facility] NoteHNO ID: [id number] Author: Yeyo Okeefe Service: ? Author Type: Physician Type: Progress Notes Filed: 08/27/2022 2:54 PM Note Text: Last saw pcp: 05/10/22 Subjective: Patient presents to clinic c/o painful toenails. They state that the nails are especially painful with shoe gear and pressure. Patient states that nails left hallux is painful. Patient does report numbness in toes. Patient admits to being diabetic. He does not check his sugars No other pedal complaints at this time. Patient states no change in medications or medical history since last visit. Objective: Patient presents to clinic ambulating in diabetic shoes Vasc: DP and PT pulses are palpable bilateral. CFT is less than 5 seconds bilateral. Skin temperature is warm to cool proximal to distal bilateral. There is no edema or varicosities noted. Neuro: Protective sensation is intact to the foot and toes when tested with the 5.07 SWM bilateral. Vibratory sensation is intact at the hallux IPJ bilateral. The hallux is downgoing bilateral. Derm: Nails 1-5 b/l are painful, discolored-yellow, thick, crumbly, dystrophic and with subungal debris. Skin is of normal turgor, texture and hair growth is present bilateral. There are no hyperkeratosis, ulcerations, scars, verruca or other lesions noted. Ortho: Muscle strength is 5/5 for all pedal groups tested. Ankle joint DF is full with the knee extended with no pain or crepitus noted. 1st MPJ ROM is full bilateral. Assessment: (E11.9, Z79.4) Type 2 diabetes mellitus without complication, with long-term current use of insulin (HCC) (primary encounter diagnosis) (B35.1) Onychomycosis (M79.675) Pain in toe of left foot (M79.674) Pain in toe of right foot Plan: Patient was seen and evaluated. Nails 1-5 bilateral were debrided in length and thickness. Small bleed to b/l 4th toe. Offered band aide but he declined. Discussed possible removal of toenails. Would prefer he cut down smoking prior to any attempted removal. Patient was instructed on the continued importance of diabetic foot care along with proper diet and keeping their blood sugar under control to prevent complications. Patient is to RTC in 3-4 months. Yeyo Okeefe [facility]07-18-2023 NoteHNO ID: [id number] Author: Priscila Jorge, RN Service: ? Author Type: Registered Nurse Type: Progress Notes Filed: 08/27/2022 2:54 PM Note Text: AMB ROOMING INTAKE FLOWSHEET DATA Pain Pain Level: 5 Pain Location: Other: See Comment (bilateral feet) Description: Tingling, Numbness Frequency: Intermittent Intervention/Comfort measure: Relaxation, Reposition Patient presents with: Left Foot - Established Patient, Follow Up, Diabetic Foot Check Right Foot - Established Patient, Follow Up, Diabetic Foot Check Patient presents for diabetic foot check and nail care.[facility]07-18-2023 Instructions* Patient Instructions* Césarroselyn Yeyo - 08/27/2022 2:52 PM EDT Diabetes Foot Care Instructions When you have diabetes, proper foot care is very important. Poor foot care may lead to amputation of a foot or leg. As a person with diabetes, you are more vulnerable to foot problems, because diabetes can damage your nerves and reduce blood flow to your feet. Here are some diabetes foot care tips to follow: Wash and Dry Your Feet Daily Use mild soaps Use warm water Pat your skin dry; do not rub. Thoroughly dry your feet. After washing, use lotion on your feet to prevent cracking. Do not put lotion between your toes. Examine Your Feet Each Day Check the tops and bottoms of your feet. Have someone else look at your feet if you cannot see them. Check for dry, cracked skin. Look for blisters, cuts, scratches, or other sores. Check for redness, increased warmth, or tenderness when touching any area of your feet. Check for ingrown toenails, corns, and calluses. If you get a blister or sore from your shoes, do not pop it. Apply a bandage and wear a differentpair of shoes. Take Care of Your Toenails Cut toenails after bathing, when they are soft. Cut toenails straight across and smooth with a nail file. Avoid cutting into the corners of toes. Do not cut cuticles. If you have neuropathy (or decreased sensation in your feet) a embroidery patternmaker should always cut your toenails. Be Careful When Exercising Walk and exercise in comfortable shoes. Do not exercise when you have open sores on your feet. Protect Your Feet With Shoes and Socks Never go barefoot. Always protect your feet by wearing shoes or hard-soled slippers or footwear. Avoid shoes with high heels and pointed toes. Avoid shoes that expose your toes or heels (such as open-toed shoes or sandals). These types of shoes increase your risk for injury and potential infections. Try on new footwear with the type of socks you usually wear. Do not wear new shoes for more than an hour at a time. Change your socks daily. Look and feel inside your shoes before putting them on to make sure there are no foreign objects orrough areas. Avoid tight socks. Wear natural-fiber socks (cotton, wool, or a cotton-wool blend). Wear special shoes if your health care provider recommends them. Wear shoes/boots that will protect your feet from various weather conditions (cold, moisture, etc.). Make sure your shoes fit properly. If you have neuropathy (nerve damage), you may not notice that your shoes are too tight. Perform the footwear test described below. Footwear Test Use this simple test to see if your shoes fit correctly: Stand on a piece of paper. (Make sure you are standing and not sitting, because your foot changes shape when you stand.) Trace the outline of your foot. Trace the outline of your shoe. Compare the tracings: Is the shoe too narrow? Is your foot crammed into the shoe? The shoe should be at least 1/2 inch longer than your longest toe and as wide as your foot. Proper Shoe Choices The following types of shoes are best for people with diabetes Closed toes and heels Leather uppers without a seam inside At least 1/2 inch extra space at the end of your longest toe Inside of shoe should be soft with no rough areas Outer sole should be made of stiff material Shoes should be at least as wide as your feet Tips for Foot Care in Diabetes Don't wait to treat a minor foot problem if you have diabetes. Follow your health care provider's guidelines and first aid guidelines. Report foot injuries and infections to your health care provider immediately. Check water temperature with your elbow, not your foot. Do not use a heating pad on your feet. Do not cross your legs. Do not self-treat your corns, calluses, or other foot problems. Go to your health care provider or embroidery patternmaker to treat these conditions. [facility] History of Present illness Narrative* Yeyo Okeefe - 08/27/2022 2:43 PM EDT Last saw pcp: 05/10/22 Subjective: Patient presents to clinic c/o painful toenails. They state that the nails are especially painful with shoe gear and pressure. Patient states that nails left hallux is painful. Patient does report numbness in toes. Patient admits to being diabetic. He does not check his sugars No other pedal complaints at this time. Patient states no change in medications or medical history since last visit. Objective: Patient presents to clinic ambulating in diabetic shoes Vasc: DP and PT pulses are palpable bilateral. CFT is less than 5 seconds bilateral. Skin temperature is warm to cool proximal to distal bilateral. There is no edema or varicosities noted. Neuro: Protective sensation is intact to the foot and toes when tested with the 5.07 SWM bilateral.Vibratory sensation is intact at the hallux IPJ bilateral. The hallux is downgoing bilateral. Derm: Nails 1-5 b/l are painful, discolored-yellow, thick, crumbly, dystrophic and with subungal debris. Skin is of normal turgor, texture and hair growth is present bilateral. There are no hyperkeratosis, ulcerations, scars, verruca or other lesions noted. Ortho: Muscle strength is 5/5 for all pedal groups tested. Ankle joint DF is full with the knee extended with no pain or crepitus noted. 1st MPJ ROM is full bilateral. Assessment: (E11.9, Z79.4) Type 2 diabetes mellitus without complication, with long-term current use of insulin([facility]) (primary encounter diagnosis) (B35.1) Onychomycosis (M79.675) Pain in toe of left foot (M79.674) Pain in toe of right foot Plan: Patient was seen and evaluated. Nails 1-5 bilateral were debrided in length and thickness. Small bleed to b/l 4th toe. Offered bandaide but he declined. Discussed possible removal of toenails. Would prefer he cut down smoking prior to any attempted removal. Patient was instructed on the continued importance of diabetic foot care along with proper diet andkeeping their blood sugar under control to prevent complications. Patient is to RTC in 3-4 months. Yeyo Okeefe DPM * Priscila Jorge RN - 08/27/2022 2:36 PM EDT AMB ROOMING INTAKE FLOWSHEET DATA Pain Pain Level: 5 Pain Location: Other: See Comment (bilateral feet) Description: Tingling, Numbness Frequency: Intermittent Intervention/Comfort measure: Relaxation, Reposition Patient presents with: Left Foot - Established Patient, Follow Up, Diabetic Foot Check Right Foot - Established Patient, Follow Up, Diabetic Foot Check Patient presents for diabetic foot check and nail care. documented in [facility]The [facility]23 NoteHNO ID: [id number] Author: Joy Mims MD Service: ? Author Type: Physician Type: Progress Notes Filed: 06/10/2022 1:34 AM Note Text: This note was created using [employer]. Subjective Larisa Gonzáles is a 61 year old male. Patient presents with: F/U 6 months SUBJECTIVE: Larisa Gonzáles is a 61 year old year old gentleman here today for 6 month follow up appointment for review of medical conditions. Notes plans to get on disability. Only able to work a few hours a week. Finances tight. On chemotherapy and tolerated till 4th treatment. Through [facility]. From Dr. Maldonado 04/25/22 note: 61M with right upper lobe pT2 N2 NSCLC adenocarcinoma. Resected 1115 2021. MRI brain 108 2022 wnl. 112 2022: adjuvant cisplatin and pemetrexed initiated. Completed adjuvant (chemotherapy) 314 2022. As per patient, radiation oncology team in [place] did not recommend PORT due to anatomic concerns. Has worked at [employer] on their cars. Noted that wants to lose weight and is gradually. Eating healthier than before. Is eating his meals. PAST MEDICAL HISTORY Diagnosis Date COPD (chronic obstructive pulmonary disease) ([facility]) Dr. Capellan Depression Diabetes ([facility]) Dysmetabolic syndrome borderline DM GERD (gastroesophageal reflux disease) Hypertension Obesity ALEXANDRA (obstructive sleep apnea) Will be starteed on CPAP through [facility] Current Outpatient Medications Medication Sig folic acid 1 mg tablet Take 1 mg by mouth once daily. pregabalin (LYRICA) 25 mg capsule Take 1 capsule by mouth twice daily for 150 days. for pain/tingling in legs omeprazole (PRILOSEC) 40 mg capsule Take 1 capsule by mouth once daily. budesonide-formoterol (SYMBICORT) 160-4.5 mcg/actuation inhaler Take 2 Puffs by mouth. fluticasone (FLONASE) 50 mcg/actuation nasal spray instill 2 (TWO) sprays in each nostril once daily SPIRIVA RESPIMAT 2.5 mcg/actuation inhaler INHALE 2 PUFFS BY MOUTH EVERY DAY buPROPion SR (ZYBAN SR; WELLBUTRIN SR) 150 mg 12 hr tablet Take 1 tablet by mouth once daily. famotidine (PEPCID) 20 mg tablet Take 1 tablet by mouth at bedtime as needed (for heartburn, GERD). montelukast (SINGULAIR) 10 mg tablet Take 1 tablet by mouth daily at bedtime. losartan-hydroCHLOROthiazide (HYZAAR) 100-12.5 mg per tablet Take 1 tablet by mouth once daily. amLODIPine (NORVASC) 10 mg tablet Take 1 tablet by mouth once daily. albuterol HFA (PROVENTIL HFA, VENTOLIN HFA) 90 mcg/actuation inhaler EVERY 4 HOURS NEEDED PRN For Sob AND/Or Wheezing loratadine (CLARITIN) 10 mg tablet Take 10 mg by mouth once daily. metFORMIN ER (GLUCOPHAGE XR) 500 mg 24 hr tablet Take 1 tablet by mouth daily with breakfast. (Patient not taking: Reported on 05/10/2022) ASPIRIN (ASPIR-81 ORAL) Take by mouth. (Patient not taking: Reported on 05/10/2022) No current facility-administered medications for this visit. Social History Tobacco Use Smoking status: Every Day Packs/day: 1.50 Years: 30.00 Pack years: 45.00 Types: Cigarettes Smokeless tobacco: Never Tobacco comments: [Down to 8 cig per day now (09/03/19)--down to half PPD still.] Had quit but started again--down to half PPD. Trying to quit again. Stress appears to be the trigger. May 10, 2022 Substance Use Topics Alcohol use: Not Currently Comment: rarely Drug use: Yes Types: Marijuana Review of Systems Objective BP 124/72 Pulse 86 Temp 36.9 ?C (98.4 ?F) Resp 18 Wt 103.9 kg (229 lb) SpO2 96% BMI 38.70 kg/m? Last 5 Encounter Wt Readings: Date: Wt: 05/10/2022 103.9 kg (229 lb) 09/14/2021 113.9 kg (251 lb) 09/21/2020 122.5 kg (270 lb) 03/24/2020 124.7 kg (275 lb) 09/03/2019 125.6 kg (277 lb) No waist measurement recorded Estimated body mass index is 38.7 kg/m? as calculated from the following: Height as of 09/14/21: 163.8 cm (5' 4.5 ). Weight as of this encounter: 103.9 kg (229 lb). Last 5 Encounter BP Readings: Date: BP: 05/10/2022 124/72 09/14/2021 130/70 09/21/2020 136/70 03/24/2020 96/66 09/03/2019 116/62 Physical Exam Vitals reviewed. Constitutional: Appearance: Normal appearance. Eyes: Conjunctiva/sclera: Conjunctivae normal. Cardiovascular: Rate and Rhythm: Normal rate and regular rhythm. Heart sounds: Normal heart sounds. Pulmonary: Effort: Pulmonary effort is normal. Breath sounds: Normal breath sounds. Skin: General: Skin is warm and dry. Neurological: General: No focal deficit present. Mental Status: He is alert and oriented to person, place, and time. Psychiatric: Mood and Affect: Mood normal. Behavior: Behavior normal. Thought Content: Thought content normal. Judgment: Judgment normal. Assessment and Plan Encounter Diagnosis ICD-10-CM 1. Controlled type 2 diabetes mellitus without complication, without long-term current use of insulin (HCC) E11.9 HEMOGLOBIN A1C (POC) pregabalin (LYRICA) 25 mg capsule 2. Primary hypertension I10 3. Chroni (more content not included)...[facility]03-31-2023 History of Present illness Narrative* Joy Mims MD - 05/10/2022 9:31 AM EDT This note was created using [employer]. Subjective Larisa Gonzáles is a 61 year old male. Patient presents with: F/U 6 months SUBJECTIVE: Larisa Gonzáles is a 61 year old year old gentleman here today for 6 month follow up appointment for review of medical conditions. Notes plans to get on disability. Only able to work a few hours a week. Finances tight. On chemotherapy and tolerated till 4th treatment. Through [facility]. From Dr. Maldonado 04/25/22 note: 61M with right upper lobe pT2 N2 NSCLC adenocarcinoma. Resected 1115 2021. MRI brain 108 2022 [email or web address] 2022: adjuvant cisplatin and pemetrexed initiated. Completed adjuvant (chemotherapy) 314 2022. As per patient, radiation oncology team in [place] did not recommend PORT due to anatomic concerns. Has worked at [employer] on their cars. Noted that wants to lose weight and is gradually. Eating healthier than before. Is eating his meals. PAST MEDICAL HISTORY Diagnosis Date COPD (chronic obstructive pulmonary disease) ([facility]) Dr. Timi Lopez Diabetes ([facility]) Dysmetabolic syndrome borderline DM GERD (gastroesophageal reflux disease) Hypertension Obesity ALEXANDRA (obstructive sleep apnea) Will be starteed on CPAP through [facility] Current Outpatient Medications Medication Sig folic acid 1 mg tablet Take 1 mg by mouth once daily. pregabalin (LYRICA) 25 mg capsule Take 1 capsule by mouth twice daily for 150 days. for pain/tingling in legs omeprazole (PRILOSEC) 40 mg capsule Take 1 capsule by mouth once daily. budesonide-formoterol (SYMBICORT) 160-4.5 mcg/actuation inhaler Take 2 Puffs by mouth. fluticasone (FLONASE) 50 mcg/actuation nasal spray instill 2 (TWO) sprays in each nostril once daily SPIRIVA RESPIMAT 2.5 mcg/actuation inhaler INHALE 2 PUFFS BY MOUTH EVERY DAY buPROPion SR (ZYBAN SR; WELLBUTRIN SR) 150 mg 12 hr tablet Take 1 tablet by mouth once daily. famotidine (PEPCID) 20 mg tablet Take 1 tablet by mouth at bedtime as needed (for heartburn, GERD). montelukast (SINGULAIR) 10 mg tablet Take 1 tablet by mouth daily at bedtime. losartan-hydroCHLOROthiazide (HYZAAR) 100-12.5 mg per tablet Take 1 tablet by mouth once daily. amLODIPine (NORVASC) 10 mg tablet Take 1 tablet by mouth once daily. albuterol HFA (PROVENTIL HFA, VENTOLIN HFA) 90 mcg/actuation inhaler EVERY 4 HOURS NEEDED PRN For Sob &/Or Wheezing loratadine (CLARITIN) 10 mg tablet Take 10 mg by mouth once daily. metFORMIN ER (GLUCOPHAGE XR) 500 mg 24 hr tablet Take 1 tablet by mouth daily with breakfast. (Patient not taking: Reported on 05/10/2022) ASPIRIN (ASPIR-81 ORAL) Take by mouth. (Patient not taking: Reported on 05/10/2022) No current facility-administered medications for this visit. Social History Tobacco Use Smoking status: Every Day Packs/day: 1.50 Years: 30.00 Pack years: 45.00 Types: Cigarettes Smokeless tobacco: Never Tobacco comments: [Down to 8 cig per day now (09/03/19)--down to half PPD still.] Had quit but started again--down to half PPD. Trying to quit again. Stress appears to be the trigger. May 10, 2022 Substance Use Topics Alcohol use: Not Currently Comment: rarely Drug use: Yes Types: Marijuana Review of Systems Objective BP 124/72 Pulse 86 Temp 36.9 C (98.4 F) Resp 18 Wt 103.9 kg (229 lb) SpO2 96% BMI 38.70kg/m Last 5 Encounter Wt Readings: Date: Wt: 05/10/2022 103.9 kg (229 lb) 09/14/2021 113.9 kg (251 lb) 09/21/2020 122.5 kg (270 lb) 03/24/2020 124.7 kg (275 lb) 09/03/2019 125.6 kg (277 lb) No waist measurement recorded Estimated body mass index is 38.7 kg/m as calculated from the following: Height as of 09/14/21: 163.8 cm (5' 4.5 ). Weight as of this encounter: 103.9 kg (229 lb). Last 5 Encounter BP Readings: Date: BP: 05/10/2022 124/72 09/14/2021 130/70 09/21/2020 136/70 03/24/2020 96/66 09/03/2019 116/62 Physical Exam Vitals reviewed. Constitutional: Appearance: Normal appearance. Eyes: Conjunctiva/sclera: Conjunctivae normal. Cardiovascular: Rate and Rhythm: Normal rate and regular rhythm. Heart sounds: Normal heart sounds. Pulmonary: Effort: Pulmonary effort is normal. Breath sounds: Normal breath sounds. Skin: General: Skin is warm and dry. Neurological: General: No focal deficit present. Mental Status: He is alert and oriented to person, place, and time. Psychiatric: Mood and Affect: Mood normal. Behavior: Behavior normal. Thought Content: Thought content normal. Judgment: Judgment normal. Assessment and Plan Encounter Diagnosis ICD-10-CM 1. Controlled type 2 diabetes mellitus without complication, without long-term current use of insulin (HCC) E11.9 HEMOGLOBIN A1C (POC) pregabalin (LYRICA) 25 mg capsule 2. Primary hypertension I10 3. Chronic obstructive pulmonary disease, unspecified COPD type (HCC) J44.9 4. Current smoker F17.200 5. Non-small cell cancer of right lung (HCC) C34.91 s/p resection and on chemotherapy through [facility] Above issues addressed with patient. Patient involved in shared decision making for management of medical issues. History and medications reviewed. Epic updated as needed Refills and/or prescriptions taken care of and meds adjusted as indicated after reviewed history, exam and labs. Health Maintenance reviewed. Updated record and/or ordered tests as recorded. Encouraged on efforts at healthy diet and regular exercise and adequate sleep. Will work on dealing with stressors to help with smoking cessation. BP controlled. Continue present management. Joy Mims MD documented in this [facility]The [facility]03-[facility] History of Present illness Narrative* Henny Kohli RN - 04/25/2022 2:00 PM EDT Patient arrived ambulatory, A&Ox3, pt here for hydration Cycle 4 Day 2. Pt verbalized understanding of plan of care today. Pt denies any new complaints today, no significant change in the toxicity assessment. IV remains accessed from yesterday. Site WNL, flushed well, positive blood return, transparent dressing intact and coban. He denies any dyspnea or swelling. 1518 Pt tolerated treatment well without incident. Pt verbalizes an understanding of their discharge instructions and when to call their physician. Pt aware of their next scheduled appointment. documented in this [facility]03-16-2023 History of Present illness Narrative* Ngozi Maldonado MD - 04/25/2022 1:15 PM EDT Images from the original note were not included. Patient ID: Larisa Gonzáles is a 61 y.o. male. Referring Physician: No referring provider defined for this encounter. Primary Care Provider: JOY MIMS Assessment and plan 61M with right upper lobe pT2 N2 NSCLC adenocarcinoma. Resected 1115 2021. MRI brain 108 2022 [email or web address] 2022: adjuvant cisplatin and pemetrexed initiated. Completed adjuvant (chemotherapy) 314 2022. As per patient, radiation oncology team in [place] did not recommend PORT due to anatomic concerns. NCCN 6 NSCL-4; Dr. Maldonado entered staging into Epic 1211 2021. Salient biomarkers Nsclc adenocarcinoma: EGFR non mutated; PDL1 IHC negative as per 22C3 mAB, 1115 2021 resection. Counseled and discussed with the patient. Continues on to hydration. We will get CT chest prior to June 2022. All questions answered. FU June 2022, ct chest prior. I wore a face mask and gloves for the entire interview. 21 minutes reviewing previous notes, test results and face to face with the patient discussing the diagnosis and importance of compliance with the treatment plan as well as documenting on the day of the visit. Here to FU the above. Adjuvant chemotherapy continues today. Thoracic tumor board has recommended discussion with radiation oncology. Here to FU the above. Completed cycle 04 chemotherapy 314 2022. Pt notes PORT not recommended by rad onc in [place] area. Subjective HPI 61M referred by [facility] for early stage lung cancer. 1115 2021, patient underwent Right thoracotomy, wedge resection pulmonary nodule right upper lobe, completion right upper lobectomy with mediastinal lymph node sampling (levels 4, 7, 12) for right upper lung lesion. Pathology is below. Previous pathology was non diagnostic biopsy. A PET scan 1213 2021 indicated disease restricted to the RUL. No prior hematologic or oncologic history. Relevant pathology: exam: [id number] Order: [id number] Collected 12/26/2021 08:00 Status: Final result Visible to patient: No (inaccessible in MyChart) Dx: Solitary pulmonary nodule 0 Result Notes Component Final Diagnosis A. LUNG, RIGHT UPPER LOBE, WEDGE EXCISION-INVASIVE, MODERATELY TO POORLY DIFFERENTIATED ADENOCARCINOMA Comment: Immunohistochemical stains are performed on the specimen and results are as follows: CK7-diffusely positive within the tumor QA44-gibkkncs FDZ-7-mcmkekyr within a better differentiated area within the tumor The above results are supportive of a pulmonary primary. B. LYMPH NODE, LEVEL 12, EXCISION- ONE LYMPH NODE, NEGATIVE FOR MALIGNANCY (0/1) C. LYMPH NODE, LEVEL 7, EXCISION- ONE LYMPH NODE, POSITIVE FOR METASTATIC CARCINOMA (1/1) D. LUNG, RIGHT UPPER LOBE, LOBECTOMY-PORTION OF LUNG WITH FOCAL ADENOCARCINOMA WITHIN THE LYMPHATICCHANNELS NEAR WEDGE RESECTION STAPLE LINE -2 OF 6 ADDITIONAL LYMPH NODES, POSITIVE FOR METASTATIC CARCINOMA E. LYMPH NODE, LEVEL 4, EXCISION- ONE LYMPH NODE, NEGATIVE FOR MALIGNANCY (0/1) at 1532 Synoptic Checklist LUNG 8th Edition - Protocol posted: 09/05/2020 LUNG: RESECTION - B, D SPECIMEN Procedure Wedge resection Lobectomy Specimen Laterality Right TUMOR Tumor Focality Single focus Tumor Site Upper lobe of lung Tumor Size Total Tumor Size (size of entire tumor) Greatest Dimension (Centimeters): 1.7 cm Histologic Type Invasive acinar adenocarcinoma Histologic Patterns Present Acinar Solid Histologic Grade G3, poorly differentiated Visceral Pleura Invasion Present Direct Invasion of Adjacent Structures Not applicable (no adjacent structures present) Treatment Effect No known presurgical therapy Lymphovascular Invasion Lymphatic invasion present Tumor Comment Lymphatic invasion is extensive MARGINS Margin Status for Invasive Carcinoma All margins negative for invasive carcinoma Closest Margin(s) to Invasive Carcinoma Parenchymal: The final parenchymal margin of the right upper lobe is negative for the main tumor mass, but tumor within a lymph node is present at this margin. Distance from Invasive Carcinoma to Closest Margin Greater than: 1 cm Margin Status for Non-Invasive Tumor All margins negative for non-invasive tumor REGIONAL LYMPH NODES Lymph Node(s) from Prior Procedures Not included Regional Lymph Node Status Tumor present in regional lymph node(s) Number of Lymph Nodes with Tumor 3 Ariel Site(s) with Tumor 10R: Hilar 7: Subcarinal Number of Lymph Nodes Examined 9 Ariel Site(s) Examined 4R: Lower paratracheal 10R: Hilar 12R: Lobar 7: Subcarinal PATHOLOGIC STAGE CLASSIFICATION (pTNM, AJCC 8th Edition) The suffix m (or a specific number) should only be used in the setting of multifocal ground-glass /lepidic nodules that histologically present as adenocarcinomas with prominent lepidic component or multifocal tumors of same histologic type that are too numerous for individual separate synoptic report and that are not better classified as intrapulmonary metastases (e.g. numerous carcinoid tumors). Multiple primary lung cancers showing different histologic type or different morphology based on comprehensive histologic subtyping are better staged as independent tumors without m suffix. pT Category pT2a pN Category pN2 . Intraoperative Consultation FROZEN SECTION DIAGNOSIS: FS1: Non-small cell carcinoma Barry Wilson M.D./Barry Verde D.O. Clinical Information Solitary pulmonary nodule (R91.1) Gross Description A. Received fresh for frozen labeled right upper lobe wedge is campbell soft tissue measuring 6.2 x 5.9x 0.9 cm. The specimen weighs 36 grams. The resection line previously stapled is inked in black. The cut surfaces reveal a white nodule measuring 1.7 cm. This white nodule is grossly 1.0 cm away fromthe inked resection margin and appears to be at the pleura grossly. The serosal surface of the nodule was inked in orange. Telephone Information Clerk sections are submitted into a total of six cassettes. Cassette Summary: A1 previously frozen piece; A2 nodule along with the resection margin and pleuralmargin; A3 nodule and pleura; A4 nodule; A5-6 normal-appearing lung parenchyma B. Received in formalin labeled level 12 lymph node are two fragments of pink- campbell tissue aggregating to 0.8 x 0.5 x 0.2 cm. The specimen is entirely submitted in a single cassette. C. Received in formalin labeled level 7 lymph node are two fatty tissue segments measuring 1.8 x 1.5 x 0.7 cm. A lymph node is identified. The specimen is entirely submitted in a single cassette. D. Received in formalin labeled right upper lobe is a lobectomy specimen that measures 15 x 9 x 3.5 cm. The specimen weighs 187 grams. The pleural surface of the specimen is purple to pink campbell. The staple line is removed and inked in black. The cut surfaces of the specimen reveal no nodules. Telephone Information Clerk sections are submitted into six cassettes. Cassette Summary: D1-3 bronchial resection margins; D4-5 normal-appearing lung tissue; 6 parenchymaresection margin E. Received in formalin labeled level 4 lymph node are multiple fragments of cheek-campbell tissue aggregating to 3.0 x 2.0 x 1.0 cm. The specimen is entirely submitted in two cassettes. Disclaimer The interpretation of this case included the use of immunohistochemistry or special stains. These tests have not been cleared or approved by the U.S. Food and Drug Administration. The FDA has determined that such clearance or approval is not necessary. These tests are used for clinical purposes andshould not be regarded as investigational or for research. This laboratory is certified to perform high complexity testing under the Clinical Laboratory Improvement Amendments of 1998. Pathologist Interpretation Location [facility], [address] [place] [id number], CLIA: [id number]; Joint Commission: [id number]; CAP: [id number] Resulting Agency [facility] Specimen Collected: 12/26/21 08:00 Last Resulted: 12/28/21 15:32 Order Details View Encounter Lab and Collection Details Routing Result History View Encounter Conversation Review of Systems Constitutional: Negative. HENT: Negative. Eyes: Negative. Respiratory: Negative. Cardiovascular: Negative. Gastrointestinal: Negative. Endocrine: Negative. Genitourinary: Negative. Neurological: Negative. Hematological: Negative. Objective BSA: There is no height or weight on file to calculate BSA. There were no vitals taken for this visit. Physical Exam Vitals reviewed. Constitutional: Appearance: Normal appearance. HENT: Head: Normocephalic and atraumatic. Nose: Nose normal. Cardiovascular: Rate and Rhythm: Normal rate. Pulmonary: Effort: Pulmonary effort is normal. Breath sounds: Normal breath sounds. Abdominal: General: Abdomen is flat. Palpations: Abdomen is soft. Musculoskeletal: General: Normal range of motion. Cervical back: Normal range of motion. Skin: General: Skin is warm and dry. Neurological: General: No focal deficit present. Mental Status: He is alert. Past medical and surgical history: see above, non contributory, as above. Family and social history: some etoh, significant tobacco previously. 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 Treatment Details Treatment goal Curative Plan Name OP Non-Small Cell Lung: PEMEtrexed/CISplatin Status Active Start Date 02/20/2022 End Date 04/26/2022 (Planned) Provider Ngozi Maldonado MD Chemotherapy CISplatin (Platinol) 170 mg in sodium chloride 0.9 % 500 mL chemo IVPB, 75 mg/m2 = 170mg, IntraVENous, Once, 4 of 4 cycles Administration: 170 mg (02/20/2022), 170 mg (04/03/2022), 170 mg (04/24/2022), 170 mg (03/13/2022) fosaprepitant (Emend) 150 mg in sodium chloride 0.9 % 250 mL IVPB, 150 mg, IntraVENous, Once, 4 of 4 cycles Administration: 150 mg (02/20/2022), 150 mg (04/03/2022), 150 mg (04/24/2022), 150 mg (03/13/2022) documented in this [facility]02-22-[facility]23 [facility]Ref[facility] Referral request scanned into media.[facility]02-22-2023 History of Present illness Narrative* Chante Figueroa RN - 04/03/2022 4:02 PM EST Referral and records faxed to [facility]. Referral request scanned into media. documented in this [facility]02-22-2023 Telephone encounter Note* Telephone Encounter - Ngozi Maldonado MD - 04/03/2022 8:55 AM EST What is the best way to refer to radiation oncology in [facility] Dr. Dupont[id number] Misc[facility] Notes* Telephone Encounter - Ngozi Maldonado MD - 04/03/2022 8:55 AM EST What is the best way to refer to radiation oncology in [place] - Dr. Dupont? documented in this [facility]11-28-2022 Miscellaneous Notes* Telephone Encounter - Joy Mims MD - 01/07/2022 3:32 PM EST The following approved medication requests have been transmitted electronically. Requested Prescriptions Signed Prescriptions Disp Refills pregabalin (LYRICA) 25 mg capsule 60 capsule 4 Sig: Take 1 capsule by mouth twice daily for 150 days. for pain/tingling in legs Authorizing Provider: JOY MIMS omeprazole (PRILOSEC) 40 mg capsule 30 capsule 4 Sig: Take 1 capsule by mouth once daily. Authorizing Provider: JOY MIMS MD Refills given to last till April appointment then can give refills then again for 6 months if stable on med. Noted saw Corrie September. ----- For our records (not for discussion with patient since not sure if he has been called about resultsof pathology) Noted that had recent surgery (right upper lobectomy) 12/26/21 From pathology report: LUNG, RIGHT UPPER LOBE, WEDGE EXCISION-INVASIVE, MODERATELY TO POORLY DIFFERENTIATED ADENOCARCINOMA (rest of report indicated supports pulmonary primary with mets to some lymph nodes) * Telephone Encounter - Violetta Bazan - 01/07/2022 11:13 AM EST Patient wants to know if these scripts can be called in [place]. He has been without Lyrica for 2 weeks. Said the hospital gave him some when he was in there, but he hasn't had any for 2 weeks. * Telephone Encounter - Violetta Bazan - 01/07/2022 11:13 AM EST Patient has been identified by name and date of : Yes Requested Prescriptions Pending Prescriptions Disp Refills pregabalin (LYRICA) 25 mg capsule 60 capsule 2 Sig: Take 1 capsule by mouth twice daily for 90 days. for pain/tingling in legs omeprazole (PRILOSEC) 40 mg capsule 30 capsule 2 Sig: Take 1 capsule by mouth once daily. RX INSTRUCTIONS: Patient aware RX will be sent to pharmacy. No need to notify patient. Violetta Bazan [facility] Instructions* Patient Instructions* Yeyo Okeefe - 10/12/2021 8:39 AM EDT Diabetes Foot Care Instructions When you have diabetes, proper foot care is very important. Poor foot care may lead to amputation of a foot or leg. As a person with diabetes, you are more vulnerable to foot problems, because diabetes can damage your nerves and reduce blood flow to your feet. Here are some diabetes foot care tips to follow: Wash and Dry Your Feet Daily Use mild soaps Use warm water Pat your skin dry; do not rub. Thoroughly dry your feet. After washing, use lotion on your feet to prevent cracking. Do not put lotion between your toes. Examine Your Feet Each Day Check the tops and bottoms of your feet. Have someone else look at your feet if you cannot see them. Check for dry, cracked skin. Look for blisters, cuts, scratches, or other sores. Check for redness, increased warmth, or tenderness when touching any area of your feet. Check for ingrown toenails, corns, and calluses. If you get a blister or sore from your shoes, do not pop it. Apply a bandage and wear a differentpair of shoes. Take Care of Your Toenails Cut toenails after bathing, when they are soft. Cut toenails straight across and smooth with a nail file. Avoid cutting into the corners of toes. Do not cut cuticles. If you have neuropathy (or decreased sensation in your feet) a embroidery patternmaker should always cut your toenails. Be Careful When Exercising Walk and exercise in comfortable shoes. Do not exercise when you have open sores on your feet. Protect Your Feet With Shoes and Socks Never go barefoot. Always protect your feet by wearing shoes or hard-soled slippers or footwear. Avoid shoes with high heels and pointed toes. Avoid shoes that expose your toes or heels (such as open-toed shoes or sandals). These types of shoes increase your risk for injury and potential infections. Try on new footwear with the type of socks you usually wear. Do not wear new shoes for more than an hour at a time. Change your socks daily. Look and feel inside your shoes before putting them on to make sure there are no foreign objects orrough areas. Avoid tight socks. Wear natural-fiber socks (cotton, wool, or a cotton-wool blend). Wear special shoes if your health care provider recommends them. Wear shoes/boots that will protect your feet from various weather conditions (cold, moisture, etc.). Make sure your shoes fit properly. If you have neuropathy (nerve damage), you may not notice that your shoes are too tight. Perform the footwear test described below. Footwear Test Use this simple test to see if your shoes fit correctly: Stand on a piece of paper. (Make sure you are standing and not sitting, because your foot changes shape when you stand.) Trace the outline of your foot. Trace the outline of your shoe. Compare the tracings: Is the shoe too narrow? Is your foot crammed into the shoe? The shoe should be at least 1/2 inch longer than your longest toe and as wide as your foot. Proper Shoe Choices The following types of shoes are best for people with diabetes Closed toes and heels Leather uppers without a seam inside At least 1/2 inch extra space at the end of your longest toe Inside of shoe should be soft with no rough areas Outer sole should be made of stiff material Shoes should be at least as wide as your feet Tips for Foot Care in Diabetes Don't wait to treat a minor foot problem if you have diabetes. Follow your health care provider's guidelines and first aid guidelines. Report foot injuries and infections to your health care provider immediately. Check water temperature with your elbow, not your foot. Do not use a heating pad on your feet. Do not cross your legs. Do not self-treat your corns, calluses, or other foot problems. Go to your health care provider or embroidery patternmaker to treat these conditions. [facility]The [facility] History of Present illness Narrative* Yeyo Okeefe - 10/12/2021 8:27 AM EDT Consultation requested by Dr. Gibbs for an opinion regarding diabetic foot exam. My final recommendations will be communicated back to the requesting physician by way of shared Medical record or letter to requesting physician via US mail. Initial Office Visit Subjective: This 60 year old male presents to clinic for diabetic foot check. Patient has the following complaints: foot pain/ache. Patient complains of dull pain in b/l foot. He states the pain is not horrible. He wonders if some of this pain is from his back. He is on lyrica and he does feel that does help. Patient admits to being diabetic for 2 years no. Patient - B/T/N in feet at this time. Patient -pain in legs when walking. No other pedal complaints at this time. No change in medications or medical history since last visit. PAIN EVALUATION No data found in the last 1 encounters. Hemoglobin A1C (%) Date Value 09/12/2021 6.5 08/16/2021 6.7 03/24/2020 6.9 09/03/2019 6.7 03/01/2019 7.0 07/10/2018 6.3 09/25/2017 6.2 PCP: Joy Mims MD PAST MEDICAL HISTORY Diagnosis Date COPD (chronic obstructive pulmonary disease) ([facility]) Dr. Timi Lopez Diabetes ([facility]) Dysmetabolic syndrome borderline DM GERD (gastroesophageal reflux disease) Hypertension Obesity ALEXANDRA (obstructive sleep apnea) Will be starteed on CPAP through [facility] Current Outpatient Medications Medication Sig budesonide-formoterol (SYMBICORT) 160-4.5 mcg/actuation inhaler Take 2 Puffs by mouth. fluticasone (FLONASE) 50 mcg/actuation nasal spray instill 2 (TWO) sprays in each nostril once daily SPIRIVA RESPIMAT 2.5 mcg/actuation inhaler INHALE 2 PUFFS BY MOUTH EVERY DAY buPROPion SR (ZYBAN SR; WELLBUTRIN SR) 150 mg 12 hr tablet Take 1 tablet by mouth once daily. famotidine (PEPCID) 20 mg tablet Take 1 tablet by mouth at bedtime as needed (for heartburn, GERD). omeprazole (PRILOSEC) 40 mg capsule Take 1 capsule by mouth once daily. metFORMIN ER (GLUCOPHAGE XR) 500 mg 24 hr tablet Take 1 tablet by mouth daily with breakfast. montelukast (SINGULAIR) 10 mg tablet Take 1 tablet by mouth daily at bedtime. pregabalin (LYRICA) 25 mg capsule Take 1 capsule by mouth twice daily for 90 days. for pain/tingling in legs losartan-hydroCHLOROthiazide (HYZAAR) 100-12.5 mg per tablet Take 1 tablet by mouth once daily. amLODIPine (NORVASC) 10 mg tablet Take 1 tablet by mouth once daily. albuterol HFA (PROVENTIL HFA, VENTOLIN HFA) 90 mcg/actuation inhaler EVERY 4 HOURS NEEDED PRN For Sob &/Or Wheezing loratadine (CLARITIN) 10 mg tablet Take 10 mg by mouth once daily. ASPIRIN (ASPIR-81 ORAL) Take by mouth. No current facility-administered medications for this visit. ALLERGIES Allergen Reactions Bees Anaphylaxis Penicillins Unknown PAST SURGICAL HISTORY Procedure Laterality Date COLONOSCOPY FLX DX W/COLLJ SPEC WHEN PFRMD 12/11/2016 Colonoscopy FAMILY HISTORY Problem Relation Age of Onset Glaucoma Father Diabetes Sister Social History Tobacco Use Smoking status: Every Day Packs/day: 1.50 Years: 30.00 Pack years: 45.00 Types: Cigarettes Smokeless tobacco: Never Tobacco comments: Down to 8 cig per day now (09/03/19)--down to half PPD still Substance Use Topics Alcohol use: Not Currently Comment: rarely Drug use: No REVIEW OF SYSTEMS GENERAL: Negative for Malaise, significant weight loss, fever RESPIRATORY: Negative for cough, wheezing and shortness of breath CARDIOVASCULAR: Negative for chest pain, leg swelling and palpitations GI: Negative for abdominal discomfort, blood in stools or black stools and change in bowel habits : Negative for dysuria, frequency and incontinence MUSCULOSKELETAL: Negative for joint pain or swelling, back pain, and muscle pain. SKIN: Negative for lesions, rash, and itching. HEMATOLOGY/LYMPHOLOGY Negative for prolonged bleeding, bruising easily, and swollen nodes. ENDOCRINE: Negative for cold or heat intolerance, polyuria, polydipsia and goiter. NEURO: negative The remainder of the review of systems is noncontributory. Objective: Patient presents to clinic ambulating in [facility] Constitutional: Pt is a well developed 60 year old male who is alert, oriented, cooperative and in no apparent distress. Eyes: Following during examination. No redness or drainage. Respiratory: RR normal and nonlabored. Even breathing. No evidence of distress. Psychology: Patient is engaged during conversation. Normal affect and mood. Does not appear depressed or anxious. Vasc: DP and PT pulses are palpable bilateral. CFT is less than 5 seconds bilateral. Skin temperature is warm to warm proximal to distal bilateral. There is no edema or varicosities noted. Hair growth present. Neuro: Protective sensation is intact to the foot and toes when tested with the 5.07 SWM bilateral.Vibratory sensation is intact at the hallux bilateral. No Significant neurological defecits. Derm: Inspection and palpation performed. Nails 1-5 b/l are painful, discolored- yellow, thick, crumbly, dystrophic and with subungal debris. Skin is of normal turgor and texture. Hyperkeratosis notedto not present. NO ulcerations, scars, verruca or other lesions noted. Ortho: Ankle joint DF is full with the knee extended and full with knee flexed. No pain or crepitusnoted. STJ, MTJ ROM are full and free of pain or crepitus. Muscle strength is 5/5 for dorsiflexors,plantarflexors, inverters, everters. Digital deformities include no. Assessment: (E11.9, Z79.4) Type 2 diabetes mellitus without complication, with long-term current use of insulin([facility]) (primary encounter diagnosis) (B35.1) Onychomycosis (M79.675) Pain in toe of left foot (M79.674) Pain in toe of right foot Plan: 1. Patient was seen and evaluated. 2. Patient was instructed on the continued importance of diabetic foot care along with proper diet and keeping their blood sugar under control to prevent complications. Instructions given both oral and written. 3. We discussed the possible etiologies of discolored, dystrophic, and thickened nails including fungus, yeast, mold as well as in some instances, prior trauma, or mechanical causes such as repetitive microtrauma in shoe gear. We discussed topical medication for discolored toenails which has very low success but no major side effects. We discussed oral medication. Patient will need hepatic testing prior to use. Patient informed of risks associated with Lamisil. We discussed removal of toenails.Patient would like to proceed with lamisil. Discussed obtaining culture vs starting the medication.He is in favor of starting medication. I will send message to Corrie Gibbs APRN to make sure she isfine with him starting. I reviewed blood work. Ast and alt are normal. He did have false positive Hep C 4. Toenails 1-5 b/l debrided in length and thickness. Bleed present to left 3rd and 4th nail band aide applied. If he has issues, he is to contact the office 5. If lamisil fails to work, consider removal but would recommend he stop smoking or cut back first. Yeyo Okeefe DPM * Karina Vaz LPN - 10/12/2021 8:12 AM EDT AMB ROOMING INTAKE FLOWSHEET DATA Risk Screening Do you have concerns about personal safety or safety in the home?: No Patient presents with: Left Foot - Established Patient, Follow Up, Diabetic Foot Care Right Foot - Established Patient, Follow Up, Diabetic Foot Care Karina Vaz LPN documented in this encounterThe [facility]08-[facility] History of Present illness Narrative* Guicho Maharaj MD - 10/03/2021 10:03 AM EDT Assessment and Plan 1. Type 2 diabetes mellitus without retinopathy (HCC) -no diabetic retinopathy both eyes 2. Optic nerve cupping of both eyes -good intraocular pressure with intact OCT nerve fiber layer and osman visual field (HVF) 3. 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-related cataract, both eyes -not visually significant both eyes 4. Hypertensive retinopathy, bilateral -retinal vasculature tortuosity both eyes Plan: -Continue blood sugar and blood pressure control -artificial tears twice a day both eyes -follow-up 1 year with dilated fundus exam both eyes / sooner as needed I have confirmed and edited as necessary the relevant ophthalmic history, ROS, and the neuro exam findings as obtained by others. I have seen and examined Larisa Gonzáles. I have discussed the case and the management of this patient's care with the Resident/Fellow, if applicable. I also have reviewed and agree with the assessment and plan as stated above and agree withall of its relevant components. Guicho Maharaj MD October 03, 2021 10:03 AM documented in this encounterThe [facility]08-[facility]-2022 Miscellaneous Notes* Telephone Encounter - Christine Lovelace Ma - 09/10/2021 10:27 AM EDT Patient notified of results, he will plan to have labs this week to discuss at appointment on 09/14 * Telephone Encounter - Joy Mims MD - 09/07/2021 7:45 PM EDT Noted * Telephone Encounter - Kristyn Alonso Ma - 09/06/2021 3:30 PM EDT Message left for pt to call back for results. Kristyn Alonso MA * Telephone Encounter - Joy Mims MD - 09/05/2021 8:14 PM EDT Component Latest Ref Rng & Units 08/16/2021 Total Cholesterol, Nonfasting <200 mg/dL 139 Triglycerides, Nonfasting <150 mg/dL 72 HDL Cholesterol, Nonfasting >39 mg/dL 32 (L) LDL Cholesterol, Nonfasting <100 mg/dL 93 Non HDL Cholesterol, Nonfasting <130 mg/dL 107 VLDL Cholesterol, Nonfasting <30 mg/dL 14 Total Chol/HDL Ratio, Nonfasting <5.10 mg/dL 4.34 LDL/HDL Ratio, Nonfasting <2.54 mg/dL 2.91 (H) Creatinine, Ur Random (UCRR) 20.0 - 300.0 mg/dL 50.1 Albumin, Urine Random mg/L <12.0 Albumin/Creat Ratio <30 mg/g <24 HIV 12 Combo (Ag/Ab) Nonreactive Nonreactive HIV 1/2 Ab HIV Interpretation Hemoglobin A1C 4.3 - 5.6 % 6.7 (H) Estimated Average Glucose mg/dL 146 Hep C Antibody IA Negative Positive (A) HCV RNA by PCR HCV RNA not detected by PCR. HCV RNA not detected by PCR. I reordered CMP and CBC since was not drawn with above labs and was not added to labs already drawn. Can get some other time at his convenience. Lipids are fine except HDL is low--regular aerobic exercise and more omega 3 oils in diet will helpget this over 40. HgA1C is good in 6 range.Controlled DM No spilling protein in the kidney--urine test was fine. Negative for HIV. Though the Hepatitis C antibody was positive, the HCV RNA was negatrive--he either never had hepatitis C and the antibody test is a false positive, or he had hepatitis C and the test shows that he does not have chronic active hepatitis C (his body tool care of the infection and his now immune to getting it again and he is not infectious) * Telephone Encounter - Priscila Zacarias RN - 09/05/2021 9:18 AM EDT Pt called in went over labs results, can provider go over and advise. Pt was told to come in and get outstanding labs done. Pt scheduled for Annual exam 09/14/21 with Corrie Gibbs CNP. [facility] Miscellaneous Notes* Telephone Encounter - Niki Givens - 08/29/2021 12:52 PM EDT 3rd attempt letter sent * Telephone Encounter - Claribel Page - 08/27/2021 9:24 AM EDT 2nd attempt - no vm * Telephone Encounter - Niki Givens - 08/22/2021 2:35 PM EDT 1 st attempt no vm * Telephone Encounter - Mary Nur LPN - 08/17/2021 12:16 PM EDT Please call pt to arrange appt Per pcp * Telephone Encounter - Joy Mims MD - 08/16/2021 1:03 PM EDT Looks like had not filled Lyrica RX since last November. Okay to resume if that is the case. Needs follow up rescheduled since missed or canceled appointments since last saw Corrie July of last year. Needs seen every 6 months in order for us to continue refilling Lyrica because it is a controlled medication. Reviewed open orders--several were so I ordered CMP and CBC with hopes they can be added to labs already drawn today, Will reorder for another time if cannot be added. The following approved medication requests have been transmitted electronically. Signed Prescriptions Disp Refills pregabalin (LYRICA) 25 mg capsule 60 capsule 2 Sig: Take 1 capsule by mouth twice daily for 90 days. for pain/tingling in legs ANISHA Class: C-V ANTONY: No Authorizing Provider: JOY MIMS losartan-hydroCHLOROthiazide (HYZAAR) 100-12.5 mg per tablet 30 tablet 11 Sig: Take 1 tablet by mouth once daily. ANTONY: No Authorizing Provider: JOY MIMS amLODIPine (NORVASC) 10 mg tablet 30 tablet 11 Sig: Take 1 tablet by mouth once daily. ANTONY: No Authorizing Provider: JOY MIMS MD * Telephone Encounter - Oly Greene LPN - 08/15/2021 1:22 PM EDT Pt calling for med refills. Pt notified he had outstanding labs that need completed, lab appt scheduled for 08/16/21. JORDEN: 09/21/20 NOV: None scheduled Last Refill: Losartan & amlodipine: 07/18/20 #30 11 refills Lyrica: 09/21/20 #60 2 refills Oly Greene LPN documented in [facility] encounterThe [facility] History of Present illness Narrative* Corrie Gibbs APRN.THIRD RIGGER - 08/26/2021 10:26 AM EDT refills sent, needs appt scheduled [facility] Diagnosis Newly diagnosed diabetes (HCC) Type II or unspecified type diabetes mellitus without mention of complication, not stated as uncontrolled documented in this encounter [facility]* Diagnosis Primary hypertension- Primary Unspecified essential hypertension Controlled type 2 diabetes mellitus without complication, without long-term current use of insulin (HCC) documented in this encounter [facility]* Diagnosis Primary hypertension- Primary Unspecified essential hypertension Controlled type 2 diabetes mellitus without complication, without long-term current use of insulin (HCC) documented in this encounter [facility]* Diagnosis Type 2 diabetes mellitus without retinopathy (HCC)- Primary Type II or unspecified type diabetes mellitus without mention of complication, not stated as uncontrolled 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, both eyes Hypertensive retinopathy, bilateral documented in this encounter [facility]* Diagnosis Type 2 diabetes mellitus without complication, with long-term current use of insulin (HCC)- Primary Onychomycosis Dermatophytosis of nail Pain in toe of left foot Pain in limb Pain in toe of right foot Pain in limb documented in this encounter [facility]* Diagnosis Controlled type 2 diabetes mellitus without complication, without long-term current use of insulin (HCC) documented in this encounter [facility]* Diagnosis Non-small cell cancer of right lung (HCC)- Primary documented in this encounter [facility] note* Diagnosis Malignant neoplasm of upper lobe of right lung (HCC) documented in this encounter [facility] note* Diagnosis Controlled type 2 diabetes mellitus without complication, without long-term current use of insulin (HCC)- Primary Primary hypertension Unspecified essential hypertension Chronic obstructive pulmonary disease, unspecified COPD type (HCC) Current smoker Tobacco use disorder Non-small cell cancer of right lung (HCC) documented in this encounter [facility]* Diagnosis Type 2 diabetes mellitus without complication, with long-term current use of insulin (HCC)- Primary Onychomycosis Dermatophytosis of nail Pain in toe of left foot Pain in limb Pain in toe of right foot Pain in limb documented in this encounter [facility]* Diagnosis Type 2 diabetes mellitus without retinopathy (HCC)- Primary Type II or unspecified type diabetes mellitus without mention of complication, not stated as uncontrolled 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-related cataract, both eyes Hypertensive retinopathy, bilateral Hypermetropia, bilateral Presbyopia documented in this encounter [facility]* Diagnosis Controlled type 2 diabetes mellitus without complication, without long-term current use of insulin (HCC)- Primary Chronic obstructive pulmonary disease, unspecified COPD type (HCC) Encounter for immunization Need for other specified prophylactic vaccination against single bacterial disease Screening for prostate cancer Special screening for malignant neoplasm of prostate Screening for colon cancer Special screening for malignant neoplasms, colon History of knee surgery Other postprocedural status Chronic pain of right hip Non-small cell cancer of right lung (HCC) documented in this encounter [facility]* Diagnosis Lung mass- Primary Swelling, mass, or lump in chest Malignant neoplasm of lung, unspecified laterality, unspecified part of lung (HCC) S/P thoracotomy Other postprocedural status documented in this encounter [facility] note* Diagnosis Lung nodule- Primary Other diseases of lung, not elsewhere classified Malignant neoplasm of upper lobe of right lung (HCC) Adenopathy Enlargement of lymph nodes Malignant neoplasm of unspecified part of unspecified bronchus or lung (HCC)- Primary Malignant neoplasm of unspecified part of unspecified bronchus or lung (HCC) documented in this encounter [facility] note* Diagnosis Malignant neoplasm of lung, unspecified laterality, unspecified part of lung (HCC) Malignant neoplasm of unspecified part of unspecified bronchus or lung (HCC) documented in this encounter [facility] note* Diagnosis Malignant neoplasm of unspecified part of unspecified bronchus or lung (HCC)- Primary documented in this encounter [facility] note* Diagnosis Non-small cell cancer of right lung (HCC)- Primary documented in this encounter [facility] note* Diagnosis Non-small cell cancer of right lung (HCC)- Primary documented in this encounter [facility] Discharge instructions* Attachments The following attachments cannot be sent through Care Everywhere. * Radiation Therapy, External ([place]) [facility] ([facility])* Consultation (Routine) - Pending Review Specialty Diagnoses / Procedures Referred By Contrenzo t Referred To Contact Radiation Oncology Diagnoses Malignant neoplasm of lung, unspecified laterality, unspecified part of lung (HCC) Procedures [place] OFFICE/OUTPATIENT [facility] MDM 60-74 MINUTES Ruby Murillo MD [address] [place] [address], [address] [place] [address] [facility] Rad Onc [address] [place] [address] Referral ID Status Reason Start Date Expiration Date Visits Requested Visits Authorized [id number] Pending Review Specialty Services Required 12/03/2023 1 1 [employer] Advance Directives No Advanced Directives Records FoundDocuments on File Type Date Recorded Patient Telephone Information Clerk Expl anation Advance Directive(s) 12/11/2016 7:36 AM Latest Code Status on File Code Status Date Activated Date Inactivated Comments Full Code 01/02/2022 10:24 AM Code Status History Code Status Date Activated Date Inactivated Comments Full Code 12/26/2021 10:49 AM 01/01/2022 3:24 PM Latest Code Status on File Code Status Date Activated Date Inactivated Comments Full Code 01/02/2022 10:24 AM Code Status History Code Status Date Activated Date Inactivated Comments Full Code 12/26/2021 10:49 AM 01/01/2022 3:24 PM Latest Code Status on File Code Status Date Activated Date Inactivated Comments Full Code 01/02/2022 10:24 AM 12/19/2022 9:16 AM Latest Code Status on File Code Status Date Activated Date Inactivated Comments Full Code 01/02/2022 10:24 AM 12/19/2022 9:16 AM Reason for Referral Specialty Diagnoses / Procedures Referred By Contac t Referred To Contact Radiology Diagnoses Non-small cell cancer of right lung (HCC) Procedures CT chest w IV contrast gNozi Maldonado MD [address] [facility] [address] [address] Referral ID Status Reason Start Date Expiration Date V isits Requested Visits Authorized [id number] Pending Review 04/25/2022 2022 1 1 Specialty Diagnoses / Procedures Referred By Contac t Referred To Contact General Surgery Diagnoses Screening for colon cancer Procedures CONSULT TO GENERAL SURGERY OFFICE/OUTPATIENT NEW HIGH MDM 60-74 MINUTES Corrie Gibbs, CLIENT EXPERIENCE SPECIALIST.THIRD RIGGER [address] [place] [address] Referral ID Status Reason Start Date Expiration Date Visits Requested Visits Authorized [id number] Authorized PCP Requested Referral 11/08/2022 11/08/2023 1 1 Specialty Diagnoses / Procedures Referred By Contac t Referred To Contact Radiology Diagnoses Non-small cell cancer of right lung (HCC) Procedures MR brain w and wo contrast Ngozi Maldonado MD [address] [facility] [address] [place] [address] Referral ID Status Reason Start Date Expiration Date V isits Requested Visits Authorized [id number] Authorized 12/26/2022 12/26/2023 1 1 Medications Administered Section Active Administered Medications - up to 3 most recent administrations Medication Order MAR Action Action Date Dose Rate Site fluorescein-benoxinate 0.25-0.4 % 1 Drop (FLURESS) 1 Drop, BOTH EYES, DIRECTED, Starting on Damari 10/03/22 at 0900, Until Damari 10/03/22 at 2058, Administer for applanation tonometry. In the event of a Fluress shortage, administer Toma-Fluor 1 drop into both eyes as directed for applanation tonometry Given 10/03/2022 8:49 AM EDT 1 Drop PHENYLephrine 2.5 % 1 Drop (AK-DILATE, JOSE-SYNEPHRINE) 1 Drop, BOTH EYES, DIRECTED, Starting on Damari 10/03/22 at 0900, Until Damari 10/03/22 at 2058, Administer for dilation PROTECT FROM LIGHT Given 10/03/2022 8:53 AM EDT 1 Drop tropicamide 1 % 1 Drop (MYDRIACYL) 1 Drop, BOTH EYES, DIRECTED, Starting on Damari 10/03/22 at 0900, Until Damari 10/03/22 at 2058, Administer for dilation Given 10/03/2022 8:53 AM EDT 1 Drop Summary Purpose Family History No Family History Records FoundNo Family History Records Found Additional Source Comments Source Comments (unrecognize d section and content) In the event this informatio n is protected by the Federal Confidentiality of Alcohol and Drug Abuse Patient Records regulations: The Federal rules restrict any use of the information to criminally investigate or prosecute any alcohol or drug abuse patient.[facility] the event this information is protected by the Federal Confidentiality of Alcohol and Drug Abuse Patient Records regulations: The Federal rules restrict any use of the information to criminally investigate or prosecute any alcohol or drug abuse patient.[facility] HospitalIn the event this information is protected by the Federal Confidentiality of Alcohol and Drug Abuse Patient Records regulations: The Federal rules restrict any use of the information to criminally investigate or prosecute any alcohol or drug abuse patient.[facility] HospitalIn the event this information is protected by the Federal Confidentiality of Alcohol and Drug Abuse Patient Records regulations: The Federal rules restrict any use of the information to criminally investigate or prosecute any alcohol or drug abuse patient.[facility] HospitalIn the event this information is protected by the Federal Confidentiality of Alcohol and Drug Abuse Patient Records regulations: The Federal rules restrict any use of the information to criminally investigate or prosecute any alcohol or drug abuse patient.[facility] HospitalIn the event this information is protected by the Federal Confidentiality of Alcohol and Drug Abuse Patient Records regulations: The Federal rules restrict any use of the information to criminally investigate or prosecute any alcohol or drug abuse patient.[facility] HospitalIn the event this information is protected by the Federal Confidentiality of Alcohol and Drug Abuse Patient Records regulations: The Federal rules restrict any use of the information to criminally investigate or prosecute any alcohol or drug abuse patient.[facility] HospitalIn the event this information is protected by the Federal Confidentiality of Alcohol and Drug Abuse Patient Records regulations: The Federal rules restrict any use of the information to criminally investigate or prosecute any alcohol or drug abuse patient.[facility] HospitalIn the event this information is protected by the Federal Confidentiality of Alcohol and Drug Abuse Patient Records regulations: The Federal rules restrict any use of the information to criminally investigate or prosecute any alcohol or drug abuse patient.[facility] HospitalIn the event this information is protected by the Federal Confidentiality of Alcohol and Drug Abuse Patient Records regulations: The Federal rules restrict any use of the information to criminally investigate or prosecute any alcohol or drug abuse patient.[facility] HospitalIn the event this information is protected by the Federal Confidentiality of Alcohol and Drug Abuse Patient Records regulations: The Federal rules restrict any use of the information to criminally investigate or prosecute any alcohol or drug abuse patient.[facility] HospitalIn the event this information is protected by the Federal Confidentiality of Alcohol and Drug Abuse Patient Records regulations: The Federal rules restrict any use of the information to criminally investigate or prosecute any alcohol or drug abuse patient.[facility] Care Teams (unrecognized sec tion and content) Hall Monitor Relationship Specialty Start Date End Date Joy Mims MD [address] [place] [address] PCP - General Internal Medicine 10/11/15 Hall Monitor Relationship Specialty Start Date End Date Joy Mims MD [address] [place] [address] PCP - General Internal Medicine 10/11/15 Hall Monitor Relationship Specialty Start Date End Date Joy Mims MD [address] [place] [address] PCP - General Internal Medicine 10/11/15 Hall Monitor Relationship Specialty Start Date End Date Joy Mims MD [address] [place] [address] PCP - General Internal Medicine 10/11/15 Hall Monitor Relationship Specialty Start Date End Date Joy Mims MD [address] [place] [address] PCP - General Internal Medicine 10/11/15 Hall Monitor Relationship Specialty Start Date End Date Joy Mims [address] [place] [address] PCP - General 11/30/21 Chante Figueroa, RN Nurse Navigator Oncology 12/31/21 Ngozi Maldonado MD [address] [id number] Consulting Physician Hematology and Oncology 01/21/22 Hall Monitor Relationship Specialty Start Date End Date Joy Mims [address] [place] [address] PCP - General 10/21/22 Chante Figueroa, RN Nurse Navigator Oncology 12/31/21 Ngozi Maldonado MD [address] [facility] [address] [place], [place] [id number] Consulting Physician Hematology and Oncology 01/21/22 Hall Monitor Relationship Specialty Start Date End Date Joy Mims [address] [place] [address] PCP - General 11/30/21 Chante Figueroa, RN Nurse Navigator Oncology 12/31/21 Ngozi Maldonado MD [address] [facility] [address] [place], [place] [id number] Consulting Physician Hematology and Oncology 01/21/22 Hall Monitor Relationship Specialty Start Date End Date Joy Mims MD [address] [place] [address] PCP - General Internal Medicine 10/11/15 Hall Monitor Relationship Specialty Start Date End Date Joy Mims MD [address] [place], [place] [address] PCP - General Internal Medicine 10/11/15 Hall Monitor Relationship Specialty Start Date End Date Joy Mims MD [address] [place] [address] PCP - General Internal Medicine 10/11/15 Hall Monitor Relationship Specialty Start Date End Date Joy Mims MD [address] [place], [place] [id number] PCP - General Internal Medicine 10/11/15 Hall Monitor Relationship Specialty Start Date End Date Joy Mims MD [address] [place], [place] [phone] PCP - General Internal Medicine 10/11/15 Hall Monitor Relationship Specialty Start Date End Date Joy Mims [address] [place] [address] PCP - General 11/30/21 Chante Figueroa, RN Nurse Navigator Oncology 12/31/21 Ngozi Maldonado MD [address] [place] [address] [place] [address] Consulting Physician Hematology and Oncology 01/21/22 Hall Monitor Relationship Specialty Start Date End Date Joy Mims MD [address] [place] [address] PCP - General Internal Medicine 10/11/15 Hall Monitor Relationship Specialty Start Date End Date Joy Mims [address] [place] [address] PCP - General 11/30/21 Chante Figueroa, RN Nurse Navigator Oncology 12/31/21 Ngozi Maldonado MD [address] [facility] [address] [place] [address] [place] [address] Consulting Physician Hematology and Oncology 01/21/22 Hall Monitor Relationship Specialty Start Date End Date Joy Mims [address] [place] [address] PCP - General 11/30/21 Chante Figueroa, RN Nurse Navigator Oncology 12/31/21 Ngozi Maldonado MD [address] [place] [address] [place] [address] Consulting Physician Hematology and Oncology 01/21/22 Farhan Douglas MD [address] [place] [address] [place] [address] Radiation Oncologist Radiation Oncology 12/10/22 Hall Monitor Relationship Specialty Start Date End Date Joy Mims [address] [place] [address] PCP - General 11/30/21 Chante Figueroa, RN Nurse Navigator Oncology 12/31/21 Ngozi Maldonado MD [address] [place] [address] [place] [address] Consulting Physician Hematology and Oncology 01/21/22 Farhan Douglas MD [address] [place] [address] [place] [address] Radiation Oncologist Radiation Oncology 12/10/22 Hall Monitor Relationship Specialty Start Date End Date Joy Mims [address] [place] [address] PCP - General 11/30/21 Chante Figueroa RN Nurse Navigator Oncology 12/31/21 Ngozi Maldonado MD [address] [place] [address] [place] [address] Consulting Physician Hematology and Oncology 01/21/22 Farhan Douglas MD [address] [place] [address] [place] [address] Radiation Oncologist Radiation Oncology 12/10/22 Hall Monitor Relationship Specialty Start Date End Date Joy Mims [address] [place] [address] PCP - General 11/30/21 Chante Figueroa, RN Nurse Navigator Oncology 12/31/21 Ngozi Maldonado MD [address] [place] [address] [place] [address] Consulting Physician Hematology and Oncology 01/21/22 Farhan Douglas MD [address] [place] [address] [place] [address] Radiation Oncologist Radiation Oncology 12/10/22 Hall Monitor Relationship Specialty Start Date End Date Joy Mims [address] [place] [address] PCP - General 11/30/21 Chante Figueroa RN Nurse Navigator Oncology 12/31/21 Ngozi Maldonado MD [address] [place] [address] [place] [address] Consulting Physician Hematology and Oncology 01/21/22 Farhan Douglas MD [address] [place] [address] [place] [address] Radiation Oncologist Radiation Oncology 12/10/22 Hall Monitor Relationship Specialty Start Date End Date Joy Mims [address] [place] [address] PCP - General 11/30/21 Chante Figueroa RN Nurse Navigator Oncology 12/31/21 Ngozi Maldonado MD [address] [place] [address] [place] [address] Consulting Physician Hematology and Oncology 01/21/22 Farhan Douglas MD [address] [place] [address] [place] [address] Radiation Oncologist Radiation Oncology 12/10/22 Hall Monitor Relationship Specialty Start Date End Date Joy Mims [address] [place] [address] PCP - General 11/30/21 Chante Figueroa, RN Nurse Navigator Oncology 12/31/21 Ngozi Maldonado MD [address] [place] [address] [place] [address] Consulting Physician Hematology and Oncology 01/21/22 Farhan Douglas MD [address] [place] [address] [place] [address] Radiation Oncologist Radiation Oncology 12/10/22 Hall Monitor Relationship Specialty Start Date End Date Joy Mims [address] [place] [address] PCP - General 11/30/21 Chante Figueroa RN Nurse Navigator Oncology 12/31/21 Ngozi Maldonado MD [address] [place] [address] [place] [address] Consulting Physician Hematology and Oncology 01/21/22 Farhan Douglas MD [address] [place] [address] [place] [address] Radiation Oncologist Radiation Oncology 12/10/22 Hall Monitor Relationship Specialty Start Date End Date Joy Mims [address] [place] [address] PCP - General 11/30/21 Chante Figueroa, RN Nurse Navigator Oncology 12/31/21 Ngozi Maldonado MD [address] [place] [address] [place] [address] Consulting Physician Hematology and Oncology 01/21/22 Farhan Douglas MD [address] [facility] [address] [place] [address] Radiation Oncologist Radiation Oncology 12/10/22 Hall Monitor Relationship Specialty Start Date End Date Joy Mims [address] [place] [address] PCP - General 11/30/21 Chante Figueroa, RN Nurse Navigator Oncology 12/31/21 Ngozi Maldonado MD [address] [facility] [address] [place] [address] Consulting Physician Hematology and Oncology 01/21/22 Farhan Douglas MD [address] [facility] [address] [place] [address] Radiation Oncologist Radiation Oncology 12/10/22 Hall Monitor Relationship Specialty Start Date End Date Joy Mims [address] [place] [address] PCP - General 11/30/21 Chante Figueroa, RN Nurse Navigator Oncology 12/31/21 Ngozi Maldonado MD [address] [facility] [address] [place] [address] Consulting Physician Hematology and Oncology 01/21/22 Farhan Douglas MD [address] [facility] [address] [place] [address] Radiation Oncologist Radiation Oncology 12/10/22 Reason for Visit (unrecogniz ed section and content) Reason Comments Results Lab Orders Appointment Reason Comments type 2 diabetes mellitus without com plication, without long-term current use of insulin Specialty Diagnoses / Procedures Referred By Contac t Referred To Contact Ophthalmology Diagnoses Controlled type 2 diabetes mellitus without complication, without long-term current use of insulin (HCC) Procedures CONSULT TO OPHTHALMOLOGY OFFICE/OUTPATIENT [facility] 60-74 MINUTES Corrie Gibbs, CLIENT EXPERIENCE SPECIALIST.THIRD RIGGER [address] [place] [address] Referral ID Status Reason Start Date Expiration Date V isits Requested Visits Authorized [id number] Closed PCP Requested Referral 09/14/2021 09/14/2022 1 1 Reason Comments Established Patient Follow Up Diabetic Foot Care Specialty Diagnoses / Procedures [facility] To Contact Podiatry Diagnoses Controlled type 2 diabetes mellitus without complication, without long-term current use of insulin (HCC) Procedures CONSULT TO PODIATRY OFFICE/OUTPATIENT [facility] 60-74 MINUTES Corrie Gibbs, CLIENT EXPERIENCE SPECIALIST.THIRD RIGGER [address] [place] [address] Referral ID Status Reason Start Date Expiration Date V isits Requested Visits Authorized [id number] Closed PCP Requested Referral 09/14/2021 09/14/2022 1 1 Reason Onset Date Comments Refill Request 01/07/2022 Reason Comments Follow-up Reason Comments OP Infusion Specialty Diagnoses / Procedures [facility] Referred To Contact Diagnoses Malignant neoplasm of upper lobe of right lung (HCC) Ngozi Maldonado MD [address] [address] [facility] [address] [facility] [place] [address] Referral ID Status Reason Start Date Expiration Date Visits Re quested Visits Authorized [id number] Closed 01/23/2022 07/22/2022 1 1 Reason Onset Date Comments OTHER 04/03/2022 Reason Comments F/U 6 months Reason Comments Established Patient Follow Up Diabetic Foot Check Reason Comments Diabetic Eye Exam Reason Onset Date Comments Refill Request 10/03/2022 Reason Comments F/U 6 Month Reason Comments Nurse Navigation Referral to [facility] Reason Comments Results Reason Comments Follow-up Reason Comments New Patient Lung Nodule Reason Comments Consult Specialty Diagnoses / Procedures Referred By Contac t Referred To Contact Radiation Oncology Diagnoses Malignant neoplasm of lung, unspecified laterality, unspecified part of lung (HCC) Procedures [place] OFFICE/OUTPATIENT NEW [facility] 60-74 MINUTES Ruby Murillo MD [address] [place] [address] [facility] [address] [place] [address] Referral ID Status Reason Start Date Expiration Date Visits Requested Visits Authorized [id number] Pending Review Specialty Services Required 3 12/03/2023 1 1 Specialty Diagnoses / Procedures Referred By Contac t Referred To Contact Diagnoses Malignant neoplasm of unspecified part of unspecified bronchus or lung (HCC) Malignant neoplasm of unspecified part of unspecified bronchus or lung (HCC) [C34.90] Procedures [place] BRNSCHSC TNDSC EBUS DX/TX INTERVENTION PERPH LES BRONCH EBUS WITH XRAY Lynn Shelton, DO [address] [place] [address] [facility] [address] [place] [address] Referral ID Status Reason Start Date Expiration Date Visits Re quested Visits Authorized [id number] 1 1 Reason Comments Nurse Navigation Reason Onset Date Comments OTHER 12/26/2022 Reason Onset Date Comments OTHER 01/27/2023 (unrecognized sect ion and content) No Status Records FoundNo Status Records Found INFORMATION SOURCE (unrecogn ized section and content) DATE CREATED AUTHOR AUTHOR'S ORGANIZ ATION 02/14/2023 [employer] [facility] Scheduled Active and Recently Administ ered Medications (unrecognized section and content) Continuous Medication Order 12/17/2022 12/18/2022 12/19/2022 lactated ringers infusion 125 mL/hr, IntraVENous, Continuous, Starting on Damari 12/19/22 at 1315, Recovery (only) 1315 (Canceled Entry - Provider: Automatic Discharge Provider - Comment: Automatically canceled at discontinue of medication order) PRN Medication Order 12/17/2022 12/18/2022 12/19/2022 diphenhydrAMINE (BENADryl) injection 12.5 mg 12.5 mg, IntraVENous, Once PRN, itching, Starting on Damari 12/19/22 at 1306, For 1 dose, Recovery (only) fentaNYL (Sublimaze) injection 25 mcg 25 mcg, IntraVENous, Every 5 min PRN, moderate pain (4-6), Starting on Damari 12/19/22 at 1306, For 3 doses, Recovery (only), Phase I and Phase II- Initial therapy for moderate pain (4-6). Restricted to a 90 minute time frame starting when the patient can verbally state their pain score. If after 2 doses the pain score does not decrease by more than one point, then call the provider. If oral meds are utilized, do not return to initial therapy medications. fentaNYL (Sublimaze) injection 50 mcg 50 mcg, IntraVENous, Every 5 min PRN, severe pain (7-10), Starting on Damari 12/19/22 at 1306, For 3 doses, Recovery (only), Phase I and Phase II- Initial therapy for severe pain (7-10). Restricted to a 90 minute time frame starting when the patient can verbally state their pain score. If after 2 doses the pain score does not decrease by more than one point, then call the provider. If oral meds are utilized, do not return to initial therapy medications. hydrALAZINE (Apresoline) injection 5 mg(Linked Group 1) 5 mg, IntraVENous, Every 15 min PRN, high blood pressure, for SBP greater than 160 mmHg for 2 consecutive measurements taken from different sites, Starting on Damari 12/19/22 at 1306, For 2 doses, Recovery (only), PRN for SBP > 160 for 2 consecutive measurements, and if one of the following conditions is met: 1) If IV labetolol is ineffective. 2) If HR is under 60. 3) If patient has heart block, COPD or asthma. If both labetalol and hydralazine ineffective, notify anesthesia provider. labetalol (Normodyne,Trandate) injection 5 mg(Linked Group 1) 5 mg, IntraVENous, Every 10 min PRN, high blood pressure, for SBP greater than 160 mmHg for 2 consecutive measurements taken from different sites., Starting on Damari 12/19/22 at 1306, For 2 doses, Recovery (only), PRN for SBP >160 for 2 consecutive measurements, if HR is 60 or greater. If beta pedro pablo is contraindicated (HR less than 60, heart block, COPD or asthma) use hydralazine IV order. meperidine (Demerol) injection 12.5 mg 12.5 mg, IntraVENous, Every 5 min PRN, shivering, Starting on Damari 12/19/22 at 1306, For 4 doses, Recovery (only), May give every 5 minutes to max of 50mg. ondansetron (Zofran) injection 4 mg 4 mg, IntraVENous, Once PRN, nausea, Starting on Damari 12/19/22 at 1306, For 1 dose, Recovery (only), Initial antiemetic therapy. oxyCODONE (Roxicodone) immediate release tablet 10 mg(Linked Group 2) 10 mg, Oral, PRN, severe pain (7-10), Starting on Damari 12/19/22 at 1306, For 1 dose, Recovery (only), PHASE II oxyCODONE (Roxicodone) immediate release tablet 5 mg(Linked Group 2) 5 mg, Oral, PRN, moderate pain (4-6), Starting on Damari 12/19/22 at 1306, For 1 dose, Recovery (only), PHASE II sodium chloride 0.9 % bolus 500 mL 500 mL, IntraVENous, at 1,000 mL/hr, Administer over 0.5 Hours, PRN, Anti-nausea, Starting on Damari 12/19/22 at 1306, Recovery (only), Indications: Anti-nausea sodium chloride 0.9 % infusion 5-250 mL/hr, IntraVENous, PRN, if patient receiving piggyback infusions and maintenance fluids are not ordered OR KVO fluids to protect IV site / prevent frequent line interruptions/ long duration, Starting on Damari 12/19/22 at 1140, Preprocedure, For piggyback infusion, administer at same rate as piggyback for a total of 25 mL. Enter 25 mL into dose field and piggyback rate into rate field of order. If piggyback is infusing at a rate less than 100 mL/hr, enter 25 mL into dose field and 100 mL/hr into rate field of order. For KVO fluids, enter rate of 20 mL/hr or less into rate field of order. 1138 (New Bag - Prov ider: TODD Ewing CRNA)1310 (Stopped - Provider: TODD Ewing CRNA) sodium chloride 0.9 % infusion 5-250 mL/hr, IntraVENous, PRN, if patient receiving piggyback infusions and maintenance fluids are not ordered OR KVO fluids to protect IV site / prevent frequent line interruptions/ long duration, Starting on Damari 12/19/22 at 1306, Recovery (only), For piggyback infusion, administer at same rate as piggyback for a total of 25 mL. Enter 25 mL into dose field and piggyback rate into rate field of order. If piggyback is infusing at a rate less than 100 mL/hr, enter 25 mL into dose field and 100 mL/hr into rate field of order. For KVO fluids, enter rate of 20 mL/hr or less into rate field of order. sodium chloride 0.9% (NS) flush 10 mL 10 mL, IntraVENous, PRN, line care, Starting on Damari 12/19/22 at 1140, Preprocedure, After every IV line use sodium chloride 0.9% (NS) flush 10 mL 10 mL, IntraVENous, PRN, line care, Starting on Damari 12/19/22 at 1306, Recovery (only), After every IV line use Linked Groups Order Group 1: labetalol (Normodyne,Trandate) injection 5 mgJump to med 5 mg, IntraVENous, Every 10 min PRN, high blood pressure, for SBP greater than 160 mmHg for 2 consecutive measurements taken from different sites., Starting on Damari 12/19/22 at 1306, For 2 doses, Recovery (only), PRN for SBP >160 for 2 consecutive measurements, if HR is 60 or greater. If beta pedro pablo is contraindicated (HR less than 60, heart block, COPD or asthma) use hydralazine IV order. Or hydrALAZINE (Apresoline) injection 5 mgJump to med 5 mg, IntraVENous, Every 15 min PRN, high blood pressure, for SBP greater than 160 mmHg for 2 consecutive measurements taken from different sites, Starting on Damari 12/19/22 at 1306, For 2 doses, Recovery (only), PRN for SBP > 160 for 2 consecutive measurements, and if one of the following conditions is met: 1) If IV labetolol is ineffective. 2) If HR is under 60. 3) If patient has heart block, COPD or asthma. If both labetalol and hydralazine ineffective, notify anesthesia provider. Group 2: oxyCODONE (Roxicodone) immediate release tablet 5 mgJump to med 5 mg, Oral, PRN, moderate pain (4-6), Starting on Damari 12/19/22 at 1306, For 1 dose, Recovery (only), PHASE II Or oxyCODONE (Roxicodone) immediate release tablet 10 mgJump to med 10 mg, Oral, PRN, severe pain (7-10), Starting on Damari 12/19/22 at 1306, For 1 dose, Recovery (only), PHASE II FOR RECORDS PERTAINING TO PATIENTS WHO ARE OR HAVE BEEN ENROLLED IN A CHEMICAL DEPENDENCY/SUBSTANCEABUSE PROGRAM, SOME INFORMATION MAY BE OMITTED. This clinical summary was aggregated from multiple sources. Caution should be exercised in using it in the provision of clinical care. This summary normalizes information from multiple sources, and as a consequence, information in this document may materially change the coding, format and clinical context of patient data. In addition, data may be omitted in some cases. CLINICAL DECISIONS SHOULD BE BASED ON THE PRIMARY CLINICAL RECORDS. [employer] provides no warranty or guarantee of the accuracy or completeness of information in this document.
[2023-02-14] MEDS: Ondansetron ODT 4 MG Tablet PO (14:25)
[2023-02-14] MEDS: Electrolyte Solution/Peg's 4000 ML 1000 ML PO (14:31)
[2023-02-14 14:33] VITALS: BP 132/79; PULSE 72; RESP 16; O2SAT 98
== END 2023-02-14 14:34 | disposition home or self-care (01) ==
PROVIDERS: Emergency Provider Emergency Medicine; PCP Internal Medicine; Visit Provider Emergency Medicine
DX: K59.00 Constipation, unspecified (principal); C34.90 Malignant neoplasm of unspecified part of unspecified bronchus or lung; J44.9 Chronic obstructive pulmonary disease, unspecified; I10 Essential (primary) hypertension; F17.210 Nicotine dependence, cigarettes, uncomplicated; Z79.899 Other long term (current) drug therapy
CPT/HCPCS: 74018; 99282

== ENCOUNTER 2023-03-03 11:28 | Emergency (ER) | payer MEDICAID, SELFPAY ==
[2023-03-03 11:29] VITALS: BP 105/62; PULSE 87; RESP 16; TEMP 36.2; O2SAT 92; BMI 21.7
--- NOTE | 2023-03-03 12:05 | CT_ITS ---
HISTORY: hemoptysis. TECHNIQUE: CT angiogram of the chest was performed after the intravenous administration of 100 mL Isovue-370. Post-processing of the angiographic images was performed with multiplanar reformation and 3D reconstruction. Individualized dose optimization techniques were used for this CT. 1077 images. COMPARISON: PET-CT 02/11/2023, XR 01/22/2023, CT 01/01/2023 and 09/03/2022. FINDINGS: CENTRAL AIRWAYS: Narrowing and occlusion of the right-sided bronchi again seen.. LUNGS: Right upper lobectomy. Interval progression of multiple nodules and masses bilaterally. Increased size of mass occupying the right middle lobe. Multiple pulmonary nodules and masses with nodular septal thickening and patchy consolidation in the right lower lobe, increased from prior. 1.6 x 2 cm mixed groundglass and solid opacity in the left upper lobe. Increased groundglass opacities and patchy consolidation of the left lower lobe. Nodular thickening of the left fissure and nodular septal thickening in the left lower lobe. PLEURA: Moderate loculated right pleural effusion with multiple pleural-based soft tissue masses. HEART/PERICARDIUM: Heart within normal limits in size. Very mild pericardial effusion. PULMONARY ARTERIES: No filling defect. Mild mass effect on the right sided pulmonary arteries from tumor. AORTA/VESSELS: No thoracic aortic aneurysm or dissection flap. Mild atherosclerotic stenosis. MEDIASTINUM/DANNIE: Marked interval progression in size and number of enlarged mediastinal and bilateral hilar lymph nodes. Large right paratracheal and confluent hilar mass invading the right middle lobe and subcarinal region increased in size. Increased size of paracardiac right retrocrural lymphadenopathy. CHEST WALL: Degenerative changes of the osseous structures. 2.5 cm left retropectoral enhancing nodule and mildly enlarged left retroclavicular lymph node again seen. Subtle left scapular or periscapular lesion again noted. 4 cm right intercostal soft tissue mass, previously 3.5 cm. Multiple right chest wall subcutaneous nodules measuring up to 2.5 cm, previously 2.1 cm. Right diaphragmatic soft tissue thickening likely tumor. UPPER ABDOMEN: 3 cm low-attenuation right adrenal mass again seen. Increased size of right retroperitoneal lymphadenopathy. Multiple small omental, peritoneal, and lateral retroperitoneal nodules. CT/CTA Chest W/WO Contrast IMPRESSION: No evidence of pulmonary embolism. Large right hilar and paratracheal soft tissue mass with bronchial invasion, vascular encasement, and lung involvement progressed from prior. Progression of extensive pulmonary, pleural, and mark metastases in the chest and upper abdomen. Lymphangitic carcinomatosis. Progression of chest wall metastases. Moderate malignant right pleural effusion. Electronically Signed: Cici An MD at 13:41 EST ,
--- NOTE | 2023-03-03 12:05 | EX.ED.DYSGE1 ---
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 He had a partial right lung resection in December 2022 and has plans for a port to be placed and chemo and immunotherapy education to start next week. Over last 3 weeks has had increased cough and sputum and every 3 days has red-tinged bloody sputum with small clots. He states while coughing he feels short of breath but afterwards breathes easily. No chest pain. No fever or chills. No blood thinners. He was sent in by his doctor to rule out PE. PFSH <LILLIAN Antony - Last Filed: 03/03/23 14:15> COUNTS INCLUDE 234 BEDS AT THE [facility] Medical History Anxiety and depression Chest pain Constipation COPD (chronic obstructive pulmonary disease) Encounter for education Hemoptysis Hiatal hernia with GERD HTN (hypertension) Hyperglycemia Iatrogenic pneumothorax Marijuana smoker Mass of upper lobe of right lung Morbid obesity with BMI of 40.0-44.9, adult Nicotine addiction Nicotine dependence in remission Obesity ALEXANDRA (obstructive sleep apnea) Poor dentition Smoking greater than 40 pack years Home Medications amlodipine 10 mg tablet 10 mg PO DAILY 10/31/15 [History Last Taken 10/29/21] bupropion HCl 150 mg 24 hr tablet, extended release (Wellbutrin XL) 150 mg PO DAILY depression 10/31/15 [History Last Taken 10/29/21] losartan 100 mg-hydrochlorothiazide 12.5 mg tablet 1 tab PO DAILY hypertension 10/31/15 [History Last Taken 10/29/21] omeprazole 20 mg capsule,delayed release 20 mg PO DAILY GERD 07/26/16 [History Last Taken 10/29/21] cetirizine 10 mg tablet 10 mg PO DAILY allergies 10/29/21 [History Last Taken 10/29/21] pregabalin 25 mg capsule 25 mg PO BID back pain 10/29/21 [History Last Taken 10/29/21] fluticasone propionate 50 mcg/actuation nasal spray,suspension 2 spray intranasal DAILY #16 grams 08/26/22 [Rx Last Taken Unknown] montelukast 10 mg tablet 10 mg PO QHS ALLERGIES #90 tabs 08/26/22 [Rx Last Taken Unknown] tiotropium bromide 2.5 mcg/actuation mist for inhalation (Spiriva Respimat) 2 puff inhalation QDAY #4 grams 08/26/22 [Rx Last Taken Unknown] budesonide-formoterol HFA 160 mcg-4.5 mcg/actuation aerosol inhaler (Symbicort) 2 puff inhalation BID #3 ea 01/01/23 [Rx Last Taken Unknown] ondansetron 4 mg disintegrating tablet 4 mg PO Q6H PRN nausea and vomiting #10 tabs 02/14/23 [Rx Last Taken Unknown] lidocaine-prilocaine 2.5 %-2.5 % topical cream 1 applic topical ONCE PRN port access 30 days #30 grams 03/03/23 [Rx Last Taken Unknown] ondansetron 8 mg disintegrating tablet 8 mg PO Q8H PRN nausea and vomiting #30 tabs 03/03/23 [Rx Last Taken Unknown] polyethylene glycol 3350 17 gram/dose oral powder (Miralax) 4 g PO DAILY 03/03/23 [History Last Taken Unknown] sennosides 8.6 mg-docusate sodium 50 mg capsule (Senna Plus) 1 tab-cap PO BID PRN constipation #60 caps 03/03/23 [Rx Last Taken Unknown] Allergy/AdvReac Type Severity Reaction Status Date / Time Penicillins Allergy Unknown Verified 03/03/23 11:31 venom-honey bee Allergy Swelling Verified 03/03/23 11:31 [bee venom (honey bee)] Family History Mother Cancer Father Diabetes Sister Diabetes Surgical History History of arthroplasty of left knee History of bronchoscopy History of tonsillectomy Social History household members: none Smoking Status: Current every day smoker tobacco type: cigarettes Tobacco: How many years used: 40 how long ago did patient quit smokin ppd second hand exposure: Yes alcohol intake: current alcohol intake frequency: holidays/special occasions only substance use type: marijuana caffeine: Yes Type: coffee Number of servings: 3 what type of physical activity do you participate in: walking ROS <LILLIAN Antony - Last Filed: 03/03/23 14:15> ROS ED ROS Narrative Constitutional: Negative for fever, chills, malaise. CVS: Negative for palpitations, chest pain, syncope. Respiratory: Positive for cough. GI: Negative for abdominal pain, nausea, vomiting. EXAM <LILLIAN Antony - Last Filed: 03/03/23 14:15> Physical Exam Narrative Exam Narrative: CONST: Patient sitting in no acute distress. EYES: Normal inspection. NECK: Normal inspection. RESP: Frequent congested sounding cough. No respiratory distress, CTAB. CVS: Regular rate and rhythm, no murmur, no gallop. SKIN: Color normal, no rash, warm, dry, intact. EXTREMITIES: Normal appearance, no pedal edema. NEURO: Oriented x4. PSYCH: Normal affect. Const Vital Signs: 03/03/23 11:29 Temperature 97.2 F L Temperature Source Temporal Pulse Rate 87 Respiratory Rate 16 Blood Pressure 105/62 Blood Pressure Mean 76 Pulse Ox 92 Oxygen Delivery Method Room Air <Dr. Boy Hauser MD - Last Filed: 03/03/23 12:51> Physical Exam Const Vital Signs: 03/03/23 11:29 Temperature 97.2 F L Temperature Source Temporal Pulse Rate 87 Respiratory Rate 16 Blood Pressure 105/62 Blood Pressure Mean 76 Pulse Ox 92 Oxygen Delivery Method Room Air MDM <LILLIAN Antony - Last Filed: 03/03/23 14:15> [facility] MDM Narrative Medical decision making narrative: Patient has history of metastatic lung cancer presenting with 3 weeks of increased productive cough and intermittent blood-tinged sputum. He appears well and nontoxic. Vital signs stable. 92% on room air no distress. He has a frequent cough during the exam but lungs are clear to auscultation. Labs show normal white count, mild anemia at 10.5, otherwise unremarkable. CTA shows no evidence of PE. He does have progressive lung cancer with metastasis and a moderate malignant right pleural effusion. Patient is stable on room air and does not require admission. I discussed the findings with the oncology team who sent him in, [facility]. He is scheduled next week for port placement and chemotherapy education and initiation. Patient's questions were answered and he was discharged in stable condition. Differential: PE, lung cancer, pleural effusion, pneumonia Consults: Oncology Lab Data Attestation: I reviewed the patient's lab results. Labs: Laboratory Results - last 24 hr 03/03/23 12:15 WBC 5.5 RBC 3.56 L Hgb 10.5 L Hct 30.8 L MCV 86.5 MCH 29.5 MCHC 34.1 RDW Std Deviation 46.0 H RDW Coeff of Ruben 14.5 Plt Count 399 MPV 8.3 Immature Gran % (Auto) 0.200 Neut % (Auto) 69.1 Lymph % (Auto) 19.1 [place] % (Auto) 10.9 H Eos % (Auto) 0.2 Baso % (Auto) 0.5 Absolute Neuts (auto) 3.8 Absolute Lymphs (auto) 1.05 Nucleated RBC % 0 Sodium 131 L Potassium 4.1 Chloride 94 L Carbon Dioxide 29.0 Anion Gap 8 BUN 17 Creatinine 0.96 Estim Creat Clear Calc 57.15 Est GFR (MDRD) Af Amer 103 Est GFR (MDRD) Non-Af 85 BUN/Creatinine Ratio 17.8 Glucose 121 H Calcium 8.9 Radiography Diagnostic Testing: Clinical Impression(s) from Imaging Studies Chest CTA 03/03/23 12:05 IMPRESSION: No evidence of pulmonary embolism. Large right hilar and paratracheal soft tissue mass with bronchial invasion, vascular encasement, and lung involvement progressed from prior. Progression of extensive pulmonary, pleural, and mark metastases in the chest and upper abdomen. Lymphangitic carcinomatosis. Progression of chest wall metastases. Moderate malignant right pleural effusion. Electronically Signed: Cici An MD at 13:41 EST Reading Location ID and State: [facility] / [place] Tel , Service support , <Dr. Boy Hauser MD - Last Filed: 03/03/23 12:51> [facility] Lab Data Labs: Laboratory Results - last 24 hr 03/03/23 12:15 WBC 5.5 RBC 3.56 L Hgb 10.5 L Hct 30.8 L MCV 86.5 MCH 29.5 MCHC 34.1 RDW Std Deviation 46.0 H RDW Coeff of Ruben 14.5 Plt Count 399 MPV 8.3 Immature Gran % (Auto) 0.200 Neut % (Auto) 69.1 Lymph % (Auto) 19.1 [place] % (Auto) 10.9 H Eos % (Auto) 0.2 Baso % (Auto) 0.5 Absolute Neuts (auto) 3.8 Absolute Lymphs (auto) 1.05 Nucleated RBC % 0 Sodium 131 L Potassium 4.1 Chloride 94 L Carbon Dioxide 29.0 Anion Gap 8 BUN 17 Creatinine 0.96 Estim Creat Clear Calc 57.15 Est GFR (MDRD) Af Amer 103 Est GFR (MDRD) Non-Af 85 BUN/Creatinine Ratio 17.8 Glucose 121 H Calcium 8.9 Radiography Diagnostic Testing: Clinical Impression(s) from Imaging Studies Chest CTA 03/03/23 12:05 IMPRESSION: No evidence of pulmonary embolism. Large right hilar and paratracheal soft tissue mass with bronchial invasion, vascular encasement, and lung involvement progressed from prior. Progression of extensive pulmonary, pleural, and mark metastases in the chest and upper abdomen. Lymphangitic carcinomatosis. Progression of chest wall metastases. Moderate malignant right pleural effusion. Electronically Signed: Cici An MD at 13:41 EST , Treatment and Re-Evaluation :: I have personally performed a face to face assessment of the patient and have reviewed the HANANE Note. I performed a substantive portion of the visit including all aspects of the following. My cantu findings include: History is patient with a history of metastatic lung cancer including mediastinal mets, has been coughing up bloody sputum for 3 weeks but told oncology for the first time today when he was at an appointment for education regarding chemotherapy which she is due to start next week. No history of DVT, no pain or swelling in his legs, and on no anticoagulants. Sent to the ER to evaluate for the possibility of a PE. Exam is conversive in full sentences. Occasional bronchospasm but no dyspnea in between. Lungs clear. No peripheral lower extremity edema or calf tenderness/cord. Medical Decison Making: high risk therefore CTA ordered and will be performed to evaluate for PE. Other additions or changes: [None] Discharge Plan Triage Chief Complaint: GI Bleed ED Midlevel Provider: La Watson ED Provider: Boy Hauser Dx/Rx/DC Orders Clinical Impression: Cough with hemoptysis, Lung cancer metastatic to bone, Pleural effusion, right Prescriptions: No Action fluticasone propionate 50 mcg/actuation spray,suspension 2 spray INTRANASAL DAILY Qty: 16 11RF Spiriva Respimat 2.5 mcg/actuation mist 2 puff inhalation QDAY Qty: 4 11RF montelukast 10 mg tablet 10 mg PO QHS Qty: 90 3RF polyethylene glycol 3350 [Miralax] 17 gram/dose powder 4 g PO DAILY ondansetron 8 mg tablet,disintegrating 8 mg PO Q8H PRN (Reason: nausea and vomiting) Qty: 30 2RF lidocaine-prilocaine 2.5-2.5 % cream 1 applic topical ONCE PRN (Reason: port access) 30 Days Qty: 30 2RF Senna Plus 8.6-50 mg capsule 1 tab-cap PO BID PRN (Reason: constipation) Qty: 60 1RF amlodipine 10 MG tablet 10 mg PO DAILY Patient Comments: blood pressure losartan-hydrochlorothiazide 1 TAB tablet 1 tab PO DAILY Patient Comments: blood pressure bupropion HCl [Wellbutrin XL] 150 MG tablet extended release 24 hr 150 mg PO DAILY Patient Comments: depression omeprazole 20 MG capsule 20 mg PO DAILY Patient Comments: acid reflux cetirizine 10 mg Tablet 10 mg PO DAILY pregabalin 25 mg capsule 25 mg PO BID ondansetron 4 mg tablet,disintegrating 4 mg PO Q6H PRN (Reason: nausea and vomiting) Qty: 10 0RF budesonide-formoterol [Symbicort] 160-4.5 mcg/actuation HFA aerosol inhaler 2 puff inhalation BID Qty: 3 3RF Rx Instructions: administer with spacer, rinse mouth after each use Primary Care Provider: Mony Morrison Referrals: Mony Morrison MD [Primary Care Provider] - Activity Restrictions/Additional Instructions: The CT scan shows that your lung cancer has progressed and there is a collection of fluid in your right lung from the cancer. This is causing her cough and shortness of breath. There is no blood clot. Follow-up next week with your oncologist as scheduled to initiate chemotherapy. Disposition Disposition: Home, Self Care
[2023-03-03 12:23] LABS: Absolute Lymphocyte Count 1.05 X10^3/uL (0.83-4.51); Absolute Neutrophil Count 3.8 X10^3/uL (2.0-7.7); Basophil# 0.03 X10^3/uL; Basophil% 0.5 % (0-1); Eosinophil# 0.01 X10^3/uL; Eosinophils% 0.2 % (0-5); Hematocrit 30.8 % (40-54); Hemoglobin 10.5 g/dL (13.0-16.5); Lymphocyte # 1.05 X10^3/ul (0.83-4.51); Lymphocyte % 19.1 % (19-41); Mean Corp Hgb Conc 34.1 g/dL (32-36); Mean Corpuscular Hgb 29.5 pg (27.0-32.0); Mean Corpuscular Volume 86.5 fL (80-94); Mean Platelet Vol. 8.3 fl (6.2-12.0); Monocyte% 10.9 % (0-10); NRBC Flagged by Analyzer 0 % (0-5); Neutrophil # 3.81 X10^3/uL (2.7-7.7); Neutrophil % 69.1 % (47-70); Platelet Count 399 K/mm3 (150-450); RBC Distribution Width CV 14.5 % (11.6-14.6); Red Blood Count 3.56 M/mm3 (4.6-6.2); White Blood Count 5.5 K/mm3 (4.4-11.0)
[2023-03-03 12:36] LABS: Anion Gap 8 (5-15); BUN 17 mg/dL (7-18); BUN/Creat Ratio 17.8 RATIO (10-20); Calcium,Total 8.9 mg/dL (8.5-10.1); Chloride 94 mmol/L (98-107); Creatinine, Serum 0.96 mg/dL (0.70-1.30); EST Glomerular Filtration Rate 85 mL/min (>60); Est Glom Filt Rate - Afr Amer 103 mL/min (>60); Estimated Creatinine Clearance 57.15 ml/min; Glucose 121 mg/dL (74-106); Potassium 4.1 mmol/L (3.5-5.1); Sodium Level 131 mmol/L (136-145)
[2023-03-03 14:26] VITALS: BP 140/82; PULSE 81; RESP 16; O2SAT 99
== END 2023-03-03 14:28 | disposition home or self-care (01) ==
PROVIDERS: Physician Assistant; Emergency Provider Emergency Medicine; PCP Internal Medicine; Visit Provider Emergency Medicine
DX: R04.2 Hemoptysis (principal); C79.51 Secondary malignant neoplasm of bone; C78.1 Secondary malignant neoplasm of mediastinum; C34.91 Malignant neoplasm of unspecified part of right bronchus or lung; J44.9 Chronic obstructive pulmonary disease, unspecified; J91.0 Malignant pleural effusion; I10 Essential (primary) hypertension; G47.33 Obstructive sleep apnea (adult) (pediatric); D64.9 Anemia, unspecified; F17.210 Nicotine dependence, cigarettes, uncomplicated; Z79.899 Other long term (current) drug therapy
CPT/HCPCS: 71275; 80048; 85025; 99282; Q9967; A4216

== ENCOUNTER 2023-03-06 05:24 | Day surgery (SDC) | payer MEDICAID, SELFPAY ==
[2023-03-06] VITALS (8 sets, daily range): BP systolic 96–120; BP diastolic 54–99; PULSE 85–100; RESP 16–18; TEMP 36.6–36.8; O2SAT 87–93; BMI 34.7
--- NOTE | 2023-03-06 07:02 | HP.PCM_ITS ---
History and Physical Date of Admission: 03/06/23 Date of Service: 03/03/23 MR#: [id number] Acct: [id number] Name: LARISA FERMIN Rep #: [id number] : 1960 Provider: Dr. Heather Biswas MD Age/Sex: 62/M Location: [facility] Status: Signed Intake Vital Signs 02/28/2408:52 03/03/2407:45 Height 5 ft 5 in 5 ft 5 in Weight: 207 lb 3.752 oz BMI 34.4 BP 105/67 Blood Pressure Location Rt brachial Position Sitting Respiration 16 Pulse 93 Pulse Oximetry (%) 91 Oxygen Delivery Method room air Intake Visit Reasons: Port Consult Chief Complaint: port [employer] Required: No Is patient in pain?: No Allergies Penicillins Allergy (Verified 03/03/23 09:22) Unknownvenom-honey bee [bee venom (honey bee)] Allergy (Verified 03/03/23 09:22) Swelling Medications amlodipine 10 mg tablet 10 mg PO DAILY 10/31/15 [History Confirmed 03/03/23] bupropion HCl 150 mg 24 hr tablet, extended release (Wellbutrin XL) 150 mg PO DAILY depression 10/31/15 [History Confirmed 03/03/23] losartan 100 mg-hydrochlorothiazide 12.5 mg tablet 1 tab PO DAILY hypertension 10/31/15 [History Confirmed 03/03/23] omeprazole 20 mg capsule,delayed release 20 mg PO DAILY GERD 07/26/16 [History Confirmed 03/03/23] cetirizine 10 mg tablet 10 mg PO DAILY allergies 10/29/21 [History Confirmed 03/03/23] pregabalin 25 mg capsule 25 mg PO BID back pain 10/29/21 [History Confirmed 03/03/23] fluticasone propionate 50 mcg/actuation nasal spray,suspension 2 spray intranasal DAILY #16 grams 08/26/22 [Rx Confirmed 03/03/23] montelukast 10 mg tablet 10 mg PO QHS ALLERGIES #90 tabs 08/26/22 [Rx Confirmed 03/03/23] tiotropium bromide 2.5 mcg/actuation mist for inhalation (Spiriva Respimat) 2 puff inhalation QDAY #4 grams 08/26/22 [Rx Confirmed 03/03/23] budesonide-formoterol HFA 160 mcg-4.5 mcg/actuation aerosol inhaler (Symbicort) 2 puff inhalation BID #3 ea 01/01/23 [Rx Confirmed 03/03/23] ondansetron 4 mg disintegrating tablet 4 mg PO Q6H PRN nausea and vomiting #10 tabs 02/14/23 [Rx Confirmed 03/03/23] lidocaine-prilocaine 2.5 %-2.5 % topical cream 1 applic topical ONCE PRN port access 30 days #30 grams 03/03/23 [Rx Confirmed 03/03/23] ondansetron 8 mg disintegrating tablet 8 mg PO Q8H PRN nausea and vomiting #30 tabs 03/03/23 [Rx Confirmed 03/03/23] polyethylene glycol 3350 17 gram/dose oral powder (Miralax) 4 g PO DAILY 03/03/23 [History Confirmed 03/03/23] sennosides 8.6 mg-docusate sodium 50 mg capsule (Senna Plus) 1 tab-cap PO BID PRN constipation #60 caps 03/03/23 [Rx Confirmed 03/03/23] PFSH Medical History Anxiety and depression Chest pain Constipation COPD (chronic obstructive pulmonary disease) Encounter for education Hiatal hernia with GERD HTN (hypertension) Hyperglycemia Iatrogenic pneumothorax Marijuana smoker Mass of upper lobe of right lung Morbid obesity with BMI of 40.0-44.9, adult Nicotine addiction Nicotine dependence in remission Obesity ALEXANDRA (obstructive sleep apnea) Poor dentition Smoking greater than 40 pack years Surgical History History of arthroplasty of left knee History of bronchoscopy History of tonsillectomy Family History Mother CancerFather DiabetesSister Diabetes Social History household members: none Smoking Status: Current every day smoker tobacco type: cigarettes Tobacco: How many years used: 40 how long ago did patient quit smokin ppd second hand exposure: Yes alcohol intake: current alcohol intake frequency: holidays/special occasions only substance use type: marijuana caffeine: Yes Type: coffee Number of servings: 3 what type of physical activity do you participate in: walking HPI HPI HPI: 62-year-old male presents for port placement due to metastatic non-small cell lung cancer. Per oncology patient is planning to start chemotherapy DANIEL. Patient is not on any blood thinners. ROS General General: Yes weight change and fatigue; No appetite, colon cancer or breast cancer HEENT HEENT: No difficulty swallowing, eye injury, eye surgery, swollen glands or hoarseness Endo Endocrine: No thyroid disease, diabetes mellitus, thyroid cancer, Hair loss, heat intolerance or cold intolerance Skin Skin: No rash or changing moles Musc Musculoskeletal: Yes back problems; No arthritis, rheumatoid arthritis, gout or joint pain Cardio Cardiovascular: Yes high blood pressure; No murmur, pacemaker, heart disease, atrial fibrillation, heart attack, heart stent, palpitations, shortness of breat with exertion or chest pain Psych Psychiatric: Yes depression; No anxiety or hearing voices Resp Respiratory: Yes shortness of breath, Yes sleep apnea, Yes cough, Yes COPD, No asthma, No emphysema and No wheezing Gastro Gastrointestinal: No abdominal pain, No nausea or vomiting, No diarrhea, Yes constipation, No blood in stool, No acid reflux, No hemorrhoids, No ulcers, No gallbladder problem and No black,tarry stools Mal Hematologic: No blood thinners, No blood disorders, No bleeding, No anemia and No blood clots Neuro Neurologic: No numbness and No tingling Exam Const General: cooperative, healthy appearing, comfortable and no acute distress [facility] Head: normocephalic and atraumatic Neck Neck: supple Chest Other: Palpation of bilateral upper chest normal Resp Effort & Inspection: normal respiratory effort Cardio Rate: regular rate GI Inspection: non-distended Palpation: soft and nontender Skin General: no rashes or lesions noted Neuro General: CN's II-XI intact bilaterally Extrem General: normal to inspection Psych Mental Status: mental status grossly normal Attitude: cooperative Assessment and Plan Assessment and Plan (1) Encounter for insertion of venous access port: Status: Acute (2) Metastatic non-small cell lung cancer: Status: Chronic (3) Metastatic adenocarcinoma: Status: Chronic Comment: Metastatic adenocarcinoma involving R hemithorax, mediastinal nodes, L infraclavicular node. CT guided bx of R pleural mass on 01/22/2023 showed Metastatic adenocarcinoma. PD-L1 positive (5%), EGFR/ALK/ROS1/BRAF negative. Plan I have discussed above with the patient- Port-a-Cath placement. Right IJ possible left Patient has been counseled as to the risks/benefits of the procedure. I have explained the risks of the surgery, including but not limited to: infection, bleeding, injury to any blood vessels/nerves, injury to lungs (such as pneumothorax or hemothorax and need for chest tube), not having any access, nonfunctioning of port due to thrombosis, infection of port, etc. the patient understands and agrees to proceed. I have answered all the patient's questions to the patient?s satisfaction and the patient has no further questions. Heather Biswas M.D. Pager: [phone] [facility] [address] [place] [address], [address] [place] [address] Office: [phone] Coding Level of Care Code Off vis,new,level 3 Diagnoses Encounter for insertion of venous access port Z45.2 Metastatic non-small cell lung cancer C34.90 Metastatic adenocarcinoma C79.9 03/03/23 1107 <Electronically signed by Heather Biswas MD> Date Heather Biswas MD
[2023-03-06] MEDS: Clindamycin 900 MG/50 ML BAG 75 MG IV (07:08)
[2023-03-06] MEDS: Bupivacaine Mpf 0.5% 30 ML VIAL (07:56)
[2023-03-06] MEDS: Lidocaine 1% /Epi 1:100 (50ml) 50 ML VIAL (07:56)
--- NOTE | 2023-03-06 08:00 | RAD_ITS ---
STUDY: X-RAY CHEST REASON FOR EXAM: Male, 62 years old. Port -- pacu TECHNIQUE: Single AP portable view of the chest. COMPARISON: Comparison is made with prior study dated January 22, 2023. FINDINGS: A left-sided antonio catheter has been placed with the tip in the midportion of the superior vena cava. There is elevation of the right hemidiaphragm with infiltration at the right lung base. Blunting of the right costo phrenic angle. Increased markings at the left lung base. Small nodules are seen in the left hemithorax. Normal size heart. Disturbance of the right-sided mediastinal and right hilar mass/lymphadenopathy. Stable opacification in the right lung apex. Normal visualized pulmonary arteries. Normal visualized aortic arch and descending thoracic aorta. Normal visualized thoracic spine. Normal visualized ribs, clavicles, and shoulders. There is no demonstrated abnormality of the visualized soft tissue structures of the upper abdomen. RAD/Chest 1 View (Portable) IMPRESSION: Status post left portacatheter insertion with the tip in the midportion of the superior vena cava. Volume loss in the right hemithorax with evidence of mediastinal and hilar adenopathy and mass in the right lung base and right lung apex. Pulmonary nodules in the left hemithorax. Electronically Signed: Reji Muñiz MD at 8:44 EST ,
--- NOTE | 2023-03-06 08:00 | PCM.OPRPT ---
Report of Operation Date of Procedure: 03/06/23 Pre-Operative Diagnosis: z45.2, lung cancer Post-Operative Diagnosis: Same Surgery/Procedure Performed:: Placement of left IJ Port-A-Cath Use of fluoroscopy Use of ultrasound Surgeon: Heather Biswas Type of Anesthesia: Local MAC Anesthesiologist: Alin Scott Special Medications: Clindamycin 900 mg IV x 1 Estimated Blood Loss (mL): < 10 cc Description of Procedure: After informed consent was given, the patient was brought to the operating room and placed in the supine position. Appropriate time out protocol was followed. Patient was then given IV conscious sedation for anesthesia. The patient's left upper chest and neck were then prepped with a surgical skin preparation and sterile surgical drapes were placed. After proper landmarks were ascertained, the skin at the upper left chest area was then infiltrated with 1:1 mixture of 1% lidocaine with epinephrine and 0.5% marcaine. A needle trocar was then inserted into the left internal jugular vein with ultrasound guidance-multiple vessels were viewed with u/s and the left IJ was chosen-- and there was good aspiration of venous blood. A wire was then threaded into the needle trocar and this was visualized under fluoroscopy to ensure that the wire was in the superior vena cava. Once this was done, then the needle trocar was removed. A small skin villa was made with an 11 blade knife at the wire entrance site. The dilator with the introducer sheath attached was then placed over the wire into the left internal jugular vein via the Seldinger technique and this was visualized under fluoroscopy. The dilator and sheath were in proper position as visualized by fluoroscopy. A subcutaneous pocket was then created caudad to the catheter insertion site. A transverse skin incision was made after the skin and subcutaneous tissues were infiltrated with local anesthetic. Blunt dissection was then used to create a space large enough for placement of the subcutaneous port. The catheter was then tunneled into the subcutaneous pocket. The wire and dilator were then removed. The catheter was then threaded into the introducer sheath and was positioned with its tip at the junction of the superior vena cava and the right atrium as visualized under fluoroscopy. The excess catheter was transected. The catheter was then attached to the subcutaneous port using manufacturers guidelines. The catheter was flushed with a heparin saline mixture prior to placement. Hemostasis was carefully controlled with electrocautery. The port was sutured to the subcutaneous fascia using 2-0 Vicryl suture at two sites. The port was then placed in the subcutaneous pocket. The incision were reapproximated with interrupted subdermal 3-0 vicryl sutures. The skin was reapproximated with 3-0 nylon suture in a interrupted fashion. Steristrips were used for reinforcement of the skin closure at IJ insertion site and a sterile opsite dressings were applied. The patient tolerated the procedure well. Grafts/Implants Used: Bard PowerPort isp M.R.I. 6Fr Lot [id number] Complications none
--- NOTE | 2023-03-06 08:02 | EX.PCM.DISCH ---
Discharge Instructions Procedure Port-A-Cath Diet Discharge Diet: Light diet - advance as tolerated Activity May shower in (days): 5 (Keep port site clean and dry x5 days. Neck incision okay to get wet after 1 day. Okay to lower shower and upper sponge bath. OR okay to taper off port site with a Ziploc bag to shower) Lifting Restrictions: No lifting > 15 pounds for 3 days with the arm on the side of the port Dressing / Incision Call your doctor if your incision/area has: Continuous Slow Oozing, Sudden Increased Bleeding, Increased Pain/ Swelling, Increased Redness, Foul Smelling Discharge and Swelling at the incision site Call your doctor if you observe: Fever of 101 or Higher Change Dressing in: 2 days (2-3 days- port site; ok to remove neck opsite in 1 day) Follow Up Care Please Follow Up With: Heather Biswas MD When: In 10 days for permanent suture removal?call office for appointment Test Results: Test results from this visit will be discussed in further detail at your follow-up appointment, if applicable. Discharge Plan Admission Attending Provider: Heather Biswas Primary Care Provider: Mony Morrison Discharge Orders/Prescriptions Prescriptions: New tramadol 50 mg tablet 50 mg PO Q6H PRN (Reason: pain) 3 Days Qty: 5 0RF Continued fluticasone propionate 50 mcg/actuation spray,suspension 2 spray INTRANASAL DAILY Qty: 16 11RF Spiriva Respimat 2.5 mcg/actuation mist 2 puff inhalation QDAY Qty: 4 11RF montelukast 10 mg tablet 10 mg PO QHS Qty: 90 3RF polyethylene glycol 3350 [Miralax] 17 gram/dose powder 4 g PO DAILY ondansetron 8 mg tablet,disintegrating 8 mg PO Q8H PRN (Reason: nausea and vomiting) Qty: 30 2RF lidocaine-prilocaine 2.5-2.5 % cream 1 applic topical ONCE PRN (Reason: port access) 30 Days Qty: 30 2RF Senna Plus 8.6-50 mg capsule 1 tab-cap PO BID PRN (Reason: constipation) Qty: 60 1RF amlodipine 10 MG tablet 10 mg PO DAILY Patient Comments: blood pressure losartan-hydrochlorothiazide 1 TAB tablet 1 tab PO DAILY Patient Comments: blood pressure bupropion HCl [Wellbutrin XL] 150 MG tablet extended release 24 hr 150 mg PO DAILY Patient Comments: depression omeprazole 20 MG capsule 20 mg PO DAILY Patient Comments: acid reflux cetirizine 10 mg Tablet 10 mg PO QHS pregabalin 25 mg capsule 25 mg PO BID ondansetron 4 mg tablet,disintegrating 4 mg PO Q6H PRN (Reason: nausea and vomiting) Qty: 10 0RF budesonide-formoterol [Symbicort] 160-4.5 mcg/actuation HFA aerosol inhaler 2 puff inhalation BID Qty: 3 3RF Rx Instructions: administer with spacer, rinse mouth after each use Referrals / Follow Up: Mony Morrison MD [Primary Care Provider] - Disposition Disposition (needs filled in before D/C Order can be placed): Home, Self Care
== END 2023-03-06 09:45 | disposition home or self-care (01) ==
LOC: SDC 05:24 → AC 05:25
PROVIDERS: PCP Internal Medicine; Referring Provider Internal Medicine; Visit Provider Surgery
PROC: (CPT 36561; principal; 2023-03-06 07:00)
DX: Z45.2 Encounter for adjustment and management of vascular access device (principal); C78.00 Secondary malignant neoplasm of unspecified lung; C79.9 Secondary malignant neoplasm of unspecified site; J44.9 Chronic obstructive pulmonary disease, unspecified; E66.01 Morbid (severe) obesity due to excess calories; Z68.41 Body mass index [BMI] 40.0-44.9, adult; I10 Essential (primary) hypertension; F17.210 Nicotine dependence, cigarettes, uncomplicated; Z79.899 Other long term (current) drug therapy; E78.00 Pure hypercholesterolemia, unspecified
CPT/HCPCS: 36561; 00532; 71045; 77001; J7120; J2405

== ENCOUNTER 2023-05-05 19:43 | Emergency (ER) | payer MEDICAID, SELFPAY ==
[2023-05-05 19:44] VITALS: BP 144/71; PULSE 114; RESP 18; TEMP 36.3; O2SAT 92
[2023-05-05 19:46] VITALS: BP 128/59; PULSE 112; RESP 25; TEMP 37.1; O2SAT 93; O2SAT 94; BMI 30.5
[2023-05-05 20:45] VITALS: BP 117/56; PULSE 109; RESP 18; TEMP 37.1; O2SAT 94
--- NOTE | 2023-05-05 20:48 | EDS_ITS ---
HPI History of Present Illness Chief Complaint: Shortness of Breath Informant: patient Narrative Narrative: Patient presents by EMS, more short of breath than usual due to sudden onset of pain in his left anterior lateral rib cage that started 2 days ago while he was coughing very hard. Ever since then hurts more to move and hurts more to breathe, and hurts more for him to press on the affected area. Has been coughing more than usual and bringing up some occasional sputum no hemoptysis. He denies any syncope, near syncope, fevers, chills, changes in his chronic mild bilateral lower extremity edema, or palpitations. Additionally, patient states he is homeless and currently living in a garage that a friend was nice enough to allow him to stay in. He states very joss there. He has lung cancer, he goes for regular chemotherapy treatments after having had surgery on his right lung last year. [facility] Medical History Alcohol use Anxiety and depression Arthritis BiPAP (biphasic positive airway pressure) dependence Broken teeth Cancer Chest pain Chronic cough CINV (chemotherapy-induced nausea and vomiting) Constipation COPD (chronic obstructive pulmonary disease) Depression Dirty living conditions Drug induced neutropenia Encounter for education Former smoker GERD (gastroesophageal reflux disease) Hemoptysis Hepatitis Hiatal hernia with GERD High cholesterol History of echocardiogram History of stress test HTN (hypertension) Hyperglycemia Iatrogenic pneumothorax Marijuana smoker Marijuana use Mass of upper lobe of right lung Morbid obesity with BMI of 40.0-44.9, adult Nicotine addiction Nicotine dependence in remission Obesity ALEXANDRA (obstructive sleep apnea) Poor dentition Shortness of breath on exertion Sleep apnea Smoking greater than 40 pack years Wears glasses Home Medications amlodipine 10 mg tablet 10 mg PO DAILY 10/31/15 [History Last Taken 03/06/23 04:20] bupropion HCl 150 mg 24 hr tablet, extended release (Wellbutrin XL) 150 mg PO DAILY depression 10/31/15 [History Last Taken 03/06/23 04:20] losartan 100 mg-hydrochlorothiazide 12.5 mg tablet 1 tab PO DAILY hypertension 10/31/15 [History Last Taken 03/05/23 08:00] omeprazole 20 mg capsule,delayed release 20 mg PO DAILY GERD 07/26/16 [History Last Taken 03/06/23 04:20] cetirizine 10 mg tablet 10 mg PO QHS allergies 10/29/21 [History Last Taken 10/29/21] pregabalin 25 mg capsule 25 mg PO BID back pain 10/29/21 [History Last Taken 03/06/23 04:20] fluticasone propionate 50 mcg/actuation nasal spray,suspension 2 spray intranasal DAILY #16 grams 08/26/22 [Rx Last Taken 03/06/23 04:20] montelukast 10 mg tablet 10 mg PO QHS ALLERGIES #90 tabs 08/26/22 [Rx Last Taken 03/05/23] tiotropium bromide 2.5 mcg/actuation mist for inhalation (Spiriva Respimat) 2 puff inhalation QDAY #4 grams 08/26/22 [Rx Last Taken 03/06/23 04:20] lidocaine-prilocaine 2.5 %-2.5 % topical cream 1 applic topical ONCE PRN port access 30 days #30 grams 03/03/23 [Rx Last Taken Unknown] ondansetron 8 mg disintegrating tablet 8 mg PO Q8H PRN nausea and vomiting #30 tabs 03/03/23 [Rx Last Taken Unknown] polyethylene glycol 3350 17 gram/dose oral powder (Miralax) 4 g PO DAILY 03/03/23 [History Last Taken Unknown] tramadol 50 mg tablet 50 mg PO Q6H PRN pain 3 days #5 tabs 03/06/23 [Rx Last Taken Unknown] sodium chloride 1,000 mg soluble tablet 1,000 mg PO QD-QID PRN electrolyte replenishment #60 tabs 04/15/23 [Rx Last Taken Unknown] budesonide-formoterol HFA 160 mcg-4.5 mcg/actuation aerosol inhaler (Symbicort) 2 puff inhalation BID #3 ea 04/29/23 [Rx Last Taken Unknown] sennosides 8.6 mg-docusate sodium 50 mg capsule (Senna Plus) 4 tab-cap PO DAILY constipation 05/05/23 [History Last Taken Unknown] oxycodone-acetaminophen 5 mg-325 mg tablet 1 tab PO Q4H PRN Pain 4 days #20 TABLETS 05/06/23 [Rx Last Taken Unknown] Allergy/AdvReac Type Severity Reaction Status Date / Time Penicillins Allergy Unknown Verified 05/05/23 19:46 venom-honey bee Allergy Swelling Verified 05/05/23 19:46 [bee venom (honey bee)] Family History Mother Cancer Father Diabetes Sister Diabetes Surgical History History of arthroplasty of left knee History of bronchoscopy History of lobectomy of lung History of tonsillectomy Social History household members: none Smoking Status: Former smoker quit date: 06/04/20 pack-years: 40 Tobacco: How many years used: 40 how long ago did patient quit smokin ppd second hand exposure: Yes alcohol intake: current alcohol intake frequency: holidays/special occasions only substance use type: marijuana caffeine: Yes Type: coffee Number of servings: 3 what type of physical activity do you participate in: walking ROS ROS ED Constitutional Constitutional ED: Denies chills or fever(s) Eyes Eyes: Denies change in vision or diplopia ENT ENT ED: Denies rhinorrhea or sore throat Cardiovascular Cardiovascular: Reports as per HPI, chest pain and leg edema; Denies palpitations or syncope Respiratory/Chest Respiratory/Chest: Reports cough, dyspnea and sputum Gastrointestinal Gastrointestinal: Denies abdominal pain, diarrhea, nausea or vomiting Genitourinary Genitourinary ED: Denies dysuria or hematuria Musculoskeletal Musculoskeletal: Reports back pain and other Details: Back pain with sciatica down both legs, not new, no bowel or bladder dysfunction ; Denies neck pain Integumentary Denies abscess or rash Neurologic Neurologic: Denies headache(s), paresthesias or weakness Psychiatric Psychiatric: Denies suicidal ideation or suicidal thoughts EXAM Physical Exam Const Vital Signs: 05/05/23 19:44 05/05/23 19:46 05/05/23 19:46 Temperature 97.4 F L 98.7 F Temperature Source Temporal Oral Pulse Rate 114 H 112 H Respiratory Rate 18 25 H Respiratory Effort Short of Breath Respiratory Depth Shallow Respiratory Pattern Tachypnea Blood Pressure 144/71 H 128/59 H Blood Pressure Mean 95 82 Pulse Ox 92 94 Oxygen Delivery Method Nasal Cannula Nasal Cannula Nasal Cannula Oxygen Flow Rate (L/min) 2.5 2.5 2.5 05/05/23 20:45 05/05/23 21:00 03/25/24 22:00 Temperature 98.7 F 98.8 F 98.6 F Temperature Source Oral Oral Temporal Pulse Rate 109 H 111 H 104 H Respiratory Rate 18 19 H 22 H Respiratory Effort Respiratory Depth Respiratory Pattern Blood Pressure 117/56 L 111/68 116/65 Blood Pressure Mean 74 82 81 Pulse Ox 94 94 95 Oxygen Delivery Method Nasal Cannula Nasal Cannula Oxygen Flow Rate (L/min) 2.5 2.5 05/05/23 23:00 Temperature 98.6 F Temperature Source Temporal Pulse Rate 106 H Respiratory Rate 21 H Respiratory Effort Respiratory Depth Respiratory Pattern Blood Pressure 123/64 H Blood Pressure Mean 83 Pulse Ox 93 Oxygen Delivery Method Nasal Cannula Oxygen Flow Rate (L/min) 2.5 Positive well nourished and well developed General Appearance ED: well developed and NAD HEENT Reports moist mucous membranes normocephalic and atraumatic Eyes PERRL and EOMs intact bilaterally Neck full ROM and supple Chest Wall Chest Narrative: Tender moderately-severely left anterolateral lower chest wall no crepitance or flail. No other areas of tenderness. No deformity. Resp normal respiratory effort and clear to auscultation bilaterally Resp Narrative: Diminished throughout. Otherwise clear. Equal breath sounds bilaterally. Cardio regular rate, regular rhythm and no murmurs GI non-tender and non-distended Auscultation: normoactive bowel sounds Palpation: soft Back/Spine no CVA tenderness General Back: other FROM Extremity normal to inspection General Extremety ED: Yes edema; Negative for pulses abnormal or tenderness General Extremity: edema bilateral lower extremity Details: mild; Negative for pulses abnormal Neuro oriented x3, CN's II-XII intact bilaterally and no sensory deficits noted Sensorium / Orientation: awake and alert Motor Exam: strength 5/5 throughout Skin no rashes or lesions noted and no wounds MDM MDM MDM Narrative Medical decision making narrative: 5 view x-ray series of the left rib cage including a PA chest does show a single rib fracture with minimal displacement in the region of the patient's pain explaining his symptoms, no signs of pneumothorax but he does have multiple radiopaque densities consistent with his known lung cancer. Radiology in agreement with this. Patient was given morphine which helped with his pain. I obtained basic labs, he has a leukopenia and anemia, his platelets are not low right now, this is not very different from what he is used to but his hemoglobin is lower than it had been at 7.0, so blood transfusion is indicated. Patient has chemotherapy scheduled for the morning, so this will help get his counts up to make it more likely that he will be able to get that done. Otherwise his vital signs look good, he is not hypoxic on his home oxygen, he is breathing well, morphine helped his pain. I discussed all this with him he is comfortable with discharge home after the blood transfusion is done, and I will prescribe him some analgesics that he can have as well. He discussed being admitted to the hospital. I think this was mainly because he is homeless. Right now he does not have an indication for admission to the hospital, we can give him a unit of blood without admitting him, simply by observing him in the emergency department and he can be discharged after the unit is done he understands. Lab Data Attestation: I reviewed the patient's lab results. Labs: Laboratory Results - last 24 hr 05/05/23 05/05/23 21:06 23:45 WBC 2.6 L RBC 2.19 L Hgb 7.0 L Hct 21.3 L MCV 97.3 H MCH 32.0 MCHC 32.9 RDW Std Deviation 63.5 H RDW Coeff of Ruben 18.2 H Plt Count 261 MPV 8.7 Immature Gran % (Auto) 0.400 Neut % (Auto) 51.1 Lymph % (Auto) 16.9 L [place] % (Auto) 31.2 H Eos % (Auto) 0.0 Baso % (Auto) 0.4 Absolute Neuts (auto) 1.3 L Absolute Lymphs (auto) 0.44 L Nucleated RBC % 0 Differential Comment SCANNED Diff Path Review May foll Sodium 131 L Potassium 3.5 Chloride 91 L Carbon Dioxide 31.0 Anion Gap 9 BUN 12 Creatinine 0.62 L Estim Creat Clear Calc 124.27 Est GFR (MDRD) Af Amer 169 Est GFR (MDRD) Non-Af 140 BUN/Creatinine Ratio 19.3 Glucose 97 Calcium 8.6 Crossmatch See Detail Radiography Diagnostic Testing: Clinical Impression(s) from Imaging Studies Ribs w/Chest X-Ray 05/05/23 21:20 IMPRESSION: RIBS: Nondisplaced fracture of the left sixth rib. CHEST: Extensive abnormalities throughout the chest especially on the right and grossly stable except for new area of poorly marginated density in the left lung base. Electronically Signed: Reese Waite MD at 21:41 EDT , Discharge Plan Triage Chief Complaint: Shortness of Breath ED Provider: Boy Hauser Dx/Rx/DC Orders Clinical Impression: Left rib fracture, Anemia associated with chemotherapy Instructions: ED Rib Fracture Prescriptions: New oxycodone-acetaminophen [oxycodone-acetaminophen] 5-325 mg tablet 1 tab PO Q4H PRN (Reason: Pain) 4 Days Qty: 20 0RF No Action fluticasone propionate 50 mcg/actuation spray,suspension 2 spray INTRANASAL DAILY Qty: 16 11RF Spiriva Respimat 2.5 mcg/actuation mist 2 puff inhalation QDAY Qty: 4 11RF montelukast 10 mg tablet 10 mg PO QHS Qty: 90 3RF polyethylene glycol 3350 [Miralax] 17 gram/dose powder 4 g PO DAILY ondansetron 8 mg tablet,disintegrating 8 mg PO Q8H PRN (Reason: nausea and vomiting) Qty: 30 2RF lidocaine-prilocaine 2.5-2.5 % cream 1 applic topical ONCE PRN (Reason: port access) 30 Days Qty: 30 2RF sodium chloride 1,000 mg tablet,soluble 1,000 mg PO QD-QID PRN (Reason: electrolyte replenishment) Qty: 60 2RF amlodipine 10 MG tablet 10 mg PO DAILY Patient Comments: blood pressure losartan-hydrochlorothiazide 1 TAB tablet 1 tab PO DAILY Patient Comments: blood pressure bupropion HCl [Wellbutrin XL] 150 MG tablet extended release 24 hr 150 mg PO DAILY Patient Comments: depression omeprazole 20 MG capsule 20 mg PO DAILY Patient Comments: acid reflux cetirizine 10 mg Tablet 10 mg PO QHS pregabalin 25 mg capsule 25 mg PO BID tramadol 50 mg tablet 50 mg PO Q6H PRN (Reason: pain) 3 Days Qty: 5 0RF Senna Plus 8.6-50 mg capsule 4 tab-cap PO DAILY budesonide-formoterol [Symbicort] 160-4.5 mcg/actuation HFA aerosol inhaler 2 puff inhalation BID Qty: 3 3RF Rx Instructions: administer with spacer, rinse mouth after each use Primary Care Provider: Mony Morrison Referrals: Fernandez Patel MD [Med Staff - Active Staff] - Keep Nash appointment Disposition Disposition: Home, Self Care
[2023-05-05 21:00] VITALS: BP 111/68; PULSE 111; RESP 19; TEMP 37.1; O2SAT 94
[2023-05-05] MEDS: Morphine 4 MG/ML Syringe IV (21:02)
--- NOTE | 2023-05-05 21:20 | RAD_ITS ---
STUDY: X-RAY - UNILATERAL RIBS ( LEFT ) WITH CHEST REASON FOR EXAM: Male, 62 years old. pain, cough, sob TECHNIQUE - RIBS: 4 view(s) of the ribs. TECHNIQUE - CHEST: Single AP portable view of the chest. COMPARISON: 03/06/2023. FINDINGS - RIBS: Nondisplaced fracture seen of the lateral portion of the left sixth rib. No other definite fractures. FINDINGS - CHEST: Grossly stable marked abnormalities throughout the right lung with volume loss, soft tissue density in the apex and increased density throughout the right lung. Probable effusion. New ill-defined area of pulmonary opacity in the lower left lung which could be infiltrate or mass. There is mild cardiac enlargement. Mediastinum is shifted to the right, grossly stable. Prominence of both jaime which could be adenopathy or mass. Normal visualized thoracic spine. There is no demonstrated abnormality of the visualized soft tissue structures of the upper abdomen. RAD/Ribs Uni Min 3V w/PA Chest IMPRESSION: RIBS: Nondisplaced fracture of the left sixth rib. CHEST: Extensive abnormalities throughout the chest especially on the right and grossly stable except for new area of poorly marginated density in the left lung base. Electronically Signed: Reese Waite MD at 21:41 EDT ,
[2023-05-05 21:30] LABS: Anion Gap 9 (5-15); BUN 12 mg/dL (7-18); BUN/Creat Ratio 19.3 RATIO (10-20); Calcium,Total 8.6 mg/dL (8.5-10.1); Chloride 91 mmol/L (98-107); Creatinine, Serum 0.62 mg/dL (0.70-1.30); EST Glomerular Filtration Rate 140 mL/min (>60); Est Glom Filt Rate - Afr Amer 169 mL/min (>60); Estimated Creatinine Clearance 124.27 ml/min; Glucose 97 mg/dL (74-106); Potassium 3.5 mmol/L (3.5-5.1); Sodium Level 131 mmol/L (136-145)
[2023-05-05 21:48] LABS: Absolute Lymphocyte Count 0.44 X10^3/uL (0.83-4.51); Absolute Neutrophil Count 1.3 X10^3/uL (2.0-7.7); Basophil# 0.01 X10^3/uL; Basophil% 0.4 % (0-1); Hematocrit 21.3 % (40-54); Lymphocyte # 0.44 X10^3/ul (0.83-4.51); Lymphocyte % 16.9 % (19-41); Mean Corp Hgb Conc 32.9 g/dL (32-36); Mean Corpuscular Volume 97.3 fL (80-94); Mean Platelet Vol. 8.7 fl (6.2-12.0); Monocyte# 0.81 X10^3/uL; Monocyte% 31.2 % (0-10); NRBC Flagged by Analyzer 0 % (0-5); Neutrophil # 1.33 X10^3/uL (2.7-7.7); Neutrophil % 51.1 % (47-70); POSITIVE DIFFERENTIAL YES; Platelet Count 261 K/mm3 (150-450); RBC Distribution Width CV 18.2 % (11.6-14.6); RBC Distribution Width SD 63.5 fl (35.1-43.9); Red Blood Count 2.19 M/mm3 (4.6-6.2); White Blood Count 2.6 K/mm3 (4.4-11.0)
[2023-05-05 21:53] LABS: Differential Indicated SCAN CRITERIA MET
[2023-05-05 22:00] VITALS: BP 116/65; PULSE 104; RESP 22; TEMP 37; O2SAT 95
[2023-05-05 22:20] LABS: Differential Comment SCANNED
[2023-05-05 23:00] VITALS: BP 123/64; PULSE 106; RESP 21; TEMP 37; O2SAT 93
[2023-05-06] VITALS (9 sets, daily range): BP systolic 107–124; BP diastolic 53–65; PULSE 104–107; RESP 16–21; TEMP 36.7–37.2; O2SAT 94–99
[2023-05-06] MEDS: morphine 8 MG/ML Syringe 6 MG IV (01:16)
[2023-05-06] MEDS: Ondansetron 4 MG/2 ML Vial IV (01:18)
[2023-05-06 14:03] LABS: Pathologist Review Reviewed
== END 2023-05-06 04:35 | disposition home or self-care (01) ==
PROVIDERS: Emergency Provider Emergency Medicine; PCP Internal Medicine; Visit Provider Emergency Medicine
DX: S22.32XA Fracture of one rib, left side, initial encounter for closed fracture (principal); C34.91 Malignant neoplasm of unspecified part of right bronchus or lung; J44.9 Chronic obstructive pulmonary disease, unspecified; D64.81 Anemia due to antineoplastic chemotherapy; T45.1X5A Adverse effect of antineoplastic and immunosuppressive drugs, initial encounter; D72.819 Decreased white blood cell count, unspecified; I10 Essential (primary) hypertension; E78.00 Pure hypercholesterolemia, unspecified; Z59.01 Sheltered homelessness; Z87.891 Personal history of nicotine dependence
CPT/HCPCS: 36430; 36591; 71101; 80048; 85025; 86850; 86900; 86901; 86920; 86922; 96374; 96375; 96376; 99283; J7040; P9016; A4216; J2405

== ENCOUNTER → 2023-05-08 | Outpatient (CLI) | payer MEDICAID, SELFPAY ==
[2023-05-08] MEDS: 0.9 % NaCl (Sterile) Posiflush 10 mL IV (13:35)
--- NOTE | 2023-05-08 13:48 | CT_ITS ---
STUDY: CT CHEST, ABDOMEN T PELVIS WITH CONTRAST REASON FOR EXAM: Male, 62 years old. ASSESS TREATMENT-LUNG CA-IV ONLY RADIATION DOSAGE (If Supplied By Facility): CTDIvol = ( 20.04 ) mGy, DLP = ( 2341.50 ) mGycm TECHNIQUE: Transaxial imaging was performed following intravenous administration of IV 100mL Isovue-300. Multiplanar coronal and sagittal images were reformatted. Individualized dose optimization techniques were used for this CT. COMPARISON: Comparison is made with prior CT scan of the thorax dated March 03, 2023. FINDINGS: CHEST A left-sided Port-A-Cath are seen with the tip in the superior vena cava. Stable 2.5 cm left retropectoral mass as well as left retroclavicular lymph node. Multiple right-sided chest wall subcutaneous nodules. There is persistent thickening of the right hemidiaphragm. Once again, there is volume loss in the right hemithorax with shift of the heart and mediastinal structures of the right side midline. Stable consolidation and volume loss in the right upper lobe. Persistent right perihilar mass extending into the region of the interlobar bronchus on the right side with narrowing of the bronchus. Infiltration in the right middle lobe and right lower lobe. Small bilateral pleural effusions worse on the right side. Once again, multiple nodules of varying sizes are seen in the left hemithorax. Stable right pulmonary masses. Normal heart and pericardium. Once again, there is evidence of a mediastinal lymphadenopathy more prominent in the right paratracheal region. Right hilar lymphadenopathy and subcarinal lymphadenopathy. Normal unenhanced pulmonary arteries. Normal aorta arch and descending thoracic aorta. There are degenerative changes of the thoracic spine. There is evidence of a lytic lesions involving several thoracic and lumbar vertebrae. ABDOMEN Normal liver. Normal gallbladder and extrahepatic biliary system. Normal spleen. There is diffuse atrophy of the pancreas. There is a 3.5 cm x 2.9 cm soft tissue mass in the left adrenal gland. Normal right kidney. Normal left kidney. Normal visualized stomach. Normal small intestine. There are scattered colonic diverticula consistent with diverticulosis. The appendix is visualized and appears normal. There is atherosclerotic calcification of the abdominal aorta, without a demonstrated aneurysm. Normal inferior vena cava. There are enlarged retroperitoneal lymph nodes. Normal abdominal wall. Lytic lesion involving the L2 vertebrae and lower thoracic vertebrae. PELVIS Normal urinary bladder. Normal visualized small intestine. There are scattered colonic diverticula of the sigmoid colon consistent with chronic diverticulosis. There is no pelvic fluid. There is no pelvic lymphadenopathy or mass lesion. There is diffuse atherosclerotic calcification of the pelvic arteries. CT/CT Chest, Abd, Pel w/Contrast IMPRESSION: Persistent volume loss in the right hemithorax with the right hilar and mediastinal lymphadenopathy with collapse of the right upper lobe and bilateral pleural effusions. Narrowing of the right hilar vessels and bronchi. Multiple bilateral pulmonary nodules. Mass in the right adrenal gland. Bony metastasis. There has been essentially no change. Electronically Signed: Reji Muñiz MD at 8:53 EDT ,
[2023-05-08] MEDS: 0.9% Saline Lock 10 ML Syringe IV (13:50)
== END | disposition home or self-care (01) ==
LOC: CT 13:03
PROVIDERS: PCP Internal Medicine; Referring Provider Internal Medicine Medical Oncology; Visit Provider Internal Medicine Medical Oncology
DX: Z45.2 Encounter for adjustment and management of vascular access device (principal); C34.2 Malignant neoplasm of middle lobe, bronchus or lung
CPT/HCPCS: 71260; 74177; Q9967; A4216

== ENCOUNTER → 2023-05-19 | Outpatient (CLI) | payer MEDICAID, SELFPAY ==
--- NOTE | 2023-05-19 | FLU_PTH ---
PATIENT: LAIRSA FERMIN LOC: [facility]#:[id number] AGE/SX: 62/M ROOM: RE05/19/[address]: Dr. Fernandez Patel MD : 1960 BED: DIS: 05/19/2023 SPEC #: [id number] RECD: 05/19/23 10:32 STATUS: FACUNDO WHITAKER #: [id number] DUDLEY: 05/19/23 00:[address]: Fernandez Patel DEPT: CYTOLOGY RECD BY: Alli Low ENTERED: 05/19/23 10:32 SP TYPE: Fluid OTHR DR: Dr. Mony Morrison MD Tissues: THORACIC FLUID Procedures: Special Stain Group II Surgery Specimen Level IV Cytospin Fluid HEADER OPERATION: Thoracentesis fluid PRE-OP DIAGNOSIS: Pleural effusion TISSUE SUBMITTED: Thoracentesis fluid for cytology DIAGNOSIS CYTOLOGY Thoracentesis fluid for cytology (cytospin and cellblock): Negative for malignant cells. See comment. LINDA/ 05/20/23 COMMENT The numerous lymphocytes are noted. The findings are consistent with lymphocytic effusion. Clinical correlation and appropriate follow up are necessary. CYTOLOGY STUDY Slides are reviewed. CYTOLOGY GROSS Received is 90 ml of julissa cloudy fluid labeled with the patient's name and and designated per the requisition as Thoracentesis fluid. Submitted for cytology preparation including cell block. mr 05/19/23 TC:5 CPT: 68958,64005
[2023-05-19 08:04] VITALS: BP 109/56; PULSE 91; RESP 18; O2SAT 97
[2023-05-19] MEDS: Lidocaine 2% (20 ml mdv) 20 ML Vial INFILT (08:10)
[2023-05-19 08:19] VITALS: BP 94/59; PULSE 90; RESP 18; O2SAT 99
--- NOTE | 2023-05-19 08:22 | RAD_ITS ---
STUDY: X-RAY CHEST REASON FOR EXAM: Male, 62 years old. Post thoracentesis TECHNIQUE: AP inspiration and expiration views. COMPARISON: Comparison is made with prior examination May 05, 2023. FINDINGS: A left-sided portacatheter is seen with the tip at the junction of the superior vena cava and right atrium. Status post right thoracentesis. No evidence of pneumothorax. Diffuse airspace disease with nodular appearance in the right hemithorax. Increased markings with areas of confluence in the left hemithorax. Unchanged. RAD/Chest Insp/Exp 2 View IMPRESSION: Status post right thoracentesis. No evidence of pneumothorax. Electronically Signed: Reji Muñiz MD at 8:43 EDT ,
[2023-05-19 08:30] VITALS: BP 124/66; PULSE 89; RESP 18; O2SAT 99
--- NOTE | 2023-05-19 08:32 | PRO.PCM_ITS ---
Procedure Report Date of Procedure: 05/19/23 Assessment & Plan Assessment/Plan (1) Pleural effusion, right: PLAN: PROCEDURE: Ultrasound Guided Thoracentesis ORDERING PROVIDER: Dr. Patel INDICATION: Male, 62 years old. Right pleural effusion. PROVIDER: FREDI Fernando PROCEDURE: The risks, benefits, and alternatives to the procedure were explained to the patient. The specific risks of bleeding, infection, and pneumothorax requiring chest tube insertion were discussed and accepted. Written informed consent was obtained. The patient was placed in the sitting, upright position. Ultrasonographic evaluation of the bilateral lower pleural spaces was carried out. An adequate pocket was identified in the right lower pleural space. This was larger and more accessible than the small amount of effusion on the left side.The overlying skin was prepped and draped in sterile fashion. 2% lidocaine was administered subcutaneously for local anesthesia. Under ultrasound guidance, a 5-Portuguese thoracentesis needle/catheter system was advanced into the right posterior lower pleural fluid collection. 220 ml of clear yellow colored fluid was drained. The catheter was removed, and a sterile dressing was applied. The patient tolerated the procedure well. A chest x-ray was ordered. IMPRESSION: Successful ultrasound-guided thoracentesis of right pleural effusion. Procedures Radiology Radiology US Procedures: 75275 Thoracentesis
== END | disposition home or self-care (01) ==
PROVIDERS: PCP Internal Medicine; Referring Provider Internal Medicine Medical Oncology; Visit Provider Internal Medicine Medical Oncology
DX: J90 Pleural effusion, not elsewhere classified (principal)
CPT/HCPCS: 32555; 71046; 88108; 88305; 88313

== ENCOUNTER 2023-05-22 15:34 | Emergency (ER) | payer MEDICAID, SELFPAY ==
[2023-05-22] VITALS (10 sets, daily range): BP systolic 110–175; BP diastolic 48–106; PULSE 83–96; RESP 16–24; TEMP 35.5; O2SAT 92–99; BMI 29.7; BMI 29.9
--- NOTE | 2023-05-22 16:05 | ED.VIS.BACK ---
HPI History of Present Illness Chief Complaint: Back Informant: patient Onset/Context/Timing Onset: Days (10) Context: Gradual Onset Timing: Continuous Quality: Sharp Location: Lumbar and Left Leg Worsened by: improves with - (Extension of the left hip and leg) Relieved by: - (Flexing left hip) Associated Symptoms Associated Symptoms: Numbness, Tingling, Radiation to Left Leg and Urinary Incontinence; Negative for Radiation to Right Leg, Fever, Abdominal Pain, Dysuria, Unable to Ambulate, Unable to Transfer, Urinary Retention, Constipation or Fecal Incontinence Narrative Narrative: Patient presents with low back pain that has been getting worse over the past 10 days. Patient states that over the past couple days he has been having some urinary incontinence. Patient states that he feels like he has to go to the bathroom but urination an adult diaper prior to being able to make it to the bathroom. Patient denies any incontinence of stool. Patient states the pain radiates down his left leg. Patient states the pain is better when he flexes his hip. Patient states it is worse with extension of his hip and leg. Patient admits to some numbness and tingling down his leg. Patient denies any weakness. [facility] Medical History Alcohol use Anxiety and depression Arthritis BiPAP (biphasic positive airway pressure) dependence Broken teeth Cancer Chest pain Chronic cough CINV (chemotherapy-induced nausea and vomiting) Constipation COPD (chronic obstructive pulmonary disease) Depression Dirty living conditions Drug induced neutropenia Encounter for education Former smoker GERD (gastroesophageal reflux disease) Hemoptysis Hepatitis Hiatal hernia with GERD High cholesterol History of echocardiogram History of stress test HTN (hypertension) Hyperglycemia Iatrogenic pneumothorax Marijuana smoker Marijuana use Mass of upper lobe of right lung Morbid obesity with BMI of 40.0-44.9, adult Nicotine addiction Nicotine dependence in remission Obesity ALEXANDRA (obstructive sleep apnea) Poor dentition Shortness of breath on exertion Sleep apnea Smoking greater than 40 pack years Wears glasses Home Medications amlodipine 10 mg tablet 10 mg PO DAILY 10/31/15 [History Last Taken 03/06/23 04:20] bupropion HCl 150 mg 24 hr tablet, extended release (Wellbutrin XL) 150 mg PO DAILY depression 10/31/15 [History Last Taken 03/06/23 04:20] losartan 100 mg-hydrochlorothiazide 12.5 mg tablet 1 tab PO DAILY hypertension 10/31/15 [History Last Taken 03/05/23 08:00] omeprazole 20 mg capsule,delayed release 20 mg PO DAILY GERD 07/26/16 [History Last Taken 03/06/23 04:20] cetirizine 10 mg tablet 10 mg PO QHS allergies 10/29/21 [History Last Taken 10/29/21] pregabalin 25 mg capsule 25 mg PO BID back pain 10/29/21 [History Last Taken 03/06/23 04:20] fluticasone propionate 50 mcg/actuation nasal spray,suspension 2 spray intranasal DAILY #16 grams 08/26/22 [Rx Last Taken 03/06/23 04:20] montelukast 10 mg tablet 10 mg PO QHS ALLERGIES #90 tabs 08/26/22 [Rx Last Taken 03/05/23] tiotropium bromide 2.5 mcg/actuation mist for inhalation (Spiriva Respimat) 2 puff inhalation QDAY #4 grams 08/26/22 [Rx Last Taken 03/06/23 04:20] lidocaine-prilocaine 2.5 %-2.5 % topical cream 1 applic topical ONCE PRN port access 30 days #30 grams 03/03/23 [Rx Last Taken Unknown] ondansetron 8 mg disintegrating tablet 8 mg PO Q8H PRN nausea and vomiting #30 tabs 03/03/23 [Rx Last Taken Unknown] polyethylene glycol 3350 17 gram/dose oral powder (Miralax) 4 g PO DAILY 03/03/23 [History Last Taken Unknown] tramadol 50 mg tablet 50 mg PO Q6H PRN pain 3 days #5 tabs 03/06/23 [Rx Last Taken Unknown] sodium chloride 1,000 mg soluble tablet 1,000 mg PO QD-QID PRN electrolyte replenishment #60 tabs 04/15/23 [Rx Last Taken Unknown] sennosides 8.6 mg-docusate sodium 50 mg capsule (Senna Plus) 4 tab-cap PO DAILY constipation 05/05/23 [History Last Taken Unknown] budesonide-formoterol HFA 160 mcg-4.5 mcg/actuation aerosol inhaler (Symbicort) 2 puff inhalation BID #3 ea 05/06/23 [Rx Last Taken Unknown] oxycodone-acetaminophen 5 mg-325 mg tablet 1 tab PO Q4H PRN Pain 4 days #20 TABLETS 05/06/23 [Rx Last Taken Unknown] dexamethasone 4 mg tablet 4 mg PO DAILY #20 tabs 05/13/23 [Rx Last Taken Unknown] Allergy/AdvReac Type Severity Reaction Status Date / Time Penicillins Allergy Unknown Verified 05/22/23 15:35 venom-honey bee Allergy Swelling Verified 05/22/23 15:35 [bee venom (honey bee)] Family History Mother Cancer Father Diabetes Sister Diabetes Surgical History History of arthroplasty of left knee History of bronchoscopy History of lobectomy of lung History of tonsillectomy Social History household members: none Smoking Status: Former smoker quit date: 06/04/20 pack-years: 40 Tobacco: How many years used: 40 how long ago did patient quit smokin ppd second hand exposure: Yes alcohol intake: current alcohol intake frequency: holidays/special occasions only substance use type: marijuana caffeine: Yes Type: coffee Number of servings: 3 what type of physical activity do you participate in: walking ROS ROS ED Constitutional Constitutional ED: Denies chills or fever(s) Eyes Eyes: Denies blurry vision or change in vision ENT ENT ED: Reports rhinorrhea; Denies sore throat Cardiovascular Cardiovascular: Denies chest pain or palpitations Respiratory/Chest Respiratory/Chest: Reports cough; Denies dyspnea Gastrointestinal Gastrointestinal: Reports nausea; Denies vomiting Genitourinary Genitourinary ED: Denies dysuria or hematuria Musculoskeletal Musculoskeletal: Reports back pain; Denies neck pain Integumentary Denies abscess or rash Neurologic Neurologic: Reports headache(s); Denies weakness Allergic/Immunologic Allergic/Immunologic ED: Denies mouth swelling or urticaria EXAM Physical Exam Const Vital Signs: 05/22/23 15:35 05/22/23 16:42 05/22/23 17:00 Temperature 96 F L Temperature Source Temporal Pulse Rate 96 83 88 Respiratory Rate 24 H 18 16 Blood Pressure 140/83 H 110/64 115/73 Blood Pressure Mean 102 79 87 Pulse Ox 98 98 97 Oxygen Delivery Method Nasal Cannula Room Air Nasal Cannula Oxygen Flow Rate (L/min) 2.5 2 05/22/23 19:00 05/22/23 20:00 05/22/23 21:00 Temperature Temperature Source Pulse Rate 93 Respiratory Rate 16 Blood Pressure 135/73 H 175/106 H 127/82 H Blood Pressure Mean 93 127 95 Pulse Ox 97 99 98 Oxygen Delivery Method Oxygen Flow Rate (L/min) 05/22/23 22:00 Temperature Temperature Source Pulse Rate Respiratory Rate Blood Pressure 117/70 Blood Pressure Mean 84 Pulse Ox 97 Oxygen Delivery Method Oxygen Flow Rate (L/min) Positive well nourished, well developed and obese General Appearance ED: well developed and NAD Nutritional Appearance: obese HEENT Reports moist mucous membranes Neck supple and no JVD Resp normal respiratory effort and clear to auscultation bilaterally Cardio regular rate and regular rhythm GI soft to palpation, non-tender and non-distended Back/Spine Back/Spine Narrative: There is tenderness to palpation over the left lumbar paraspinal muscles. There is no bony crepitance or step-off noted. Range of motion was limited in all motions of the lumbar spine secondary to pain. Strength is 5/5 bilateral in the lower extremities. There are no sensory deficits noted. There is no saddle anesthesia. Lumbar Spine / Lower Back: ROM limited Neuro oriented x3 and no sensory deficits noted Sensorium / Orientation: alert Motor Exam: strength 5/5 throughout Psych mental status grossly normal MDM MDM MDM Narrative Medical decision making narrative: Differential diagnosis includes lumbosacral strain, herniated disc, cauda equina syndrome, and lumbar metastasis. CBC will be obtained to assess for leukocytosis and anemia. Basic metabolic profile will be obtained to assess for electrolyte abnormality and renal function. Urinalysis will be obtained to assess for urinary tract infection and hematuria. MRI of the lumbar spine will be obtained to assess for cauda equina syndrome. Lab Data Attestation: I reviewed the patient's lab results. Lab results narrative: CBC was reviewed. White blood cell count was slightly low at 3.8. Hemoglobin was 7.4 and hematocrit was 23.0. Platelets were slightly low at 130. Absolute neutrophil count was normal at 3.1. Basic metabolic profile was reviewed. Sodium was slightly low at 130. Anion gap was normal. The remainder was essentially within normal limits. Urinalysis was reviewed. There is no evidence of urinary tract infection or hematuria. Labs: Laboratory Results - last 24 hr 04/11/24 04/11/24 16:54 17:32 WBC 3.8 L RBC 2.33 L Hgb 7.4 L Hct 23.0 L MCV 98.7 H MCH 31.8 MCHC 32.2 RDW Std Deviation 66.5 H RDW Coeff of Ruben 18.5 H Plt Count 130 L MPV 9.5 Immature Gran % (Auto) 0.300 Neut % (Auto) 80.7 H Lymph % (Auto) 10.3 L Upson % (Auto) 8.7 Eos % (Auto) 0.0 Baso % (Auto) 0.0 Absolute Neuts (auto) 3.1 Absolute Lymphs (auto) 0.39 L Nucleated RBC % 0 Differential Comment SEE COMMENT Platelet Estimate SLT DEC RBC Morphology N CHROM Hypochromasia RARE Anisocytosis 1+ Macrocytosis 1+ Sodium 130 L Potassium 4.6 Chloride 94 L Carbon Dioxide 33.0 H Anion Gap 3 L BUN 22 H Creatinine 0.61 L Estim Creat Clear Calc 125.23 Est GFR (MDRD) Af Amer 174 Est GFR (MDRD) Non-Af 143 BUN/Creatinine Ratio 36.2 H Glucose 132 H Calcium 8.8 Urine Color Yellow Urine Clarity Clear Urine pH 7.0 Ur Specific Ewing 1.010 Urine Protein Negative Urine Glucose (UA) Normal Urine Ketones Negative Urine Occult Blood Negative Urine Nitrite Negative Urine Bilirubin Negative Urine Urobilinogen Normal Ur Leukocyte Esterase Negative Urine RBC 0 SEEN Urine WBC 0 SEEN Ur Squamous Epith Cells 0 SEEN Urine Bacteria 0 SEEN Urine Mucus 0 SEEN Radiography Diagnostic Testing: Clinical Impression(s) from Imaging Studies Lumbar Spine MRI 05/22/23 16:24 IMPRESSION: Extensive diffuse disseminated bone metastasis without definitive evidence for tumor extension into the spinal canal or significant spinal stenosis. Repeat scan with contrast may be useful for more definitive evaluation if clinically warranted There is however multilevel neural foraminal stenosis secondary to disc disease and bony hypertrophy. There is marked thinning of the mid thecal sac at the mid sacral level due to extensive epidural fat deposition Electronically Signed: Wilder Barba MD at 19:25 EDT , MRI of the lumbar spine was obtained. There is no evidence of cauda equina syndrome. There is extensive diffuse bone metastasis but no extension of the tumor into the spinal canal. There is no significant spinal stenosis. There is multilevel neuroforaminal stenosis and bony hypertrophy. There is thinning of the mid thecal sac at the mid sacral level due to epidural fat deposition. This was interpreted by the radiologist and was also independently reviewed by myself. Treatment and Re-Evaluation Narrative: Patient was given morphine and Zofran initially. Patient was advised of his findings. Patient was given repeat dose of morphine. Case was discussed with Dr. Chinchilla from oncology. He recommended contacting radiation oncology. He stated that there was a covering doctor for Dr. Nunez. I attempted to page the covering doctor for Dr. Nunez. He did not return any calls. Patient was able to ambulate here in the emergency department with a walker. Patient states he walked to the end of the hallway and back. Nursing staff reports that he did this without difficulty. Prior records were also reviewed. Patient has known history of mets to his thoracic and lumbar spine. Given that these metastases are not new and there is no evidence of cauda equina, I feel the patient is safe to be discharged home. Patient was instructed to follow-up in 3 to 5 days. Patient was instructed to return if worse in any way. Patient understood and was agreeable with the plan. All questions were answered. Discharge Plan Triage Chief Complaint: Back Other Complaint: Complaint ED Provider: Alin Green Dx/Rx/DC Orders Clinical Impression: Metastatic non-small cell lung cancer, Low back pain Instructions: ED Back and Neck Pain, General Prescriptions: No Action fluticasone propionate 50 mcg/actuation spray,suspension 2 spray INTRANASAL DAILY Qty: 16 11RF Spiriva Respimat 2.5 mcg/actuation mist 2 puff inhalation QDAY Qty: 4 11RF montelukast 10 mg tablet 10 mg PO QHS Qty: 90 3RF polyethylene glycol 3350 [Miralax] 17 gram/dose powder 4 g PO DAILY ondansetron 8 mg tablet,disintegrating 8 mg PO Q8H PRN (Reason: nausea and vomiting) Qty: 30 2RF lidocaine-prilocaine 2.5-2.5 % cream 1 applic topical ONCE PRN (Reason: port access) 30 Days Qty: 30 2RF sodium chloride 1,000 mg tablet,soluble 1,000 mg PO QD-QID PRN (Reason: electrolyte replenishment) Qty: 60 2RF dexamethasone 4 mg tablet 4 mg PO DAILY Qty: 20 0RF amlodipine 10 MG tablet 10 mg PO DAILY Patient Comments: blood pressure losartan-hydrochlorothiazide 1 TAB tablet 1 tab PO DAILY Patient Comments: blood pressure bupropion HCl [Wellbutrin XL] 150 MG tablet extended release 24 hr 150 mg PO DAILY Patient Comments: depression omeprazole 20 MG capsule 20 mg PO DAILY Patient Comments: acid reflux cetirizine 10 mg Tablet 10 mg PO QHS pregabalin 25 mg capsule 25 mg PO BID tramadol 50 mg tablet 50 mg PO Q6H PRN (Reason: pain) 3 Days Qty: 5 0RF Senna Plus 8.6-50 mg capsule 4 tab-cap PO DAILY oxycodone-acetaminophen [oxycodone-acetaminophen] 5-325 mg tablet 1 tab PO Q4H PRN (Reason: Pain) 4 Days Qty: 20 0RF budesonide-formoterol [Symbicort] 160-4.5 mcg/actuation HFA aerosol inhaler 2 puff inhalation BID Qty: 3 3RF Rx Instructions: administer with spacer, rinse mouth after each use Primary Care Provider: Mony Morrison Referrals: Mony Morrison MD [Primary Care Provider] - 3-5 Days Disposition Disposition: Home, Self Care
--- NOTE | 2023-05-22 16:24 | MRI_ITS ---
STUDY: MRI LUMBAR SPINE WITHOUT CONTRAST REASON FOR EXAM: Male, 62 years old. Back pain, urinary incontinence -- Rule out cauda equina syndrome TECHNIQUE: Standardized fat and water weighted pulse sequences were obtained in the sagittal and axial planes. COMPARISON: None FINDINGS: There are metastatic lesions involving all of the lumbar vertebral bodies as well as the S1 and S2 sacral segments including a pathologic fracture of L3. There is involvement of the posterior neural arch at multiple levels. There is also involvement of the bilateral sacral wings and right iliac wing. There is also a large soft tissue mass in the right posterior paraspinous soft tissues on the right extending from L3 to L5 T12-L1: Normal endplates. Normal disc height, hydration and morphology. Normal bilateral facet joints. Normal central canal and bilateral lateral recesses. Normal bilateral intervertebral neural foramina. Normal lumbar lordosis. There is no substantial scoliosis. Normal conus medullaris that terminates at T12-L1 L1-2: Normal endplates. Normal disc height, hydration and normal annular bulge.. Normal bilateral facet joints. Normal central canal and bilateral lateral recesses. Normal bilateral intervertebral neural foramina. L2-3: Normal endplates. Normal disc height, desiccation and minor annular bulge with tiny left foraminal disc protrusion.. Mild facet arthropathy.. Normal central canal and bilateral lateral recesses. Mild right neural foraminal stenosis and moderate narrowing on the left. L3-4: Normal endplates. Normal disc height, desiccation and minor annular bulge.. Facet arthropathy and thickening of ligamenta flava. Normal central canal and bilateral lateral recesses. Moderate bilateral neural foraminal stenosis. L4-5: Normal endplates. Normal disc height, desiccation and minimal annular bulge with tiny central disc protrusion.. Facet arthropathy and thickening of ligamenta flava.. Normal central canal and bilateral lateral recesses. Mild to moderate bilateral neural foraminal stenosis.. L5-S1: Normal endplates. Normal disc height, hydration and minor annular bulge.. Facet arthropathy.. Normal central canal and bilateral lateral recesses. Moderate bilateral neural foraminal encroachment Incidental finding of marked thinning of the thecal sac in the mid sacrum extensive fat deposition Normal visualized paraspinous soft tissue structures. MRI/Spine Lumbar (Routine) IMPRESSION: Extensive diffuse disseminated bone metastasis without definitive evidence for tumor extension into the spinal canal or significant spinal stenosis. Repeat scan with contrast may be useful for more definitive evaluation if clinically warranted There is however multilevel neural foraminal stenosis secondary to disc disease and bony hypertrophy. There is marked thinning of the mid thecal sac at the mid sacral level due to extensive epidural fat deposition Electronically Signed: Wilder Barba MD at 19:25 EDT ,
[2023-05-22] MEDS: Morphine 4 MG/ML Syringe IV ×2 (16:48→20:33)
[2023-05-22] MEDS: Ondansetron 4 MG/2 ML Vial IV (16:48)
[2023-05-22 17:20] LABS: Absolute Lymphocyte Count 0.39 X10^3/uL (0.83-4.51); Absolute Neutrophil Count 3.1 X10^3/uL (2.0-7.7); Hemoglobin 7.4 g/dL (13.0-16.5); Lymphocyte # 0.39 X10^3/ul (0.83-4.51); Lymphocyte % 10.3 % (19-41); Mean Corp Hgb Conc 32.2 g/dL (32-36); Mean Corpuscular Hgb 31.8 pg (27.0-32.0); Mean Corpuscular Volume 98.7 fL (80-94); Mean Platelet Vol. 9.5 fl (6.2-12.0); Monocyte# 0.33 X10^3/uL; Monocyte% 8.7 % (0-10); NRBC Flagged by Analyzer 0 % (0-5); Neutrophil # 3.06 X10^3/uL (2.7-7.7); Neutrophil % 80.7 % (47-70); POSITIVE DIFFERENTIAL YES; POSITIVE MORPHOLOGY YES; Platelet Count 130 K/mm3 (150-450); RBC Distribution Width CV 18.5 % (11.6-14.6); RBC Distribution Width SD 66.5 fl (35.1-43.9); Red Blood Count 2.33 M/mm3 (4.6-6.2); White Blood Count 3.8 K/mm3 (4.4-11.0)
[2023-05-22 17:30] LABS: Anion Gap 3 (5-15); BUN 22 mg/dL (7-18); BUN/Creat Ratio 36.2 RATIO (10-20); Calcium,Total 8.8 mg/dL (8.5-10.1); Chloride 94 mmol/L (98-107); Creatinine, Serum 0.61 mg/dL (0.70-1.30); Differential Indicated SCAN CRITERIA MET; EST Glomerular Filtration Rate 143 mL/min (>60); Est Glom Filt Rate - Afr Amer 174 mL/min (>60); Estimated Creatinine Clearance 125.23 ml/min; Glucose 132 mg/dL (74-106); Potassium 4.6 mmol/L (3.5-5.1); Sodium Level 130 mmol/L (136-145)
[2023-05-22 17:50] LABS: Bacteria 0 SEEN /hpf (None Seen); Mucous, Urine 0 SEEN /hpf (<or=2+); Red Blood Cells-Urine 0 SEEN /hpf (0-5); Squamous Epithelial Cells - UA 0 SEEN /hpf (0-5); White Blood Cells 0 SEEN /hpf (0-5)
[2023-05-22 17:58] LABS: Color, Urine Yellow (Yellow); Glucose, Dipstick Normal (Normal); Ketone-Dipstick Negative (Negative); Leukocyte Esterase-Dipstick Negative /ul (Negative); Nitrite-Dipstick Negative (Negative); Occult Blood-Urine Negative /ul (Negative); Protein-Dipstick Negative (Negative); Urine Bilirubin Dipstick Negative (Negative); Urine Clarity Clear (Clear); Urine Urobilinogen Normal (Normal)
[2023-05-22 18:23] LABS: Anisocytosis 1+; Hypochromasia RARE; Macrocytosis 1+; Platelet Estimate SLT DEC (ADEQ); Red Cell Morphology N CHROM NORMAL (NORM C&C)
[2023-05-23] VITALS: BP 119/70; O2SAT 97
[2023-05-23 00:09] VITALS: BP 119/78; PULSE 88; RESP 16; TEMP 36.6; O2SAT 99
== END 2023-05-23 01:06 | disposition home or self-care (01) ==
PROVIDERS: Emergency Provider Emergency Medicine; PCP Internal Medicine; Visit Provider Emergency Medicine
DX: C34.90 Malignant neoplasm of unspecified part of unspecified bronchus or lung (principal); C79.51 Secondary malignant neoplasm of bone; M54.50 Low back pain, unspecified; R32 Unspecified urinary incontinence; Z79.899 Other long term (current) drug therapy; Z87.891 Personal history of nicotine dependence
CPT/HCPCS: 36591; 72148; 80048; 81001; 85025; 96374; 96375; 96376; 99283; A4216; J2405

== ENCOUNTER 2023-05-24 19:32 | Inpatient (IN) | payer MEDICAID, SELFPAY ==
[2023-05-24 19:33] VITALS: BP 136/67; PULSE 95; RESP 26; TEMP 37; O2SAT 98; BMI 29.5
--- NOTE | 2023-05-24 19:50 | EX.ED.DYSGE1 ---
HPI History of Present Illness Chief Complaint: Back Informant: patient Narrative Narrative: Patient presents secondary to low back pain. He has a history of lung cancer with mets to his back. He was given a course of Decadron by his oncology office earlier this month. Patient presents tonight via EMS secondary to severe low back pain with radiation down his left leg. He does report problems making it to the restroom in time and has been wearing an adult diaper. He states he has urinated in this multiple times today. No fever or chills. No new falls or injuries. Patient was seen in the emergency room for similar complaints 2 days ago. He had a lumbar spine MRI at that time that showed extensive bony mets but no intrusion to the spinal canal. It was recommended to contact the radiation oncologist, however there was no return call to the emergency room doctor. Patient was able to ambulate and was discharged to home for close follow-up. It does not appear the patient has any narcotics at home for pain control. His last Percocet prescription was written on May 05 for 20 tabs (4-day supply). [facility] Medical History Alcohol use Anxiety and depression Arthritis BiPAP (biphasic positive airway pressure) dependence Broken teeth Cancer Chest pain Chronic cough CINV (chemotherapy-induced nausea and vomiting) Constipation COPD (chronic obstructive pulmonary disease) Depression Dirty living conditions Drug induced neutropenia Encounter for education Former smoker GERD (gastroesophageal reflux disease) Hemoptysis Hepatitis Hiatal hernia with GERD High cholesterol History of echocardiogram History of stress test HTN (hypertension) Hyperglycemia Iatrogenic pneumothorax Marijuana smoker Marijuana use Mass of upper lobe of right lung Morbid obesity with BMI of 40.0-44.9, adult Nicotine addiction Nicotine dependence in remission Obesity ALEXANDRA (obstructive sleep apnea) Poor dentition Shortness of breath on exertion Sleep apnea Smoking greater than 40 pack years Wears glasses Home Medications amlodipine 10 mg tablet 10 mg PO DAILY 10/31/15 [History Last Taken 03/06/23 04:20] bupropion HCl 150 mg 24 hr tablet, extended release (Wellbutrin XL) 150 mg PO DAILY depression 10/31/15 [History Last Taken 03/06/23 04:20] losartan 100 mg-hydrochlorothiazide 12.5 mg tablet 1 tab PO DAILY hypertension 10/31/15 [History Last Taken 03/05/23 08:00] omeprazole 20 mg capsule,delayed release 20 mg PO DAILY GERD 07/26/16 [History Last Taken 03/06/23 04:20] cetirizine 10 mg tablet 10 mg PO QHS allergies 10/29/21 [History Last Taken 10/29/21] pregabalin 25 mg capsule 25 mg PO BID back pain 10/29/21 [History Last Taken 03/06/23 04:20] fluticasone propionate 50 mcg/actuation nasal spray,suspension 2 spray intranasal DAILY #16 grams 08/26/22 [Rx Last Taken 03/06/23 04:20] montelukast 10 mg tablet 10 mg PO QHS ALLERGIES #90 tabs 08/26/22 [Rx Last Taken 03/05/23] tiotropium bromide 2.5 mcg/actuation mist for inhalation (Spiriva Respimat) 2 puff inhalation QDAY #4 grams 08/26/22 [Rx Last Taken 03/06/23 04:20] lidocaine-prilocaine 2.5 %-2.5 % topical cream 1 applic topical ONCE PRN port access 30 days #30 grams 03/03/23 [Rx Last Taken Unknown] ondansetron 8 mg disintegrating tablet 8 mg PO Q8H PRN nausea and vomiting #30 tabs 03/03/23 [Rx Last Taken Unknown] polyethylene glycol 3350 17 gram/dose oral powder (Miralax) 4 g PO DAILY 03/03/23 [History Last Taken Unknown] tramadol 50 mg tablet 50 mg PO Q6H PRN pain 3 days #5 tabs 03/06/23 [Rx Last Taken Unknown] sodium chloride 1,000 mg soluble tablet 1,000 mg PO QD-QID PRN electrolyte replenishment #60 tabs 04/15/23 [Rx Last Taken Unknown] sennosides 8.6 mg-docusate sodium 50 mg capsule (Senna Plus) 4 tab-cap PO DAILY constipation 05/05/23 [History Last Taken Unknown] budesonide-formoterol HFA 160 mcg-4.5 mcg/actuation aerosol inhaler (Symbicort) 2 puff inhalation BID #3 ea 05/06/23 [Rx Last Taken Unknown] oxycodone-acetaminophen 5 mg-325 mg tablet 1 tab PO Q4H PRN Pain 4 days #20 TABLETS 05/06/23 [Rx Last Taken Unknown] dexamethasone 4 mg tablet 4 mg PO DAILY #20 tabs 05/13/23 [Rx Last Taken Unknown] Allergy/AdvReac Type Severity Reaction Status Date / Time Penicillins Allergy Unknown Verified 05/22/23 15:35 venom-honey bee Allergy Swelling Verified 05/22/23 15:35 [bee venom (honey bee)] Family History Mother Cancer Father Diabetes Sister Diabetes Surgical History History of arthroplasty of left knee History of bronchoscopy History of lobectomy of lung History of tonsillectomy Social History household members: none Smoking Status: Former smoker quit date: 06/04/20 pack-years: 40 Tobacco: How many years used: 40 how long ago did patient quit smokin ppd second hand exposure: Yes alcohol intake: current alcohol intake frequency: holidays/special occasions only substance use type: marijuana caffeine: Yes Type: coffee Number of servings: 3 what type of physical activity do you participate in: walking ROS ROS ED Constitutional Constitutional ED: Denies chills or fever(s) Eyes Eyes: Denies discharge from eye(s) ENT ENT ED: Denies discharge from eye(s), rhinorrhea or sore throat Cardiovascular Cardiovascular: Denies chest pain or palpitations Respiratory/Chest Respiratory/Chest: Reports dyspnea; Denies cough Gastrointestinal Gastrointestinal: Denies abdominal pain, diarrhea, nausea or vomiting Genitourinary Genitourinary ED: Reports other Details: Intermittent urinary incontinence ; Denies dysuria Musculoskeletal Musculoskeletal: Reports back pain and extremity pain Integumentary Denies Abrasions or rash Neurologic Neurologic: Denies headache(s) or weakness Allergic/Immunologic Allergic/Immunologic ED: Denies lip swelling or urticaria EXAM Physical Exam Const Vital Signs: 05/24/23 19:33 Temperature 98.6 F Temperature Source Oral Pulse Rate 95 Respiratory Rate 26 H Blood Pressure 136/67 H Blood Pressure Mean 90 Pulse Ox 98 Oxygen Delivery Method Nasal Cannula Oxygen Flow Rate (L/min) 3 Positive cachectic General Appearance ED: cachectic Nutritional Appearance: cachectic HEENT Reports moist mucous membranes Eyes EOMs intact bilaterally Chest Wall inspection of chest normal and palpation of chest normal Resp normal respiratory effort and clear to auscultation bilaterally Cardio regular rate and regular rhythm GI non-tender Palpation: soft; Negative for mass Extremity Extremity Narrative: Strong distal pulses in the lower extremities. Able to wiggle toes. Has good sensation. Neuro oriented x3 and no sensory deficits noted Neuro Narrative: Slow purposeful movement of the lower extremities secondary to pain. No obvious deficit. Psych mental status grossly normal MDM MDM MDM Narrative Medical decision making narrative: Patient's visit from 2 days ago was reviewed including the MRI report. IV line established. Labwork obtained to evaluate for leukocytosis, anemia, and electrolyte derangement. Patient given morphine and Zofran for pain control. History & Record Review Discussion w/independent historian: Patient Lab Data Attestation: I reviewed the patient's lab results. Labs: Laboratory Results - last 24 hr 05/24/23 20:00 WBC 5.2 RBC 2.21 L Hgb 7.2 L Hct 22.1 L MCV 100.0 H MCH 32.6 H MCHC 32.6 RDW Std Deviation 67.5 H RDW Coeff of Ruben 18.6 H Plt Count 120 L MPV 9.0 Immature Gran % (Auto) 0.200 Neut % (Auto) 80.5 H Lymph % (Auto) 8.7 L [place] % (Auto) 10.0 Eos % (Auto) 0.4 Baso % (Auto) 0.2 Absolute Neuts (auto) 4.2 Absolute Lymphs (auto) 0.45 L Nucleated RBC % 0.4 Differential Comment SCANNED Sodium 129 L Potassium 4.5 Chloride 93 L Carbon Dioxide 32.0 Anion Gap 4 L BUN 26 H Creatinine 0.62 L Estim Creat Clear Calc 122.36 Est GFR (MDRD) Af Amer 171 Est GFR (MDRD) Non-Af 141 BUN/Creatinine Ratio 42.3 H Glucose 101 Calcium 8.5 Treatment and Re-Evaluation :: CBC was a white count of 5.2 with a hemoglobin of 7.2. This is consistent with his prior values. 80% neutrophils are noted. Chemistry studies reveal chronic hyponatremia with a sodium of 129. BUN is 26 and creatinine 0.62. On repeat evaluation patient is resting more comfortably. He states that he is currently living in a garage and has limited access to a bathroom or shower. He has been working with social work through the oncology office to try to get into assisted living. He does not feel that he is safe to go home. This is the patient's second visit in 3 days with significant low back pain and evidence of extensive metastasis to the spine. I will speak with hospitalist regarding admission for pain control as well as placement to an assisted living facility. Hospitalist did request repeat imaging to day. CT scan lumbar spine without contrast will be obtained prior to admission to the floor. Discharge Plan Dx/Rx/DC Orders Clinical Impression: Back pain, Metastatic cancer to spine Disposition Disposition: Acute Care Hospital [facility]
[2023-05-24] MEDS: Morphine 4 MG/ML Syringe IV (20:07)
[2023-05-24] MEDS: Ondansetron 4 MG/2 ML Vial IV (20:07)
[2023-05-24 20:08] LABS: Absolute Lymphocyte Count 0.45 X10^3/uL (0.83-4.51); Absolute Neutrophil Count 4.2 X10^3/uL (2.0-7.7); Basophil# 0.01 X10^3/uL; Basophil% 0.2 % (0-1); Eosinophil# 0.02 X10^3/uL; Eosinophils% 0.4 % (0-5); Hematocrit 22.1 % (40-54); Hemoglobin 7.2 g/dL (13.0-16.5); Lymphocyte # 0.45 X10^3/ul (0.83-4.51); Lymphocyte % 8.7 % (19-41); Mean Corp Hgb Conc 32.6 g/dL (32-36); Mean Corpuscular Hgb 32.6 pg (27.0-32.0); Monocyte# 0.52 X10^3/uL; NRBC Flagged by Analyzer 0.4 % (0-5); Neutrophil # 4.17 X10^3/uL (2.7-7.7); Neutrophil % 80.5 % (47-70); POSITIVE DIFFERENTIAL YES; POSITIVE MORPHOLOGY YES; Platelet Count 120 K/mm3 (150-450); RBC Distribution Width CV 18.6 % (11.6-14.6); RBC Distribution Width SD 67.5 fl (35.1-43.9); Red Blood Count 2.21 M/mm3 (4.6-6.2); White Blood Count 5.2 K/mm3 (4.4-11.0)
[2023-05-24 20:10] LABS: Differential Indicated SCAN CRITERIA MET
[2023-05-24 20:22] LABS: Anion Gap 4 (5-15); BUN 26 mg/dL (7-18); BUN/Creat Ratio 42.3 RATIO (10-20); Calcium,Total 8.5 mg/dL (8.5-10.1); Chloride 93 mmol/L (98-107); Creatinine, Serum 0.62 mg/dL (0.70-1.30); EST Glomerular Filtration Rate 141 mL/min (>60); Est Glom Filt Rate - Afr Amer 171 mL/min (>60); Estimated Creatinine Clearance 122.36 ml/min; Glucose 101 mg/dL (74-106); Potassium 4.5 mmol/L (3.5-5.1); Sodium Level 129 mmol/L (136-145)
[2023-05-24 20:36] LABS: Differential Comment SCANNED
--- NOTE | 2023-05-24 20:52 | PCM.HP.STD ---
[facility] - General General Date of Admission: 05/24/23 Date of Service: 05/24/23 Chief Complaint: Intractable Low Back Pain. [facility] Narrative LARISA GONZÁLES, is an unfortunate 62 M with a past medical history of essential hypertension, hyperlipidemia, overweight; BMI of 29.6, obstructive sleep apnea; on CPAP, remote history of hepatitis B (~2013), depression with anxiety, GERD; with hiatal hernia, history of cannabis abuse (quit February 2023), history of tobacco abuse ~40 years (quit February 2023); with subsequent COPD, history of medical noncompliance and known history of lung cancer that has metastasized to his spine; with subsequent chronic severe back pain followed by oncology here who presents to [facility] ER complaining of intractable low back pain. Mr. Gonzáles actually came to the ER for the same complaint 2 days ago with an MRI of the lumbar spine at that time that showed extensive bony metastases but without intrusion into the spinal canal. He was then recommended to follow-up with radiation oncology but the patient was apparently not able to do so. Then earlier this evening he activated EMS secondary to severe low back pain radiating down to his Left leg along with urinary incontinence with patient wearing an adult diaper. He denies associated fever, chills, nausea, vomiting falls, injuries, hematuria, blood in stools or other obvious blood loss. In addition to all of these problems he also is currently living in someone's garage in a very joss space not designed for human habitation without a bathroom or shower facilities directly available so he declined to be discharged home on pain medications in favor of being admitted with a goal of transferring to an assisted living facility if possible. He also informed the ER physician that he was taking Decadron for the past month however, his white blood cell count is noted to be normal at 5.2 making this unlikely. According to the patient he has been working with the oncology and case plannerlogistic manager as an outpatient in an effort to arrange better living conditions at [facility] but they have not yet been able to arrange an alternative living situation. In the ER he was diagnosed with intractable low back pain in the setting of known lung cancer with metastases to the spine with new CT of the L-spine pending for today with patient then admitted to the general medical floor under observation status for ongoing care for status expected to be less than 48 hours. [facility] Medical History Alcohol use Anxiety and depression Arthritis BiPAP (biphasic positive airway pressure) dependence Broken teeth Cancer Chest pain Chronic cough Chronic pain CINV (chemotherapy-induced nausea and vomiting) Constipation COPD (chronic obstructive pulmonary disease) Depression Dirty living conditions Drug induced neutropenia Encounter for education Former smoker GERD (gastroesophageal reflux disease) Hemoptysis Hepatitis Hiatal hernia with GERD High cholesterol History of echocardiogram History of stress test HTN (hypertension) Hyperglycemia Iatrogenic pneumothorax Marijuana smoker Marijuana use Mass of upper lobe of right lung Morbid obesity with BMI of 40.0-44.9, adult Nicotine addiction Nicotine dependence in remission Obesity On home oxygen therapy ALEXANDRA (obstructive sleep apnea) Poor dentition Shortness of breath on exertion Sleep apnea Smoking greater than 40 pack years Wears glasses Home Medications amlodipine 10 mg tablet 10 mg PO DAILY 10/31/15 [History Last Taken 03/06/23 04:20] bupropion HCl 150 mg 24 hr tablet, extended release (Wellbutrin XL) 150 mg PO DAILY depression 10/31/15 [History Last Taken 03/06/23 04:20] losartan 100 mg-hydrochlorothiazide 12.5 mg tablet 1 tab PO DAILY hypertension 10/31/15 [History Last Taken 03/05/23 08:00] omeprazole 20 mg capsule,delayed release 20 mg PO DAILY GERD 07/26/16 [History Last Taken 03/06/23 04:20] cetirizine 10 mg tablet 10 mg PO QHS allergies 10/29/21 [History Last Taken 10/29/21] pregabalin 25 mg capsule 25 mg PO BID back pain 10/29/21 [History Last Taken 03/06/23 04:20] fluticasone propionate 50 mcg/actuation nasal spray,suspension 2 spray intranasal DAILY #16 grams 08/26/22 [Rx Last Taken 03/06/23 04:20] montelukast 10 mg tablet 10 mg PO QHS ALLERGIES #90 tabs 08/26/22 [Rx Last Taken 03/05/23] tiotropium bromide 2.5 mcg/actuation mist for inhalation (Spiriva Respimat) 2 puff inhalation QDAY #4 grams 08/26/22 [Rx Last Taken 03/06/23 04:20] ondansetron 8 mg disintegrating tablet 8 mg PO Q8H PRN nausea and vomiting #30 tabs 03/03/23 [Rx Last Taken Unknown] polyethylene glycol 3350 17 gram/dose oral powder (Miralax) 4 g PO DAILY 03/03/23 [History Last Taken Unknown] sennosides 8.6 mg-docusate sodium 50 mg capsule (Senna Plus) 4 tab-cap PO DAILY constipation 05/05/23 [History Last Taken Unknown] budesonide-formoterol HFA 160 mcg-4.5 mcg/actuation aerosol inhaler (Symbicort) 2 puff inhalation BID #3 ea 05/06/23 [Rx Last Taken Unknown] oxycodone-acetaminophen 5 mg-325 mg tablet 1 tab PO Q4H PRN Pain 4 days #20 TABLETS 05/06/23 [Rx Last Taken Unknown] dexamethasone 4 mg tablet 4 mg PO DAILY #20 tabs 05/13/23 [Rx Last Taken Unknown] Allergy/AdvReac Type Severity Reaction Status Date / Time Penicillins Allergy Unknown Verified 05/22/23 15:35 venom-honey bee Allergy Swelling Verified 05/22/23 15:35 [bee venom (honey bee)] Family History Mother Cancer Father Diabetes Sister Diabetes Surgical History History of arthroplasty of left knee History of bronchoscopy History of lobectomy of lung History of tonsillectomy Social History household members: none Smoking Status: Former smoker quit date: 06/04/20 pack-years: 40 Tobacco: How many years used: 40 how long ago did patient quit smokin ppd second hand exposure: Yes alcohol intake: current alcohol intake frequency: holidays/special occasions only substance use type: marijuana caffeine: Yes Type: coffee Number of servings: 3 what type of physical activity do you participate in: walking ROS ROS Narrative Review of systems: General: Patient denies fever or chills. HENT: Denies headache, denies stuffy nose, denies sore throat EYES: Denies changes in vision or discharge from eyes. Resp: Denies cough, denies shortness of breath Cardiac: Denies chest pain, palpitations or heart racing. GI: Denies abdominal pain, denies changes in bowel, denies nausea or vomiting. : Denies changes in urination Extremity: Denies swelling Musculoskeletal: Patient reports severe back pain radiating to his left lower leg as per HPI. Neuro: Patient denies headache or focal neurologic logic deficits -but he does admit to tingling in his lower extremities. Heme: Denies any bleeding or bruising Skin: Denies rashes Psychiatric: No complaints voiced related to uncontrolled depression or anxiety. Endocrine: No polyuria, polydipsia or polyphagia. The rest of the 14 point ROS was negative except for positives in HPI. Vital Signs Vital Signs Vital Signs: 05/24/23 19:33 Temperature 98.6 F Temperature Source Oral Pulse Rate 95 Respiratory Rate 26 H Blood Pressure 136/67 H Blood Pressure Mean 90 Pulse Ox 98 Oxygen Delivery Method Nasal Cannula Oxygen Flow Rate (L/min) 3 Weight Weight: 177 lb 11.081 oz Body Mass Index (BMI) 29.5 Physical Exam Const alert, oriented x3 and no apparent distress Constitutional Narrative: Patient is cachectic and appears much older than his stated age. General Appearance: cooperative HEENT normocephalic, head/scalp atraumatic, hearing grossly normal bilaterally and moist oral mucous membranes Eyes PERRL and EOMs intact bilaterally Neck supple Resp normal respiratory effort, no retractions, no use of accessory muscles and clear to auscultation bilaterally Cardio regular rate and regular rhythm GI normal to inspection, nondistended, normoactive bowel sounds, soft to palpation, non-tender and non-distended Extremity normal to inspection Extremity Narrative: Patient has slow purposeful movement of the lower extremities secondary to pain in his back with no obvious focal neurologic deficits. Skin Skin Narrative: Patient has no evidence of abscess, rash or jaundice at this time. Neuro oriented x3, CN's II-XII intact bilaterally, moves all extremities and no focal motor deficits Sensorium / Orientation: awake, alert, oriented to person, oriented to place and oriented to time Speech: speech normal Psych affect normal Results Medical Records Data Attestation: I reviewed the patient's medical records Lab / Micro Data Attestation: I reviewed the patient's lab results. 05/25/23 05:00 05/25/23 05:00 Labs: Laboratory Results - last 24 hr 05/24/23 20:00: WBC 5.2, RBC 2.21 L, Hgb 7.2 L, Hct 22.1 L, MCV 100.0 H, MCH 32.6 H, MCHC 32.6, RDW Std Deviation 67.5 H, RDW Coeff of Ruben 18.6 H, Plt Count 120 L, MPV 9.0, Immature Gran % (Auto) 0.200, Neut % (Auto) 80.5 H, Lymph % (Auto) 8.7 L, [place] % (Auto) 10.0, Eos % (Auto) 0.4, Baso % (Auto) 0.2, Absolute Neuts (auto) 4.2, Absolute Lymphs (auto) 0.45 L, Nucleated RBC % 0.4, Differential Comment SCANNED, Sodium 129 L, Potassium 4.5, Chloride 93 L, Carbon Dioxide 32.0, Anion Gap 4 L, BUN 26 H, Creatinine 0.62 L, Estim Creat Clear Calc 122.36, Est GFR (MDRD) Af Amer 171, Est GFR (MDRD) Non-Af 141, BUN/Creatinine Ratio 42.3 H, Glucose 101, Calcium 8.5 Imaging [facility] Imaging Services [address] [place] [address] Spine Lumbar without Contrast MR#: [id number] Acct: [id number] Name: LARISA GONZÁLES Rep #: [id number] : 1960 M 62 From: Pete Hines MD PCP: Dr. Mony Morrison MD Status: ADM TAVO Study: Spine Lumbar without Contrast Date of Exam: 05/24/23 Exam# [id number] Ordering Dr: Nataly Cardona MD STUDY: CT LUMBAR SPINE WITHOUT CONTRAST REASON FOR EXAM: Male, 62 years old. back pain RADIATION DOSAGE (If Supplied By Facility): CTDIvol = ( 16.54 ) mGy, DLP = ( 584.08 ) mGycm TECHNIQUE: The patient was scanned in a multi detector CT scanner. High resolution transaxial imaging was performed. Images were obtained from T12 to S1. Sagittal and coronal images were reconstructed. Individualized dose optimization techniques were used for this CT. COMPARISON: MRI 05/22/2023 FINDINGS: Normal lumbar lordosis. There is no substantial scoliosis. No change in the acute/subacute mild compression fractures of the L2 and L3 vertebral bodies without retropulsion into spinal canal. Also no change in the fractures of the sacral ala bilaterally. L1-2: Normal endplates. Normal disc height and morphology. Normal bilateral facet joints. Normal central canal and bilateral lateral recesses. Normal bilateral intervertebral neural foramina. L2-3: Moderate broad disc protrusion produces moderate spinal stenosis and moderate bilateral neural foraminal stenosis. L3-4: Moderate broad disc protrusion produces moderate spinal stenosis and moderate bilateral neural foraminal stenosis. L4-5: Mild broad disc protrusion produces mild spinal stenosis and mild bilateral neural foraminal stenosis. L5-S1: No change in 2 mm retrolisthesis of L5 on S1 with a mild broad disc osteophyte complex which produces moderate spinal stenosis and moderate bilateral neural foraminal stenosis. Normal visualized paraspinous soft tissue structures. CT/Spine Lumbar without Contrast IMPRESSION: No change from 05/22/2023. Electronically Signed: Pete Hines MD at 21:52 EDT , CC: Dr. Nataly Cardona MD; Dr. Mony Morrison MD ~ Classified Ad Clerk: Signed Assessment & Plan Assessment/Plan (1) Intractable low back pain: (2) Metastatic cancer to spine: (3) Metastatic non-small cell lung cancer: (4) Hyponatremia: (5) Anemia: QUALIFIERS: Anemia type: other cause Other causes of anemia: antineoplastic chemotherapy Qualified Code(s): D64.81 - Anemia due to antineoplastic chemotherapy; T45.1X5A - Adverse effect of antineoplastic and immunosuppressive drugs, initial encounter (6) Dirty living conditions: PLAN: Plan 1. Intractable low back pain with subacute compression fractures at L2 and L3 without retropulsion into the spinal canal with moderate spinal stenosis and multilevel DDD with impaired mobility and urinary incontinence causing him to wear adult diapers - Admit to general medical floor under observation status. Give Decadron 6 mg IV 3 times daily. Give Tylenol for mild (level 1-3 out of 10) pain or fever. Continue oxycodone/acetaminophen for moderate (level 4-6/10) pain. Give Dilaudid 1 mg IV every 6 hours as needed for severe (level 7-10 out of 10) pain. Finally, we will check CT scan of the L-spine to ensure there is no involvement of the spinal canal or other acute pathologic changes that would require ortho-spine consultation. 2. Known history of lung cancer that has metastasized to his spine causing #1 - We will consult for the radiation-oncology service to see this patient on rounds in the a.m. for further recommendations regarding possible radiation treatments with help appreciated in advance. 3. Medical noncompliance complicated by patient essentially being homeless living in someone's garage compounding #1 & #2 - PT/OT and case management consult and treat on rounds in the a.m. to help patient find alternative living conditions with help appreciated in advance. He is very desirous to go to the [facility] if it would be possible. 4. Mild hyponatremia of 129 mmol/L present on admission with patient on known losartan/HCTZ preparation - Stop HCTZ and give NS IVF and then recheck BMP in the a.m. to ensure improvement. 5. Chronic and apparently stable anemia with hemoglobin 7.2 g/dL present on admission with MCV of 100 fL - Recheck CBC in a.m. to see if transfusion will be necessary. Therefore, we will type and screen blood and transfuse for hemoglobin less than 7 g/dL. Finally, we will check B12, folic acid and iron studies in addition to a Hemoccult of his stools to more fully delineate the potential underlying etiologies of his anemia. 6. History of tobacco abuse; with subsequent COPD - Stable with no evidence of flare at this time. Give as needed nebulizers as previous. 7. Essential hypertension - Continue home regimen plus give as needed IV hydralazine for systolic blood pressure greater than 160 mmHg. 8. Hyperlipidemia - Resume statin as previous. 9. Overweight; BMI of 29.6 this admission - Weight loss will be recommended. 10. Obstructive sleep apnea; on CPAP - Continue CPAP. 11. Remote history of hepatitis B (~2013) - Noted. 12. Depression with anxiety - Resume home regimen plus give as needed Xanax for breakthrough symptoms. 13. GERD; with hiatal hernia - Continue daily with patient to be on high-dose Decadron for #1 & #2. 14. History of cannabis abuse (quit February 2023) - Noted. 15. DVT prophylaxis - Lovenox 40 mg sq daily. Total time: Approximately 70 minutes. Charges/Coding Visit Charges OBSV E&M: 98552 Observ/hosp same date L2
[2023-05-24 21:16] VITALS: BP 110/65; PULSE 92; RESP 15; TEMP 36.3; O2SAT 97
[2023-05-24 22:25] VITALS: BMI 28.3
[2023-05-24 22:47] VITALS: O2SAT 98
[2023-05-24 22:48] VITALS: BP 117/62; PULSE 91; RESP 20; TEMP 36.9; O2SAT 98
[2023-05-24] MEDS: Oxycodone/Apap 5/325 Tablet PO (23:07)
[2023-05-24] MEDS: Pregabalin 25 MG Capsule PO (23:07)
[2023-05-24] MEDS: Lidocaine 5% Patch 1 PATCH TOPICAL (23:07)
[2023-05-24] MEDS: Acetaminophen 325 MG Tablet 650 MG PO (23:07)
[2023-05-24] MEDS: dexAMETHasone 10 MG/ML Vial 6 MG IV (23:08)
[2023-05-24] MEDS: Montelukast 10 MG Tablet PO (23:09)
[2023-05-24] MEDS: Loratadine 10 MG Tablet PO (23:09)
[2023-05-24] MEDS: 0.9% Normal Saline (1000mL) 1,000 ML 70 ML IV (23:20)
[2023-05-24 23:57] VITALS: BMI 28.3
[2023-05-25] VITALS (7 sets, daily range): BP systolic 114–127; BP diastolic 61–68; PULSE 81–100; RESP 16–20; TEMP 36.5–36.8; O2SAT 94
[2023-05-25] MEDS: dexAMETHasone 10 MG/ML Vial 6 MG IV ×3 (05:04→22:11)
[2023-05-25 05:16] LABS: Absolute Lymphocyte Count 0.18 X10^3/uL (0.83-4.51); Absolute Neutrophil Count 3.9 X10^3/uL (2.0-7.7); Hematocrit 23.1 % (40-54); Hemoglobin 7.5 g/dL (13.0-16.5); Lymphocyte # 0.18 X10^3/ul (0.83-4.51); Lymphocyte % 4.3 % (19-41); Mean Corp Hgb Conc 32.5 g/dL (32-36); Mean Corpuscular Hgb 32.9 pg (27.0-32.0); Mean Corpuscular Volume 101.3 fL (80-94); Mean Platelet Vol. 9.3 fl (6.2-12.0); Monocyte# 0.12 X10^3/uL; Monocyte% 2.9 % (0-10); NRBC Flagged by Analyzer 0 % (0-5); Neutrophil # 3.87 X10^3/uL (2.7-7.7); Neutrophil % 92.3 % (47-70); POSITIVE DIFFERENTIAL YES; POSITIVE MORPHOLOGY YES; Platelet Count 140 K/mm3 (150-450); RBC Distribution Width CV 18.9 % (11.6-14.6); RBC Distribution Width SD 69.4 fl (35.1-43.9); Red Blood Count 2.28 M/mm3 (4.6-6.2); White Blood Count 4.2 K/mm3 (4.4-11.0)
[2023-05-25 05:17] LABS: Differential Indicated SCAN CRITERIA MET
[2023-05-25 05:34] LABS: ALB/GLOB Ratio 0.7 RATIO (0.9-2.4); AST(SGOT) 26 U/L (15-37); Alanine Aminotransfer ALT/SGPT 21 U/L (16-61); Albumin, Serum 2.6 g/dL (3.2-5.0); Alkaline Phosphatase 153 U/L (45-117); Anion Gap 3 (5-15); BUN 23 mg/dL (7-18); BUN/Creat Ratio 32.1 RATIO (10-20); Calcium,Total 8.8 mg/dL (8.5-10.1); Chloride 94 mmol/L (98-107); Creatinine, Serum 0.72 mg/dL (0.70-1.30); EST Glomerular Filtration Rate 118 mL/min (>60); Est Glom Filt Rate - Afr Amer 143 mL/min (>60); Estimated Creatinine Clearance 103.23 ml/min; Globulin 3.9 g/dL (2.2-4.2); Glucose 202 mg/dL (74-106); Phosphorus 3.9 mg/dL (2.5-4.9); Protein, Total 6.5 g/dL (6.4-8.2); Sodium Level 130 mmol/L (136-145)
[2023-05-25] MEDS: Ipratropium/Albuterol Sulfate 3 ML AMPUL.NEB INHALATION ×3 (07:21→18:52)
[2023-05-25 09:51] LABS: Iron 36 ug/dL (65-175); Iron Binding Capacity,Total 203 ug/dL (250-450); PERCENT IRON SATURATION 17.7 % (15.0-55.0); Prealbumin 21.1 mg/dL (20.0-40.0)
[2023-05-25] MEDS: Oxycodone/Apap 5/325 Tablet PO (10:43)
[2023-05-25] MEDS: Pregabalin 75 MG Capsule PO ×2 (10:43→22:15)
[2023-05-25] MEDS: Polyethylene Glycol 3350 17 GM PACKET PO (10:43)
[2023-05-25] MEDS: Ensure Plus High Protein 120 ML LIQUID PO ×3 (10:43→22:15)
[2023-05-25] MEDS: Fluticasone 0.05% 1 SPRAY NASAL.SRY 2 SPRAY NASAL (10:44)
[2023-05-25] MEDS: Pantoprazole Sodium 20 MG Tablet PO (10:45)
[2023-05-25] MEDS: Senna/Docusate Sodium 1 Tablet 4 TABLET PO (10:45)
[2023-05-25] MEDS: amLODIPine 10 MG Tablet PO (10:45)
[2023-05-25] MEDS: buPROPion (XL) 150 MG TABLET.XL PO (10:46)
--- NOTE | 2023-05-25 13:02 | PN.HOSP_ITS ---
Reason for Visit Reason for Visit: Intractable low back pain Subjective Subjective Mr. Gonzáles is a 62-year-old white male who presented to the emergency department at [facility] on 05/25/2023 with intractable low back pain. He had recently come in on 05/23/2023 with the same complaint and an MRI of his lumbar spine was done at that time which showed extensive bony metastasis but no extrusion into the spinal canal. At that point it was recommended he follow-up as an outpatient with his oncologist and pursue radiation oncology. Patient had not yet been able to do that and due to severe low back pain radiating down the left leg along with urinary incontinence he decided to come back to the emergency department. He states urinary incontinence and his constipation have been there for about 2 weeks and are new since his MRI was done a few days ago. He follows with oncology and sees Dr. Patel with his last appointment being 05/13/2023. It sounds as if he was told he has progressive disease and is not a candidate for chemotherapy anymore. We will have oncology see him to assist with overall recommendations with regards to his cancer to help the patient with decision making for ongoing care. The patient is interested in radiation o ncology to help with his pain in his back. He was diagnosed with lung cancer in 2021 and had a right upper lobectomy with lymph node dissection and received adjuvant chemotherapy at that time. A CT of the chest in 2022 showed a new right middle lobe nodule and right hilar and paratracheal/precarinal node enlargement. PET scan was done in October 2022 which showed right epicardial nodule, right hilar nodule, right paratracheal node, right pleural-based nodule anteriorly, left subpectoral nodule with hypermetabolic activities. At that point he was referred for systemic therapy as he did not want to go back to [place] for chemotherapy or immunosuppressive therapy. A PET/CT performed 02/11/23 demonstrated update in the right hemithorax, mediastinum, right perihilum, left retroclavicular, retropectoral area and left chest wall, abdominal mesentery and skeletal metastatic disease involving several thoracic and lumbar vertebra, left scapular and right proximal humerus. Palliative chemoimmunotherapy was started on 03/11/2023. This has been stopped and he had a thoracentesis performed on 05/19/2023 ordered by oncology. It sounds as if his disease is quite progressive and he may be end-stage at this time and hospice most appropriate however patient still would like to be full code until he can think this through over and get assistance from oncology. He has no new symptoms since his MRI was performed 2 days prior to presentation however he was admitted for intractable pain. He states his pain is a little bit better today however he is markedly limited. He is looking for pain management with possible radiation and feels that he needs to get his affairs in order as he seems to realize that he is getting closer to the end of his life with limited options for ongoing treatment. He would like to talk to oncology and radiation oncology to see what they can pursue at this time. He is currently living in a garage and his living conditions are extremely poor. He was trying to get himself into [facility] but thus far he has not been able to arrange alternate living situation from his current. Objective Data Objective Data Vital Signs: Vital Signs Temp Pulse Resp BP Pulse Ox O2 Del Method O2 Flow Rate 98.2 F 98 20 H 120/62 94 Nasal Cannula 3 05/25/23 10:50 05/25/23 10:50 05/25/23 10:50 05/25/23 10:50 05/25/23 10:50 05/25/23 11:10 05/25/23 11:10 Oxygen Flow Rate (L/min) 3 Oxygen Delivery Method Nasal Cannula Weight: 77.1 kg Body Mass Index (BMI) 28.3 Intake & Output: Intake and Output for Last 24 Hours 05/23/23 05/24/23 05/25/23 23:59 23:59 23:59 Intake Total 600 / 600 Output Total 250 / 250 600 / 600 Balance -250 / -250 0 / 0 Medical Nutrition Assessment Dietitian: Malnutrition Criteria Met Start: 05/25/23 10:03 Freq: Status: Active Protocol: Document 05/25/23 10:18 LO (Rec: 05/25/23 10:18 LO [id number]) Nutrition Malnutrition Evidence of Malnutrition Exists Yes Malnutrition (severe): Chronic Evidenced By Suboptimal Energy Intake ( Severe),Weight Loss (Severe), Physical Changes (Severe) Clinical Problem Chronic Disease or Condition Related Malnutrition Etiology severe related to increased nutritional needs due to chronic disease Signs/Symptoms as evidenced by <75% PO intake of estimated nutrition needs, 59.8lbs (26%) unintentional weight loss in 6 months, and severe fat loss to triceps Status Active Problem Recommendation Dietitian Recommendations/Changes RD will liberalize diet to Regular to optimize oral intakes. Continue 120mL EPHP 4x daily with medpass to provide supplemental energy. Lab / Micro Data 05/25/23 05:00 05/25/23 05:00 Labs: Laboratory Results - last 24 hr 05/24/23 20:00: WBC 5.2, RBC 2.21 L, Hgb 7.2 L, Hct 22.1 L, MCV 100.0 H, MCH 32.6 H, MCHC 32.6, RDW Std Deviation 67.5 H, RDW Coeff of Ruben 18.6 H, Plt Count 120 L, MPV 9.0, Immature Gran % (Auto) 0.200, Neut % (Auto) 80.5 H, Lymph % (Auto) 8.7 L, Stearns % (Auto) 10.0, Eos % (Auto) 0.4, Baso % (Auto) 0.2, Absolute Neuts (auto) 4.2, Absolute Lymphs (auto) 0.45 L, Nucleated RBC % 0.4, Differential Comment SCANNED, Sodium 129 L, Potassium 4.5, Chloride 93 L, Carbon Dioxide 32.0, Anion Gap 4 L, BUN 26 H, Creatinine 0.62 L, Estim Creat Clear Calc 122.36, Est GFR (MDRD) Af Amer 171, Est GFR (MDRD) Non-Af 141, BUN/Creatinine Ratio 42.3 H, Glucose 101, Calcium 8.5 05/24/23 23:12: Blood Type A POSITIVE, Antibody Screen NEGATIVE 05/25/23 05:00: WBC 4.2 L, RBC 2.28 L, Hgb 7.5 L, Hct 23.1 L, MCV 101.3 H, MCH 32.9 H, MCHC 32.5, RDW Std Deviation 69.4 H, RDW Coeff of Ruben 18.9 H, Plt Count 140 L, MPV 9.3, Immature Gran % (Auto) 0.500, Neut % (Auto) 92.3 H, Lymph % (Auto) 4.3 L, Stearns % (Auto) 2.9, Eos % (Auto) 0.0, Baso % (Auto) 0.0, Absolute Neuts (auto) 3.9, Absolute Lymphs (auto) 0.18 L, Nucleated RBC % 0, Sodium 130 L , Potassium 5.0, Chloride 94 L, Carbon Dioxide 33.0 H, Anion Gap 3 L, BUN 23 H, Creatinine 0.72, Estim Creat Clear Calc 103.23, Est GFR (MDRD) Af Amer 143, Est GFR (MDRD) Non-Af 118, BUN/Creatinine Ratio 32.1 H, Glucose 202 H, Calcium 8.8, Phosphorus 3.9, Magnesium 2.0, Iron 36 L, TIBC 203 L, Iron Saturation 17.7, Tota l Bilirubin 0.80, AST 26, ALT 21, Alkaline Phosphatase 153 H, Total Protein 6.5, Albumin 2.6 L, Globulin 3.9, Albumin/Globulin Ratio 0.7 L, Prealbumin 21.1, Folate 8.60 Radiography Diagnostic Testing: Radiology Impression Lumbar Spine CT 05/24/23 20:54 IMPRESSION: No change from 05/22/2023. Electronically Signed: Pete Hines MD at 21:52 EDT , Physical Exam Const alert, oriented x3 and no apparent distress; Negative for healthy appearing Constitutional Narrative: Overweight, intermittently tearful, upper middle-aged, white male, sitting up in bed, appears older than stated age, does not appear toxic HEENT head/scalp atraumatic and moist oral mucous membranes HEENT Narrative: Dentition is extremely poor with multiple rotting teeth and missing teeth, Mallampati is 3, no thrush Head and Scalp: normocephalic Eyes PERRL and EOMs intact bilaterally Eyes Narrative: Conjunctiva are pale bilaterally Neck no lymphadenopathy and supple Neck Narrative: Neck is short and thick, trachea midline Resp normal respiratory effort, no retractions, no use of accessory muscles and clear to auscultation bilaterally Resp Narrative: Diminished diffusely Auscultation: Negative for rales, rhonchi or wheezes Cardio regular rate, regular rhythm, S1 normal heart sound, S2 normal heart sound, no murmurs, no rub, no gallops and no clicks GI normal to inspection, nondistended, normoactive bowel sounds, soft to palpation and non-tender Extremity Extremity Narrative: Pedal pulses are 2+, clubbing noted, no cyanosis, trace edema bilateral lower extremities Skin no rashes or lesions noted, no wounds, skin turgor normal, no jaundice, no petechiae and no mottling Skin Narrative: Skin is pale Neuro oriented x3, moves all extremities and no focal motor deficits Neuro Narrative: Patient can move all extremities but does have difficulty moving lower extremity due to significant pain in his back Speech: speech normal Psych Psych Narrative: Affect is flat, mood is depressed, patient is extremely tearful throughout our conversation Assessment & Plan Assessment/Plan (1) Intractable low back pain: (2) Metastatic cancer to spine: PLAN: Plan Intractable low back pain -Secondary to metastatic lung cancer -Transition Tylenol from as needed to scheduled 1000 mg every 8 hours -Continue Decadron 6 mg 3 times daily -Continue as needed.Dilaudid -Will add as needed Toradol with bony pain -Continue home Lyrica but increase from 25 twice daily to 75 twice daily and watch renal function -Discontinue as needed Percocet and change to oxycodone 5 mg every 4 hours -Continue bowel regimen with daily MiraLAX and senna/docusate Metastatic lung cancer -Diagnosed in 2021 and status post right upper lobectomy and lymph node dissection 12/26/2021--> received neoadjuvant chemotherapy--> CT chest on 09/03/2022 showed new right middle lobe nodule and new lymphadenopathy in the chest--> PET 11/05/2022 showed a multitude of hypermetabolic activities consiste nt with metastatic disease--> PET/CT performed on 02/11/2023 showed worsening metastatic disease and CT-guided biopsy of right pleural mass was done on 01/22/2023 that showed metastatic adenocarcinoma--> palliative chemo was started on 03/11/2023 -Had CT-guided thoracentesis performed on 05/19/2023 with removal of 220 cc of fluid--> negative for malignant cells -MRI of the lumbar spine shows significant metastatic disease with no neurological changes or invasion of the spinal canal/nerves -Consult radiation oncology for consideration of palliative radiation for pain management -Consult oncology for discussion with patient about goals of care and overall prognosis -Patient is unclear how much more he wants to pursue Homelessness -Patient's been living in somebody else's garage -Has been trying to find a place to live but running into difficulties due to finances -Consult case management/social work to assist -With current pain I am doubtful the patient will be able to go home and may need placement however he would like to avoid a [place] [facility] care facility if at all possible -His preference would be to be able to go to [facility] Chronic hypoxic respiratory failure secondary to COPD -Patient is on oxygen at baseline 3 L -Currently stable -As needed nebulizers -Restart inhalers at discharge -No signs of acute exacerbation Chronic hyponatremia -Likely related to his lung cancer -Relatively stable -Will restart losartan HCTZ and monitor sodium -Discontinue IV fluids Chronic anemia -Hemoccult stool has been ordered and is pending -It appears his hemoglobin has been running between 7.0 and 8.0 -Currently 7.5 -Hemoglobin is stable -Will hold off on pursuing any further workup at this time -Suspect patient has marrow infiltrative disease with metastatic disease Thrombocytopenia -May be related to chemo -Mild -Platelet counts have been running low since the end of April between 120 and 150,000 -Repeat CBC in a.m. -Suspect patient has marrow infiltrative disease with metastatic disease HTN/HPL -Continue home amlodipine -Continue home losartan hydrochlorothiazide -Patient does not take a statin Seasonal allergies -Continue home medication GERD/hiatal hernia -Continue home Protonix History of hepatitis B -Remote -No current issues Depression -Continue home Wellbutrin -Patient very tearful during my exam -Will add some Cymbalta as this may help with his pain some plus hopefully give him some relief from his depression. History of tobacco/cannabis/alcohol abuse -Patient has quit using all the substances -Advise ongoing cessation DVT prophylaxis -Enoxaparin 40 mg daily CODE STATUS -Full code-this was verified with the patient however he is contemplating DNR. We did have a lengthy conversation with regards to what would happen if we pr oceeded with CPR and intubation and patient is not quite sure that that is something he wants to pursue however he wanted to think more about it and talk to some people before he changes his CODE STATUS. We also attempted discuss his overall prognosis. He does realize that his disease is not curative but would like to talk more with oncology before making any decisions. He does not know if he wants to pursue any more treatment at this point or not. Charges/Coding Visit Charges Inpatient E&M: 15743 Subs Hosp L3
[2023-05-25] MEDS: Ketorolac 15 MG/ML Vial IV (13:26)
[2023-05-25] MEDS: Acetaminophen 500 MG Tablet 1000 MG PO ×2 (13:33→22:15)
[2023-05-25] MEDS: DULoxetine Hcl 30 MG Capsule PO (13:33)
[2023-05-25] MEDS: oxyCODONE 5 MG Tablet PO (15:33)
[2023-05-25] MEDS: Ondansetron 8 MG Tablet PO (16:39)
[2023-05-25] MEDS: Loratadine 10 MG Tablet PO (22:11)
[2023-05-25] MEDS: Montelukast 10 MG Tablet PO (22:11)
[2023-05-25] MEDS: Lidocaine 5% Patch 1 PATCH TOPICAL (22:16)
[2023-05-25] MEDS: 0.9% Saline Lock 10 ML Syringe IV (22:16)
[2023-05-26] VITALS (13 sets, daily range): BP systolic 122–157; BP diastolic 70–99; PULSE 85–103; RESP 18–20; TEMP 36–36.6; O2SAT 91–98; BMI 29.0; BMI 32.3
[2023-05-26] MEDS: Acetaminophen 500 MG Tablet 1000 MG PO ×3 (05:05→21:48)
[2023-05-26] MEDS: 0.9% Saline Lock 10 ML Syringe IV ×5 (05:05→21:53)
[2023-05-26] MEDS: dexAMETHasone 10 MG/ML Vial 6 MG IV ×2 (05:05→21:48)
[2023-05-26 06:25] LABS: Hematocrit 22.1 % (40-54); Hemoglobin 6.9 g/dL (13.0-16.5); Mean Corp Hgb Conc 31.2 g/dL (32-36); Mean Corpuscular Hgb 31.9 pg (27.0-32.0); Mean Corpuscular Volume 102.3 fL (80-94); Mean Platelet Vol. 9.3 fl (6.2-12.0); Platelet Count 145 K/mm3 (150-450); RBC Distribution Width CV 18.5 % (11.6-14.6); RBC Distribution Width SD 69.1 fl (35.1-43.9); Red Blood Count 2.16 M/mm3 (4.6-6.2); White Blood Count 5.3 K/mm3 (4.4-11.0)
[2023-05-26] MEDS: Ipratropium/Albuterol Sulfate 3 ML AMPUL.NEB INHALATION ×3 (06:36→19:23)
[2023-05-26 06:54] LABS: Scan Indicated on CBC? Y/N YES- FLAGS NOTED
[2023-05-26 06:57] LABS: POSITIVE MORPHOLOGY YES
[2023-05-26 07:10] LABS: Anion Gap 5 (5-15); BUN 25 mg/dL (7-18); BUN/Creat Ratio 36.9 RATIO (10-20); Calcium,Total 8.8 mg/dL (8.5-10.1); Chloride 94 mmol/L (98-107); Creatinine, Serum 0.68 mg/dL (0.70-1.30); EST Glomerular Filtration Rate 126 mL/min (>60); Est Glom Filt Rate - Afr Amer 153 mL/min (>60); Estimated Creatinine Clearance 116.27 ml/min; Glucose 225 mg/dL (74-106); Potassium 4.8 mmol/L (3.5-5.1); Sodium Level 131 mmol/L (136-145)
--- NOTE | 2023-05-26 08:38 | RAO.CON ---
Intake Vital Signs 05/22/23 16:53 05/24/23 19:33 05/24/23 21:16 05/24/23 22:00 05/24/23 22:25 05/24/23 22:47 05/24/23 22:48 05/24/23 23:57 05/25/23 04:50 05/25/23 04:53 05/25/23 07:21 05/25/23 07:21 05/25/23 10:03 05/25/23 10:34 05/25/23 10:50 05/25/23 11:10 05/25/23 13:33 05/25/23 15:42 05/25/23 16:49 05/25/23 18:52 05/25/23 22:00 05/25/23 22:23 05/26/23 02:40 05/26/23 03:00 05/26/23 05:05 05/26/23 06:36 05/26/23 06:36 05/26/23 06:37 05/26/23 07:48 05/26/23 08:47 Height 5 ft 5 in 5 ft 5 in 5 ft 5 in 5 ft 5 in 5 ft 5 in Weight: 177 lb 11.081 oz 169 lb 15.622 oz 169 lb 15.622 oz 169 lb 15.622 oz 174 lb 6.17 oz 193 lb 12.581 oz BMI 29.5 28.3 28.3 29.0 32.3 BP 136/67 H 110/65 117/62 114/68 120/62 127/67 H 116/61 124/70 H Position Semi-Fowlers Semi-Fowlers Semi-Fowlers Semi-Fowlers Semi-Fowlers Semi-Fowlers Respiration 26 H 15 20 H 18 16 20 H 17 20 H 18 16 18 20 H Pulse 95 92 91 95 92 98 81 100 89 95 85 92 Temp 98.6 F 97.4 F L 98.5 F 97.7 F L 98.2 F 98.1 F 97.8 F 97.9 F Pulse Oximetry (%) 98 97 98 98 94 94 94 94 94 92 91 98 Oxygen Flow Rate (L/min) 3 3 3 3 3 3 3 3 3 3 4 4 4 4 4 4 4 4 Intake Visit Reasons: INTRACTABLE LOW BACK APIN IN THE SETTING OF KNOWN Chief Complaint: Non-small cell lung cancer on treatment Allergies Penicillins Allergy (Verified 05/22/23 15:35) Unknown venom-honey bee [bee venom (honey bee)] Allergy (Verified 05/22/23 15:35) Swelling Medications amlodipine 10 mg tablet 10 mg PO DAILY 10/31/15 [History Confirmed 05/24/23] bupropion HCl 150 mg 24 hr tablet, extended release (Wellbutrin XL) 150 mg PO DAILY depression 10/31/15 [History Confirmed 05/24/23] losartan 100 mg-hydrochlorothiazide 12.5 mg tablet 1 tab PO DAILY hypertension 10/31/15 [History Confirmed 05/24/23] omeprazole 20 mg capsule,delayed release 20 mg PO DAILY GERD 07/26/16 [History Confirmed 05/24/23] cetirizine 10 mg tablet 10 mg PO QHS allergies 10/29/21 [History Confirmed 05/24/23] pregabalin 25 mg capsule 25 mg PO BID back pain 10/29/21 [History Confirmed 05/24/23] fluticasone propionate 50 mcg/actuation nasal spray,suspension 2 spray intranasal DAILY #16 grams 08/26/22 [Rx Confirmed 05/24/23] montelukast 10 mg tablet 10 mg PO QHS ALLERGIES #90 tabs 08/26/22 [Rx Confirmed 05/24/23] tiotropium bromide 2.5 mcg/actuation mist for inhalation (Spiriva Respimat) 2 puff inhalation QDAY #4 grams 08/26/22 [Rx Confirmed 05/24/23] ondansetron 8 mg disintegrating tablet 8 mg PO Q8H PRN nausea and vomiting #30 tabs 03/03/23 [Rx Confirmed 05/24/23] polyethylene glycol 3350 17 gram/dose oral powder (Miralax) 4 g PO DAILY 03/03/23 [History Confirmed 05/24/23] sennosides 8.6 mg-docusate sodium 50 mg capsule (Senna Plus) 4 tab-cap PO DAILY constipation 05/05/23 [History Confirmed 05/24/23] budesonide-formoterol HFA 160 mcg-4.5 mcg/actuation aerosol inhaler (Symbicort) 2 puff inhalation BID #3 ea 05/06/23 [Rx Confirmed 05/24/23] oxycodone-acetaminophen 5 mg-325 mg tablet 1 tab PO Q4H PRN Pain 4 days #20 TABLETS 05/06/23 [Rx Confirmed 05/24/23] dexamethasone 4 mg tablet 4 mg PO DAILY #20 tabs 05/13/23 [Rx Confirmed 05/24/23] Home Medications Acetaminophen (Acetaminophen 500 Mg Tablet) 1,000 mg PO Q8 [facility] Last Admin: 05/26/23 05:05 Dose: 1,000 mg Albuterol Sulfate (Albuterol 2.5 Mg/3 Ml Vial.Neb.) 2.5 mg INHALATION Q2H PRN PRN PRN Reason: SOB &/OR WHEEZING Albuterol/Ipratropium (Ipratropium/Albuterol Sulfate 3 Ml Ampul.Neb) 3 ml INHALATION Q6HWA.RT [facility] Last Admin: 05/26/23 06:36 Dose: 3 ml Amlodipine Besylate (Amlodipine 10 Mg Tablet) 10 mg PO DAILY [facility]; Protocol Last Admin: 05/25/23 10:45 Dose: 10 mg Bupropion HCl (Bupropion (Xl) 150 Mg Tablet.Xl) 150 mg PO DAILY [facility] Last Admin: 05/25/23 10:46 Dose: 150 mg Dexamethasone Sodium Phosphate (Dexamethasone 10 Mg/Ml Vial) 6 mg IV TID [facility] Last Admin: 05/26/23 05:05 Dose: 6 mg Duloxetine HCl (Duloxetine Hcl 30 Mg Capsule) 30 mg PO DAILY [facility] Last Admin: 05/25/23 13:33 Dose: 30 mg Enoxaparin Sodium (Enoxaparin 40 Mg/0.4 Ml Syringe) 40 mg SC DAILY [facility] Fluticasone Propionate (Fluticasone 0.05% 1 [place] Nasal.Sry) 2 spray NASAL DAILY [facility] Last Admin: 05/25/23 10:44 Dose: 2 spray Hydrochlorothiazide (Hydrochlorothiazide 12.5mg) 12.5 mg PO DAILY [facility] Hydromorphone HCl (Hydromorphone 1 Mg/Ml Syringe) 1 mg IV Q6H PRN PRN PRN Reason: Severe pain Score 7-10/10 Sodium Chloride () 250 mls @ 15 mls/hr IV .[id number] PRN PRN Reason: Saline Flush Ketorolac Tromethamine (Ketorolac 15 Mg/Ml Vial) 15 mg IV Q8H PRN PRN PRN Reason: Pain 1-10 or Fever Stop: 05/27/23 07:21 Last Admin: 05/25/23 13:26 Dose: 15 mg Lidocaine (Lidocaine 5% Patch) 1 patch TOPICAL 2200 [facility]; Protocol Last Admin: 05/25/23 22:16 Dose: 1 patch Loratadine (Loratadine 10 Mg Tablet) 10 mg PO QHS [facility] Last Admin: 05/25/23 22:11 Dose: 10 mg Losartan Potassium (Losartan Potassium 100 Mg Tablet) 100 mg PO DAILY [facility] Melatonin (Melatonin 3 Mg Tablet) 3 mg PO QHS PRN PRN PRN Reason: INSOMNIA Montelukast Sodium (Montelukast 10 Mg Tablet) 10 mg PO QHS [facility] Last Admin: 05/25/23 22:11 Dose: 10 mg Nutritional Formula (Lactose Free) (Ensure Plus High Protein 120 Ml Liquid) 120 ml PO 4X/DAY [facility] Last Admin: 05/25/23 22:15 Dose: 120 ml Ondansetron HCl (Ondansetron 8 Mg Tablet) 8 mg PO Q8H PRN PRN PRN Reason: nausea and vomiting Last Admin: 05/25/23 16:39 Dose: 8 mg Oxycodone HCl (Oxycodone 5 Mg Tablet) 5 mg PO Q4H PRN PRN PRN Reason: Pain Score 4-5 or Pre PT/OT Last Admin: 05/25/23 15:33 Dose: 5 mg Pantoprazole Sodium (Pantoprazole Sodium 20 Mg Tablet) 20 mg PO DAILY [facility] Last Admin: 05/25/23 10:45 Dose: 20 mg Polyethylene Glycol (Polyethylene Glycol 3350 17 Gm Packet) 17 gm PO DAILY [facility] Last Admin: 05/25/23 10:43 Dose: 17 gm Pregabalin (Pregabalin 75 Mg Capsule) 75 mg PO BID [facility] Last Admin: 05/25/23 22:15 Dose: 75 mg Senna/Docusate Sodium (Senna/Docusate Sodium 1 Tablet) 4 tablet PO DAILY [facility] Last Admin: 05/25/23 10:45 Dose: 4 tablet Sodium Chloride (0.9% Saline Lock 10 Ml Syringe) 10 - 40 ml IV UD PRN PRN Reason: SALINE FLUSH Last Admin: 05/26/23 05:05 Dose: 10 ml Discontinued Medications Acetaminophen (Acetaminophen 325 Mg Tablet) 650 mg PO Q6H PRN PRN PRN Reason: Mild pain Score 1-3 or fever. Last Admin: 05/24/23 23:07 Dose: 650 mg Sodium Chloride () 1,000 mls @ 70 mls/hr IV .[id number] [facility] Last Admin: 05/25/23 13:40 Dose: Not Given Morphine Sulfate (Morphine 4 Mg/Ml Syringe) 4 mg IV X1 ONE Stop: 05/24/23 19:48 Last Admin: 05/24/23 20:07 Dose: 4 mg Non-Formulary Medication (Budesonide-Formoterol [Symbicort]) 2 puff INHALATION BID SIS Non-Formulary Medication (Tiotropium [place] [Spiriva Respimat]) 2 puff INHALATION QDAY SIS Ondansetron HCl (Ondansetron 4 Mg/2 Ml Vial) 4 mg IV X1 ONE Stop: 05/24/23 19:48 Last Admin: 05/24/23 20:07 Dose: 4 mg Oxycodone/Acetaminophen (Oxycodone/Apap 5/325 Tablet) 1 tablet PO Q4H PRN PRN PRN Reason: Moderate pain Score 4-6/10 Last Admin: 05/25/23 10:43 Dose: 1 tablet Pregabalin (Pregabalin 25 Mg Capsule) 25 mg PO BID [facility] Last Admin: 05/24/23 23:07 Dose: 25 mg PFSH PFSH Medical History Alcohol use Anxiety and depression Arthritis BiPAP (biphasic positive airway pressure) dependence Broken teeth Cancer Chest pain Chronic cough Chronic pain CINV (chemotherapy-induced nausea and vomiting) Constipation COPD (chronic obstructive pulmonary disease) Depression Dirty living conditions Drug induced neutropenia Encounter for education Former smoker GERD (gastroesophageal reflux disease) Hemoptysis Hepatitis Hiatal hernia with GERD High cholesterol History of echocardiogram History of stress test HTN (hypertension) Hyperglycemia Iatrogenic pneumothorax Marijuana smoker Marijuana use Mass of upper lobe of right lung Morbid obesity with BMI of 40.0-44.9, adult Nicotine addiction Nicotine dependence in remission Obesity On home oxygen therapy ALEXANDRA (obstructive sleep apnea) Poor dentition Shortness of breath on exertion Sleep apnea Smoking greater than 40 pack years Wears glasses Home Medications amlodipine 10 mg tablet 10 mg PO DAILY 10/31/15 [History Last Taken 03/06/23 04:20] bupropion HCl 150 mg 24 hr tablet, extended release (Wellbutrin XL) 150 mg PO DAILY depression 10/31/15 [History Last Taken 03/06/23 04:20] losartan 100 mg-hydrochlorothiazide 12.5 mg tablet 1 tab PO DAILY hypertension 10/31/15 [History Last Taken 03/05/23 08:00] omeprazole 20 mg capsule,delayed release 20 mg PO DAILY GERD 07/26/16 [History Last Taken 03/06/23 04:20] cetirizine 10 mg tablet 10 mg PO QHS allergies 10/29/21 [History Last Taken 10/29/21] pregabalin 25 mg capsule 25 mg PO BID back pain 10/29/21 [History Last Taken 03/06/23 04:20] fluticasone propionate 50 mcg/actuation nasal spray,suspension 2 spray intranasal DAILY #16 grams 08/26/22 [Rx Last Taken 03/06/23 04:20] montelukast 10 mg tablet 10 mg PO QHS ALLERGIES #90 tabs 08/26/22 [Rx Last Taken 03/05/23] tiotropium bromide 2.5 mcg/actuation mist for inhalation (Spiriva Respimat) 2 puff inhalation QDAY #4 grams 08/26/22 [Rx Last Taken 03/06/23 04:20] ondansetron 8 mg disintegrating tablet 8 mg PO Q8H PRN nausea and vomiting #30 tabs 03/03/23 [Rx Last Taken Unknown] polyethylene glycol 3350 17 gram/dose oral powder (Miralax) 4 g PO DAILY 03/03/23 [History Last Taken Unknown] sennosides 8.6 mg-docusate sodium 50 mg capsule (Senna Plus) 4 tab-cap PO DAILY constipation 05/05/23 [History Last Taken Unknown] budesonide-formoterol HFA 160 mcg-4.5 mcg/actuation aerosol inhaler (Symbicort) 2 puff inhalation BID #3 ea 05/06/23 [Rx Last Taken Unknown] oxycodone-acetaminophen 5 mg-325 mg tablet 1 tab PO Q4H PRN Pain 4 days #20 TABLETS 05/06/23 [Rx Last Taken Unknown] dexamethasone 4 mg tablet 4 mg PO DAILY #20 tabs 05/13/23 [Rx Last Taken Unknown] Allergy/AdvReac Type Severity Reaction Status Date / Time Penicillins Allergy Unknown Verified 05/22/23 15:35 venom-honey bee Allergy Swelling Verified 05/22/23 15:35 [bee venom (honey bee)] Family History Mother Cancer Father Diabetes Sister Diabetes Surgical History History of arthroplasty of left knee History of bronchoscopy History of lobectomy of lung History of tonsillectomy Social History household members: none Smoking Status: Former smoker quit date: 06/04/20 pack-years: 40 Tobacco: How many years used: 40 how long ago did patient quit smokin ppd second hand exposure: Yes alcohol intake: current alcohol intake frequency: holidays/special occasions only substance use type: marijuana caffeine: Yes Type: coffee Number of servings: 3 what type of physical activity do you participate in: walking Referring Provider: Fernandez Patel MD Diagnosis: Roel Gonzáles is a 62-year-old male diagnosed with pathologic stage IIIA (pT2a pN2 M0) 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 He now has disease recurrence s/p CT chest with contrast (09/03/2022), PET scan (11/05/2022), bronchoscopy with EBUS (12/19/2022). History of Present Illness: 10/11/2021: CT chest without contrast was performed.? This was completed to follow-up on a previously identified lung nodule.? This demonstrated that the lesion diameter has increased from 8 mm to a diameter of 14 mm and that this is worrisome for neoplasm.? No other new lesions are identified.? And there is no evidence for mediastinal adenopathy. 10/29/2021: CT-guided biopsy of the right lung was completed.? Pathology demonstrated scant minute fragment of lung parenchymal tissue which is negative for malignancy. 11/14/2021: PET scan was performed.? This demonstrated increased FDG uptake defined in the right upper lung field right upper lobe fulfilling quantitative criteria for viable neoplasm with a maximum SUV of 2.7 and a maximum diameter of the lesion of 1.4 cm.? Overall compared to the prior PET scan from 01/23/2021 the progression of the right upper lobe lesion does warrant histopathologic investigation. 12/26/2021: Patient completed right upper lobe wedge excision followed by lobectomy of a solitary pulmonary nodule.? Also underwent lymph node excision involving level 12, level 4, and level 7.? Pathology demonstrated grade 3 invasive a center adenocarcinoma measuring 1.7 cm with visceral pleural invasion present, lymph vascular invasion is present and extensive, all margins are negative with the closest margin to the invasive disease being 1 cm, 3/9 lymph nodes contained metastatic disease, these are 1 lymph node from level 7 and 2 lymph nodes from the lobectomy (level 10), level 4 and level 12 were negative. 02/18/2022: Brain MRI was performed.? This demonstrated no evidence for metastatic disease. 04/24/2022: complete 4th cycle of adjuvant Cisplatin/Pemetrexed. 06/11/2022: CT chest/abdomen with contrast was performed.? This demonstrated that the patient is status post right upper lobectomy with loss in the right hemithorax and there is a 2 mm noncalcified nodule in the anterior medial aspect of the right middle lobe and stable focal linear scar in the lateral posterior aspect of the right lower lateral area.? Normal-appearing mediastinum. 09/03/2022: CT chest with contrast was performed.? This demonstrated that the patient is status post right upper lobectomy with volume loss in the right hemithorax.? There is a stable 2 mm noncalcified nodule in the anterior medial aspect of the right middle lobe.? There is a new 1.17 cm nodule in the peripheral lateral aspect of the right middle lobe.? There is a 2.3 x 1.4 cm lymph node in the right paratracheal region and also evidence of a precarinal lymph node as well as enlargement of the right hilar lymph nodes. ?There is evidence of a 3 x 2.3 cm hypodense nodule in the right adrenal gland which is unchanged. 11/05/2022: PET scan was performed.? This demonstrated soft tissue nodules in the anterior lateral epicardial fat/right middle lobe region measuring up to 2.1 x 2.4 cm with an SUV of 4.8.? There is a left subpectoral lymph node measuring 1.5 x 1.6 cm with an SUV of 6 and this is new since the prior PET scan.? There is mild nodular pleural thickening of the anterior posterior right hemithorax measuring 1.4 x 1.7 cm with an SUV of 4.2.? There is a 2.3 x 2.3 cm soft tissue nodule right lateral to the trachea.? All of these areas do meet criteria for viable neoplasm. 12/19/2022: Patient completed bronchoscopy and EBUS.? Multiple lymph node stations were biopsied including 11 L, 7, 4L, 4R, 11 R.? Within the 4R and 11 R stations there was evidence for adenocarcinoma, within the level 7 station there is rare atypical cells of unknown significance.? Bronchus intermedius brushings are positive for malignant cells. 05/08/2023: CT chest/abdomen/pelvis with contrast was performed.? This demonstrates essentially no change from prior studies.? There is evidence of bony metastases.? There is a mass in the right adrenal gland.? There are multiple bilateral pulmonary nodules.? There is persistent volume loss in the right hemithorax with the right hilar and mediastinal adenopathy and collapse of the right upper lobe and bilateral pleural effusions. 05/13/2023: stopped systemic therapy 05/19/2023: Thoracentesis of left pleural effusion completed.? This was negative for malignant cells. 05/22/2023: MRI lumbar spine was completed.? This demonstrated extensive diffuse disseminated bone metastasis without definite evidence of tumor extension into the spinal canal or significant spinal stenosis.? There is marked thinning of the mid thecal sac at the mid sacral level due to extensive epidural fat deposition.? There is multilevel neural foraminal stenosis secondary to disc disease and bony hypertrophy.? Scan may be repeated with contrast if clinically warranted. 05/24/2023: CT lumbar spine without contrast was performed.? Read as having no changes since imaging on 05/22/2023. Radiation Treatment History: No prior history of radiation therapy. No pacemaker. No diagnosis of radiosensitizing comorbidity. Interval History: Patient was seen as an inpatient consultation due to having progressively worsening back pain. He reports the back pain being high prior to his hospitalization he estimates maybe at about 8/10. He is now taking pain medication in the hospital and this has come down to about 4/10. This is worse with activity. He denies having weakness, numbness, tingling. He denies having rectal or urinary incontinence or leakage. He does have constipation which has been relieved in the last couple of days and he does have urinary urgency. He denies having other pain elsewhere in his body. He has stable shortness of breath mostly with exertion, he is on 4 L of oxygen. He denies cough or hemoptysis. He does have occasional headaches at baseline which are stable and denies having nausea. Weight has decreased about 30 lbs over the last 6 months. His pain does limit him but he is able to complete ADLs. He denies having other problems or concerns at this time. Review of Systems: A 12-point review of systems was completed and was negative except for what is noted in the HPI/Interval History and by the nurse. Physical Exam: Weight: 193 lbs ECO KARNOFSKY SCORE: 70% CONSTITUTIONAL: Well-developed, well-nourished, and in no apparent distress. NECK: Supple, no thyromegaly, and non-tender. Trachea midline. No cervical or supraclavicular adenopathy noted. CARDIAC: Regular rate and rhythm. Normal S1, S2. No murmurs, rubs, or gallops. PULMONARY/CHEST: Lungs are clear to auscultation and percussion bilaterally. No wheezes, rhonchi, or crackles noted. Decreased lung sounds bilaterally. No increased work of breathing. ABDOMINAL: Abdomen soft, non-tender, non-distended. No hepatomegaly. Normoactive bowel sounds in all four quadrants. No guarding, rebound. BACK: Straight and aligned. No CVA tenderness. Axial skeleton tender to percussion in the lumbar and sacral area, no other tenderness. EXTREMITIES: Full range of motion in all four extremities. No evidence of edema. NEUROLOGICAL EXAM: Alert and oriented x 3. Answers questions and follows commands appropriately. Cranial nerves II through XII are grossly intact. No focal neurological deficit. Speech is fluent. Muscle strength is 5/5 in all muscle groups. Gait and posture without abnormality. PSYCHIATRIC: Appropriate mood and affect for the clinical situation. 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 He now has disease recurrence s/p CT chest with contrast (09/03/2022), PET scan (11/05/2022), bronchoscopy with EBUS (12/19/2022).? He was found to have metastatic disease on PET and pleural fluid biopsy.? He initiated chemoimmunotherapy on 03/11/2023 with Carbo/Taxol/Libtayo.? He developed worsening back pain and presented to the emergency room, MRI lumbar spine and CT lumbar spine were completed and demonstrate evidence for osseous metastatic disease and no clear evidence for epidural spread. Plan: Patient was seen as an inpatient consultation. He does have fairly intractable low back pain but it is much improved on current pain regimen, right now it is a 4/10 and fairly well localized to the lumbar and sacral spine areas. He has very small amounts of pain which are inconsistent at other areas. He stop systemic therapy 2 weeks ago and is planning for discussion with his medical oncologist in the near future to discuss potential second line systemic therapy. Symptomatically he only has pain, there is no evidence of neurologic symptoms. I reviewed the CT and MRI lumbar spine demonstrating multifocal osseous disease, also reviewed the recent CT chest/abdomen/pelvis completed in April and PET scan completed in February. I think it is very likely that his symptoms are resulting from his osseous metastatic disease and we did review the use of palliative radiation therapy with goals of improving his pain level and preventing worsening of this disease possibly resulting in neurologic compromise. The logistics of palliative radiation therapy to the lumbar and sacral spine was reviewed and would include CT simulation, treatment planning, and daily fractionated treatment delivery likely for 5 fractions. I reviewed the potential acute and chronic toxicities to this treatment and this would include but is not limited to fatigue, skin irritation, loose stool/diarrhea, bladder irritation/urinary frequency, rectal irritation, decreased bone marrow function, bone weakness/fracture risk, pain flare, secondary cancer. Following our discussion the patient desired to proceed with palliative radiation therapy and we will have him down to our department for CT simulation in the next 1 to 2 days[address] of residence is still being determined and he may be in a care facility. We will plan to hold any systemic therapy until after palliative radiation therapy is completed. He was instructed to call with any further questions or concerns in the interim. Thank you for allowing me to participate in the management and care of your patient. If I may answer any questions in the interim, please do not hesitate to contact me at any time. Dennis Nunez DO, MS Strategies Analyst, Department of Radiation Oncology [facility] Coding Level of Care Code Off vis,new,level 5 Exam Problem Focused Diagnoses Metastatic cancer to spine C79.51
--- NOTE | 2023-05-26 09:39 | PN.HOSP_ITS ---
Reason for Visit Reason for Visit: Diagnoses Malignant neoplasm of unspecified part of unspecified bronchus or lung ( 4) Secondary malignant neoplasm of bone (05/24/23) Anemia due to antineoplastic chemotherapy (05/24/23) Hypo-osmolality and hyponatremia (05/24/23) Other low back pain (05/24/23) Adverse effect of antineoplastic and immunosuppressive drugs, initial encounter (05/24/23) Other inadequate housing (05/24/23) Subjective Subjective Patient is a 62-year-old gentleman who is currently homeless with history of metastatic lung cancer presented with intractable low back pain Objective Data Objective Data Vital Signs: Vital Signs Temp Pulse Resp BP Pulse Ox O2 Del Method O2 Flow Rate 96.8 F L 96 18 150/72 H 94 Nasal Cannula 4 05/26/23 08:40 05/26/23 08:40 05/26/23 08:40 05/26/23 08:40 05/26/23 08:40 05/26/23 08:40 05/26/23 08:40 Oxygen Flow Rate (L/min) 4 Oxygen Delivery Method Nasal Cannula Weight: 87.9 kg Body Mass Index (BMI) 32.3 Intake & Output: Intake and Output for Last 24 Hours 05/24/23 05/25/23 05/26/23 23:59 23:59 23:59 Intake Total 1800 / 1800 Output Total 250 / 250 1200 / 1200 250 / 250 Balance -250 / -250 600 / 600 -250 / -250 Medical Nutrition Assessment Dietitian: Malnutrition Criteria Met Start: 05/25/23 10:03 Freq: Status: Active Protocol: Document 05/25/23 10:18 LO (Rec: 05/25/23 10:18 [id number]) Nutrition Malnutrition Evidence of Malnutrition Exists Yes Malnutrition (severe): Chronic Evidenced By Suboptimal Energy Intake ( Severe),Weight Loss (Severe), Physical Changes (Severe) Clinical Problem Chronic Disease or Condition Related Malnutrition Etiology severe related to increased nutritional needs due to chronic disease Signs/Symptoms as evidenced by <75% PO intake of estimated nutrition needs, 59.8lbs (26%) unintentional weight loss in 6 months, and severe fat loss to triceps Status Active Problem Recommendation Dietitian Recommendations/Changes RD will liberalize diet to Regular to optimize oral intakes. Continue 120mL EPHP 4x daily with medpass to provide supplemental energy. Lab / Micro Data 05/26/23 05:50 05/26/23 05:50 Labs: Laboratory Results - last 24 hr 05/25/23 05:00: Iron 36 L, TIBC 203 L, Iron Saturation 17.7, Prealbumin 21.1, Folate 8.60 05/26/23 05:50: WBC 5.3, RBC 2.16 L, Hgb 6.9 L, Hct 22.1 L, MCV 102.3 H, MCH 31.9, MCHC 31.2 L, RDW Std Deviation 69.1 H, RDW Coeff of Ruben 18.5 H, Plt Count 145 L, MPV 9.3, Sodium 131 L, Potassium 4.8, Chloride 94 L, Carbon Dioxide 32.0, Anion Gap 5, BUN 25 H, Creatinine 0.68 L, Estim Creat Clear Calc 116.27, Est GFR (MDRD) Af Amer 153, Est GFR (MDRD) Non-Af 126, BUN/Creatinine Ratio 36.9 H, Glucose 225 H, Calcium 8.8 Micro: Microbiology 05/25/23 19:55 Stool Stool Occult Blood (GLEN) - Final Occult Blood Positive 05/25/23 Unknown Sputum, Expectorated/Coughed Gram Stain - Final Physical Exam Narrative GENERAL: appears dyspneic at rest HEENT: Atraumatic; normocephalic EYES; Anicteric, Normal Conjunctiva NECK; supple, normal thyroid, RESPIRATORY: Diminished to auscultation CARDIOVASCULAR: Regular S1 S2, GI: soft, normoactive bowel sounds, : No Renal angle tenderness; EXTREMITIES: No edema, no clubbing, MUSCULOSKELETAL: no muscle wasting NEURO: Awake; no lateralizing signs. SKIN: No Rash PSYCH; Flat affect Assessment & Plan Assessment/Plan (1) Intractable low back pain: (2) Metastatic cancer to spine: PLAN: Plan Patient is a 62-year-old gentleman who is currently homeless with history of metastatic lung cancer presented with intractable low back pain 1. Intractable lower back pain Secondary to metastatic lung CA to the bone. Patient has been admitted to regular nursing floor for symptom management. Patient treated with Decadron, Dilaudid Lyrica. Consult was placed to radiation oncology plans for patient undergo radiation therapy starting 05/29/2023 2. Metastatic lung CA -Diagnosed in 2021 and status post right upper lobectomy and lymph node dissection 12/26/2021--> received neoadjuvant chemotherapy--> CT chest on 09/03/2022 showed new right middle lobe nodule and new lymphadenopathy in the chest--> PET 11/05/2022 showed a multitude of hypermetabolic activities consistent with metastatic disease--> PET/CT performed on 02/11/2023 showed worsening metastatic disease and CT-guided biopsy of right pleural mass was done on 01/22/2023 that showed metastatic adenocarcinoma--> palliative chemo was started on 03/11/2023. Patient scheduled to undergo radiation therapy on 05/29/2023 3. Anemia ? Secondary to combination of anemia as a result of malignancy as well as anemia of chronic disorder with patient hemoglobin falling below 7 and order was given for patient to be transfused 1 unit PRBC. Also did undertake iron studies B12 levels as well as stool for guaiac 4. Homelessness -Patient's been living in somebody else's garage. Consult has been placed to case management/director social service to assist with patient current living condition at discharge 5. Chronic hypoxic respiratory failure Secondary to COPD patient is on baseline oxygen 3 L at rest 6. COPD currently not in exacerbation did continue with patient bronchodilator treatment regimen 7. Chronic hyponatremia ? Secondary to SIADH as a result of patient lung CA monitoring with daily CBC with differential 8. Hypertension - Blood pressure controlled, home medications continued with dose adjustment as needed 9.DVT prophylaxis -Patient was on enoxaparin 40 mg SC daily discontinued given his significant anemia Time spent in the patient's overall evaluation,decision-making process, review of diagnostic data, adjustment of management, discussion with other providers, nursing nursing and ancillary staff involved in patient's care documentation, 50 Minutes Charges/Coding Visit Charges Inpatient E&M: 05566 [facility] Hosp L3
[2023-05-26] MEDS: Pantoprazole Sodium 20 MG Tablet PO (09:46)
[2023-05-26] MEDS: DULoxetine Hcl 30 MG Capsule PO (09:46)
[2023-05-26] MEDS: Pregabalin 75 MG Capsule PO ×2 (09:46→21:52)
[2023-05-26] MEDS: amLODIPine 10 MG Tablet PO (09:46)
[2023-05-26] MEDS: hydroCHLOROthiazide 12.5mg 12.5 MG PO (09:46)
[2023-05-26] MEDS: buPROPion (XL) 150 MG TABLET.XL PO (09:47)
[2023-05-26] MEDS: Polyethylene Glycol 3350 17 GM PACKET PO (09:47)
[2023-05-26] MEDS: Ketorolac 15 MG/ML Vial IV ×2 (09:47→17:47)
[2023-05-26] MEDS: Fluticasone 0.05% 1 SPRAY NASAL.SRY 2 SPRAY NASAL (09:48)
[2023-05-26 10:11] LABS: Vitamin B12 1736 pg/mL (211-911)
[2023-05-26] MEDS: Losartan Potassium 100 MG Tablet PO (10:11)
[2023-05-26 10:40] LABS: Ferritin 1928 ng/mL (26-388); Iron 144 ug/dL (65-175); Iron Binding Capacity,Total 207 ug/dL (250-450); PERCENT IRON SATURATION 69.6 % (15.0-55.0)
[2023-05-26 12:29] LABS: Vitamin B12 1681 pg/mL (211-911)
[2023-05-26] MEDS: oxyCODONE 5 MG Tablet PO ×2 (12:53→18:50)
[2023-05-26] MEDS: HYDROmorphone 1 MG/ML Syringe IV (14:01)
--- NOTE | 2023-05-26 14:50 | CHAPLAIN ---
Type of Pastoral Visit _x__ Initial Visit ___ Follow-up Visit ___ On-call Visit ___ General Patient Visit ___ Spiritual Assessment ___ Family Conference ___ Bereavement ___ Rapid Response ___ Code Blue ___ Other (describe below) Pastoral Care Referral From _x__ Patient ___ Family ___ Nurse ___ Physician _x__ Field Reimbursement Manager ___ Pantry Steward/Stewardess ___ Other (describe below) Sacrament/Intervention _x__ Active listening ___ Anointing ___ Confucianism ___ Bereavement ___ Communion _x__ Christina exploration ___ _x__ Life review _x__ Prayer ___ Reconciliation ___ Sacrament of Sick _x__ Supportive presence ___ Wedding ___ Other (describe below) Pastoral Comments patient is welcoming and open about his physical status and his feelings; pt acknowledges that his condition is terminal but speaks of desires to accomplish yet in life including going camping for his October birthday, 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
--- NOTE | 2023-05-26 16:39 | CASEMGMT ---
Social Work SW met with pt and introduced self and role of SW. Pt currently lives in a garage with no bathroom. Pt is in agreement that he cannot return to this living situation. Oncology SW and Staff have been working with pt on housing options. Oncology SW Silke states a referral has been made to [facility] and [facility] program. Patient Navigator Nichole has been trying to assist pt into getting into [facility]. Per physician, pt's cancer is progressing and pt is able to talk with SW regarding this. At time talking about terminal diagnosis and realization that he may not have long to live and then quickly switching to state he plans to return to complete independence and does not appear to grasp understanding of medical decline. Phone call to DON at [facility] and Chana who state that they have given pt a list of documents that are needed prior to being considered for placement in the [place]. [facility] does have bed openings but it would take at least one to two weeks after paperwork is all received and all documents must be received prior to starting admission process. Pt updated on this and that pt cannot remain in hospital until this process is complete. Pt expresses understanding. SW spoke with pt regarding short term SNF placement while [facility] is being worked out. Pt is agreeable to this. A list of SNF providers including quality and resource use data and consistent with the patient?s preferred geographic region, medical needs, and insurance network were provided from the [employer]. SW reviewed list with pt and he is requesting [facility]. Referral sent. SW assisted pt in completing Living will and HCPOA naming his brother Quan Gonzáles. SW also assisting pt in collecting needed documentation for [facility]. SW provided emotional support regarding diagnosis. Pt discussing importance of Christina to him. Pt agreeable to referral to [facility] and referral made. SW will continue to follow. PENNIE Corona
[2023-05-26] MEDS: Ensure Plus High Protein 120 ML LIQUID PO ×2 (17:09→21:48)
[2023-05-26] MEDS: Montelukast 10 MG Tablet PO (21:48)
[2023-05-26] MEDS: Loratadine 10 MG Tablet PO (21:48)
[2023-05-26] MEDS: MELATONIN 3 MG TABLET PO (21:53)
[2023-05-27] VITALS (8 sets, daily range): BP systolic 120–135; BP diastolic 66–95; PULSE 80–97; RESP 18–22; TEMP 36.3–36.5; O2SAT 89–95; BMI 32.3
[2023-05-27] MEDS: oxyCODONE 5 MG Tablet PO ×5 (00:02→21:22)
[2023-05-27] MEDS: Ketorolac 15 MG/ML Vial IV (03:21)
[2023-05-27] MEDS: 0.9% Saline Lock 10 ML Syringe IV ×3 (03:22→14:00)
[2023-05-27] MEDS: Acetaminophen 500 MG Tablet 1000 MG PO ×3 (06:20→21:13)
[2023-05-27] MEDS: Pantoprazole Sodium 20 MG Tablet PO (06:40)
[2023-05-27] MEDS: dexAMETHasone 10 MG/ML Vial 6 MG IV ×3 (06:40→21:13)
[2023-05-27 07:09] LABS: Hematocrit 27.2 % (40-54); Lymphocyte % 6.9 % (19-41); Mean Corp Hgb Conc 33.1 g/dL (32-36); Mean Corpuscular Hgb 32.6 pg (27.0-32.0); Mean Corpuscular Volume 98.6 fL (80-94); Mean Platelet Vol. 8.9 fl (6.2-12.0); Monocyte# 0.31 X10^3/uL; Monocyte% 5.4 % (0-10); NRBC Flagged by Analyzer 0 % (0-5); Neutrophil # 5.02 X10^3/uL (2.7-7.7); Neutrophil % 87.2 % (47-70); POSITIVE DIFFERENTIAL YES; POSITIVE MORPHOLOGY YES; Platelet Count 165 K/mm3 (150-450); RBC Distribution Width CV 19.8 % (11.6-14.6); RBC Distribution Width SD 70.1 fl (35.1-43.9); Red Blood Count 2.76 M/mm3 (4.6-6.2); White Blood Count 5.8 K/mm3 (4.4-11.0)
[2023-05-27 07:28] LABS: Differential Indicated SCAN CRITERIA MET
[2023-05-27] MEDS: Ipratropium/Albuterol Sulfate 3 ML AMPUL.NEB INHALATION ×2 (07:36→12:15)
[2023-05-27 07:45] LABS: Anion Gap 5 (5-15); Anisocytosis 2+; BUN 27 mg/dL (7-18); BUN/Creat Ratio 38.7 RATIO (10-20); Calcium,Total 8.7 mg/dL (8.5-10.1); Chloride 89 mmol/L (98-107); Differential Comment SCANNED; EST Glomerular Filtration Rate 122 mL/min (>60); Est Glom Filt Rate - Afr Amer 148 mL/min (>60); Estimated Creatinine Clearance 112.95 ml/min; Glucose 154 mg/dL (74-106); Magnesium 1.9 mg/dL (1.6-2.6); Phosphorus 3.7 mg/dL (2.5-4.9); Potassium 5.1 mmol/L (3.5-5.1); Sodium Level 125 mmol/L (136-145)
--- NOTE | 2023-05-27 07:47 | PCM.PN.HOSP ---
Reason for Visit Reason for Visit: Diagnoses Malignant neoplasm of unspecified part of unspecified bronchus or lung (05/26/23) Secondary malignant neoplasm of bone (05/26/23) Anemia due to antineoplastic chemotherapy (05/26/23) Hypo-osmolality and hyponatremia (05/26/23) Other low back pain (05/26/23) Adverse effect of antineoplastic and immunosuppressive drugs, initial encounter (05/26/23) Other inadequate housing (05/26/23) Objective Data Objective Data Vital Signs: Vital Signs Temp Pulse Resp BP Pulse Ox O2 Del Method O2 Flow Rate 97.4 F L 81 18 123/95 H 94 Nasal Cannula 3 05/27/23 03:12 05/27/23 03:12 05/27/23 03:12 05/27/23 03:12 05/27/23 03:12 05/27/23 05:00 05/27/23 05:00 Oxygen Flow Rate (L/min) 3 Oxygen Delivery Method Nasal Cannula Weight: 87.9 kg Body Mass Index (BMI) 32.3 Intake & Output: Intake and Output for Last 24 Hours 05/25/23 05/26/23 05/27/23 23:59 23:59 23:59 Intake Total 1800 / 1800 1 / 1 900 / 900 Output Total 1200 / 1200 650 / 650 850 / 850 Balance 600 / 600 -649 / -649 50 / 50 Medical Nutrition Assessment Dietitian: Malnutrition Criteria Met Start: 05/25/23 10:03 Freq: Status: Active Protocol: Document 05/25/23 10:18 LO (Rec: 05/25/23 10:18 [id number]) Nutrition Malnutrition Evidence of Malnutrition Exists Yes Malnutrition (severe): Chronic Evidenced By Suboptimal Energy Intake ( Severe),Weight Loss (Severe), Physical Changes (Severe) Clinical Problem Chronic Disease or Condition Related Malnutrition Etiology severe related to increased nutritional needs due to chronic disease Signs/Symptoms as evidenced by <75% PO intake of estimated nutrition needs, 59.8lbs (26%) unintentional weight loss in 6 months, and severe fat loss to triceps Status Active Problem Recommendation Dietitian Recommendations/Changes RD will liberalize diet to Regular to optimize oral intakes. Continue 120mL EPHP 4x daily with medpass to provide supplemental energy. Lab / Micro Data 05/27/23 06:18 05/27/23 06:18 Labs: Laboratory Results - last 24 hr 05/24/23 23:12: Crossmatch See Detail 05/25/23 07:10: Vitamin B12 1681 H 05/26/23 05:50: Iron 144, TIBC 207 L, Iron Saturation 69.6 H, Ferritin 1928 H, Vitamin B12 1736 H 05/27/23 06:18: WBC 5.8, RBC 2.76 L, Hgb 9.0 L, Hct 27.2 L, MCV 98.6 H, MCH 32.6 H, MCHC 33.1 D, RDW Std Deviation 70.1 H, RDW Coeff of Ruben 19.8 H, Plt Count 165, MPV 8.9, Immature Gran % (Auto) 0.500, Neut % (Auto) 87.2 H, Lymph % (Auto) 6.9 L, [place] % (Auto) 5.4, Eos % (Auto) 0.0, Baso % (Auto) 0.0, Absolute Neuts (auto) 5.0, Absolute Lymphs (auto) 0.40 L, Nucleated RBC % 0, Differential Comment SCANNED, Anisocytosis 2+, Sodium 125 L, Potassium 5.1, Chloride 89 L, Carbon Dioxide 31.0, Anion Gap 5, BUN 27 H, Creatinine 0.70, Estim Creat Clear Calc 112.95, Est GFR (MDRD) Af Amer 148, Est GFR (MDRD) Non-Af 122, BUN/Creatinine Ratio 38.7 H, Glucose 154 H, Calcium 8.7, Phosphorus 3.7, Magnesium 1.9 Micro: Microbiology 05/25/23 19:55 Stool Stool Occult Blood (GLEN) - Final Occult Blood Positive 05/25/23 Unknown Sputum, Expectorated/Coughed Gram Stain - Final Physical Exam Narrative GENERAL: appears dyspneic at rest HEENT: Atraumatic; normocephalic EYES; Anicteric, Normal Conjunctiva NECK; supple, normal thyroid, RESPIRATORY: Diminished to auscultation CARDIOVASCULAR: Regular S1 S2, GI: soft, normoactive bowel sounds, : No Renal angle tenderness; EXTREMITIES: No edema, no clubbing, MUSCULOSKELETAL: no muscle wasting NEURO: Awake; no lateralizing signs. SKIN: No Rash PSYCH; Flat affect Assessment & Plan Assessment/Plan (1) Intractable low back pain: (2) Metastatic cancer to spine: PLAN: Plan Patient is a 62-year-old gentleman who is currently homeless with history of metastatic lung cancer presented with intractable low back pain 1. Intractable lower back pain Secondary to metastatic lung CA to the bone. Patient has been admitted to regular nursing floor for symptom management. Patient treated with Decadron, Dilaudid Lyrica. Consult was placed to radiation oncology plans for patient undergo radiation therapy starting 05/29/2023 ? 05/27/2023 patient pain control improving 2. Metastatic lung CA -Diagnosed in 2021 and status post right upper lobectomy and lymph node dissection 12/26/2021--> received neoadjuvant chemotherapy--> CT chest on 09/03/2022 showed new right middle lobe nodule and new lymphadenopathy in the chest--> PET 11/05/2022 showed a multitude of hypermetabolic activities consistent with metastatic disease--> PET/CT performed on 02/11/2023 showed worsening metastatic disease and CT-guided biopsy of right pleural mass was done on 01/22/2023 that showed metastatic adenocarcinoma--> palliative chemo was started on 03/11/2023. Patient scheduled to undergo radiation therapy on 05/29/2023 3. Anemia ? Secondary to combination of anemia as a result of malignancy as well as anemia of chronic disorder with patient hemoglobin falling below 7 and order was given for patient to be transfused 1 unit PRBC. Also did undertake iron studies B12 levels as well as stool for guaiac ? 05/27/2023 subsequent monitoring with daily CBC and differential ordered. 4. Homelessness -Patient's been living in somebody else's garage. Consult has been placed to case management/psychotherapist social worker to assist with patient current living condition at discharge 5. Chronic hypoxic respiratory failure Secondary to COPD patient is on baseline oxygen 3 L at rest 6. COPD currently not in exacerbation did continue with patient bronchodilator treatment regimen 7. Chronic hyponatremia ? 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 05/27/2023 patient sodium levels back to 125 fluid restriction initiated 8. Hypertension - Blood pressure controlled, home medications continued with dose adjustment as needed 9.DVT prophylaxis -Patient was on enoxaparin 40 mg SC daily discontinued given his significant anemia Time spent in the patient's overall evaluation,decision-making process, review of diagnostic data, adjustment of management, discussion with other providers, nursing nursing and ancillary staff involved in patient's care documentation, 35 minutes Charges/Coding Visit Charges Inpatient E&M: 49464 Subs Hosp L2
[2023-05-27] MEDS: Losartan Potassium 100 MG Tablet PO (07:58)
[2023-05-27] MEDS: Fluticasone 0.05% 1 SPRAY NASAL.SRY 2 SPRAY NASAL (07:58)
[2023-05-27] MEDS: hydroCHLOROthiazide 12.5mg 12.5 MG PO (07:59)
[2023-05-27] MEDS: DULoxetine Hcl 30 MG Capsule PO (07:59)
[2023-05-27] MEDS: Polyethylene Glycol 3350 17 GM PACKET PO (08:00)
[2023-05-27] MEDS: Senna/Docusate Sodium 1 Tablet 4 TABLET PO (08:00)
[2023-05-27] MEDS: amLODIPine 10 MG Tablet PO (08:00)
[2023-05-27] MEDS: buPROPion (XL) 150 MG TABLET.XL PO (08:01)
[2023-05-27] MEDS: Pregabalin 75 MG Capsule PO ×2 (08:03→21:14)
--- NOTE | 2023-05-27 17:42 | CASEMGMT ---
Social Work SW yesterday completed LW/POA, SW gave pt the originals and copies, and copies placed on the chart. RODNEY Dumont
--- NOTE | 2023-05-27 17:48 | CASEMGMT ---
Social Work [facility], SW let them know we will tell them when to start precert. RODNEY Dumont
[2023-05-27] MEDS: Montelukast 10 MG Tablet PO (21:14)
[2023-05-27] MEDS: Loratadine 10 MG Tablet PO (21:14)
[2023-05-28] VITALS (8 sets, daily range): BP systolic 119–141; BP diastolic 63–83; PULSE 85–96; RESP 18–20; TEMP 36.2–36.8; O2SAT 92–95; BMI 32.3
[2023-05-28] MEDS: Acetaminophen 500 MG Tablet 1000 MG PO ×3 (05:37→20:46)
[2023-05-28] MEDS: dexAMETHasone 10 MG/ML Vial 6 MG IV ×3 (05:37→21:07)
[2023-05-28] MEDS: Ipratropium/Albuterol Sulfate 3 ML AMPUL.NEB INHALATION ×3 (06:35→19:15)
--- NOTE | 2023-05-28 07:17 | PCM.PN.HOSP ---
Reason for Visit Reason for Visit: Diagnoses Malignant neoplasm of unspecified part of unspecified bronchus or lung (05/26/23) Secondary malignant neoplasm of bone (05/26/23) Anemia due to antineoplastic chemotherapy (05/26/23) Hypo-osmolality and hyponatremia (05/26/23) Other low back pain (05/26/23) Adverse effect of antineoplastic and immunosuppressive drugs, initial encounter (05/26/23) Other inadequate housing (05/26/23) Subjective Subjective Patient underwent CT simulation for his radiation therapy the day prior. Objective Data Objective Data Vital Signs: Vital Signs Temp Pulse Resp BP Pulse Ox O2 Del Method O2 Flow Rate 97.6 F L 92 20 H 141/83 H 92 Nasal Cannula 5 05/28/23 04:10 05/28/23 06:35 05/28/23 06:35 05/28/23 04:10 05/28/23 06:35 05/28/23 06:35 05/28/23 06:35 Oxygen Flow Rate (L/min) 5 Oxygen Delivery Method Nasal Cannula Weight: 87.9 kg Body Mass Index (BMI) 32.3 Intake & Output: Intake and Output for Last 24 Hours 05/26/23 05/27/23 05/28/23 23:59 23:59 23:59 Intake Total / 1150 / 1150 600 / 600 Output Total 650 / 650 1100 / 1100 950 / 950 Balance -649 / -649 50 / 50 -350 / -350 Medical Nutrition Assessment Dietitian: Malnutrition Criteria Met Start: 05/25/23 10:03 Freq: Status: Active Protocol: Document 05/25/23 10:18 LO (Rec: 05/25/23 10:18 [id number]) Nutrition Malnutrition Evidence of Malnutrition Exists Yes Malnutrition (severe): Chronic Evidenced By Suboptimal Energy Intake ( Severe),Weight Loss (Severe), Physical Changes (Severe) Clinical Problem Chronic Disease or Condition Related Malnutrition Etiology severe related to increased nutritional needs due to chronic disease Signs/Symptoms as evidenced by <75% PO intake of estimated nutrition needs, 59.8lbs (26%) unintentional weight loss in 6 months, and severe fat loss to triceps Status Active Problem Recommendation Dietitian Recommendations/Changes RD will liberalize diet to Regular to optimize oral intakes. Continue 120mL EPHP 4x daily with medpass to provide supplemental energy. Lab / Micro Data 05/28/23 06:15 05/28/23 06:15 Labs: Laboratory Results - last 24 hr 05/27/23 06:18: WBC 5.8, RBC 2.76 L, Hgb 9.0 L, Hct 27.2 L, MCV 98.6 H, MCH 32.6 H, MCHC 33.1 D, RDW Std Deviation 70.1 H, RDW Coeff of Ruben 19.8 H, Plt Count 165, MPV 8.9, Immature Gran % (Auto) 0.500, Neut % (Auto) 87.2 H, Lymph % (Auto) 6.9 L, [place] % (Auto) 5.4, Eos % (Auto) 0.0, Baso % (Auto) 0.0, Absolute Neuts (auto) 5.0, Absolute Lymphs (auto) 0.40 L, Nucleated RBC % 0, Differential Comment SCANNED, Anisocytosis 2+, Sodium 125 L, Potassium 5.1, Chloride 89 L, Carbon Dioxide 31.0, Anion Gap 5, BUN 27 H, Creatinine 0.70, Estim Creat Clear Calc 112.95, Est GFR (MDRD) Af Amer 148, Est GFR (MDRD) Non-Af 122, BUN/Creatinine Ratio 38.7 H, Glucose 154 H, Calcium 8.7, Phosphorus 3.7, Magnesium 1.9 Micro: Microbiology 05/25/23 Unknown Sputum, Expectorated/Coughed Gram Stain - Final 05/25/23 Unknown Sputum, Expectorated/Coughed Respiratory Culture - Final 05/25/23 19:55 Stool Stool Occult Blood (GLEN) - Final Occult Blood Positive Physical Exam Narrative GENERAL: appears dyspneic at rest HEENT: Atraumatic; normocephalic EYES; Anicteric, Normal Conjunctiva NECK; supple, normal thyroid, RESPIRATORY: Diminished to auscultation CARDIOVASCULAR: Regular S1 S2, GI: soft, normoactive bowel sounds, : No Renal angle tenderness; EXTREMITIES: No edema, no clubbing, MUSCULOSKELETAL: no muscle wasting NEURO: Awake; no lateralizing signs. SKIN: No Rash PSYCH; Flat affect Assessment & Plan Assessment/Plan (1) Intractable low back pain: (2) Metastatic cancer to spine: PLAN: Plan Patient is a 62-year-old gentleman who is currently homeless with history of metastatic lung cancer presented with intractable low back pain 1. Intractable lower back pain Secondary to metastatic lung CA to the bone. Patient has been admitted to regular nursing floor for symptom management. Patient treated with Decadron, Dilaudid Lyrica. Consult was placed to radiation oncology plans for patient undergo radiation therapy starting 05/29/2023 ? 05/27/2023 patient pain control improving ? 05/28/2023; patient pain is tolerable on current regimen 2. Metastatic lung CA -Diagnosed in 2021 and status post right upper lobectomy and lymph node dissection 12/26/2021--> received neoadjuvant chemotherapy--> CT chest on 09/03/2022 showed new right middle lobe nodule and new lymphadenopathy in the chest--> PET 11/05/2022 showed a multitude of hypermetabolic activities consistent with metastatic disease--> PET/CT performed on 02/11/2023 showed worsening metastatic disease and CT-guided biopsy of right pleural mass was done on 01/22/2023 that showed metastatic adenocarcinoma--> palliative chemo was started on 03/11/2023. Patient scheduled to undergo radiation therapy on 05/29/2023 ? 05/28/[address] simulation for his radiation therapy scheduled to be performed on 05/29/2019 3. Anemia ? Secondary to combination of anemia as a result of malignancy as well as anemia of chronic disorder with patient hemoglobin falling below 7 and order was given for patient to be transfused 1 unit PRBC. Also did undertake iron studies B12 levels as well as stool for guaiac ? 05/27/2023 subsequent monitoring with daily CBC and differential ordered. 4. Homelessness -Patient's been living in somebody else's garage. Consult has been placed to case management/home health care social worker to assist with patient current living condition at discharge 5. Chronic hypoxic respiratory failure Secondary to COPD patient is on baseline oxygen 3 L at rest 6. COPD currently not in exacerbation did continue with patient bronchodilator treatment regimen 7. Chronic hyponatremia ? 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 05/27/2023 patient sodium levels back to 125 fluid restriction initiated 8. Hypertension - Blood pressure controlled, home medications continued with dose adjustment as needed 9.DVT prophylaxis -Patient was on enoxaparin 40 mg SC daily discontinued given his significant anemia Time spent in the patient's overall evaluation,decision-making process, review of diagnostic data, adjustment of management, discussion with other providers, nursing nursing and ancillary staff involved in patient's care documentation, 35 minutes Charges/Coding Visit Charges Inpatient E&M: 86161 Subs Hosp L2
[2023-05-28 07:32] LABS: Absolute Neutrophil Count 3.6 X10^3/uL (2.0-7.7); Hematocrit 26.4 % (40-54); Mean Corp Hgb Conc 34.1 g/dL (32-36); Mean Corpuscular Hgb 32.7 pg (27.0-32.0); Monocyte# 0.41 X10^3/uL; Monocyte% 9.2 % (0-10); NRBC Flagged by Analyzer 0.5 % (0-5); Neutrophil # 3.62 X10^3/uL (2.7-7.7); Neutrophil % 81.6 % (47-70); POSITIVE DIFFERENTIAL YES; POSITIVE MORPHOLOGY YES; Platelet Count 171 K/mm3 (150-450); RBC Distribution Width CV 18.9 % (11.6-14.6); RBC Distribution Width SD 65.1 fl (35.1-43.9); Red Blood Count 2.75 M/mm3 (4.6-6.2); White Blood Count 4.4 K/mm3 (4.4-11.0)
[2023-05-28 07:36] LABS: Differential Indicated SCAN CRITERIA MET
[2023-05-28 07:48] LABS: Anion Gap 5 (5-15); BUN 22 mg/dL (7-18); BUN/Creat Ratio 45.7 RATIO (10-20); Calcium,Total 8.6 mg/dL (8.5-10.1); Chloride 84 mmol/L (98-107); Creatinine, Serum 0.48 mg/dL (0.70-1.30); EST Glomerular Filtration Rate 188 mL/min (>60); Est Glom Filt Rate - Afr Amer 227 mL/min (>60); Estimated Creatinine Clearance 164.72 ml/min; Glucose 105 mg/dL (74-106); Potassium 4.8 mmol/L (3.5-5.1); Sodium Level 123 mmol/L (136-145)
[2023-05-28 08:09] LABS: Anisocytosis 2+; Polychromasia RARE
[2023-05-28] MEDS: hydroCHLOROthiazide 12.5mg 12.5 MG PO (09:49)
[2023-05-28] MEDS: Losartan Potassium 100 MG Tablet PO (09:50)
[2023-05-28] MEDS: Pregabalin 75 MG Capsule PO ×2 (09:51→20:46)
[2023-05-28] MEDS: buPROPion (XL) 150 MG TABLET.XL PO (09:52)
[2023-05-28] MEDS: amLODIPine 10 MG Tablet PO (09:53)
[2023-05-28] MEDS: Pantoprazole Sodium 20 MG Tablet PO (09:53)
[2023-05-28] MEDS: DULoxetine Hcl 30 MG Capsule PO (09:53)
[2023-05-28] MEDS: Senna/Docusate Sodium 1 Tablet 4 TABLET PO (09:54)
[2023-05-28] MEDS: Polyethylene Glycol 3350 17 GM PACKET PO (09:55)
[2023-05-28] MEDS: Fluticasone 0.05% 1 SPRAY NASAL.SRY 2 SPRAY NASAL (09:56)
[2023-05-28] MEDS: Ensure Plus High Protein 120 ML LIQUID PO ×2 (10:07→16:22)
[2023-05-28] MEDS: Mag Hydrox/Al Hydrox/Simeth 30 ML UDC PO ×2 (12:11→20:50)
--- NOTE | 2023-05-28 15:23 | CASEMGMT ---
Social Work MARK working on SNF placement for pt. Pt now scheduled for Palliative Radiation. MARK placed call to oncology office and spoke with Nani who states pt will receive a total of 5 radiation treatments 05/28 1200, 05/29 1020, 06/01 0940, 06/02 0900, 06/03 1040. [facility] had [facility] and [facility] originally stated they could accept pt. MARK sent message to [facility] at this time and informed of radiation treatments. MARK will await determination if this will change [facility] ability to accept pt. Precert will be needed prior to discharge. Plan: [facility], pending acceptance and precert PENNIE Corona
--- NOTE | 2023-05-28 15:54 | CASEMGMT ---
Social Work- Pt advised of acceptance by [facility]. Vin assisted pt in calling social security to have award letter sent to [facility] for [place]. Vin faxed all documents provided to Kay at [facility] for review. Plan[facility]ME[facility] following.
--- NOTE | 2023-05-28 16:07 | NURSING ---
All documentation by student nurse, Lisa Valdez, reviewed by professor of nursing, Nataly NAVAN, RN.
[2023-05-28] MEDS: oxyCODONE 5 MG Tablet PO (17:21)
[2023-05-28] MEDS: Lidocaine 5% Patch 1 PATCH TOPICAL (20:47)
[2023-05-28] MEDS: Montelukast 10 MG Tablet PO (20:47)
[2023-05-28] MEDS: Loratadine 10 MG Tablet PO (20:47)
[2023-05-28] MEDS: HYDROmorphone 1 MG/ML Syringe IV (21:06)
[2023-05-29] VITALS (11 sets, daily range): BP systolic 101–128; BP diastolic 55–80; PULSE 79–95; RESP 18–22; TEMP 36.4–36.8; O2SAT 90–95; BMI 30.2
[2023-05-29] MEDS: dexAMETHasone 10 MG/ML Vial 6 MG IV ×3 (04:56→20:57)
[2023-05-29] MEDS: Albuterol 2.5 MG/3 ML VIAL.NEB. INHALATION (05:04)
[2023-05-29] MEDS: oxyCODONE 5 MG Tablet PO ×2 (06:23→11:23)
[2023-05-29] MEDS: Acetaminophen 500 MG Tablet 1000 MG PO ×3 (06:23→20:57)
[2023-05-29 07:07] LABS: Absolute Lymphocyte Count 0.22 X10^3/uL (0.83-4.51); Hematocrit 24.5 % (40-54); Hemoglobin 8.3 g/dL (13.0-16.5); Lymphocyte # 0.22 X10^3/ul (0.83-4.51); Lymphocyte % 4.8 % (19-41); Mean Corp Hgb Conc 33.9 g/dL (32-36); Mean Corpuscular Hgb 32.5 pg (27.0-32.0); Mean Corpuscular Volume 96.1 fL (80-94); Mean Platelet Vol. 8.8 fl (6.2-12.0); Monocyte# 0.34 X10^3/uL; Monocyte% 7.4 % (0-10); NRBC Flagged by Analyzer 0 % (0-5); Neutrophil # 4.02 X10^3/uL (2.7-7.7); Neutrophil % 87.4 % (47-70); POSITIVE DIFFERENTIAL YES; Platelet Count 139 K/mm3 (150-450); RBC Distribution Width CV 18.6 % (11.6-14.6); RBC Distribution Width SD 62.5 fl (35.1-43.9); Red Blood Count 2.55 M/mm3 (4.6-6.2); White Blood Count 4.6 K/mm3 (4.4-11.0)
--- NOTE | 2023-05-29 07:46 | PCM.PN.HOSP ---
Reason for Visit Reason for Visit: Diagnoses Malignant neoplasm of unspecified part of unspecified bronchus or lung (05/26/23) Secondary malignant neoplasm of bone (05/26/23) Anemia due to antineoplastic chemotherapy (05/26/23) Hypo-osmolality and hyponatremia (05/26/23) Other low back pain (05/26/23) Adverse effect of antineoplastic and immunosuppressive drugs, initial encounter (05/26/23) Other inadequate housing (05/26/23) Subjective Subjective Patient seen scheduled to undergo his first session of radiation therapy this afternoon. Sodium levels continue to drop down to 219. Objective Data Objective Data Vital Signs: Vital Signs Temp Pulse Resp BP Pulse Ox O2 Del Method O2 Flow Rate 97.6 F L 95 22 H 128/80 H 95 Nasal Cannula 5 05/29/23 03:00 05/29/23 05:04 05/29/23 05:04 05/29/23 03:00 05/29/23 03:00 05/29/23 03:00 05/29/23 03:00 Oxygen Flow Rate (L/min) 5 Oxygen Delivery Method Nasal Cannula Weight: 82.146 kg Body Mass Index (BMI) 30.2 Intake & Output: Intake and Output for Last 24 Hours 05/27/23 05/28/23 05/29/23 23:59 23:59 23:59 Intake Total 1150 / 1150 600 / 660 160 / 160 Output Total 1100 / 1100 1850 / 2100 550 / 550 Balance 50 / 50 -1250 / -1440 -390 / -390 Medical Nutrition Assessment Dietitian: Malnutrition Criteria Met Start: 05/25/23 10:03 Freq: Status: Active Protocol: Document 05/28/23 13:35 LO (Rec: 05/28/23 13:36 [id number]) Nutrition Malnutrition Evidence of Malnutrition Exists Yes Malnutrition (severe): Chronic Evidenced By Suboptimal Energy Intake ( Severe),Weight Loss (Severe), Physical Changes (Severe) Clinical Problem Chronic Disease or Condition Related Malnutrition Etiology severe related to increased nutritional needs due to chronic disease Signs/Symptoms as evidenced by <75% PO intake of estimated nutrition needs, 59.8lbs (26%) unintentional weight loss in 6 months, and severe fat loss to triceps Status Active Problem Recommendation Dietitian Recommendations/Changes Continue Regular diet with fluid restriction per MD to optimize oral intakes and improve sodium labs. Will discontinue 120mL EPHP 4x daily due to fluid restriction. RD will order Magic Cup BID with lunch and dinner to provide supplemental energy. Lab / Micro Data 05/29/23 06:54 05/29/23 06:54 Labs: Laboratory Results - last 24 hr 05/24/23 23:12: Crossmatch See Detail 05/28/23 06:15: Polychromasia RARE, Anisocytosis 2+, Sodium 123 L, Potassium 4.8, Chloride 84 L, Carbon Dioxide 34.0 H, Anion Gap 5, BUN 22 H, Creatinine 0.48 L, Estim Creat Clear Calc 164.72, Est GFR (MDRD) Af Amer 227, Est GFR (MDRD) Non-Af 188, BUN/Creatinine Ratio 45.7 H, Glucose 105, Calcium 8.6 05/29/23 06:54: WBC 4.6, RBC 2.55 L, Hgb 8.3 L, Hct 24.5 L, MCV 96.1 H, MCH 32.5 H, MCHC 33.9, RDW Std Deviation 62.5 H, RDW Coeff of Ruben 18.6 H, Plt Count 139 L, MPV 8.8, Immature Gran % (Auto) 0.400, Neut % (Auto) 87.4 H, Lymph % (Auto) 4.8 L, [place] % (Auto) 7.4, Eos % (Auto) 0.0, Baso % (Auto) 0.0, Absolute Neuts (auto) 4.0, Absolute Lymphs (auto) 0.22 L, Nucleated RBC % 0 Micro: Microbiology 05/25/23 Unknown Sputum, Expectorated/Coughed Gram Stain - Final 05/25/23 Unknown Sputum, Expectorated/Coughed Respiratory Culture - Final 05/25/23 19:55 Stool Stool Occult Blood (GLEN) - Final Occult Blood Positive Physical Exam Narrative GENERAL: appears dyspneic at rest HEENT: Atraumatic; normocephalic EYES; Anicteric, Normal Conjunctiva NECK; supple, normal thyroid, RESPIRATORY: Diminished to auscultation CARDIOVASCULAR: Regular S1 S2, GI: soft, normoactive bowel sounds, : No Renal angle tenderness; EXTREMITIES: No edema, no clubbing, MUSCULOSKELETAL: no muscle wasting NEURO: Awake; no lateralizing signs. SKIN: No Rash PSYCH; Flat affect Assessment & Plan Assessment/Plan (1) Intractable low back pain: (2) Metastatic cancer to spine: PLAN: Plan Patient is a 62-year-old gentleman who is currently homeless with history of metastatic lung cancer presented with intractable low back pain 1. Intractable lower back pain Secondary to metastatic lung CA to the bone. Patient has been admitted to regular nursing floor for symptom management. Patient treated with Decadron, Dilaudid Lyrica. Consult was placed to radiation oncology plans for patient undergo radiation therapy starting 05/29/2023 ? 05/27/2023 patient pain control improving ? 05/28/2023; patient pain is tolerable on current regimen ? 05/29/2023 scheduled to undergo radiation therapy 2. Metastatic lung CA -Diagnosed in 2021 and status post right upper lobectomy and lymph node dissection 12/26/2021--> received neoadjuvant chemotherapy--> CT chest on 09/03/2022 showed new right middle lobe nodule and new lymphadenopathy in the chest--> PET 11/05/2022 showed a multitude of hypermetabolic activities consistent with metastatic disease--> PET/CT performed on 02/11/2023 showed worsening metastatic disease and CT-guided biopsy of right pleural mass was done on 01/22/2023 that showed metastatic adenocarcinoma--> palliative chemo was started on 03/11/2023. Patient scheduled to undergo radiation therapy on 05/29/2023 ? 05/28/[address] simulation for his radiation therapy scheduled to be performed on 05/29/2023 3. Anemia ? Secondary to combination of anemia as a result of malignancy as well as anemia of chronic disorder with patient hemoglobin falling below 7 and order was given for patient to be transfused 1 unit PRBC. Also did undertake iron studies B12 levels as well as stool for guaiac ? 05/27/2023 subsequent monitoring with daily CBC and differential ordered. ? 05/29/2023; patient hemoglobin continues to drop down to 8.3; patient was transfused with 1 unit PRBC on 05/24/2023 4. Homelessness -Patient's been living in somebody else's garage. Consult has been placed to case management/social service coordinator to assist with patient current living condition at discharge 5. Chronic hypoxic respiratory failure Secondary to COPD patient is on baseline oxygen 3 L at rest 6. COPD currently not in exacerbation did continue with patient bronchodilator treatment regimen 7. Chronic hyponatremia ? 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 05/27/2023 patient sodium levels back to 125 fluid restriction initiated ? 05/29/2023; sodium levels continue to drop. Did order urine osmole, serum osmolality serum sodium with consultation placed to nephrology. Patient also placed on sodium tablets. 8. Hypertension - Blood pressure controlled, home medications continued with dose adjustment as needed 9.DVT prophylaxis -Patient was on enoxaparin 40 mg SC daily discontinued given his significant anemia Time spent in the patient's overall evaluation,decision-making process, review of diagnostic data, adjustment of management, discussion with other providers, nursing nursing and ancillary staff involved in patient's care documentation, 50 minutes Charges/Coding Visit Charges Inpatient E&M: 28390 Subs Hosp L3
[2023-05-29 07:52] LABS: Anion Gap 4 (5-15); BUN 22 mg/dL (7-18); Calcium,Total 8.5 mg/dL (8.5-10.1); Chloride 82 mmol/L (98-107); Creatinine, Serum 0.52 mg/dL (0.70-1.30); EST Glomerular Filtration Rate 170 mL/min (>60); Est Glom Filt Rate - Afr Amer 206 mL/min (>60); Estimated Creatinine Clearance 147.19 ml/min; Glucose 103 mg/dL (74-106); Sodium Level 119 mmol/L (136-145)
--- NOTE | 2023-05-29 09:06 | CASEMGMT ---
Social Work Brian Frederick is able to accept pt. Precert has been started. Plan: Brian Frederick, pending PENNIE Jean Baptiste
[2023-05-29] MEDS: Losartan Potassium 100 MG Tablet PO (09:07)
[2023-05-29] MEDS: Fluticasone 0.05% 1 SPRAY NASAL.SRY 2 SPRAY NASAL (09:07)
[2023-05-29] MEDS: Pregabalin 75 MG Capsule PO ×2 (09:07→20:57)
[2023-05-29] MEDS: DULoxetine Hcl 30 MG Capsule PO (09:07)
[2023-05-29] MEDS: amLODIPine 10 MG Tablet PO (09:07)
[2023-05-29] MEDS: hydroCHLOROthiazide 12.5mg 12.5 MG PO (09:07)
[2023-05-29] MEDS: Pantoprazole Sodium 20 MG Tablet PO (09:07)
[2023-05-29] MEDS: buPROPion (XL) 150 MG TABLET.XL PO (09:14)
[2023-05-29] MEDS: Sodium Chloride 1 GM Tablet PO ×2 (09:14→20:57)
[2023-05-29 10:09] LABS: Osmolality, Serum 265 mOsm/KG (280-301)
[2023-05-29 10:15] LABS: Osmolality, Urine 610 mOsm/KG
[2023-05-29 10:24] LABS: Urine Sodium 101 mmol/L (Not Establ.)
--- NOTE | 2023-05-29 11:43 | PCM.CONS.R ---
Assessment & Plan Assessment/Plan (1) Hyponatremia: (2) Metastatic cancer to spine: PLAN: Plan This is a 62-year-old male with history of lung cancer which has metastasized admitted for intractable back pain. Nephrology consulted in view of worsening sodium trends during hospitalization. Patient does have chronic hyponatremia with baseline sodium level around 127-132 but over past year sodium levels have fluctuated. May 24 sodium was 130, May 26 sodium 125, May 27 sodium 123 and today sodium is 119. Yesterday patient was placed on fluid restriction. Serum osmolality 265, urine osmolality 610, random sodium 101. Patient has been on hydrochlorothiazide during hospitalization. He has not received any IV fluids over the past few days or so. We will stop hydrochlorothiazide and give 1 dose tolvaptan today. Continue salt tablets as ordered, continue fluid restriction. Patient does not need frequent sodium level monitoring. Encouraged patient to try and increase solute intake. Patient does not need IV fluids nor 3% saline. Labs ordered for morning. Further orders forthcoming as hospitalization evolves, thank you for allowing us to participate in the care of of Mr. Fermin. HPI Consult Data Date of Consult: 05/29/23 HPI Narrative HPI Narrative: LARISA FERMIN, is a 62 M with past medical history significant for metastatic lung cancer who presented to the emergency room with complaints of back pain and was admitted for intractable low back pain. Nephrology consulted in view of worsening sodium levels during this hospitalization. Patient reports that his oncologist about a month ago did start him on sodium chloride tablets. Patient was just started back on sodium chloride tablets today. Patient reports appetite has been very poor. Patient was started on fluid restriction yesterday and patient reports he has not felt thirsty, therefore feels he has not been drinking much fluids past few days. Patient denies any vomiting or diarrhea. In reviewing past sodium trends patient has had low sodium levels dating back to at least 2021. Possible baseline sodium level around 127-132 however patient does have fluctuant sodium levels. Today his sodium is 119, and was 131 on 05/25. [facility] Medical History Alcohol use Anxiety and depression Arthritis BiPAP (biphasic positive airway pressure) dependence Broken teeth Cancer Chest pain Chronic cough Chronic pain CINV (chemotherapy-induced nausea and vomiting) Constipation COPD (chronic obstructive pulmonary disease) Depression Dirty living conditions Drug induced neutropenia Encounter for education Former smoker GERD (gastroesophageal reflux disease) Hemoptysis Hepatitis Hiatal hernia with GERD High cholesterol History of echocardiogram History of stress test HTN (hypertension) Hyperglycemia Iatrogenic pneumothorax Marijuana smoker Marijuana use Mass of upper lobe of right lung Morbid obesity with BMI of 40.0-44.9, adult Nicotine addiction Nicotine dependence in remission Obesity On home oxygen therapy ALEXANDRA (obstructive sleep apnea) Poor dentition Shortness of breath on exertion Sleep apnea Smoking greater than 40 pack years Wears glasses Home Medications amlodipine 10 mg tablet 10 mg PO DAILY 10/31/15 [History Last Taken 03/06/23 04:20] bupropion HCl 150 mg 24 hr tablet, extended release (Wellbutrin XL) 150 mg PO DAILY depression 10/31/15 [History Last Taken 03/06/23 04:20] losartan 100 mg-hydrochlorothiazide 12.5 mg tablet 1 tab PO DAILY hypertension 10/31/15 [History Last Taken 03/05/23 08:00] omeprazole 20 mg capsule,delayed release 20 mg PO DAILY GERD 07/26/16 [History Last Taken 03/06/23 04:20] cetirizine 10 mg tablet 10 mg PO QHS allergies 10/29/21 [History Last Taken 10/29/21] pregabalin 25 mg capsule 25 mg PO BID back pain 10/29/21 [History Last Taken 03/06/23 04:20] fluticasone propionate 50 mcg/actuation nasal spray,suspension 2 spray intranasal DAILY #16 grams 08/26/22 [Rx Last Taken 03/06/23 04:20] montelukast 10 mg tablet 10 mg PO QHS ALLERGIES #90 tabs 08/26/22 [Rx Last Taken 03/05/23] tiotropium bromide 2.5 mcg/actuation mist for inhalation (Spiriva Respimat) 2 puff inhalation QDAY #4 grams 08/26/22 [Rx Last Taken 03/06/23 04:20] ondansetron 8 mg disintegrating tablet 8 mg PO Q8H PRN nausea and vomiting #30 tabs 03/03/23 [Rx Last Taken Unknown] polyethylene glycol 3350 17 gram/dose oral powder (Miralax) 4 g PO DAILY 03/03/23 [History Last Taken Unknown] sennosides 8.6 mg-docusate sodium 50 mg capsule (Senna Plus) 4 tab-cap PO DAILY constipation 05/05/23 [History Last Taken Unknown] budesonide-formoterol HFA 160 mcg-4.5 mcg/actuation aerosol inhaler (Symbicort) 2 puff inhalation BID #3 ea 05/06/23 [Rx Last Taken Unknown] oxycodone-acetaminophen 5 mg-325 mg tablet 1 tab PO Q4H PRN Pain 4 days #20 TABLETS 05/06/23 [Rx Last Taken Unknown] dexamethasone 4 mg tablet 4 mg PO DAILY #20 tabs 05/13/23 [Rx Last Taken Unknown] Allergy/AdvReac Type Severity Reaction Status Date / Time Penicillins Allergy Unknown Verified 05/22/23 15:35 venom-honey bee Allergy Swelling Verified 05/22/23 15:35 [bee venom (honey bee)] Family History Mother Cancer Father Diabetes Sister Diabetes Surgical History History of arthroplasty of left knee History of bronchoscopy History of lobectomy of lung History of tonsillectomy Social History household members: none Smoking Status: Former smoker quit date: 06/04/20 pack-years: 40 Tobacco: How many years used: 40 how long ago did patient quit smokin ppd second hand exposure: Yes alcohol intake: current alcohol intake frequency: holidays/special occasions only substance use type: marijuana caffeine: Yes Type: coffee Number of servings: 3 what type of physical activity do you participate in: walking ROS ROS Narrative As in HPI and past medical history Physical Exam Narrative Alert and orient x 3, no apparent distress S1, S2, RRR Lungs clear Abdomen soft No edema Medical Records Data Medical Nutrition Assessment Dietitian: Malnutrition Criteria Met Start: 05/25/23 10:03 Freq: Status: Active Protocol: Document 05/28/23 13:35 LO (Rec: 05/28/23 13:36 MARQUITA [id number]) Nutrition Malnutrition Evidence of Malnutrition Exists Yes Malnutrition (severe): Chronic Evidenced By Suboptimal Energy Intake ( Severe),Weight Loss (Severe), Physical Changes (Severe) Clinical Problem Chronic Disease or Condition Related Malnutrition Etiology severe related to increased nutritional needs due to chronic disease Signs/Symptoms as evidenced by <75% PO intake of estimated nutrition needs, 59.8lbs (26%) unintentional weight loss in 6 months, and severe fat loss to triceps Status Active Problem Recommendation Dietitian Recommendations/Changes Continue Regular diet with fluid restriction per MD to optimize oral intakes and improve sodium labs. Will discontinue 120mL EPHP 4x daily due to fluid restriction. RD will order Magic Cup BID with lunch and dinner to provide supplemental energy. Lab / Micro Data 05/29/23 06:54 05/29/23 06:54 Labs: Laboratory Results - last 24 hr 05/24/23 23:12: Crossmatch See Detail 05/29/23 06:54: WBC 4.6, RBC 2.55 L, Hgb 8.3 L, Hct 24.5 L, MCV 96.1 H, MCH 32.5 H, MCHC 33.9, RDW Std Deviation 62.5 H, RDW Coeff of Ruben 18.6 H, Plt Count 139 L, MPV 8.8, Immature Gran % (Auto) 0.400, Neut % (Auto) 87.4 H, Lymph % (Auto) 4.8 L, [place] % (Auto) 7.4, Eos % (Auto) 0.0, Baso % (Auto) 0.0, Absolute Neuts (auto) 4.0, Absolute Lymphs (auto) 0.22 L, Nucleated RBC % 0, Sodium 119 L*, Potassium 5.0, Chloride 82 L, Carbon Dioxide 33.0 H, Anion Gap 4 L, BUN 22 H, Creatinine 0.52 L, Estim Creat Clear Calc 147.19, Est GFR (MDRD) Af Amer 206, Est GFR (MDRD) Non-Af 170, BUN/Creatinine Ratio 42.0 H, Glucose 103, Serum Osmolality 265 L, Calcium 8.5 05/29/23 09:35: Urine Osmolality 610, Ur Random Sodium 101
[2023-05-29] MEDS: 0.9% Saline Lock 10 ML Syringe IV ×2 (13:08→20:56)
[2023-05-29] MEDS: Mag Hydrox/Al Hydrox/Simeth 30 ML UDC PO (13:08)
[2023-05-29] MEDS: Ensure Plus High Protein 120 ML LIQUID PO (13:09)
[2023-05-29] MEDS: TOLVAPTAN 15 MG TABLET PO (13:10)
[2023-05-29] MEDS: Ipratropium/Albuterol Sulfate 3 ML AMPUL.NEB INHALATION ×2 (13:19→19:16)
[2023-05-29] MEDS: HYDROmorphone 1 MG/ML Syringe IV (20:56)
[2023-05-29] MEDS: MELATONIN 3 MG TABLET PO (20:56)
[2023-05-29] MEDS: Loratadine 10 MG Tablet PO (20:57)
[2023-05-29] MEDS: Montelukast 10 MG Tablet PO (20:57)
[2023-05-29] MEDS: Lidocaine 5% Patch 1 PATCH TOPICAL (20:57)
[2023-05-30 02:09] VITALS: BP 110/72; PULSE 66; RESP 18; TEMP 36.6; O2SAT 95
[2023-05-30] MEDS: 0.9% Saline Lock 10 ML Syringe IV ×4 (05:37→20:59)
[2023-05-30] MEDS: dexAMETHasone 10 MG/ML Vial 6 MG IV ×3 (05:52→20:59)
[2023-05-30] MEDS: Acetaminophen 500 MG Tablet 1000 MG PO ×3 (05:52→20:59)
[2023-05-30 05:55] LABS: Absolute Lymphocyte Count 0.17 X10^3/uL (0.83-4.51); Absolute Neutrophil Count 3.5 X10^3/uL (2.0-7.7); Hematocrit 26.7 % (40-54); Hemoglobin 8.8 g/dL (13.0-16.5); Lymphocyte # 0.17 X10^3/ul (0.83-4.51); Lymphocyte % 4.3 % (19-41); Mean Corpuscular Hgb 32.2 pg (27.0-32.0); Mean Corpuscular Volume 97.8 fL (80-94); Mean Platelet Vol. 8.4 fl (6.2-12.0); Monocyte# 0.28 X10^3/uL; NRBC Flagged by Analyzer 0.5 % (0-5); Neutrophil # 3.51 X10^3/uL (2.7-7.7); Neutrophil % 88.2 % (47-70); POSITIVE DIFFERENTIAL YES; POSITIVE MORPHOLOGY YES; Platelet Count 155 K/mm3 (150-450); RBC Distribution Width CV 18.9 % (11.6-14.6); RBC Distribution Width SD 65.8 fl (35.1-43.9); Red Blood Count 2.73 M/mm3 (4.6-6.2)
[2023-05-30 06:00] VITALS: BMI 28.3
[2023-05-30 06:11] LABS: Differential Indicated SCAN CRITERIA MET
[2023-05-30 06:31] LABS: Anion Gap 5 (5-15); BUN 28 mg/dL (7-18); BUN/Creat Ratio 35.5 RATIO (10-20); Calcium,Total 8.9 mg/dL (8.5-10.1); Chloride 87 mmol/L (98-107); Creatinine, Serum 0.79 mg/dL (0.70-1.30); EST Glomerular Filtration Rate 106 mL/min (>60); Est Glom Filt Rate - Afr Amer 128 mL/min (>60); Estimated Creatinine Clearance 94.03 ml/min; Glucose 157 mg/dL (74-106); Magnesium 2.6 mg/dL (1.6-2.6); Phosphorus 4.7 mg/dL (2.5-4.9); Potassium 4.9 mmol/L (3.5-5.1); Sodium Level 124 mmol/L (136-145)
[2023-05-30 07:16] VITALS: PULSE 81; RESP 17; O2SAT 92
[2023-05-30] MEDS: Ipratropium/Albuterol Sulfate 3 ML AMPUL.NEB INHALATION ×2 (07:16→19:17)
[2023-05-30 07:22] LABS: Anisocytosis 1+; Differential Comment SCANNED
--- NOTE | 2023-05-30 07:30 | PN.HOSP_ITS ---
Reason for Visit Reason for Visit: Diagnoses Malignant neoplasm of unspecified part of unspecified bronchus or lung ( 4) Secondary malignant neoplasm of bone (05/26/23) Anemia due to antineoplastic chemotherapy (05/26/23) Hypo-osmolality and hyponatremia (05/26/23) Other low back pain (05/26/23) Adverse effect of antineoplastic and immunosuppressive drugs, initial encounter (05/26/23) Other inadequate housing (05/26/23) Subjective Subjective Patient sodium levels up to 124. Objective Data Objective Data Vital Signs: Vital Signs Temp Pulse Resp BP Pulse Ox O2 Del Method O2 Flow Rate 97.8 F 81 17 110/72 92 Nasal Cannula 5 05/30/23 02:09 05/30/23 07:16 05/30/23 07:16 05/30/23 02:09 05/30/23 07:16 05/30/23 07:16 05/30/23 07:16 Oxygen Flow Rate (L/min) 5 Oxygen Delivery Method Nasal Cannula Weight: 77 kg Body Mass Index (BMI) 28.3 Intake & Output: Intake and Output for Last 24 Hours 05/28/23 05/29/23 05/30/23 23:59 23:59 23:59 Intake Total 600 / 660 310 / 310 Output Total 1850 / 2100 1700 / 1700 700 / 700 Balance -1250 / -1440 -1390 / -1390 -700 / -700 Medical Nutrition Assessment Dietitian: Malnutrition Criteria Met Start: 05/25/23 10:03 Freq: Status: Active Protocol: Document 05/28/23 13:35 LO (Rec: 05/28/23 13:36 [id number]) Nutrition Malnutrition Evidence of Malnutrition Exists Yes Malnutrition (severe): Chronic Evidenced By Suboptimal Energy Intake ( Severe),Weight Loss (Severe), Physical Changes (Severe) Clinical Problem Chronic Disease or Condition Related Malnutrition Etiology severe related to increased nutritional needs due to chronic disease Signs/Symptoms as evidenced by <75% PO intake of estimated nutrition needs, 59.8lbs (26%) unintentional weight loss in 6 months, and severe fat loss to triceps Status Active Problem Recommendation Dietitian Recommendations/Changes Continue Regular diet with fluid restriction per MD to optimize oral intakes and improve sodium labs. Will discontinue 120mL EPHP 4x daily due to fluid restriction. RD will order Magic Cup BID with lunch and dinner to provide supplemental energy. Lab / Micro Data 05/30/23 05:40 05/30/23 05:40 Labs: Laboratory Results - last 24 hr 05/29/23 06:54: Sodium 119 L*, Potassium 5.0, Chloride 82 L, Carbon Dioxide 33.0 H, Anion Gap 4 L, BUN 22 H, Creatinine 0.52 L, Estim Creat Clear Calc 147.19, Est GFR (MDRD) Af Amer 206, Est GFR (MDRD) Non-Af 170, BUN/Creatinine Ratio 42.0 H, Glucose 103, Serum Osmolality 265 L, Calcium 8.5 05/29/23 09:35: Urine Osmolality 610, Ur Random Sodium 101 05/30/23 05:40: WBC 4.0 L, RBC 2.73 L, Hgb 8.8 L, Hct 26.7 L, MCV 97.8 H, MCH 32.2 H, MCHC 33.0, RDW Std Deviation 65.8 H, RDW Coeff of Ruben 18.9 H, Plt Count 155, MPV 8.4, Immature Gran % (Auto) 0.500, Neut % (Auto) 88.2 H, Lymph % (Auto) 4.3 L, [place] % (Auto) 7.0, Eos % (Auto) 0.0, Baso % (Auto) 0.0, Absolute Neuts (auto) 3.5, Absolute Lymphs (auto) 0.17 L, Nucleated RBC % 0.5, Differential Comment SCANNED, Anisocytosis 1+, Sodium 124 L, Potassium 4.9, Chloride 87 L, Carbon Dioxide 32.0, Anion Gap 5, BUN 28 H, Creatinine 0.79, Estim Creat Clear Calc 94.03, Est GFR (MDRD) Af Amer 128, Est GFR (MDRD) Non-Af 106, BUN/C reatinine Ratio 35.5 H, Glucose 157 H, Calcium 8.9, Phosphorus 4.7, Magnesium 2.6 Micro: Microbiology 05/25/23 Unknown Sputum, Expectorated/Coughed Gram Stain - Final 05/25/23 Unknown Sputum, Expectorated/Coughed Respiratory Culture - Final 05/25/23 19:55 Stool Stool Occult Blood (GLEN) - Final Occult Blood Positive Physical Exam Narrative GENERAL: appears dyspneic at rest HEENT: Atraumatic; normocephalic EYES; Anicteric, Normal Conjunctiva NECK; supple, normal thyroid, RESPIRATORY: Diminished to auscultation CARDIOVASCULAR: Regular S1 S2, GI: soft, normoactive bowel sounds, : No Renal angle tenderness; EXTREMITIES: No edema, no clubbing, MUSCULOSKELETAL: no muscle wasting NEURO: Awake; no lateralizing signs. SKIN: No Rash PSYCH; Flat affect Assessment & Plan Assessment/Plan (1) Intractable low back pain: (2) Metastatic cancer to spine: PLAN: Plan Patient is a 62-year-old gentleman who is currently homeless with history of metastatic lung cancer presented with intractable low back pain 1. Intractable lower back pain Secondary to metastatic lung CA to the bone. Patient has been admitted to regular nursing floor for symptom management. Patient treated with Decadron, Dilaudid Lyrica. Consult was placed to radiation oncology plans for patient und ergo radiation therapy starting 05/29/2023 ? 05/27/2023 patient pain control improving ? 05/28/2023; patient pain is tolerable on current regimen ? 05/29/2023 scheduled to undergo radiation therapy 2. Metastatic lung CA -Diagnosed in 2021 and status post right upper lobectomy and lymph node dissection 12/26/2021--> received neoadjuvant chemotherapy--> CT chest on 09/03/2022 showed new right middle lobe nodule and new lymphadenopathy in the chest--> PET 11/05/2022 showed a multitude of hypermetabolic activities consistent with metastatic disease--> PET/CT performed on 02/11/2023 showed worsening metastatic disease and CT-guided biopsy of right pleural mass was done on 01/22/2023 that showed metastatic adenocarcinoma--> palliative chemo was started on 03/11/2023. Patient scheduled to undergo radiation therapy on 05/29/2023 ? 05/28/[address] simulation for his radiation therapy scheduled to be performed on 05/29/2023 ? 05/30/2023 patient had his first session of palliative radiation therapy the day prior 3. Anemia ? Secondary to combination of anemia as a result of malignancy as well as anemia of chronic disorder with patient hemoglobin falling below 7 and order was given for patient to be transfused 1 unit PRBC. Also did undertake iron studies B12 levels as well as stool for guaiac ? 05/27/2023 subsequent monitoring with daily CBC and differential ordered. ? 05/29/2023; patient hemoglobin continues to drop down to 8.3; patient was transfused with 1 unit PRBC on 05/24/2023 4. Homelessness -Patient's been living in somebody else's garage. Consult has been placed to case management/criminal justice social worker to assist with patient current living condition at discharge 5. Chronic hypoxic respiratory failure Secondary to COPD patient is on baseline oxygen 3 L at rest 6. COPD currently not in exacerbation did continue with patient bronchodilator treatment regimen 7. Chronic hyponatremia ? 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 05/27/2023 patient sodium levels back to 125 fluid restriction initiated ? 05/29/2023; sodium levels continue to drop. Did order urine osmole, serum osmolality serum sodium with consultation placed to nephrology. Patient also placed on sodium tablets. ? 05/30/2023 patient did receive a dose of tolvaptan. HCTZ which patient had been on discontinued 8. Hypertension - Blood pressure controlled, home medications continued with dose adjustment as needed 9.DVT prophylaxis -Patient was on enoxaparin 40 mg SC daily discontinued given his significant anemia Time spent in the patient's overall evaluation,decision-making process, review of diagnostic data, adjustment of management, discussion with other providers, nursing nursing and ancillary staff involved in patient's care documentation, 35 minutes Charges/Coding Visit Charges Inpatient E&M: 67667 Subs Hosp L2
[2023-05-30 08:12] VITALS: BP 112/61; PULSE 93; RESP 18; TEMP 36.6; O2SAT 95
[2023-05-30] MEDS: Sodium Chloride 1 GM Tablet PO ×2 (08:23→20:59)
[2023-05-30] MEDS: DULoxetine Hcl 30 MG Capsule PO (08:23)
[2023-05-30] MEDS: Fluticasone 0.05% 1 SPRAY NASAL.SRY 2 SPRAY NASAL (08:23)
[2023-05-30] MEDS: Pantoprazole Sodium 20 MG Tablet PO (08:23)
[2023-05-30] MEDS: Senna/Docusate Sodium 1 Tablet 4 TABLET PO (08:23)
[2023-05-30] MEDS: buPROPion (XL) 150 MG TABLET.XL PO (08:24)
[2023-05-30] MEDS: amLODIPine 10 MG Tablet PO (08:24)
[2023-05-30] MEDS: Losartan Potassium 100 MG Tablet PO (08:24)
[2023-05-30] MEDS: Pregabalin 75 MG Capsule PO ×2 (08:27→20:59)
--- NOTE | 2023-05-30 12:03 | CASEMGMT ---
Social Work Updates sent to Brian Frederick, asked also if we need the hospital exemption to get precert. As per physician, pt is not ready today, may be ready on the weekend. SW will continue to follow. RODNEY Dumont
--- NOTE | 2023-05-30 13:08 | PCM.TXEXTCAR ---
Diet Diet Order/Speech Therapy: 05/25/23 10:19 Diet: Regular - General Food consistency:: Soft & Bite Sized Liquid Consistency:: Regular/Thin Type of Dietary Supplement:: Magic Cup Dessert Is pt able to select menu?: Yes Fluid restriction:: 1500 mL Diet Comments: Magic cup BID with lunch and dinner Therapies Physical Therapy: Eval and Treat Occupational Therapy: Eval and Treat Problem/Diagnosis (1) Intractable low back pain: Status: Acute Code(s): M54.59 - Other low back pain (2) Metastatic cancer to spine: Status: Acute Code(s): C79.51 - Secondary malignant neoplasm of bone Plan Patient is a 62-year-old gentleman who is currently homeless with history of metastatic lung cancer presented with intractable low back pain 1. Intractable lower back pain Secondary to metastatic lung CA to the bone. Patient has been admitted to regular nursing floor for symptom management. Patient treated with Decadron, Dilaudid Lyrica. Consult was placed to radiation oncology plans for patient undergo radiation therapy starting 05/29/2023 ? 05/27/2023 patient pain control improving ? 05/28/2023; patient pain is tolerable on current regimen ? 05/29/2023 scheduled to undergo radiation therapy 2. Metastatic lung CA -Diagnosed in 2021 and status post right upper lobectomy and lymph node dissection 12/26/2021--> received neoadjuvant chemotherapy--> CT chest on 09/03/2022 showed new right middle lobe nodule and new lymphadenopathy in the chest--> PET 11/05/2022 showed a multitude of hypermetabolic activities consistent with metastatic disease--> PET/CT performed on 02/11/2023 showed worsening metastatic disease and CT-guided biopsy of right pleural mass was done on 01/22/2023 that showed metastatic adenocarcinoma--> palliative chemo was started on 03/11/2023. Patient scheduled to undergo radiation therapy on 05/29/2023 ? 05/28/[address] simulation for his radiation therapy scheduled to be performed on 05/29/2023 ? 05/30/2023 patient had his first session of palliative radiation therapy the day prior 3. Anemia ? Secondary to combination of anemia as a result of malignancy as well as anemia of chronic disorder with patient hemoglobin falling below 7 and order was given for patient to be transfused 1 unit PRBC. Also did undertake iron studies B12 levels as well as stool for guaiac ? 05/27/2023 subsequent monitoring with daily CBC and differential ordered. ? 05/29/2023; patient hemoglobin continues to drop down to 8.3; patient was transfused with 1 unit PRBC on 05/24/2023 4. Homelessness -Patient's been living in somebody else's garage. Consult has been placed to case management/secondary social studies teacher to assist with patient current living condition at discharge 5. Chronic hypoxic respiratory failure Secondary to COPD patient is on baseline oxygen 3 L at rest 6. COPD currently not in exacerbation did continue with patient bronchodilator treatment regimen 7. Chronic hyponatremia ? 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 05/27/2023 patient sodium levels back to 125 fluid restriction initiated ? 05/29/2023; sodium levels continue to drop. Did order urine osmole, serum osmolality serum sodium with consultation placed to nephrology. Patient also placed on sodium tablets. ? 05/30/2023 patient did receive a dose of tolvaptan. HCTZ which patient had been on discontinued 8. Hypertension - Blood pressure controlled, home medications continued with dose adjustment as needed 9.DVT prophylaxis -Patient was on enoxaparin 40 mg SC daily discontinued given his significant anemia Time spent in the patient's overall evaluation,decision-making process, review of diagnostic data, adjustment of management, discussion with other providers, nursing nursing and ancillary staff involved in patient's care documentation, 35 minutes Allergies/Procedures Done in Hospital Allergies Penicillins Allergy (Verified 05/22/23 15:35) Unknown venom-honey bee [bee venom (honey bee)] Allergy (Verified 05/22/23 15:35) Swelling Type of Care/Length of Stay Estimated LOS: Convalescent Care Less Than 30 days Type of Care Needed: Skilled Rehab Potential: Good Prognosis: Good Additional Orders/Day of Discharge Day of Discharge: 06/02/23 Dietary and Speech Recommendations Dietitian Recommendations/Changes: Continue Regular diet with fluid restriction per MD to optimize oral intakes and improve sodium labs. Will discontinue 120mL EPHP 4x daily due to fluid restriction. RD will order Magic Cup BID with lunch and dinner to provide supplemental energy. Discharge Plan Admission Admit Date/Time: 05/26/23 12:53 Attending Provider: Arsen Wilhelm Primary Care Provider: Mony Morrison Consulting Providers: Arsen Levine; Kristyn Glass; Dennis Nunez; Rakesh Philip Discharge Orders/Prescriptions Prescriptions: New ipratropium-albuterol 0.5 mg-3 mg(2.5 mg base)/3 mL Solution For Nebulization 3 ml inhalation Q6HWA.RT Qty: 0 0RF albuterol sulfate 2.5 mg /3 mL (0.083 %) Solution For Nebulization 2.5 mg inhalation Q2H PRN PRN (Reason: SOB &/OR WHEEZING) Qty: 0 0RF melatonin 3 mg Tablet 3 mg PO QHS PRN PRN (Reason: Insomnia) Qty: 0 0RF acetaminophen 500 mg Tablet 1,000 mg PO Q8 Qty: 0 0RF lidocaine 5 % Adhesive Patch,Medicated 1 patch topical 2200 Qty: 0 0RF Protocol: *Topical Application Instructions APPLICATION INSTRUCTIONS: Apply to low back. losartan 100 mg Tablet 100 mg PO DAILY Qty: 0 0RF alum-mag hydroxide-simeth [Mag-Al Plus Extra Strength] 400-400-40 mg/5 mL Suspension 30 ml PO Q6H PRN PRN (Reason: Heartburn Or Indigestion) Qty: 0 0RF sodium chloride 1,000 mg Tablet,Soluble 1,000 mg PO BID Qty: 0 0RF Ensure Plus High Protein 0.08 gram-1.5 kcal/mL Liquid 120 ml PO 4X/DAY Qty: 0 0RF duloxetine 30 mg Capsule,Delayed Release(Dr/Ec) 30 mg PO DAILY Qty: 0 0RF Continued fluticasone propionate 50 mcg/actuation spray,suspension 2 spray INTRANASAL DAILY Qty: 16 11RF Spiriva Respimat 2.5 mcg/actuation mist 2 puff inhalation QDAY Qty: 4 11RF montelukast 10 mg tablet 10 mg PO QHS Qty: 90 3RF polyethylene glycol 3350 [Miralax] 17 gram/dose powder 4 g PO DAILY ondansetron 8 mg tablet,disintegrating 8 mg PO Q8H PRN (Reason: nausea and vomiting) Qty: 30 2RF dexamethasone 4 mg tablet 4 mg PO DAILY Qty: 20 0RF amlodipine 10 MG tablet 10 mg PO DAILY Patient Comments: blood pressure bupropion HCl [Wellbutrin XL] 150 MG tablet extended release 24 hr 150 mg PO DAILY Patient Comments: depression omeprazole 20 MG capsule 20 mg PO DAILY Patient Comments: acid reflux cetirizine 10 mg Tablet 10 mg PO QHS pregabalin 25 mg capsule 25 mg PO BID Senna Plus 8.6-50 mg capsule 4 tab-cap PO DAILY oxycodone-acetaminophen 5-325 mg tablet 1 tab PO Q4H PRN (Reason: Pain) 4 Days Qty: 20 0RF budesonide-formoterol [Symbicort] 160-4.5 mcg/actuation HFA aerosol inhaler 2 puff inhalation BID Qty: 3 3RF Rx Instructions: administer with spacer, rinse mouth after each use Discontinued losartan-hydrochlorothiazide 1 TAB tablet 1 tab PO DAILY Patient Comments: blood pressure Referrals / Follow Up: Mony Morrison MD [Primary Care Provider] - Disposition Disposition (needs filled in before D/C Order can be placed): [facility]
--- NOTE | 2023-05-30 13:33 | CASEMGMT ---
Social Work SW did reach out to Taran at [facility], she states she will need the hospital exemption to get precert. [facility] SW completed hospital exemption, let Taran at [facility] know. As per [facility], they state pt needs to start the process for the assisted living waiver. SW called [facility], spoke w/Lesli ([phone]), pt was scheduled for Friday for an assessment. However it was scheduled for between 10-10:30 on Friday, pt may not be back from radiation by then. Lesli is going to see if she can move the appointment to later in the day, will let MARK know. IVAN DumontS
[2023-05-30] MEDS: oxyCODONE 5 MG Tablet PO ×2 (13:37→20:59)
--- NOTE | 2023-05-30 13:40 | PCM.PN.REN ---
Subjective Subjective no new complaints sodium is better Objective Data Objective Data Vital Signs: Vital Signs Temp Pulse Resp BP Pulse Ox O2 Del Method O2 Flow Rate 97.9 F 93 18 112/61 95 Nasal Cannula 5 05/30/23 08:12 05/30/23 08:12 05/30/23 08:12 05/30/23 08:12 05/30/23 08:12 05/30/23 08:16 05/30/23 08:16 Oxygen Flow Rate (L/min) 5 Oxygen Delivery Method Nasal Cannula Weight: 77 kg Body Mass Index (BMI) 28.3 Intake & Output: Intake and Output for Last 24 Hours 05/28/23 05/29/23 05/30/23 23:59 23:59 23:59 Intake Total 600 / 660 310 / 310 Output Total 1850 / 2100 1700 / 1700 700 / 700 Balance -1250 / -1440 -1390 / -1390 -700 / -700 Medical Nutrition Assessment Dietitian: Malnutrition Criteria Met Start: 05/25/23 10:03 Freq: Status: Active Protocol: Document 05/28/23 13:35 LO (Rec: 05/28/23 13:36 [id number]) Nutrition Malnutrition Evidence of Malnutrition Exists Yes Malnutrition (severe): Chronic Evidenced By Suboptimal Energy Intake ( Severe),Weight Loss (Severe), Physical Changes (Severe) Clinical Problem Chronic Disease or Condition Related Malnutrition Etiology severe related to increased nutritional needs due to chronic disease Signs/Symptoms as evidenced by <75% PO intake of estimated nutrition needs, 59.8lbs (26%) unintentional weight loss in 6 months, and severe fat loss to triceps Status Active Problem Recommendation Dietitian Recommendations/Changes Continue Regular diet with fluid restriction per MD to optimize oral intakes and improve sodium labs. Will discontinue 120mL EPHP 4x daily due to fluid restriction. RD will order Magic Cup BID with lunch and dinner to provide supplemental energy. Lab / Micro Data 05/30/23 05:40 05/30/23 05:40 Labs: Laboratory Results - last 24 hr 05/30/23 05:40: WBC 4.0 L, RBC 2.73 L, Hgb 8.8 L, Hct 26.7 L, MCV 97.8 H, MCH 32.2 H, MCHC 33.0, RDW Std Deviation 65.8 H, RDW Coeff of Ruben 18.9 H, Plt Count 155, MPV 8.4, Immature Gran % (Auto) 0.500, Neut % (Auto) 88.2 H, Lymph % (Auto) 4.3 L, [place] % (Auto) 7.0, Eos % (Auto) 0.0, Baso % (Auto) 0.0, Absolute Neuts (auto) 3.5, Absolute Lymphs (auto) 0.17 L, Nucleated RBC % 0.5, Differential Comment SCANNED, Anisocytosis 1+, Sodium 124 L, Potassium 4.9, Chloride 87 L, Carbon Dioxide 32.0, Anion Gap 5, BUN 28 H, Creatinine 0.79, Estim Creat Clear Calc 94.03, Est GFR (MDRD) Af Amer 128, Est GFR (MDRD) Non-Af 106, BUN/Creatinine Ratio 35.5 H, Glucose 157 H, Calcium 8.9, Phosphorus 4.7, Magnesium 2.6 Micro: Microbiology 05/25/23 Unknown Sputum, Expectorated/Coughed Gram Stain - Final 05/25/23 Unknown Sputum, Expectorated/Coughed Respiratory Culture - Final 05/25/23 19:55 Stool Stool Occult Blood (GLEN) - Final Occult Blood Positive Physical Exam Narrative Alert and orient x 3, no apparent distress S1, S2, RRR Lungs clear Abdomen soft No edema Assessment & Plan Assessment/Plan (1) Hyponatremia: (2) Metastatic cancer to spine: PLAN: Plan Hyponatremia. due to SIADH. continue to hold thiazide. sodium is better with samsca. continue salt tablets for now.
[2023-05-30 14:00] VITALS: BP 100/58; PULSE 96; RESP 18; TEMP 36.8; O2SAT 95
--- NOTE | 2023-05-30 14:51 | CASEMGMT ---
Social Work- Cln updated pt that [facility] will meet with him Thursday 06/01 @ 3pm to discuss services for when he moves to [facility] following his stay at [facility]. Pt expresses understanding and agreement. PENNIE Cooley
--- NOTE | 2023-05-30 17:03 | CASEMGMT ---
Social Work SW spoke w/Taran from [facility], she states there is a chance they may still get precert this weekend, SW asked her to call the floor should they get precert. SW also did let her know that the assessment from [facility] to happen at 3pm on Friday so if pt is there, someone will come see him at 3pm on Friday. Taran confirmed they have transport arranged for pt to radiation should pt be able to be discharged on the weekend. Green sheet w/completed HENS and transport form on chart in event pt can d/c on the weekend. RODNEY Dumont
[2023-05-30 19:17] VITALS: PULSE 89; RESP 18
[2023-05-30 20:50] VITALS: BP 115/68; PULSE 91; RESP 18; TEMP 36.6; O2SAT 95
[2023-05-30] MEDS: Lidocaine 5% Patch 1 PATCH TOPICAL (20:59)
[2023-05-30] MEDS: Montelukast 10 MG Tablet PO (21:00)
[2023-05-30] MEDS: Loratadine 10 MG Tablet PO (21:00)
[2023-05-31] VITALS (9 sets, daily range): BP systolic 107–145; BP diastolic 57–98; PULSE 84–94; RESP 15–22; TEMP 36.4–36.7; O2SAT 92–96; BMI 28.4
[2023-05-31] MEDS: dexAMETHasone 10 MG/ML Vial 6 MG IV ×3 (05:14→20:27)
[2023-05-31] MEDS: Acetaminophen 500 MG Tablet 1000 MG PO ×3 (05:15→20:26)
[2023-05-31] MEDS: 0.9% Saline Lock 10 ML Syringe IV ×4 (05:15→20:34)
[2023-05-31 07:09] LABS: Absolute Lymphocyte Count 0.14 X10^3/uL (0.83-4.51); Absolute Neutrophil Count 4.1 X10^3/uL (2.0-7.7); Hematocrit 24.6 % (40-54); Lymphocyte # 0.14 X10^3/ul (0.83-4.51); Lymphocyte % 3.1 % (19-41); Mean Corp Hgb Conc 32.5 g/dL (32-36); Mean Corpuscular Hgb 32.1 pg (27.0-32.0); Mean Corpuscular Volume 98.8 fL (80-94); Mean Platelet Vol. 8.1 fl (6.2-12.0); Monocyte# 0.25 X10^3/uL; Monocyte% 5.6 % (0-10); NRBC Flagged by Analyzer 0 % (0-5); Neutrophil # 4.07 X10^3/uL (2.7-7.7); Neutrophil % 90.9 % (47-70); POSITIVE DIFFERENTIAL YES; POSITIVE MORPHOLOGY YES; Platelet Count 145 K/mm3 (150-450); RBC Distribution Width CV 19.2 % (11.6-14.6); RBC Distribution Width SD 68.6 fl (35.1-43.9); Red Blood Count 2.49 M/mm3 (4.6-6.2); White Blood Count 4.5 K/mm3 (4.4-11.0)
--- NOTE | 2023-05-31 07:09 | PCM.PN.HOSP ---
Reason for Visit Reason for Visit: Diagnoses Malignant neoplasm of unspecified part of unspecified bronchus or lung (05/26/23) Secondary malignant neoplasm of bone (05/26/23) Anemia due to antineoplastic chemotherapy (05/26/23) Hypo-osmolality and hyponatremia (05/26/23) Other low back pain (05/26/23) Adverse effect of antineoplastic and immunosuppressive drugs, initial encounter (05/26/23) Other inadequate housing (05/26/23) Subjective Subjective Patient seen sodium levels up to 128. Awaiting insurance present occasion prior to transfer to longterm Objective Data Objective Data Vital Signs: Vital Signs Temp Pulse Resp BP Pulse Ox O2 Del Method O2 Flow Rate 97.8 F 84 18 124/71 H 95 Nasal Cannula 5 05/31/23 02:10 05/31/23 02:10 05/31/23 02:10 05/31/23 02:10 05/31/23 02:10 05/31/23 02:10 05/31/23 02:10 Oxygen Flow Rate (L/min) 5 Oxygen Delivery Method Nasal Cannula Weight: 77.4 kg Body Mass Index (BMI) 28.4 Intake & Output: Intake and Output for Last 24 Hours 05/29/23 05/30/23 05/31/23 23:59 23:59 23:59 Intake Total 310 / 310 Output Total 1700 / 1700 700 / 1200 1000 / 1000 Balance -1390 / -1390 -700 / -1200 -1000 / -1000 Medical Nutrition Assessment Dietitian: Malnutrition Criteria Met Start: 05/25/23 10:03 Freq: Status: Active Protocol: Document 05/28/23 13:35 MARQUITA (Rec: 05/28/23 13:36 [id number]) Nutrition Malnutrition Evidence of Malnutrition Exists Yes Malnutrition (severe): Chronic Evidenced By Suboptimal Energy Intake ( Severe),Weight Loss (Severe), Physical Changes (Severe) Clinical Problem Chronic Disease or Condition Related Malnutrition Etiology severe related to increased nutritional needs due to chronic disease Signs/Symptoms as evidenced by <75% PO intake of estimated nutrition needs, 59.8lbs (26%) unintentional weight loss in 6 months, and severe fat loss to triceps Status Active Problem Recommendation Dietitian Recommendations/Changes Continue Regular diet with fluid restriction per MD to optimize oral intakes and improve sodium labs. Will discontinue 120mL EPHP 4x daily due to fluid restriction. RD will order Magic Cup BID with lunch and dinner to provide supplemental energy. Lab / Micro Data 05/31/23 07:00 05/31/23 07:00 Labs: Laboratory Results - last 24 hr 05/30/23 05:40: Differential Comment SCANNED, Anisocytosis 1+ Micro: Microbiology 05/25/23 Unknown Sputum, Expectorated/Coughed Gram Stain - Final 05/25/23 Unknown Sputum, Expectorated/Coughed Respiratory Culture - Final 05/25/23 19:55 Stool Stool Occult Blood (GLEN) - Final Occult Blood Positive Physical Exam Narrative GENERAL: appears dyspneic at rest HEENT: Atraumatic; normocephalic EYES; Anicteric, Normal Conjunctiva NECK; supple, normal thyroid, RESPIRATORY: Diminished to auscultation CARDIOVASCULAR: Regular S1 S2, GI: soft, normoactive bowel sounds, : No Renal angle tenderness; EXTREMITIES: No edema, no clubbing, MUSCULOSKELETAL: no muscle wasting NEURO: Awake; no lateralizing signs. SKIN: No Rash PSYCH; Flat affect Assessment & Plan Assessment/Plan (1) Intractable low back pain: (2) Metastatic cancer to spine: PLAN: Plan Patient is a 62-year-old gentleman who is currently homeless with history of metastatic lung cancer presented with intractable low back pain 1. Intractable lower back pain Secondary to metastatic lung CA to the bone. Patient has been admitted to regular nursing floor for symptom management. Patient treated with Decadron, Dilaudid Lyrica. Consult was placed to radiation oncology plans for patient undergo radiation therapy starting 05/29/2023 ? 05/27/2023 patient pain control improving ? 05/28/2023; patient pain is tolerable on current regimen ? 05/29/2023 scheduled to undergo radiation therapy 2. Metastatic lung CA -Diagnosed in 2021 and status post right upper lobectomy and lymph node dissection 12/26/2021--> received neoadjuvant chemotherapy--> CT chest on 09/03/2022 showed new right middle lobe nodule and new lymphadenopathy in the chest--> PET 11/05/2022 showed a multitude of hypermetabolic activities consistent with metastatic disease--> PET/CT performed on 02/11/2023 showed worsening metastatic disease and CT-guided biopsy of right pleural mass was done on 01/22/2023 that showed metastatic adenocarcinoma--> palliative chemo was started on 03/11/2023. Patient scheduled to undergo radiation therapy on 05/29/2023 ? 05/28/[address] simulation for his radiation therapy scheduled to be performed on 05/29/2023 ? 05/30/2023 patient had his first session of palliative radiation therapy the day prior 3. Anemia ? Secondary to combination of anemia as a result of malignancy as well as anemia of chronic disorder with patient hemoglobin falling below 7 and order was given for patient to be transfused 1 unit PRBC. Also did undertake iron studies B12 levels as well as stool for guaiac ? 05/27/2023 subsequent monitoring with daily CBC and differential ordered. ? 05/29/2023; patient hemoglobin continues to drop down to 8.3; patient was transfused with 1 unit PRBC on 05/24/2023 4. Homelessness -Patient's been living in somebody else's garage. Consult has been placed to case management/social security benefits interviewer to assist with patient current living condition at discharge ? 05/31/2019 plan is for patient to be discharged to a longterm facility pending insurance approval 5. Chronic hypoxic respiratory failure Secondary to COPD patient is on baseline oxygen 3 L at rest 6. COPD currently not in exacerbation did continue with patient bronchodilator treatment regimen 7. Chronic hyponatremia ? 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 05/27/2023 patient sodium levels back to 125 fluid restriction initiated ? 05/29/2023; sodium levels continue to drop. Did order urine osmole, serum osmolality serum sodium with consultation placed to nephrology. Patient also placed on sodium tablets. ? 05/30/2023 patient did receive a dose of tolvaptan. HCTZ which patient had been on discontinued ? 05/31/2023; patient sodium levels improving. 8. Hypertension - Blood pressure controlled, home medications continued with dose adjustment as needed 9.DVT prophylaxis -Patient was on enoxaparin 40 mg SC daily discontinued given his significant anemia Time spent in the patient's overall evaluation,decision-making process, review of diagnostic data, adjustment of management, discussion with other providers, nursing nursing and ancillary staff involved in patient's care documentation, 38 minutes Charges/Coding Visit Charges Inpatient E&M: 63321 Subs Hosp L2
[2023-05-31 07:13] LABS: Differential Indicated SCAN CRITERIA MET
[2023-05-31 07:32] LABS: Anion Gap 4 (5-15); BUN 37 mg/dL (7-18); BUN/Creat Ratio 49.9 RATIO (10-20); Calcium,Total 8.7 mg/dL (8.5-10.1); Chloride 89 mmol/L (98-107); Creatinine, Serum 0.74 mg/dL (0.70-1.30); EST Glomerular Filtration Rate 114 mL/min (>60); Est Glom Filt Rate - Afr Amer 138 mL/min (>60); Estimated Creatinine Clearance 100.62 ml/min; Glucose 132 mg/dL (74-106); Potassium 5.1 mmol/L (3.5-5.1); Sodium Level 128 mmol/L (136-145)
[2023-05-31] MEDS: oxyCODONE 5 MG Tablet PO (09:26)
[2023-05-31] MEDS: Pregabalin 75 MG Capsule PO ×2 (09:55→20:26)
[2023-05-31] MEDS: Pantoprazole Sodium 20 MG Tablet PO (10:24)
[2023-05-31] MEDS: DULoxetine Hcl 30 MG Capsule PO (10:24)
[2023-05-31] MEDS: Senna/Docusate Sodium 1 Tablet 4 TABLET PO (10:24)
[2023-05-31 10:25] LABS: Anisocytosis 2+; Differential Comment SCANNED; Macrocytosis 1+; Microcytosis 1+
[2023-05-31] MEDS: Losartan Potassium 100 MG Tablet PO (10:26)
[2023-05-31] MEDS: buPROPion (XL) 150 MG TABLET.XL PO (10:26)
[2023-05-31] MEDS: Sodium Chloride 1 GM Tablet PO ×2 (10:26→20:26)
[2023-05-31] MEDS: amLODIPine 10 MG Tablet PO (10:27)
[2023-05-31] MEDS: Fluticasone 0.05% 1 SPRAY NASAL.SRY 2 SPRAY NASAL (10:27)
--- NOTE | 2023-05-31 19:34 | PN.RENAL_ITS ---
Subjective Subjective Follow-up for hyponatremia No acute events Feels better Tolerating some p.o. intake Objective Data Objective Data Vital Signs: Vital Signs Temp Pulse Resp BP Pulse Ox O2 Del Method O2 Flow Rate 98.0 F 91 18 112/65 94 Nasal Cannula 6 05/31/23 18:13 05/31/23 18:13 05/31/23 18:13 05/31/23 18:13 05/31/23 18:13 05/31/23 18:13 05/31/23 18:13 Oxygen Flow Rate (L/min) 6 Oxygen Delivery Method Nasal Cannula Weight: 77.4 kg Body Mass Index (BMI) 28.4 Intake & Output: Intake and Output for Last 24 Hours 05/29/23 05/30/23 05/31/23 23:59 23:59 23:59 Intake Total 310 / 310 600 / 600 Output Total 1700 / 1700 700 / 1200 1850 / 1850 Balance -1390 / -1390 -700 / -1200 -1250 / -1250 Medical Nutrition Assessment Dietitian: Malnutrition Criteria Met Start: 05/25/23 10:03 Freq: Status: Active Protocol: Document 05/28/23 13:35 LO (Rec: 05/28/23 13:36 LO [id number]) Nutrition Malnutrition Evidence of Malnutrition Exists Yes Malnutrition (severe): Chronic Evidenced By Suboptimal Energy Intake ( Severe),Weight Loss (Severe), Physical Changes (Severe) Clinical Problem Chronic Disease or Condition Related Malnutrition Etiology severe related to increased nutritional needs due to chronic disease Signs/Symptoms as evidenced by <75% PO intake of estimated nutrition needs, 59.8lbs (26%) unintentional weight loss in 6 months, and severe fat loss to triceps Status Active Problem Recommendation Dietitian Recommendations/Changes Continue Regular diet with fluid restriction per MD to optimize oral intakes and improve sodium labs. Will discontinue 120mL EPHP 4x daily due to fluid restriction. RD will order Magic Cup BID with lunch and dinner to provide supplemental energy. Lab / Micro Data 05/31/23 07:00 05/31/23 07:00 Labs: Laboratory Results - last 24 hr 05/31/23 07:00: WBC 4.5, RBC 2.49 L, Hgb 8.0 L, Hct 24.6 L, MCV 98.8 H, MCH 32.1 H, MCHC 32.5, RDW Std Deviation 68.6 H, RDW Coeff of Ruben 19.2 H, Plt Count 145 L , MPV 8.1, Immature Gran % (Auto) 0.400, Neut % (Auto) 90.9 H, Lymph % (Auto) 3.1 L, [place] % (Auto) 5.6, Eos % (Auto) 0.0, Baso % (Auto) 0.0, Absolute Neuts (auto) 4.1, Absolute Lymphs (auto) 0.14 L, Nucleated RBC % 0, Differential Comment SCANNED, Anisocytosis 2+, Microcytosis 1+, Macrocytosis 1+, Sodium 128 L , Potassium 5.1, Chloride 89 L, Carbon Dioxide 35.0 H, Anion Gap 4 L, BUN 37 H, Creatinine 0.74, Estim Creat Clear Calc 100.62, Est GFR (MDRD) Af Amer 138, Est GFR (MDRD) Non-Af 114, BUN/Creatinine Ratio 49.9 H, Glucose 132 H, Calcium 8.7 Micro: Microbiology 05/25/23 Unknown Sputum, Expectorated/Coughed Gram Stain - Final 05/25/23 Unknown Sputum, Expectorated/Coughed Respiratory Culture - Final 05/25/23 19:55 Stool Stool Occult Blood (GLEN) - Final Occult Blood Positive Physical Exam Narrative Pleasant awake and responsive Coarse bronchial breath sounds S1-S2 regular Abdomen is nontender no edema Assessment & Plan Assessment/Plan (1) Hyponatremia: (2) Metastatic cancer to spine: PLAN: Plan Acute on chronic hyponatremia. due to SIADH. continue to hold thiazide. Today's sodium is better at 120 mmol/L Continue with salt tablet currently at 1 g twice daily with free water restriction BMP in the morning Renal function is preserved Thank you please call [phone] with any concerns
[2023-05-31] MEDS: Ipratropium/Albuterol Sulfate 3 ML AMPUL.NEB INHALATION (19:41)
[2023-05-31] MEDS: Montelukast 10 MG Tablet PO (20:27)
[2023-05-31] MEDS: Loratadine 10 MG Tablet PO (20:27)
[2023-05-31] MEDS: MELATONIN 3 MG TABLET PO (20:29)
[2023-06-01] VITALS (7 sets, daily range): BP systolic 101–123; BP diastolic 47–64; PULSE 85–95; RESP 15–24; TEMP 36.6–36.9; O2SAT 92–95; BMI 27.6
[2023-06-01] MEDS: oxyCODONE 5 MG Tablet PO ×3 (01:29→13:37)
[2023-06-01] MEDS: dexAMETHasone 10 MG/ML Vial 6 MG IV ×3 (05:46→21:00)
[2023-06-01] MEDS: Acetaminophen 500 MG Tablet 1000 MG PO ×3 (05:46→21:13)
[2023-06-01 06:16] LABS: Absolute Lymphocyte Count 0.17 X10^3/uL (0.83-4.51); Absolute Neutrophil Count 3.7 X10^3/uL (2.0-7.7); Hematocrit 23.3 % (40-54); Hemoglobin 7.6 g/dL (13.0-16.5); Lymphocyte # 0.17 X10^3/ul (0.83-4.51); Mean Corp Hgb Conc 32.6 g/dL (32-36); Mean Corpuscular Hgb 32.9 pg (27.0-32.0); Mean Corpuscular Volume 100.9 fL (80-94); Mean Platelet Vol. 8.5 fl (6.2-12.0); Monocyte# 0.29 X10^3/uL; Monocyte% 6.9 % (0-10); NRBC Flagged by Analyzer 0 % (0-5); Neutrophil # 3.73 X10^3/uL (2.7-7.7); Neutrophil % 88.6 % (47-70); POSITIVE DIFFERENTIAL YES; POSITIVE MORPHOLOGY YES; Platelet Count 146 K/mm3 (150-450); RBC Distribution Width SD 68.9 fl (35.1-43.9); Red Blood Count 2.31 M/mm3 (4.6-6.2); White Blood Count 4.2 K/mm3 (4.4-11.0)
[2023-06-01 06:42] LABS: Anion Gap 4 (5-15); BUN 40 mg/dL (7-18); BUN/Creat Ratio 59.8 RATIO (10-20); Calcium,Total 8.5 mg/dL (8.5-10.1); Chloride 92 mmol/L (98-107); Creatinine, Serum 0.67 mg/dL (0.70-1.30); EST Glomerular Filtration Rate 128 mL/min (>60); Est Glom Filt Rate - Afr Amer 155 mL/min (>60); Estimated Creatinine Clearance 109.69 ml/min; Glucose 103 mg/dL (74-106); Potassium 4.2 mmol/L (3.5-5.1); Sodium Level 130 mmol/L (136-145)
[2023-06-01] MEDS: Ipratropium/Albuterol Sulfate 3 ML AMPUL.NEB INHALATION ×2 (07:09→20:03)
--- NOTE | 2023-06-01 07:35 | PCM.PN.HOSP ---
Reason for Visit Reason for Visit: Diagnoses Malignant neoplasm of unspecified part of unspecified bronchus or lung (05/26/23) Secondary malignant neoplasm of bone (05/26/23) Anemia due to antineoplastic chemotherapy (05/26/23) Hypo-osmolality and hyponatremia (05/26/23) Other low back pain (05/26/23) Adverse effect of antineoplastic and immunosuppressive drugs, initial encounter (05/26/23) Other inadequate housing (05/26/23) Subjective Subjective Patient seen complains of having experienced rest last night. Sodium levels continue to rise hemoglobin down to 7.6. Objective Data Objective Data Vital Signs: Vital Signs Temp Pulse Resp BP Pulse Ox O2 Del Method O2 Flow Rate 98.4 F 88 21 H 117/64 92 Nasal Cannula 5 06/01/23 03:00 06/01/23 07:25 06/01/23 07:25 06/01/23 03:00 06/01/23 07:25 06/01/23 07:25 06/01/23 07:25 Oxygen Flow Rate (L/min) 5 Oxygen Delivery Method Nasal Cannula Weight: 75.2 kg Body Mass Index (BMI) 27.6 Intake & Output: Intake and Output for Last 24 Hours 05/30/23 05/31/23 06/01/23 23:59 23:59 23:59 Intake Total 600 / 600 Output Total 700 / 1200 1850 / 2050 200 / 200 Balance -700 / -1200 -1250 / -1450 -200 / -200 Medical Nutrition Assessment Dietitian: Malnutrition Criteria Met Start: 05/25/23 10:03 Freq: Status: Active Protocol: Document 05/28/23 13:35 (Rec: 05/28/23 13:36 [id number]) Nutrition Malnutrition Evidence of Malnutrition Exists Yes Malnutrition (severe): Chronic Evidenced By Suboptimal Energy Intake ( Severe),Weight Loss (Severe), Physical Changes (Severe) Clinical Problem Chronic Disease or Condition Related Malnutrition Etiology severe related to increased nutritional needs due to chronic disease Signs/Symptoms as evidenced by <75% PO intake of estimated nutrition needs, 59.8lbs (26%) unintentional weight loss in 6 months, and severe fat loss to triceps Status Active Problem Recommendation Dietitian Recommendations/Changes Continue Regular diet with fluid restriction per MD to optimize oral intakes and improve sodium labs. Will discontinue 120mL EPHP 4x daily due to fluid restriction. RD will order Magic Cup BID with lunch and dinner to provide supplemental energy. Lab / Micro Data 06/01/23 06:00 06/01/23 06:00 Labs: Laboratory Results - last 24 hr 05/31/23 07:00: Differential Comment SCANNED, Anisocytosis 2+, Microcytosis 1+, Macrocytosis 1+ 06/01/23 06:00: WBC 4.2 L, RBC 2.31 L, Hgb 7.6 L, Hct 23.3 L, MCV 100.9 H, MCH 32.9 H, MCHC 32.6, RDW Std Deviation 68.9 H, RDW Coeff of Ruben 19.0 H, Plt Count 146 L, MPV 8.5, Immature Gran % (Auto) 0.500, Neut % (Auto) 88.6 H, Lymph % (Auto) 4.0 L, [place] % (Auto) 6.9, Eos % (Auto) 0.0, Baso % (Auto) 0.0, Absolute Neuts (auto) 3.7, Absolute Lymphs (auto) 0.17 L, Nucleated RBC % 0, Sodium 130 L, Potassium 4.2, Chloride 92 L, Carbon Dioxide 34.0 H, Anion Gap 4 L, BUN 40 H, Creatinine 0.67 L, Estim Creat Clear Calc 109.69, Est GFR (MDRD) Af Amer 155, Est GFR (MDRD) Non-Af 128, BUN/Creatinine Ratio 59.8 H, Glucose 103, Calcium 8.5 Micro: Microbiology 05/25/23 Unknown Sputum, Expectorated/Coughed Gram Stain - Final 05/25/23 Unknown Sputum, Expectorated/Coughed Respiratory Culture - Final 05/25/23 19:55 Stool Stool Occult Blood (GLEN) - Final Occult Blood Positive Physical Exam Narrative GENERAL: appears dyspneic at rest HEENT: Atraumatic; normocephalic EYES; Anicteric, Normal Conjunctiva NECK; supple, normal thyroid, RESPIRATORY: Diminished to auscultation CARDIOVASCULAR: Regular S1 S2, GI: soft, normoactive bowel sounds, : No Renal angle tenderness; EXTREMITIES: No edema, no clubbing, MUSCULOSKELETAL: no muscle wasting NEURO: Awake; no lateralizing signs. SKIN: No Rash PSYCH; Flat affect Assessment & Plan Assessment/Plan (1) Intractable low back pain: (2) Metastatic cancer to spine: PLAN: Plan Patient is a 62-year-old gentleman who is currently homeless with history of metastatic lung cancer presented with intractable low back pain 1. Intractable lower back pain Secondary to metastatic lung CA to the bone. Patient has been admitted to regular nursing floor for symptom management. Patient treated with Decadron, Dilaudid Lyrica. Consult was placed to radiation oncology plans for patient undergo radiation therapy starting 05/29/2023 ? 05/27/2023 patient pain control improving ? 05/28/2023; patient pain is tolerable on current regimen ? 05/29/2023 scheduled to undergo radiation therapy ? 06/01/2023; patient has had 2 sessions of radiation therapy. Pain relatively improved 2. Metastatic lung CA -Diagnosed in 2021 and status post right upper lobectomy and lymph node dissection 12/26/2021--> received neoadjuvant chemotherapy--> CT chest on 09/03/2022 showed new right middle lobe nodule and new lymphadenopathy in the chest--> PET 11/05/2022 showed a multitude of hypermetabolic activities consistent with metastatic disease--> PET/CT performed on 02/11/2023 showed worsening metastatic disease and CT-guided biopsy of right pleural mass was done on 01/22/2023 that showed metastatic adenocarcinoma--> palliative chemo was started on 03/11/2023. Patient scheduled to undergo radiation therapy on 05/29/2023 ? 05/28/[address] for his radiation therapy scheduled to be performed on 05/29/2023 ? 05/30/2023 patient had his first session of palliative radiation therapy the day prior 3. Anemia ? Secondary to combination of anemia as a result of malignancy as well as anemia of chronic disorder with patient hemoglobin falling below 7 and order was given for patient to be transfused 1 unit PRBC. Also did undertake iron studies B12 levels as well as stool for guaiac ? 05/27/2023 subsequent monitoring with daily CBC and differential ordered. ? 05/29/2023; patient hemoglobin continues to drop down to 8.3; patient was transfused with 1 unit PRBC on 05/24/2023 ? 14 124 hemoglobin down to 7.6 4. Homelessness -Patient's been living in somebody else's garage. Consult has been placed to case management/social science teacher to assist with patient current living condition at discharge ? 05/31/2023 plan is for patient to be discharged to a residential facility pending insurance approval ? 06/01/2023 5. Chronic hypoxic respiratory failure Secondary to COPD patient is on baseline oxygen 3 L at rest 6. COPD currently not in exacerbation did continue with patient bronchodilator treatment regimen 7. Chronic hyponatremia ? 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 05/27/2023 patient sodium levels back to 125 fluid restriction initiated ? 05/29/2023; sodium levels continue to drop. Did order urine osmole, serum osmolality serum sodium with consultation placed to nephrology. Patient also placed on sodium tablets. ? 05/30/2023 patient did receive a dose of tolvaptan. HCTZ which patient had been on discontinued ? 05/31/2023; patient sodium levels improving. ? 06/01/2023; sodium levels up to 130 8. Hypertension - Blood pressure controlled, home medications continued with dose adjustment as needed 9. DVT prophylaxis -Patient was on enoxaparin 40 mg SC daily discontinued given his significant anemia Time spent in the patient's overall evaluation,decision-making process, review of diagnostic data, adjustment of management, discussion with other providers, nursing nursing and ancillary staff involved in patient's care documentation, 38 minutes Charges/Coding Visit Charges Inpatient E&M: 13472 [facility] L2
[2023-06-01] MEDS: Fluticasone 0.05% 1 SPRAY NASAL.SRY 2 SPRAY NASAL (09:22)
[2023-06-01] MEDS: amLODIPine 10 MG Tablet PO (09:23)
[2023-06-01] MEDS: DULoxetine Hcl 30 MG Capsule PO (09:24)
[2023-06-01] MEDS: Pantoprazole Sodium 20 MG Tablet PO (09:24)
[2023-06-01] MEDS: Sodium Chloride 1 GM Tablet PO ×2 (09:25→21:13)
[2023-06-01] MEDS: buPROPion (XL) 150 MG TABLET.XL PO (09:25)
[2023-06-01] MEDS: Pregabalin 75 MG Capsule PO ×2 (09:28→21:14)
[2023-06-01] MEDS: Losartan Potassium 100 MG Tablet PO (09:28)
[2023-06-01] MEDS: 0.9% Saline Lock 10 ML Syringe IV ×2 (13:36→21:15)
[2023-06-01] MEDS: Montelukast 10 MG Tablet PO (21:14)
[2023-06-01] MEDS: Loratadine 10 MG Tablet PO (21:14)
[2023-06-01] MEDS: Lidocaine 5% Patch 1 PATCH TOPICAL ×2 (21:14)
[2023-06-01] MEDS: HYDROmorphone 1 MG/ML Syringe IV (21:49)
[2023-06-02 03:00] VITALS: RESP 15
[2023-06-02 05:00] VITALS: BP 134/98; PULSE 89; RESP 16; TEMP 36.6; O2SAT 92
[2023-06-02] MEDS: Acetaminophen 500 MG Tablet 1000 MG PO ×3 (05:08→22:05)
[2023-06-02] MEDS: dexAMETHasone 10 MG/ML Vial 6 MG IV ×2 (05:09→14:21)
[2023-06-02 05:29] LABS: Absolute Lymphocyte Count 0.15 X10^3/uL (0.83-4.51); Absolute Neutrophil Count 3.6 X10^3/uL (2.0-7.7); Hematocrit 23.3 % (40-54); Hemoglobin 7.6 g/dL (13.0-16.5); Lymphocyte # 0.15 X10^3/ul (0.83-4.51); Lymphocyte % 3.7 % (19-41); Mean Corp Hgb Conc 32.6 g/dL (32-36); Mean Corpuscular Volume 101.3 fL (80-94); Mean Platelet Vol. 8.6 fl (6.2-12.0); Monocyte# 0.22 X10^3/uL; Monocyte% 5.5 % (0-10); NRBC Flagged by Analyzer 0 % (0-5); Neutrophil # 3.63 X10^3/uL (2.7-7.7); Neutrophil % 90.6 % (47-70); POSITIVE DIFFERENTIAL YES; POSITIVE MORPHOLOGY YES; Platelet Count 153 K/mm3 (150-450); RBC Distribution Width CV 19.1 % (11.6-14.6); RBC Distribution Width SD 70.5 fl (35.1-43.9)
[2023-06-02 05:46] LABS: Anion Gap 4 (5-15); BUN 38 mg/dL (7-18); BUN/Creat Ratio 58.4 RATIO (10-20); Calcium,Total 8.4 mg/dL (8.5-10.1); Chloride 93 mmol/L (98-107); Creatinine, Serum 0.65 mg/dL (0.70-1.30); EST Glomerular Filtration Rate 132 mL/min (>60); Est Glom Filt Rate - Afr Amer 160 mL/min (>60); Estimated Creatinine Clearance 113.06 ml/min; Glucose 198 mg/dL (74-106); Potassium 4.7 mmol/L (3.5-5.1); Sodium Level 130 mmol/L (136-145)
[2023-06-02 06:53] LABS: Differential Indicated SCAN CRITERIA MET
[2023-06-02 07:10] LABS: Anisocytosis 2+
[2023-06-02 08:35] VITALS: BP 133/76; PULSE 89; RESP 18; TEMP 36.5; O2SAT 94
[2023-06-02] MEDS: amLODIPine 10 MG Tablet PO (08:45)
[2023-06-02] MEDS: Pantoprazole Sodium 20 MG Tablet PO (08:45)
[2023-06-02] MEDS: DULoxetine Hcl 30 MG Capsule PO (08:45)
[2023-06-02] MEDS: buPROPion (XL) 150 MG TABLET.XL PO (08:45)
[2023-06-02] MEDS: Losartan Potassium 100 MG Tablet PO (08:46)
[2023-06-02] MEDS: Pregabalin 75 MG Capsule PO ×2 (08:46→22:05)
[2023-06-02] MEDS: oxyCODONE 5 MG Tablet PO ×2 (08:46→14:20)
[2023-06-02] MEDS: Sodium Chloride 1 GM Tablet PO ×2 (08:46→22:05)
[2023-06-02] MEDS: Fluticasone 0.05% 1 SPRAY NASAL.SRY 2 SPRAY NASAL (08:47)
--- NOTE | 2023-06-02 08:54 | CASEMGMT ---
Social Work SW sent updates to [facility], asked them to let us know when we get precert. SW also let [facility] know that pt will be here for his 3pm assessment for the [place] waiver. RODNEY Dumont
--- NOTE | 2023-06-02 09:35 | TREXTCAR_ITS ---
Diet Diet Order/Speech Therapy: 05/25/23 10:19 Diet: Regular - General Food consistency:: Soft & Bite Sized Liquid Consistency:: Regular/Thin Type of Dietary Supplement:: Magic Cup Dessert Is pt able to select menu?: Yes Fluid restriction:: 1500 mL Diet Comments: Magic cup BID with lunch and dinner Routine Orders/Code Status Suppository Frequency: Daily PRN O2 Liters per Minute: 3 O2 Frequency: Continuous Keep PO Greater than or Equal to (%): 88 Code Status: Full Code Suggestions for Active Care Change Position every (hours): 2 Therapies Weight Bearing: Full weight bearing Physical Therapy: Eval and Treat Occupational Therapy: Eval and Treat Problem/Diagnosis (1) Intractable low back pain: Status: Acute Code(s): M54.59 - Other low back pain (2) Metastatic cancer to spine: Status: Acute Code(s): C79.51 - Secondary malignant neoplasm of bone Allergies/Procedures Done in Hospital Allergies Penicillins Allergy (Verified 05/22/23 15:35) Unknown venom-honey bee [bee venom (honey bee)] Allergy (Verified 05/22/23 15:35) Swelling Procedures: - (CT lumbar spine/radiation therapy) Type of Care/Length of Stay Estimated LOS: Convalescent Care Less Than 30 days Type of Care Needed: Skilled Rehab Potential: Good Prognosis: Fair Additional Orders/Day of Discharge Day of Discharge: 06/02/23 Dietary and Speech Recommendations Dietitian Recommendations/Changes: Continue Regular diet with fluid restriction per MD to optimize oral intakes and improve sodium labs. Will discontinue 120mL EPHP 4x daily due to fluid restriction. RD will order Magic Cup BID with lunch and dinner to provide supplemental energy. Follow Up Care Please follow up with your Primary Care Physician in: 4 weeks Please Follow Up With: Dennis Nunez DO When: As scheduled for radiation therapy Discharge Plan Admission Admit Date/Time: 05/26/23 12:53 Primary Reason for Your Visit: Intractable low back pain Attending Provider: Kristyn Glass Primary Care Provider: Mony Morrison Consulting Providers: Arsen Levine; Kristyn Glass; Dennis Nunez; Rakesh Philip; Arsen Wilhelm Discharge Orders/Prescriptions Prescriptions: New ipratropium-albuterol 0.5 mg-3 mg(2.5 mg base)/3 mL Solution For Nebulization 3 ml inhalation Q6HWA.RT Qty: 0 0RF albuterol sulfate 2.5 mg /3 mL (0.083 %) Solution For Nebulization 2.5 mg inhalation Q2H PRN PRN (Reason: SOB &/OR WHEEZING) Qty: 0 0RF melatonin 3 mg Tablet 3 mg PO QHS PRN PRN (Reason: Insomnia) Qty: 0 0RF acetaminophen 500 mg Tablet 1,000 mg PO Q8 Qty: 0 0RF lidocaine 5 % Adhesive Patch,Medicated 1 patch topical 2199 Qty: 0 0RF Protocol: *Topical Application Instructions APPLICATION INSTRUCTIONS: Apply to low back. losartan 100 mg Tablet 100 mg PO DAILY Qty: 0 0RF alum-mag hydroxide-simeth [Mag-Al Plus Extra Strength] 400-400-40 mg/5 mL Susp ension 30 ml PO Q6H PRN PRN (Reason: Heartburn Or Indigestion) Qty: 0 0RF sodium chloride 1,000 mg Tablet,Soluble 1,000 mg PO BID Qty: 0 0RF Ensure Plus High Protein 0.08 gram-1.5 kcal/mL Liquid 120 ml PO 4X/DAY Qty: 0 0RF duloxetine 30 mg Capsule,Delayed Release(Dr/Ec) 30 mg PO DAILY Qty: 0 0RF oxycodone 5 mg Tablet 5 mg PO Q4H PRN PRN (Reason: Pain Score 4-5 Or Pre Pt/Ot) 2 Days Qty: 12 0RF pregabalin 75 mg Capsule 75 mg PO BID Qty: 1 0RF Continued fluticasone propionate 50 mcg/actuation spray,suspension 2 spray INTRANASAL DAILY Qty: 16 11RF Spiriva Respimat 2.5 mcg/actuation mist 2 puff inhalation QDAY Qty: 4 11RF montelukast 10 mg tablet 10 mg PO QHS Qty: 90 3RF polyethylene glycol 3350 [Miralax] 17 gram/dose powder 4 g PO DAILY ondansetron 8 mg tablet,disintegrating 8 mg PO Q8H PRN (Reason: nausea and vomiting) Qty: 30 2RF dexamethasone 4 mg tablet 4 mg PO DAILY Qty: 20 0RF amlodipine 10 MG tablet 10 mg PO DAILY Patient Comments: blood pressure bupropion HCl [Wellbutrin XL] 150 MG tablet extended release 24 hr 150 mg PO DAILY Patient Comments: depression omeprazole 20 MG capsule 20 mg PO DAILY Patient Comments: acid reflux cetirizine 10 mg Tablet 10 mg PO QHS Senna Plus 8.6-50 mg capsule 4 tab-cap PO DAILY budesonide-formoterol [Symbicort] 160-4.5 mcg/actuation HFA aerosol inhaler 2 puff inhalation BID Qty: 3 3RF Rx Instructions: administer with spacer, rinse mouth after each use Discontinued losartan-hydrochlorothiazide 1 TAB tablet 1 tab PO DAILY Patient Comments: blood pressure pregabalin 25 mg capsule 25 mg PO BID oxycodone-acetaminophen 5-325 mg tablet 1 tab PO Q4H PRN (Reason: Pain) 4 Days Qty: 20 0RF Referrals / Follow Up: Mony Morrison MD [Primary Care Provider] - Dennis Nunez DO [Med Staff - Active Staff] - See Referral Note (As scheduled for radiation) Disposition Disposition (needs filled in before D/C Order can be placed): Long-Term Facility
--- NOTE | 2023-06-02 09:44 | NURSING ---
pt down at radiation therapy
--- NOTE | 2023-06-02 10:01 | PHA.DC.MR.R ---
Pharmacy [place] Med Reconciliation Pharmacy Service has performed discharge medication reconciliation for this patient. The patient's discharge medication list was reviewed for discrepancies and discrepancies were resolved. Medications at Discharge Home Medications amlodipine 10 mg tablet 10 mg PO DAILY 10/31/15 bupropion HCl 150 mg 24 hr tablet, extended release (Wellbutrin XL) 150 mg PO DAILY depression 10/31/15 omeprazole 20 mg capsule,delayed release 20 mg PO DAILY GERD 07/26/16 cetirizine 10 mg tablet 10 mg PO QHS allergies 10/29/21 fluticasone propionate 50 mcg/actuation nasal spray,suspension 2 spray intranasal DAILY #16 grams 08/26/22 montelukast 10 mg tablet 10 mg PO QHS ALLERGIES #90 tabs 08/26/22 tiotropium bromide 2.5 mcg/actuation mist for inhalation (Spiriva Respimat) 2 puff inhalation QDAY #4 grams 08/26/22 ondansetron 8 mg disintegrating tablet 8 mg PO Q8H PRN nausea and vomiting #30 tabs 03/03/23 polyethylene glycol 3350 17 gram/dose oral powder (Miralax) 4 g PO DAILY 03/03/23 sennosides 8.6 mg-docusate sodium 50 mg capsule (Senna Plus) 4 tab-cap PO DAILY constipation 05/05/23 budesonide-formoterol HFA 160 mcg-4.5 mcg/actuation aerosol inhaler (Symbicort) 2 puff inhalation BID #3 ea 05/06/23 dexamethasone 4 mg tablet 4 mg PO DAILY #20 tabs 05/13/23 acetaminophen 500 mg tablet 1,000 mg (2 x 500 mg) PO Q8 #0 tabs 05/30/23 albuterol sulfate 2.5 mg/3 mL (0.083 %) solution for nebulization 2.5 mg (3 mL) inhalation Q2H PRN PRN SOB &/OR WHEEZING #0 mL 05/30/23 aluminum-mag hydroxide-simethicone 400 mg-400 mg-40 mg/5 mL oral susp (Mag-Al Plus Extra Strength) 30 ml PO Q6H PRN PRN Heartburn Or Indigestion #0 mL 05/30/23 duloxetine 30 mg capsule,delayed release 30 mg PO DAILY #0 caps 05/30/23 food supplemt, lactose-reduced 0.08 gram-1.5 kcal/mL oral liquid (Ensure Plus High Protein) 120 ml PO 4X/DAY #0 mL 05/30/23 ipratropium 0.5 mg-albuterol 3 mg (2.5 mg base)/3 mL nebulization soln 3 ml inhalation Q6HWA.RT #0 mL 05/30/23 lidocaine 5 % topical patch 1 patch topical 2200 #0 ea 05/30/23 losartan 100 mg tablet 100 mg PO DAILY #0 tabs 05/30/23 melatonin 3 mg tablet 3 mg PO QHS PRN PRN Insomnia #0 tabs 05/30/23 sodium chloride 1,000 mg soluble tablet 1,000 mg PO BID #0 tabs 05/30/23 oxycodone 5 mg tablet 5 mg PO Q4H PRN PRN Pain Score 4-5 Or Pre Pt/Ot 2 days #12 tabs 06/02/23 pregabalin 75 mg capsule 75 mg PO BID #1 cap 06/02/23
--- NOTE | 2023-06-02 12:04 | PCM.PN.REN ---
Subjective Subjective No new events Objective Data Objective Data Vital Signs: Vital Signs Temp Pulse Resp BP Pulse Ox O2 Del Method O2 Flow Rate 97.7 F L 89 18 133/76 H 94 Nasal Cannula 4 06/02/23 08:35 06/02/23 08:35 06/02/23 08:35 06/02/23 08:35 06/02/23 08:35 06/02/23 08:35 06/02/23 08:35 Oxygen Flow Rate (L/min) 4 Oxygen Delivery Method Nasal Cannula Weight: 75.2 kg Body Mass Index (BMI) 27.6 Intake & Output: Intake and Output for Last 24 Hours 05/31/23 06/01/23 06/02/23 23:59 23:59 23:59 Intake Total 600 / 600 450 / 750 300 / 300 Output Total 1850 / 2050 900 / 1200 800 / 800 Balance -1250 / -1450 -450 / -450 -500 / -500 Medical Nutrition Assessment Dietitian: Malnutrition Criteria Met Start: 05/25/23 10:03 Freq: Status: Active Protocol: Document 05/28/23 13:35 LO (Rec: 05/28/23 13:36 [id number]) Nutrition Malnutrition Evidence of Malnutrition Exists Yes Malnutrition (severe): Chronic Evidenced By Suboptimal Energy Intake ( Severe),Weight Loss (Severe), Physical Changes (Severe) Clinical Problem Chronic Disease or Condition Related Malnutrition Etiology severe related to increased nutritional needs due to chronic disease Signs/Symptoms as evidenced by <75% PO intake of estimated nutrition needs, 59.8lbs (26%) unintentional weight loss in 6 months, and severe fat loss to triceps Status Active Problem Recommendation Dietitian Recommendations/Changes Continue Regular diet with fluid restriction per MD to optimize oral intakes and improve sodium labs. Will discontinue 120mL EPHP 4x daily due to fluid restriction. RD will order Magic Cup BID with lunch and dinner to provide supplemental energy. Lab / Micro Data 06/02/23 05:20 06/02/23 05:20 Labs: Laboratory Results - last 24 hr 06/02/23 05:20: WBC 4.0 L, RBC 2.30 L, Hgb 7.6 L, Hct 23.3 L, MCV 101.3 H, MCH 33.0 H, MCHC 32.6, RDW Std Deviation 70.5 H, RDW Coeff of Ruben 19.1 H, Plt Count 153, MPV 8.6, Immature Gran % (Auto) 0.200, Neut % (Auto) 90.6 H, Lymph % (Auto) 3.7 L, [place] % (Auto) 5.5, Eos % (Auto) 0.0, Baso % (Auto) 0.0, Absolute Neuts (auto) 3.6, Absolute Lymphs (auto) 0.15 L, Nucleated RBC % 0, Anisocytosis 2+, Sodium 130 L, Potassium 4.7, Chloride 93 L, Carbon Dioxide 33.0 H, Anion Gap 4 L, BUN 38 H, Creatinine 0.65 L, Estim Creat Clear Calc 113.06, Est GFR (MDRD) Af Amer 160, Est GFR (MDRD) Non-Af 132, BUN/Creatinine Ratio 58.4 H, Glucose 198 H, Calcium 8.4 L Micro: Microbiology 06/01/23 09:15 Stool Stool Occult Blood (GLEN) - Final 05/25/23 Unknown Sputum, Expectorated/Coughed Gram Stain - Final 05/25/23 Unknown Sputum, Expectorated/Coughed Respiratory Culture - Final 05/25/23 19:55 Stool Stool Occult Blood (GLEN) - Final Occult Blood Positive Physical Exam Narrative Pleasant awake and responsive Coarse bronchial breath sounds S1-S2 regular Abdomen is nontender no edema Assessment & Plan Assessment/Plan (1) Hyponatremia: (2) Metastatic cancer to spine: PLAN: Plan Acute on chronic hyponatremia. due to SIADH. continue to hold thiazide. Today's sodium is better Continue with salt tablet currently at 1 g twice daily with free water restriction Discharge today
[2023-06-02 14:17] VITALS: BP 128/77; PULSE 93; RESP 18; TEMP 36.2; O2SAT 94
[2023-06-02] MEDS: 0.9% Saline Lock 10 ML Syringe IV ×2 (14:20→20:39)
[2023-06-02] MEDS: Ondansetron 8 MG Tablet PO (14:23)
--- NOTE | 2023-06-02 16:10 | CHAPLAIN ---
Type of Pastoral Visit ___ Initial Visit _x__ Follow-up Visit ___ On-call Visit ___ General Patient Visit ___ Spiritual Assessment ___ Family Conference ___ Bereavement ___ Rapid Response ___ Code Blue ___ Other (describe below) Pastoral Care Referral From _x__ Patient ___ Family _x__ Nurse ___ Physician ___ Editor Publications ___ Billet Header ___ Other (describe below) Sacrament/Intervention _x__ Active listening ___ Anointing ___ Adventist ___ Bereavement ___ Communion ___ Christina exploration ___ ___ Life review _x__ Prayer ___ Reconciliation ___ Sacrament of Sick _x__ Supportive presence ___ Wedding ___ Other (describe below) Pastoral Comments follow up visit to this patient by recommendation of RN; pt states that it is not a good day and that he is frustrated by decisions or lack thereof by insurance etc., pt feels he is declining and running out of time for best care scenarios; pt uses the word 'overwhelmed' several times to describe his feelings; time and listening given to patient for assurance of his care and importance; prayer is welcomed
--- NOTE | 2023-06-02 16:43 | CASEMGMT ---
Social Work Major Wade from [facility] came in to see pt and complete the waiver assessment w/pt. RODNEY Dumont
--- NOTE | 2023-06-02 17:28 | PCM.PN.HOSP ---
Reason for Visit Reason for Visit: Intractable low back pain Subjective Subjective Back pain is much better however he still has it. Mobility is much less involved. Currently awaiting pre-CERT for discharge to [facility] for ongoing rehab and then patient plans to transition to [facility] in assisted living if possible. Objective Data Objective Data Vital Signs: Vital Signs Temp Pulse Resp BP Pulse Ox O2 Del Method O2 Flow Rate 97.1 F L 93 18 128/77 H 94 Nasal Cannula 4 06/02/23 14:17 06/02/23 14:17 06/02/23 14:17 06/02/23 14:17 06/02/23 14:17 06/02/23 14:17 06/02/23 14:17 Oxygen Flow Rate (L/min) 4 Oxygen Delivery Method Nasal Cannula Weight: 75.2 kg Body Mass Index (BMI) 27.6 Intake & Output: Intake and Output for Last 24 Hours 05/31/23 06/01/23 06/02/23 23:59 23:59 23:59 Intake Total 600 / 600 450 / 750 300 / 300 Output Total 1850 / 2050 900 / 1200 1100 / 1100 Balance -1250 / -1450 -450 / -450 -800 / -800 Medical Nutrition Assessment Dietitian: Malnutrition Criteria Met Start: 05/25/23 10:03 Freq: Status: Active Protocol: Document 06/02/23 16:22 RMA (Rec: 06/02/23 16:22 RMA [id number]) Nutrition Malnutrition Evidence of Malnutrition Exists Yes Malnutrition (severe): Chronic Evidenced By Suboptimal Energy Intake ( Severe),Weight Loss (Severe), Physical Changes (Severe) Clinical Problem Chronic Disease or Condition Related Malnutrition Etiology severe related to increased nutritional needs due to chronic disease Signs/Symptoms as evidenced by <75% PO intake of estimated nutrition needs, 59.8lbs (26%) unintentional weight loss in 6 months, and severe fat loss to triceps Status Active Problem Recommendation Dietitian Recommendations/Changes Continue liberalized Regular diet as tolerated with 1500mL/ day fluid restriction per MD. Continue 120mL EPHP 4x daily as tolerated. Continue Magic Cup BID with lunch and dinner to provide supplemental energy. Lab / Micro Data 06/02/23 05:20 06/02/23 05:20 Labs: Laboratory Results - last 24 hr 06/02/23 05:20: WBC 4.0 L, RBC 2.30 L, Hgb 7.6 L, Hct 23.3 L, MCV 101.3 H, MCH 33.0 H, MCHC 32.6, RDW Std Deviation 70.5 H, RDW Coeff of Ruben 19.1 H, Plt Count 153, MPV 8.6, Immature Gran % (Auto) 0.200, Neut % (Auto) 90.6 H, Lymph % (Auto) 3.7 L, [place] % (Auto) 5.5, Eos % (Auto) 0.0, Baso % (Auto) 0.0, Absolute Neuts (auto) 3.6, Absolute Lymphs (auto) 0.15 L, Nucleated RBC % 0, Anisocytosis 2+, Sodium 130 L, Potassium 4.7, Chloride 93 L, Carbon Dioxide 33.0 H, Anion Gap 4 L, BUN 38 H, Creatinine 0.65 L, Estim Creat Clear Calc 113.06, Est GFR (MDRD) Af Amer 160, Est GFR (MDRD) Non-Af 132, BUN/Creatinine Ratio 58.4 H, Glucose 198 H, Calcium 8.4 L Micro: Microbiology 06/01/23 09:15 Stool Stool Occult Blood (GLEN) - Final 05/25/23 Unknown Sputum, Expectorated/Coughed Gram Stain - Final 05/25/23 Unknown Sputum, Expectorated/Coughed Respiratory Culture - Final 05/25/23 19:55 Stool Stool Occult Blood (GLEN) - Final Occult Blood Positive Physical Exam Const alert, oriented x3, no apparent distress, no limitations and well nourished; Negative for healthy appearing Constitutional Narrative: Overweight, upper middle-aged, white male, sitting up in bed watching television and eating breakfast, appears older than stated age, does not appear toxic HEENT normocephalic, head/scalp atraumatic, hearing grossly normal bilaterally and moist oral mucous membranes HEENT Narrative: Dentition is poor, Mallampati 3, no thrush Resp normal respiratory effort, no retractions, no use of accessory muscles and clear to auscultation bilaterally Resp Narrative: Diminished diffusely Auscultation: Negative for rales, rhonchi or wheezes Cardio regular rate, regular rhythm, S1 normal heart sound, S2 normal heart sound, no murmurs, no rub, no gallops and no clicks GI normal to inspection, nondistended, normoactive bowel sounds, soft to palpation and non-tender Extremity normal to inspection and no clubbing, cyanosis or edema Extremity Narrative: Pedal pulses are 2+ Neuro oriented x3, moves all extremities and no focal motor deficits Neuro Narrative: Generalized weakness noted with improved movement due to decreased pain Speech: speech normal Psych affect normal Psych Narrative: Affect is much less flat and mood seems less depressed, eye contact is improved and patient not tearful Assessment & Plan Assessment/Plan (1) Intractable low back pain: (2) Metastatic cancer to spine: PLAN: Plan Intractable low back pain -Secondary to metastatic lung cancer -Continue scheduled Tylenol -Continue Decadron but transition to home dose of 4 mg daily -Continue as needed oxycodone -Continue increased dose of Lyrica 75 mg daily -Continue bowel regimen with daily MiraLAX and senna/docusate Metastatic lung cancer -Diagnosed in 2021 and status post right upper lobectomy and lymph node dissection 12/26/2021--> received neoadjuvant chemotherapy--> CT chest on 09/03/2022 showed new right middle lobe nodule and new lymphadenopathy in the chest--> PET 11/05/2022 showed a multitude of hypermetabolic activities consistent with metastatic disease--> PET/CT performed on 02/11/2023 showed worsening metastatic disease and CT-guided biopsy of right pleural mass was done on 01/22/2023 that showed metastatic adenocarcinoma--> palliative chemo was started on 03/11/2023 -Had CT-guided thoracentesis performed on 05/19/2023 with removal of 220 cc of fluid--> negative for malignant cells -MRI of the lumbar spine shows significant metastatic disease with no neurological changes or invasion of the spinal canal/nerves -Radiation oncology is following and performing palliative radiation Homelessness -Patient's been living in somebody else's garage -Has been trying to find a place to live but running into difficulties due to finances -Consult case management/social work to assist -Plan is for discharge to [facility] once pre-CERT is obtained Chronic hypoxic respiratory failure secondary to COPD -Patient is on oxygen at baseline 3 L -Currently stable -As needed nebulizers -Restart inhalers at discharge -No signs of acute exacerbation Chronic hyponatremia secondary to SIADH -Likely related to his lung cancer -HCTZ discontinued as his sodium dropped after admission -Continue salt tablets -Continue fluid restriction -Nephrology has been following-appreciate input Chronic anemia -Hemoccult was positive but his hemoglobin is stable -Will hold on GI consultation and make outpatient referral after discharge -It appears his hemoglobin has been running between 7.0 and 8.0 Thrombocytopenia -Resolved e HTN/HPL -Continue home amlodipine -Continue increased dose of losartan -Patient does not take a statin Seasonal allergies -Continue home medication GERD/hiatal hernia -Continue home Protonix History of hepatitis B -Remote -No current issues Depression -Continue home Wellbutrin -Continue Cymbalta that was started on admission History of tobacco/cannabis/alcohol abuse -Patient has quit using all the substances -Advise ongoing cessation DVT prophylaxis -Enoxaparin 40 mg daily CODE STATUS -Full code -Patient seem to have trouble processing his current diagnosis and overall situation Disposition: -Currently awaiting pre-CERT. Patient is medically stable for discharge Charges/Coding Visit Charges Inpatient E&M: 24992 Subs Hosp L2
[2023-06-02 19:53] VITALS: PULSE 98; RESP 22; O2SAT 89
[2023-06-02] MEDS: Ipratropium/Albuterol Sulfate 3 ML AMPUL.NEB INHALATION (19:53)
[2023-06-02 20:26] VITALS: BP 106/61; PULSE 86; RESP 18; TEMP 36.6; O2SAT 94
[2023-06-02] MEDS: HYDROmorphone 1 MG/ML Syringe IV (20:38)
[2023-06-02] MEDS: Lidocaine 5% Patch 1 PATCH TOPICAL (22:02)
[2023-06-02] MEDS: Montelukast 10 MG Tablet PO (22:05)
[2023-06-02] MEDS: Loratadine 10 MG Tablet PO (22:06)
[2023-06-03 02:25] VITALS: BP 109/66; PULSE 79; RESP 18; TEMP 36.6; O2SAT 94
[2023-06-03 02:28] VITALS: BMI 27.6
[2023-06-03] MEDS: Acetaminophen 500 MG Tablet 1000 MG PO (05:22)
[2023-06-03] MEDS: 0.9% Saline Lock 10 ML Syringe IV ×2 (05:22→11:00)
[2023-06-03 05:51] LABS: Anion Gap 3 (5-15); BUN 43 mg/dL (7-18); BUN/Creat Ratio 52.4 RATIO (10-20); Calcium,Total 8.5 mg/dL (8.5-10.1); Chloride 93 mmol/L (98-107); Creatinine, Serum 0.82 mg/dL (0.70-1.30); EST Glomerular Filtration Rate 101 mL/min (>60); Est Glom Filt Rate - Afr Amer 122 mL/min (>60); Estimated Creatinine Clearance 89.57 ml/min; Glucose 91 mg/dL (74-106); Potassium 5.1 mmol/L (3.5-5.1); Sodium Level 130 mmol/L (136-145)
[2023-06-03] MEDS: oxyCODONE 5 MG Tablet PO ×2 (06:57→11:00)
[2023-06-03 07:19] LABS: Hematocrit 22.5 % (40-54); Hemoglobin 7.3 g/dL (13.0-16.5); Mean Corp Hgb Conc 32.4 g/dL (32-36); Mean Corpuscular Hgb 33.3 pg (27.0-32.0); Mean Corpuscular Volume 102.7 fL (80-94); Platelet Count 158 K/mm3 (150-450); RBC Distribution Width CV 19.2 % (11.6-14.6); RBC Distribution Width SD 71.4 fl (35.1-43.9); Red Blood Count 2.19 M/mm3 (4.6-6.2); Scan Indicated on CBC? Y/N YES- FLAGS NOTED; White Blood Count 4.4 K/mm3 (4.4-11.0)
[2023-06-03 07:28] VITALS: O2SAT 93
[2023-06-03 08:23] VITALS: BP 109/64; PULSE 85; RESP 20; TEMP 36.2; O2SAT 94
[2023-06-03] MEDS: Fluticasone 0.05% 1 SPRAY NASAL.SRY 2 SPRAY NASAL (08:26)
[2023-06-03] MEDS: dexAMETHasone 4 MG Tablet PO (08:27)
[2023-06-03] MEDS: Losartan Potassium 100 MG Tablet PO (08:28)
[2023-06-03] MEDS: amLODIPine 10 MG Tablet PO (08:28)
[2023-06-03] MEDS: DULoxetine Hcl 30 MG Capsule PO (08:28)
[2023-06-03] MEDS: Senna/Docusate Sodium 1 Tablet 4 TABLET PO (08:28)
[2023-06-03] MEDS: Pantoprazole Sodium 20 MG Tablet PO (08:28)
[2023-06-03] MEDS: buPROPion (XL) 150 MG TABLET.XL PO (08:29)
[2023-06-03] MEDS: Sodium Chloride 1 GM Tablet PO (08:29)
[2023-06-03] MEDS: Pregabalin 75 MG Capsule PO (08:31)
--- NOTE | 2023-06-03 08:55 | CASEMGMT ---
Addendum entered by Hiwot Herbert 06/03/23 11:47: Social Work Pt's brother called SW back SW let him know pt is going to [facility] today. Pt's brother states understanding. RODNEY Dumont Original Note: Social Work [facility] did get precert for pt to go today. SW sent over all discharge instructions via [facility]. Hospital exemption already completed. MARK set up a 12pm ambulance w/[facility]. MARK Jacobs notified pt, he is agreeable for discharge to [facility] today. MARK left pt's brother Quan a message to let him know pt is going to [facility] today. MARK also notified [facility] via [facility] he is leaving today at 12pm. No further needs, pt to [facility] today, skilled. RODNEY Dumont
--- NOTE | 2023-06-03 09:29 | PCM.DC.SUM ---
Providers Date of Admission: 05/26/23 Date of Discharge: 06/03/23 Primary Care Physician: Dr. Mony Morrison MD Consultations 05/24/23 22:24 Consult: Oncology Radiation [Consult: Radiation Oncology] Routine Consulting Provider: Dennis Nunez Reason for Consult: Intractable low back pain due to metastatic lung cancer. EMERGENT Consult: No Notified: Yes Date Notified: 05/26/23 Time Notified: 07:52 Method of Notification: Text 05/29/23 08:12 Consult: Nephrology Routine Consulting Provider: Rakesh Philip Reason for Consult: Hyponatremia EMERGENT Consult: No MD Notified: Yes Date Notified: 05/29/23 Time Notified: 08:12 Method of Notification: Text Reason For Visit: INTRACTABLE LOW BACK PAIN IN THE SETTING OF KNOWN Diagnosis Discharge Diagnosis (1) Intractable low back pain: Status: Acute Code(s): M54.59 - Other low back pain (2) Metastatic cancer to spine: Status: Acute Code(s): C79.51 - Secondary malignant neoplasm of bone Medications at Discharge Home Medications amlodipine 10 mg tablet 10 mg PO DAILY 10/31/15 bupropion HCl 150 mg 24 hr tablet, extended release (Wellbutrin XL) 150 mg PO DAILY depression 10/31/15 omeprazole 20 mg capsule,delayed release 20 mg PO DAILY GERD 07/26/16 cetirizine 10 mg tablet 10 mg PO QHS allergies 10/29/21 fluticasone propionate 50 mcg/actuation nasal spray,suspension 2 spray intranasal DAILY #16 grams 08/26/22 montelukast 10 mg tablet 10 mg PO QHS ALLERGIES #90 tabs 08/26/22 tiotropium bromide 2.5 mcg/actuation mist for inhalation (Spiriva Respimat) 2 puff inhalation QDAY #4 grams 08/26/22 ondansetron 8 mg disintegrating tablet 8 mg PO Q8H PRN nausea and vomiting #30 tabs 03/03/23 polyethylene glycol 3350 17 gram/dose oral powder (Miralax) 4 g PO DAILY 03/03/23 sennosides 8.6 mg-docusate sodium 50 mg capsule (Senna Plus) 4 tab-cap PO DAILY constipation 05/05/23 budesonide-formoterol HFA 160 mcg-4.5 mcg/actuation aerosol inhaler (Symbicort) 2 puff inhalation BID #3 ea 05/06/23 dexamethasone 4 mg tablet 4 mg PO DAILY #20 tabs 05/13/23 acetaminophen 500 mg tablet 1,000 mg (2 x 500 mg) PO Q8 #0 tabs 05/30/23 albuterol sulfate 2.5 mg/3 mL (0.083 %) solution for nebulization 2.5 mg (3 mL) inhalation Q2H PRN PRN SOB &/OR WHEEZING #0 mL 05/30/23 aluminum-mag hydroxide-simethicone 400 mg-400 mg-40 mg/5 mL oral susp (Mag-Al Plus Extra Strength) 30 ml PO Q6H PRN PRN Heartburn Or Indigestion #0 mL 05/30/23 duloxetine 30 mg capsule,delayed release 30 mg PO DAILY #0 caps 05/30/23 food supplemt, lactose-reduced 0.08 gram-1.5 kcal/mL oral liquid (Ensure Plus High Protein) 120 ml PO 4X/DAY #0 mL 05/30/23 ipratropium 0.5 mg-albuterol 3 mg (2.5 mg base)/3 mL nebulization soln 3 ml inhalation Q6HWA.RT #0 mL 05/30/23 lidocaine 5 % topical patch 1 patch topical 2200 #0 ea 05/30/23 losartan 100 mg tablet 100 mg PO DAILY #0 tabs 05/30/23 melatonin 3 mg tablet 3 mg PO QHS PRN PRN Insomnia #0 tabs 05/30/23 sodium chloride 1,000 mg soluble tablet 1,000 mg PO BID #0 tabs 05/30/23 oxycodone 5 mg tablet 5 mg PO Q4H PRN PRN Pain Score 4-5 Or Pre Pt/Ot 2 days #12 tabs 06/02/23 pregabalin 75 mg capsule 75 mg PO BID #1 cap 06/02/23 Hospital Course Operations None Procedures - (CT lumbar spine/radiation therapy) Summary of Care Provided Minutes Spent on Discharge: 40 Hospital Course: Mr. Gonzáles is a 62-year-old white male who presented to the emergency department at [facility] on 05/25/2023 with intractable low back pain. He had recently come in on 05/23/2023 with the same complaint and an MRI of his lumbar spine was done at that time which showed extensive bony metastasis but no extrusion into the spinal canal. At that point it was recommended he follow-up as an outpatient with his oncologist and pursue radiation oncology. Patient had not yet been able to do that and due to severe low back pain radiating down the left leg along with urinary incontinence he decided to come back to the emergency department. He states urinary incontinence and his constipation have been there for about 2 weeks and are new since his MRI was done a few days ago. He follows with oncology and sees Dr. Patel with his last appointment being 05/13/2023. It sounds as if he was told he has progressive disease and is not a candidate for chemotherapy anymore. Consult was placed for oncology however they declined to see him why was hospitalized and we will see him as an outpatient after discharge at previously scheduled appointment. The patient is interested in radiation oncology to help with his pain in his back. He was diagnosed with lung cancer in 2021 and had a right upper lobectomy with lymph node dissection and received adjuvant chemotherapy at that time. A CT of the chest in 2022 showed a new right middle lobe nodule and right hilar and paratracheal/precarinal node enlargement. PET scan was done in October 2022 which showed right epicardial nodule, right hilar nodule, right paratracheal node, right pleural-based nodule anteriorly, left subpectoral nodule with hypermetabolic activities. At that point he was referred for systemic therapy as he did not want to go back to [place] for chemotherapy or immunosuppressive therapy. A PET/CT performed 02/11/23 demonstrated update in the right hemithorax, mediastinum, right perihilum, left retroclavicular, retropectoral area and left chest wall, abdominal mesentery and skeletal metastatic disease involving several thoracic and lumbar vertebra, left scapular and right proximal humerus. Palliative chemoimmunotherapy was started on 03/11/2023. This has been stopped and he had a thoracentesis performed on 05/19/2023 ordered by oncology. Pathology on his thoracentesis was unremarkable. He was admitted to medical floor and placed on a regimen for pain management. He was started on lidocaine patch, scheduled Tylenol, Decadron, and duloxetine for both pain and depression. Consultation to radiation oncology was also placed and they started radiation with him during his hospitalization. His pain has improved however still present. He has a history of chronic hyponatremia likely related to SIADH from his lung cancer. Nephrology was consulted and his HCTZ was discontinued. His thiazide was to be discontinued at discharge and sodium at the time of discharge was 130 which is where it was at the time of admission. He was maintained on salt tablets at the time of discharge and will continue these. He had significant social situations and the fact that he was homeless and had significant debility at presentation with the inability ambulate due to his pain and significant weakness. He was seen by physical and Occupational Therapy and deemed appropriate for placement and was accepted at [facility]. Pre-CERT was obtained on 06/02/2023. The plan is for him to continue radiation therapy and he will follow-up with oncology as an outpatient following. We did discuss hospice at this time of his admission however he was still wanting to be full code and not yet interested in hospice. He is certainly hospice appropriate at this time. If his situation declines, this should be readdressed. Discharge diagnoses: Intractable low back pain secondary to metastatic lung cancer Metastatic lung cancer Homelessness Acute on chronic hyponatremia secondary to SIADH Chronic hypoxic respiratory failure secondary to COPD Chronic anemia-was Hemoccult positive however hemoglobin was stable and further workup deferred given extensiveness of metastatic disease Thrombocytopenia Hypertension Hyperlipidemia Seasonal allergies GERD Hiatal hernia History of hepatitis B Depression History of tobacco abuse History of cannabis abuse History of alcohol abuse Physical Exam Narrative No significant complaints. Pleased that he will be leaving today. Asks if we know where his breakfast is and states he ordered it at 6 AM and has not yet arrived. He states it was confirmed at 7. I assured him I would look into it and hopefully would have it to him by the time he got back from radiation. Const alert, oriented x3, no apparent distress, no limitations and well nourished; Negative for healthy appearing Constitutional Narrative: Overweight, upper middle-aged, white male, getting ready to be wheeled out to radiation, appears older than stated age, does not appear toxic General Appearance: cooperative, comfortable, well kempt and well developed Orientation / Consciousness: awake, oriented to person, oriented to place and oriented to time Exam Limitations: no limitations Nutritional Appearance: overweight HEENT normocephalic, head/scalp atraumatic, hearing grossly normal bilaterally and moist oral mucous membranes HEENT Narrative: Dentition is poor, Mallampati is 3, no thrush Eyes PERRL and EOMs intact bilaterally Eyes Narrative: Conjunctiva are pale bilaterally, no scleral icterus Neck no lymphadenopathy and supple Neck Narrative: Neck is short and thick, trachea midline Resp normal respiratory effort, no retractions, no use of accessory muscles and clear to auscultation bilaterally Resp Narrative: Diminished diffusely Auscultation: Negative for rales, rhonchi or wheezes Cardio regular rate, regular rhythm, S1 normal heart sound, S2 normal heart sound, no murmurs, no rub, no gallops and no clicks GI normal to inspection, nondistended, normoactive bowel sounds, soft to palpation and non-tender Extremity normal to inspection and no clubbing, cyanosis or edema Extremity Narrative: Pedal pulses are 2+ Skin no rashes or lesions noted, no wounds, skin turgor normal, no jaundice, no petechiae and no mottling Skin Narrative: Skin is pale Neuro oriented x3, CN's II-XII intact bilaterally, moves all extremities and no focal motor deficits Neuro Narrative: Generalized weakness proximal greater than distal, pain seems to be less problematic Sensorium / Orientation: awake, alert, oriented to person, oriented to place and oriented to time Speech: speech normal Psych affect normal Psych Narrative: Very pleasant, interacts appropriately, eye contact is good, patient is not tearful wall today Medical Records Data Medical Nutrition Assessment Dietitian: Malnutrition Criteria Met Start: 05/25/23 10:03 Freq: Status: Active Protocol: Document 05/28/23 13:35 LO (Rec: 05/28/23 13:36 [id number]) Nutrition Malnutrition Evidence of Malnutrition Exists Yes Malnutrition (severe): Chronic Evidenced By Suboptimal Energy Intake ( Severe),Weight Loss (Severe), Physical Changes (Severe) Clinical Problem Chronic Disease or Condition Related Malnutrition Etiology severe related to increased nutritional needs due to chronic disease Signs/Symptoms as evidenced by <75% PO intake of estimated nutrition needs, 59.8lbs (26%) unintentional weight loss in 6 months, and severe fat loss to triceps Status Active Problem Recommendation Dietitian Recommendations/Changes Continue Regular diet with fluid restriction per MD to optimize oral intakes and improve sodium labs. Will discontinue 120mL EPHP 4x daily due to fluid restriction. RD will order Magic Cup BID with lunch and dinner to provide supplemental energy. Weight / BMI Weight Weight: 75.2 kg Body Mass Index (BMI) 27.6 ABG / Lab / Microbiology Data 06/03/23 05:15 06/03/23 05:15 Laboratory: Laboratory Results - last 24 hr 06/02/23 05:20: WBC 4.0 L, RBC 2.30 L, Hgb 7.6 L, Hct 23.3 L, MCV 101.3 H, MCH 33.0 H, MCHC 32.6, RDW Std Deviation 70.5 H, RDW Coeff of Ruben 19.1 H, Plt Count 153, MPV 8.6, Immature Gran % (Auto) 0.200, Neut % (Auto) 90.6 H, Lymph % (Auto) 3.7 L, [place] % (Auto) 5.5, Eos % (Auto) 0.0, Baso % (Auto) 0.0, Absolute Neuts (auto) 3.6, Absolute Lymphs (auto) 0.15 L, Nucleated RBC % 0, Anisocytosis 2+, Sodium 130 L, Potassium 4.7, Chloride 93 L, Carbon Dioxide 33.0 H, Anion Gap 4 L, BUN 38 H, Creatinine 0.65 L, Estim Creat Clear Calc 113.06, Est GFR (MDRD) Af Amer 160, Est GFR (MDRD) Non-Af 132, BUN/Creatinine Ratio 58.4 H, Glucose 198 H, Calcium 8.4 L Microbiology: Microbiology 06/01/23 09:15 Stool Stool Occult Blood (GLEN) - Final 05/25/23 Unknown Sputum, Expectorated/Coughed Gram Stain - Final 05/25/23 Unknown Sputum, Expectorated/Coughed Respiratory Culture - Final 05/25/23 19:55 Stool Stool Occult Blood (GLEN) - Final Occult Blood Positive D/C Instructions Discharge Diet: Low fat / Low cholesterol and 8 Cup Fluid Restriction Meaningful Use Info Meaningful Use Meaningful Use Diagnoses (Choose all that apply): None applicable Ischemic Stroke Statin Dosing Therapy Reference: STATIN DOSE THERAPY REFERENCE: * Patients > 75 years receive moderate or high dose statin therapy. * Patients 75 years or YOUNGER should receive HIGH intensity statin dose unless contraindicated. You will be required to document reason for non-treatment if statin daily dose does not meet guidelines. HIGH DOSE STATIN THERAPY DAILY Atorvastatin > than or = to 40 mg Rosuvastatin > than or = to 20 mg Amlodipine + Atorvastatin > than or = to 2.5/40 mg Ezetimibe + Simvastatin 10/80 mg Simvastatin 80mg Discharge Plan Admission Admit Date/Time: 05/26/23 12:53 Primary Reason for Your Visit: Intractable low back pain Attending Provider: Kristyn Glass Primary Care Provider: Mony Morrison Consulting Providers: Arsen Levine; Kristyn Glass; Dennis Nunez; Rakesh Philip; Arsen Wilhelm Discharge Orders/Prescriptions Prescriptions: New ipratropium-albuterol 0.5 mg-3 mg(2.5 mg base)/3 mL Solution For Nebulization 3 ml inhalation Q6HWA.RT Qty: 0 0RF albuterol sulfate 2.5 mg /3 mL (0.083 %) Solution For Nebulization 2.5 mg inhalation Q2H PRN PRN (Reason: SOB &/OR WHEEZING) Qty: 0 0RF melatonin 3 mg Tablet 3 mg PO QHS PRN PRN (Reason: Insomnia) Qty: 0 0RF acetaminophen 500 mg Tablet 1,000 mg PO Q8 Qty: 0 0RF lidocaine 5 % Adhesive Patch,Medicated 1 patch topical 2199 Qty: 0 0RF Protocol: *Topical Application Instructions APPLICATION INSTRUCTIONS: Apply to low back. losartan 100 mg Tablet 100 mg PO DAILY Qty: 0 0RF alum-mag hydroxide-simeth [Mag-Al Plus Extra Strength] 400-400-40 mg/5 mL Suspension 30 ml PO Q6H PRN PRN (Reason: Heartburn Or Indigestion) Qty: 0 0RF sodium chloride 1,000 mg Tablet,Soluble 1,000 mg PO BID Qty: 0 0RF Ensure Plus High Protein 0.08 gram-1.5 kcal/mL Liquid 120 ml PO 4X/DAY Qty: 0 0RF duloxetine 30 mg Capsule,Delayed Release(Dr/Ec) 30 mg PO DAILY Qty: 0 0RF oxycodone 5 mg Tablet 5 mg PO Q4H PRN PRN (Reason: Pain Score 4-5 Or Pre Pt/Ot) 2 Days Qty: 12 0RF pregabalin 75 mg Capsule 75 mg PO BID Qty: 1 0RF Continued fluticasone propionate 50 mcg/actuation spray,suspension 2 spray INTRANASAL DAILY Qty: 16 11RF Spiriva Respimat 2.5 mcg/actuation mist 2 puff inhalation QDAY Qty: 4 11RF montelukast 10 mg tablet 10 mg PO QHS Qty: 90 3RF polyethylene glycol 3350 [Miralax] 17 gram/dose powder 4 g PO DAILY ondansetron 8 mg tablet,disintegrating 8 mg PO Q8H PRN (Reason: nausea and vomiting) Qty: 30 2RF dexamethasone 4 mg tablet 4 mg PO DAILY Qty: 20 0RF amlodipine 10 MG tablet 10 mg PO DAILY Patient Comments: blood pressure bupropion HCl [Wellbutrin XL] 150 MG tablet extended release 24 hr 150 mg PO DAILY Patient Comments: depression omeprazole 20 MG capsule 20 mg PO DAILY Patient Comments: acid reflux cetirizine 10 mg Tablet 10 mg PO QHS Senna Plus 8.6-50 mg capsule 4 tab-cap PO DAILY budesonide-formoterol [Symbicort] 160-4.5 mcg/actuation HFA aerosol inhaler 2 puff inhalation BID Qty: 3 3RF Rx Instructions: administer with spacer, rinse mouth after each use Discontinued losartan-hydrochlorothiazide 1 TAB tablet 1 tab PO DAILY Patient Comments: blood pressure pregabalin 25 mg capsule 25 mg PO BID oxycodone-acetaminophen 5-325 mg tablet 1 tab PO Q4H PRN (Reason: Pain) 4 Days Qty: 20 0RF Referrals / Follow Up: Mony Morrison MD [Primary Care Provider] - Dennis Nunez DO [Med Staff - Active Staff] - See Referral Note (As scheduled for radiation) Disposition Disposition (needs filled in before D/C Order can be placed): Shelter Facility Charges/Coding Visit Charges Inpatient E&M: 78357 SNF Disch >30 Min
== END 2023-06-03 12:19 | DRG 861 ==
LOC: ED 20:53 → MS3 23:27
PROVIDERS: Internal Medicine; Admitting Provider Internal Medicine; Emergency Provider Emergency Medicine; PCP Internal Medicine; Visit Provider Internal Medicine
DX: G89.3 Neoplasm related pain (acute) (chronic) (principal); E43 Unspecified severe protein-calorie malnutrition; E22.2 Syndrome of inappropriate secretion of antidiuretic hormone; C77.1 Secondary and unspecified malignant neoplasm of intrathoracic lymph nodes; C79.51 Secondary malignant neoplasm of bone; C78.2 Secondary malignant neoplasm of pleura; E27.8 Other specified disorders of adrenal gland; J44.9 Chronic obstructive pulmonary disease, unspecified; C79.89 Secondary malignant neoplasm of other specified sites; C34.11 Malignant neoplasm of upper lobe, right bronchus or lung; J96.11 Chronic respiratory failure with hypoxia; I10 Essential (primary) hypertension; D63.0 Anemia in neoplastic disease; F32.A Depression, unspecified; K44.9 Diaphragmatic hernia without obstruction or gangrene; K21.9 Gastro-esophageal reflux disease without esophagitis; D64.81 Anemia due to antineoplastic chemotherapy; G47.33 Obstructive sleep apnea (adult) (pediatric); J30.2 Other seasonal allergic rhinitis; E78.00 Pure hypercholesterolemia, unspecified; F41.9 Anxiety disorder, unspecified; M54.50 Low back pain, unspecified; M84.58XA Pathological fracture in neoplastic disease, other specified site, initial encounter for fracture; D69.6 Thrombocytopenia, unspecified; R32 Unspecified urinary incontinence; Z91.199 Patient's noncompliance with other medical treatment and regimen due to unspecified reason; E66.3 Overweight; Z68.29 Body mass index [BMI] 29.0-29.9, adult; T45.1X5A Adverse effect of antineoplastic and immunosuppressive drugs, initial encounter; Z59.01 Sheltered homelessness; Z79.52 Long term (current) use of systemic steroids; Z74.09 Other reduced mobility; Z79.51 Long term (current) use of inhaled steroids; Z79.01 Long term (current) use of anticoagulants; Z99.81 Dependence on supplemental oxygen; Z87.891 Personal history of nicotine dependence; Z92.21 Personal history of antineoplastic chemotherapy; Z92.3 Personal history of irradiation; Z90.2 Acquired absence of lung [part of]
CPT/HCPCS: 36415; 36591; 72131; 77014; 77280; 77290; 77295; 77300; 77334; 77336; 77412; 80048; 80053; 82274; 82607; 82728; 82746; 83540; 83550; 83735; 83930; 83935; 84100; 84134; 84300; 85025; 85027; 86850; 86900; 86901; 86920; 86921; 86922; 87070; 87205; 92526; 92610; 94640; 94668; 97110; 97116; 97162; 97166; 97530; 97535; 97802; 99285; J7030; J7040; P9016; A4216; J2405

== ENCOUNTER 2023-06-04 08:34 | Emergency (ER) | payer MEDICAID, SELFPAY ==
[2023-06-04] VITALS (35 sets, daily range): BP systolic 78–112; BP diastolic 37–80; PULSE 89–100; RESP 11–24; TEMP 36.3–36.7; O2SAT 69–100; BMI 29.2
--- NOTE | 2023-06-04 08:48 | EKG12_ITS ---
Test Reason : SOB Blood Pressure : / mmHG Vent. Rate : 095 BPM Atrial Rate : 095 BPM P-R Int : 134 ms QRS Dur : 084 ms QT Int : 314 ms P-R-T Axes : 043 037 039 degrees QTc Int : 394 ms Normal sinus rhythm Normal ECG Confirmed by NORA MORTON, AUDIE ([id number]), news videotape editor JEFFERSON HERRERA ([id number]) on 06/09/2023 10:04:04 AM Referred By: Confirmed By:KAREN MELENDEZ MD
--- NOTE | 2023-06-04 08:51 | ED.VIS.DYS ---
HPI History of Present Illness Chief Complaint: Shortness of Breath Informant: patient and EMS Narrative Narrative: 62-year-old male presenting to the emergency room with dyspnea. Patient was admitted to the hospital with low back pain found to have bony metastasis of the lumbar spine. Metastatic non-small cell lung cancer/adenocarcinoma which he is no longer chemotherapy candidate for. He elected to go undergo palliative radiation and received some treatments while in the hospital. He was discharged from the hospital yesterday. There is reported to the EMS crew that nursing had suction 750 cc of pink frothy sputum from the patient. EMS states that he was in and out of consciousness requiring some bagging. They state that he did not tolerate CPAP. Patient has stated multiple times since arriving in the emergency department that he is not yet ready to . He is not currently on dialysis. He has a left subclavian port. No reported fever. He notes a moist cough. He is denying chest pain. [facility] Medical History Alcohol use Anxiety and depression Arthritis BiPAP (biphasic positive airway pressure) dependence Broken teeth Cancer Chest pain Chronic cough Chronic pain CINV (chemotherapy-induced nausea and vomiting) Constipation COPD (chronic obstructive pulmonary disease) Depression Dirty living conditions Drug induced neutropenia Encounter for education Former smoker GERD (gastroesophageal reflux disease) Hemoptysis Hepatitis Hiatal hernia with GERD High cholesterol History of echocardiogram History of stress test HTN (hypertension) Hyperglycemia Iatrogenic pneumothorax Marijuana smoker Marijuana use Mass of upper lobe of right lung Morbid obesity with BMI of 40.0-44.9, adult Nicotine addiction Nicotine dependence in remission Obesity On home oxygen therapy ALEXANDRA (obstructive sleep apnea) Poor dentition Shortness of breath on exertion Sleep apnea Smoking greater than 40 pack years Wears glasses Home Medications amlodipine 10 mg tablet 10 mg PO DAILY BLOOD PRESSURE 10/31/15 [History Last Taken 03/06/23 04:20] bupropion HCl 150 mg 24 hr tablet, extended release (Wellbutrin XL) 150 mg PO DAILY depression 10/31/15 [History Last Taken 03/06/23 04:20] omeprazole 20 mg capsule,delayed release 20 mg PO DAILY GERD 07/26/16 [History Last Taken 03/06/23 04:20] cetirizine 10 mg tablet 10 mg PO QHS allergies 10/29/21 [History Last Taken 10/29/21] fluticasone propionate 50 mcg/actuation nasal spray,suspension 2 spray intranasal DAILY #16 grams 08/26/22 [Rx Last Taken 03/06/23 04:20] montelukast 10 mg tablet 10 mg PO QHS ALLERGIES #90 tabs 08/26/22 [Rx Last Taken 03/05/23] tiotropium bromide 2.5 mcg/actuation mist for inhalation (Spiriva Respimat) 2 puff inhalation QDAY #4 grams 08/26/22 [Rx Last Taken 03/06/23 04:20] ondansetron 8 mg disintegrating tablet 8 mg PO Q8H PRN nausea and vomiting #30 tabs 03/03/23 [Rx Last Taken Unknown] polyethylene glycol 3350 17 gram/dose oral powder (Miralax) 4 g PO DAILY 03/03/23 [History Last Taken Unknown] budesonide-formoterol HFA 160 mcg-4.5 mcg/actuation aerosol inhaler (Symbicort) 2 puff inhalation BID #3 ea 05/06/23 [Rx Last Taken Unknown] dexamethasone 4 mg tablet 4 mg PO DAILY #20 tabs 05/13/23 [Rx Last Taken Unknown] acetaminophen 500 mg tablet 1,000 mg (2 x 500 mg) PO Q8 #0 tabs 05/30/23 [Rx Last Taken Unknown] duloxetine 30 mg capsule,delayed release 30 mg PO DAILY #0 caps 05/30/23 [Rx Last Taken Unknown] food supplemt, lactose-reduced 0.08 gram-1.5 kcal/mL oral liquid (Ensure Plus High Protein) 120 ml PO 4X/DAY #0 mL 05/30/23 [Rx Last Taken Unknown] lidocaine 5 % topical patch 1 patch topical 2200 #0 ea 05/30/23 [Rx Last Taken Unknown] losartan 100 mg tablet 100 mg PO DAILY #0 tabs 05/30/23 [Rx Last Taken Unknown] sodium chloride 1,000 mg soluble tablet 1,000 mg PO BID #0 tabs 05/30/23 [Rx Last Taken Unknown] oxycodone 5 mg tablet 5 mg PO Q4H PRN PRN Pain Score 4-5 Or Pre Pt/Ot 2 days #12 tabs 06/02/23 [Rx Last Taken Unknown] pregabalin 75 mg capsule 75 mg PO BID #1 cap 06/02/23 [Rx Last Taken Unknown] albuterol sulfate 2.5 mg/3 mL (0.083 %) solution for nebulization 2.5 mg inhalation Q2H PRN SOB &/OR WHEEZING 06/04/23 [History Last Taken Unknown] aluminum-mag hydroxide-simethicone 400 mg-400 mg-40 mg/5 mL oral susp (Mag-Al Plus Extra Strength) 30 ml PO Q6H PRN Heartburn Or Indigestion 06/04/23 [History Last Taken Unknown] ipratropium 0.5 mg-albuterol 3 mg (2.5 mg base)/3 mL nebulization soln 3 ml inhalation 4X/DAY SHORTNESS OF BREATH/WHEEZING 06/04/23 [History Last Taken Unknown] melatonin 3 mg tablet 3 mg PO QHS PRN Insomnia 06/04/23 [History Last Taken Unknown] sennosides 8.6 mg-docusate sodium 50 mg tablet (Stool Softener-Stimulant Laxative) 4 tab PO DAILY CONSTIPATION 06/04/23 [History Last Taken Unknown] Allergy/AdvReac Type Severity Reaction Status Date / Time Penicillins Allergy Unknown Verified 06/04/23 08:43 venom-honey bee Allergy Swelling Verified 06/04/23 08:43 [bee venom (honey bee)] Family History Mother Cancer Father Diabetes Sister Diabetes Surgical History History of arthroplasty of left knee History of bronchoscopy History of lobectomy of lung History of tonsillectomy Social History household members: none Smoking Status: Former smoker quit date: 06/04/20 pack-years: 40 Tobacco: How many years used: 40 how long ago did patient quit smokin ppd second hand exposure: Yes alcohol intake: current alcohol intake frequency: holidays/special occasions only substance use type: marijuana caffeine: Yes Type: coffee Number of servings: 3 what type of physical activity do you participate in: walking ROS ROS ED Constitutional Constitutional ED: Denies chills, fever(s) or weight loss Eyes Eyes: Denies change in vision or diplopia ENT ENT ED: Denies ear pain, rhinorrhea or sore throat Cardiovascular Cardiovascular: Denies chest pain, orthopnea, palpitations or racing heartbeat Respiratory/Chest Respiratory/Chest: Reports cough, dyspnea and sputum; Denies orthopnea Gastrointestinal Gastrointestinal: Reports nausea; Denies abdominal pain, diarrhea or vomiting Genitourinary Genitourinary ED: Denies dysuria, hematuria or urinary frequency Musculoskeletal Musculoskeletal: Reports back pain; Denies arthralgias or myalgias Integumentary Denies abscess or rash Neurologic Neurologic: Denies headache(s) or weakness Psychiatric Psychiatric: Denies anxiety, depression, suicidal ideation or suicidal thoughts Endocrine Endocrinology: Denies polydipsia, polyphagia or polyuria Allergic/Immunologic Allergic/Immunologic ED: Denies mouth swelling, tongue swelling or urticaria EXAM Physical Exam Const Vital Signs: 06/04/23 08:36 06/04/23 08:35 06/04/23 08:40 Temperature 97.3 F L 97.3 F L Temperature Source Temporal Temporal Pulse Rate 94 94 Respiratory Rate 18 18 Respiratory Effort Respiratory Pattern Blood Pressure 85/54 L 85/54 L Blood Pressure Mean 64 64 Pulse Ox 89 89 89 Oxygen Delivery Method Non-Rebreather Non-Rebreather Non-Rebreather Oxygen Flow Rate (L/min) 15 15 15 Fraction of Inspired Oxygen (FIO2) 06/04/23 08:46 06/04/23 08:55 06/04/23 09:05 Temperature Temperature Source Pulse Rate 94 Respiratory Rate 19 H Respiratory Effort Short of Breath Labored Respiratory Pattern Blood Pressure 102/58 L Blood Pressure Mean 72 Pulse Ox 98 98 Oxygen Delivery Method Non-Rebreather Oxygen Flow Rate (L/min) 15 Fraction of Inspired Oxygen (FIO2) 90 90 06/04/23 09:42 06/04/23 09:30 06/04/23 10:00 Temperature 98.1 F 98.1 F Temperature Source Temporal Temporal Pulse Rate 94 94 93 Respiratory Rate 14 18 13 Respiratory Effort Respiratory Pattern Blood Pressure 93/60 93/60 93/67 Blood Pressure Mean 71 71 75 Pulse Ox 97 97 97 Oxygen Delivery Method Oxygen Flow Rate (L/min) Fraction of Inspired Oxygen (FIO2) 90 90 06/04/23 10:00 06/04/23 08:51 06/04/23 08:51 Temperature Temperature Source Pulse Rate 93 94 Respiratory Rate 11 L 19 H Respiratory Effort Respiratory Pattern Normal Blood Pressure 93/67 Blood Pressure Mean 75 Pulse Ox 97 99 100 Oxygen Delivery Method Bi-pap Oxygen Flow Rate (L/min) Fraction of Inspired Oxygen (FIO2) 90 100 100 06/04/23 09:15 06/04/23 09:36 06/04/23 10:35 Temperature Temperature Source Pulse Rate 92 Respiratory Rate 18 Respiratory Effort Respiratory Pattern Normal Blood Pressure Blood Pressure Mean Pulse Ox 99 98 99 Oxygen Delivery Method Bi-pap Bi-pap Oxygen Flow Rate (L/min) Fraction of Inspired Oxygen (FIO2) 90 80 70 06/04/23 10:30 06/04/23 11:00 06/04/23 11:00 Temperature 97.7 F L Temperature Source Temporal Pulse Rate 93 93 90 Respiratory Rate 16 16 16 Respiratory Effort Respiratory Pattern Blood Pressure 94/54 L 101/80 98/37 L Blood Pressure Mean 67 87 56 Pulse Ox 100 100 Oxygen Delivery Method Oxygen Flow Rate (L/min) Fraction of Inspired Oxygen (FIO2) 06/04/23 11:30 06/04/23 12:00 06/04/23 12:14 Temperature Temperature Source Pulse Rate 90 89 Respiratory Rate 17 17 Respiratory Effort Respiratory Pattern Normal Blood Pressure 97/46 L 87/70 L Blood Pressure Mean 61 75 Pulse Ox 93 93 Oxygen Delivery Method Oxygen Flow Rate (L/min) Fraction of Inspired Oxygen (FIO2) 60 06/04/23 12:54 06/04/23 12:00 06/04/23 12:04 Temperature Temperature Source Pulse Rate 91 89 Respiratory Rate 16 19 H Respiratory Effort Respiratory Pattern Blood Pressure 99/47 L 91/51 L Blood Pressure Mean 64 63 Pulse Ox 94 Oxygen Delivery Method Oxygen Flow Rate (L/min) Fraction of Inspired Oxygen (FIO2) 06/04/23 13:26 06/04/23 13:26 06/04/23 13:54 Temperature Temperature Source Pulse Rate 91 90 Respiratory Rate 15 18 Respiratory Effort Respiratory Pattern Normal Blood Pressure 80/52 L Blood Pressure Mean 61 Pulse Ox 93 97 Oxygen Delivery Method Nasal Cannula Oxygen Flow Rate (L/min) 7 Fraction of Inspired Oxygen (FIO2) 06/04/23 14:00 Temperature Temperature Source Pulse Rate 90 Respiratory Rate 18 Respiratory Effort Respiratory Pattern Blood Pressure 95/50 L Blood Pressure Mean 65 Pulse Ox 99 Oxygen Delivery Method Room Air Oxygen Flow Rate (L/min) Fraction of Inspired Oxygen (FIO2) Positive well nourished and well developed General Appearance ED: well developed HEENT Reports normocephalic, head/scalp atraumatic and moist mucous membranes Eyes PERRL and EOMs intact bilaterally Neck no lymphadenopathy, supple and no JVD Resp Resp Narrative: Speaking in 8 word sentences. Tactile fremitus on the left. Tachypneic with accessory muscle use Auscultation: rales, rhonchi and diminished lung sounds Cardio regular rate and no murmurs Rate: tachycardic GI normal to inspection, nondistended, normoactive bowel sounds and non-tender Palpation: soft Back/Spine no CVA tenderness and normal ROM Extremity normal to inspection General Extremety ED: Negative for edema General Extremity: Negative for edema Neuro oriented x3 and CN's II-XII intact bilaterally Sensorium / Orientation: alert Motor Exam: strength 5/5 throughout Psych Mood & Affect: anxious; Negative for depressed or tearful Skin no rashes or lesions noted and no wounds MDM MDM MDM Narrative Medical decision making narrative: Patient was incontinent of stool and urine. The stool is light brown but guaiac positive. He received a breathing treatment. pH 7.323 pCO2 64.9 PaO2 of 127 bicarb 33.7 patient was placed on AVAPs. This he tolerated quite well. Unfortunately he cannot be off for more than about 20 seconds before he comes significantly dyspneic and hypoxic. She received some IV fluids pressures continue to be lower than normal with means around 60. White count 4.3 hemoglobin 6.7 before fluids platelet count of 133 INR 1.1 PTT 23.7 BMP shows a creatinine 1.29 with a BUN of 66 lactic acid 0.7 glucose 143 alk phos 134 lipase 17 BNP 31.9 with a troponin of 20. My independent interpretation of the chest x-ray is pulmonary edema versus infiltrates pleural effusions. CTA of the chest was obtained. Official read was delayed. This does not demonstrate any pulmonary embolism. It demonstrates extensive metastatic disease. Pleural effusions and pulmonary edema versus infiltrates noted to be substantially worse. Spoke with the patient advised him that his prognosis is very poor. I talked with him at length regarding hospice versus what would need to be done from an inpatient side to prolong life. Tell me to speak with his brother. His brother told me that he would be up after work around 1530. I had Dr. Glass who knows the patient well from his previous admission speak with the patient and he is amendable to hospice. I will speak with hospice myself and if possible transfer him to their care facility today. History & Record Review Discussion w/independent historian: Patient and Family Lab Data Attestation: I reviewed the patient's lab results. Labs: Laboratory Results - last 24 hr 06/04/23 06/04/23 06/04/23 08:45 09:30 13:22 WBC 4.3 L RBC 2.00 L Hgb 6.7 L Hct 20.3 L MCV 101.5 H MCH 33.5 H MCHC 33.0 RDW Std Deviation 68.2 H RDW Coeff of Ruben 18.5 H Plt Count 133 L MPV 8.7 Immature Gran % (Auto) 0.900 Neut % (Auto) 87.5 H Lymph % (Auto) 3.5 L Alcorn % (Auto) 7.9 Eos % (Auto) 0.0 Baso % (Auto) 0.2 Absolute Neuts (auto) 3.8 Absolute Lymphs (auto) 0.15 L Nucleated RBC % 0 Differential Comment COMMENT Anisocytosis 1+ PT 13.9 INR 1.1 APTT 23.7 L Sodium 130 L Potassium 5.7 H Chloride 94 L Carbon Dioxide 34.0 H Anion Gap 2 L BUN 66 H Creatinine 1.29 Estim Creat Clear Calc 58.54 Est GFR (MDRD) Af Amer 73 Est GFR (MDRD) Non-Af 60 BUN/Creatinine Ratio 51.2 H Glucose 143 H Lactic Acid 0.7 Calcium 8.2 L Total Bilirubin 0.80 Direct Bilirubin 0.25 AST 24 ALT 29 Alkaline Phosphatase 134 H Troponin I High Sens 20 B-Natriuretic Peptide 31.9 Total Protein 5.8 L Albumin 2.6 L Globulin 3.2 Lipase 17 Urine Color Yellow Urine Clarity Clear Urine pH 5.0 Ur Specific [place] 1.015 Urine Protein 30 H Urine Glucose (UA) Normal Urine Ketones Negative Urine Occult Blood Negative Urine Nitrite Negative Urine Bilirubin Negative Urine Urobilinogen Normal Ur Leukocyte Esterase Negative Urine RBC 0 SEEN Urine WBC 0-5 SEEN Ur Squamous Epith Cells 0 SEEN Urine Bacteria 0 SEEN Urine Mucus 0 SEEN Blood Type A POSITIVE Antibody Screen NEGATIVE ABG Data ABG results: ABG 06/04/23 09:13 Specimen Type ART Sample Site L Radial pH 7.32 L Bicarbonate Actual 33.7 H Total CO2 36 Base Excess 8 H O2 Saturation 99 O2 % 90.0 ABG pCO2 64.9 H ABG pO2 128 H Respiration Rate 14 O2 Delivery Device BiPAP Vent Mode Not entered Tidal Volume 450.0 Radiography Diagnostic Testing: Clinical Impression(s) from Imaging Studies Chest X-Ray 06/04/23 09:15 IMPRESSION: Stable examination with the volume loss in the right hemithorax as described with the opacification of the right hemithorax and patchy infiltrates in the left hemithorax. This is superimposed a mild degree of CHF and vascular congestion. Electronically Signed: Reji Muñiz MD at 9:49 EDT , Chest CTA 06/04/23 11:28 IMPRESSION: 1. Extensive diffuse metastatic disease with worsening involvement of the lungs bilaterally. 2. 2.5 cm liver lesions within hepatic segments 5 and 6 suggestive of metastases. 3. Bilateral adrenal masses are stable. 4. Stable vertebral body metastases. 5. No evidence of acute pulmonary embolism. Electronically Signed: Marshall Prado MD at 13:47 EDT , EKG Initial EKG: Attestation: I personally reviewed and interpreted this EKG as follows: Comments: NSR at rate of 95 bpm Management Discussion w/another healthcare provider: Hospitalist (Dr. Lian Glass) and Other (Hospice) Critical Care Time Critical Care Time: Yes Critical care time (excluding procedures): 30-74 minutes (34 min), Including time spent:, Discussing w/Patient &/or Family/Property Economist, Discussing w/Consultants, Arranging Admission or Transfer and Performing Direct Patient Care at Bedside Discharge Plan Triage Chief Complaint: Shortness of Breath ED Provider: Benson Huynh Dx/Rx/DC Orders Clinical Impression: Acute hypotension, Metastatic non-small cell lung cancer, Pancytopenia, Acute hypoxemic respiratory failure Prescriptions: No Action fluticasone propionate 50 mcg/actuation spray,suspension 2 spray INTRANASAL DAILY Qty: 16 11RF Spiriva Respimat 2.5 mcg/actuation mist 2 puff inhalation QDAY Qty: 4 11RF montelukast 10 mg tablet 10 mg PO QHS Qty: 90 3RF polyethylene glycol 3350 [Miralax] 17 gram/dose powder 4 g PO DAILY ondansetron 8 mg tablet,disintegrating 8 mg PO Q8H PRN (Reason: nausea and vomiting) Qty: 30 2RF dexamethasone 4 mg tablet 4 mg PO DAILY Qty: 20 0RF amlodipine 10 MG tablet 10 mg PO DAILY bupropion HCl [Wellbutrin XL] 150 MG tablet extended release 24 hr 150 mg PO DAILY omeprazole 20 MG capsule 20 mg PO DAILY cetirizine 10 mg Tablet 10 mg PO QHS acetaminophen 500 mg Tablet 1,000 mg PO Q8 Qty: 0 0RF lidocaine 5 % Adhesive Patch,Medicated 1 patch topical 2199 Qty: 0 0RF Protocol: *Topical Application Instructions APPLICATION INSTRUCTIONS: Apply to low back. losartan 100 mg Tablet 100 mg PO DAILY Qty: 0 0RF sodium chloride 1,000 mg Tablet,Soluble 1,000 mg PO BID Qty: 0 0RF Ensure Plus High Protein 0.08 gram-1.5 kcal/mL Liquid 120 ml PO 4X/DAY Qty: 0 0RF duloxetine 30 mg Capsule,Delayed Release(Dr/Ec) 30 mg PO DAILY Qty: 0 0RF oxycodone 5 mg Tablet 5 mg PO Q4H PRN PRN (Reason: Pain Score 4-5 Or Pre Pt/Ot) 2 Days Qty: 12 0RF pregabalin 75 mg Capsule 75 mg PO BID Qty: 1 0RF sennosides-docusate sodium [Stool Softener-Stimulant Laxat] 8.6-50 mg tablet 4 tab PO DAILY ipratropium-albuterol 0.5 mg-3 mg(2.5 mg base)/3 mL Solution For Nebulization 3 ml inhalation 4X/DAY albuterol sulfate 2.5 mg /3 mL (0.083 %) Solution For Nebulization 2.5 mg inhalation Q2H PRN (Reason: SOB &/OR WHEEZING) melatonin 3 mg Tablet 3 mg PO QHS PRN (Reason: Insomnia) alum-mag hydroxide-simeth [Mag-Al Plus Extra Strength] 400-400-40 mg/5 mL Suspension 30 ml PO Q6H PRN (Reason: Heartburn Or Indigestion) budesonide-formoterol [Symbicort] 160-4.5 mcg/actuation HFA aerosol inhaler 2 puff inhalation BID Qty: 3 3RF Rx Instructions: administer with spacer, rinse mouth after each use Primary Care Provider: Mony Morrison Referrals: Mony Morrison MD [Primary Care Provider] -
[2023-06-04 09:02] LABS: Absolute Lymphocyte Count 0.15 X10^3/uL (0.83-4.51); Absolute Neutrophil Count 3.8 X10^3/uL (2.0-7.7); Basophil# 0.01 X10^3/uL; Basophil% 0.2 % (0-1); Hematocrit 20.3 % (40-54); Hemoglobin 6.7 g/dL (13.0-16.5); Lymphocyte # 0.15 X10^3/ul (0.83-4.51); Lymphocyte % 3.5 % (19-41); Mean Corpuscular Hgb 33.5 pg (27.0-32.0); Mean Corpuscular Volume 101.5 fL (80-94); Mean Platelet Vol. 8.7 fl (6.2-12.0); Monocyte# 0.34 X10^3/uL; Monocyte% 7.9 % (0-10); NRBC Flagged by Analyzer 0 % (0-5); Neutrophil # 3.75 X10^3/uL (2.7-7.7); Neutrophil % 87.5 % (47-70); POSITIVE DIFFERENTIAL YES; POSITIVE MORPHOLOGY YES; Platelet Count 133 K/mm3 (150-450); RBC Distribution Width CV 18.5 % (11.6-14.6); RBC Distribution Width SD 68.2 fl (35.1-43.9); White Blood Count 4.3 K/mm3 (4.4-11.0)
[2023-06-04 09:03] LABS: Differential Indicated SCAN CRITERIA MET
--- NOTE | 2023-06-04 09:15 | RAD_ITS ---
STUDY: X-RAY CHEST REASON FOR EXAM: Male, 62 years old. Respiratory distress TECHNIQUE: Single AP portable view of the chest. COMPARISON: Comparison is made with prior study dated May 19, 2023. FINDINGS: EKG electrodes are seen. A left-sided portacatheter is seen with the tip at the junction of the superior vena cava and right atrium. There is evidence of a loss of volume in the right hemithorax with shift of the heart and mediastinal structures into the right hemithorax. Stable consolidation in the right hemithorax. Stable patchy infiltrates in the left lower lobe with evidence of a vascular congestion. Blunting of the right costophrenic angle. Normal size heart. Normal mediastinum and jaime. Normal visualized pulmonary arteries. Normal visualized aortic arch and descending thoracic aorta. Normal visualized thoracic spine. Normal visualized ribs, clavicles, and shoulders. There is no demonstrated abnormality of the visualized soft tissue structures of the upper abdomen. RAD/Chest 1 View (Portable) IMPRESSION: Stable examination with the volume loss in the right hemithorax as described with the opacification of the right hemithorax and patchy infiltrates in the left hemithorax. This is superimposed a mild degree of CHF and vascular congestion. Electronically Signed: Reji Muñiz MD at 9:49 EDT ,
[2023-06-04 09:18] LABS: Base Excess 8 mmol/L (-2 to +2); Bicarbonate 33.7 mmol/L (22-26); Blood Gas Specimen Type ART; Mode Not entered; O2 Delivery Device BiPAP; PO2 128 mmHG (75-100); RR 14; SITE L Radial; SO2 99 % (95-99); Total Carbon Dioxide 36 mmol/L; pCO2 64.9 mmHg (35-45); pH 7.32 (7.35-7.45)
[2023-06-04 09:21] LABS: BNP,B-Type NATRIURETIC PEPTIDE 31.9 pg/mL (0-100)
[2023-06-04 09:27] LABS: Anisocytosis 1+
[2023-06-04 09:32] LABS: International Normalized Ratio 1.1; Prothrombin Time (Protime)PT. 13.9 SECONDS (11.7-14.9)
[2023-06-04 09:34] LABS: Lactic Acid 0.7 mmol/L (0.4-1.9); Partial Thromboplast Time 23.7 Seconds (24.1-36.2)
[2023-06-04 09:38] LABS: AST(SGOT) 24 U/L (15-37); Alanine Aminotransfer ALT/SGPT 29 U/L (16-61); Albumin, Serum 2.6 g/dL (3.2-5.0); Alkaline Phosphatase 134 U/L (45-117); Anion Gap 2 (5-15); BUN 66 mg/dL (7-18); BUN/Creat Ratio 51.2 RATIO (10-20); Bilirubin, Direct 0.25 mg/dL (0.00-0.30); Calcium,Total 8.2 mg/dL (8.5-10.1); Chloride 94 mmol/L (98-107); Creatinine, Serum 1.29 mg/dL (0.70-1.30); EST Glomerular Filtration Rate 60 mL/min (>60); Est Glom Filt Rate - Afr Amer 73 mL/min (>60); Estimated Creatinine Clearance 58.54 ml/min; Globulin 3.2 g/dL (2.2-4.2); Glucose 143 mg/dL (74-106); Lipase 17 U/L (13-75); Potassium 5.7 mmol/L (3.5-5.1); Protein, Total 5.8 g/dL (6.4-8.2); Sodium Level 130 mmol/L (136-145); Troponin-I HS 20 pg/mL (3.0-78.0)
--- NOTE | 2023-06-04 11:28 | CT_ITS ---
EXAM: CT ANGIOGRAPHY CHEST WITHOUT AND WITH INTRAVENOUS CONTRAST CLINICAL INDICATION: pulmonary embolism TECHNIQUE: Helically acquired angiography images were obtained of the chest without and with intravenous contrast. This CT exam was performed using one or more of the following dose reduction techniques: automated exposure control, adjustment of the mA and/or kV according to patient size, and/or use of iterative reconstruction technique. MIP reconstructed images were created and reviewed. CONTRAST: IV 100mL [id number] COMPARISON: CT chest and abdomen 05/08/2023 FINDINGS: PULMONARY ARTERIES: Right pulmonary artery and proximal branches are also encased by the central tumor. No evidence of acute pulmonary embolism. Normal in caliber. AORTA: Normal. Normal in caliber. No evidence of dissection. GREAT VESSELS OF AORTIC ARCH: Normal. Normal in caliber. No evidence of dissection. LUNGS AND PLEURAL SPACES: Superimposed interstitial densities of both lungs which may represent edema and/or lymphangitic spread of tumor. The left pleural effusion has increased in size from prior study. Right pleural effusion is stable. Narrowing of the right bronchi again seen due to the encasement by adjacent tumor. Pleural-based nodules noted within the hemithorax bilaterally. HEART: Normal. Heart size is normal. No pericardial effusion. No significant coronary artery calcifications. MEDIASTINUM: Extensive mediastinal and hilar lymphadenopathy again noted. Persistent mass consolidation of the right upper lobe as well as atelectasis/consolidation of the lower lobes. Significant increase in the size and number of the bilateral prostatic pulmonary nodules. Esophagus is unremarkable. No hiatal hernia. BONES/JOINTS: Vertebral body metastases involving the spine are again seen. LYMPH NODES: Adenopathy within the retroperitoneum again noted. ADRENALS: Unremarkable as visualized. No significant change in the bilateral adrenal masses. Ill-defined 2.5 cm masses are noted within hepatic segments 5 and 6. TUBES, LINES AND DEVICES: Left IJ infusion catheter extends to the cavoatrial junction. CT/CTA Chest W/WO Contrast IMPRESSION: 1. Extensive diffuse metastatic disease with worsening involvement of the lungs bilaterally. 2. 2.5 cm liver lesions within hepatic segments 5 and 6 suggestive of metastases. 3. Bilateral adrenal masses are stable. 4. Stable vertebral body metastases. 5. No evidence of acute pulmonary embolism. Electronically Signed: Marshall Prado MD at 13:47 EDT ,
[2023-06-04] MEDS: Ipratropium/Albuterol Sulfate 3 ML AMPUL.NEB INHALATION (13:26)
[2023-06-04 13:27] LABS: Bacteria 0 SEEN /hpf (None Seen); Mucous, Urine 0 SEEN /hpf (<or=2+); Red Blood Cells-Urine 0 SEEN /hpf (0-5); Squamous Epithelial Cells - UA 0 SEEN /hpf (0-5)
[2023-06-04 13:34] LABS: Color, Urine Yellow (Yellow); Glucose, Dipstick Normal (Normal); Ketone-Dipstick Negative (Negative); Leukocyte Esterase-Dipstick Negative /ul (Negative); Nitrite-Dipstick Negative (Negative); Occult Blood-Urine Negative /ul (Negative); Protein-Dipstick 30 mg/dl (Negative); Specific Gravity, Urine 1.015 (1.002-1.030); Urine Bilirubin Dipstick Negative (Negative); Urine Clarity Clear (Clear); Urine Urobilinogen Normal (Normal)
[2023-06-04 13:43] LABS: White Blood Cells 0-5 SEEN /hpf (0-5)
[2023-06-04] MEDS: Ceftriaxone 1 GM/50 ML BAG IV (13:51)
[2023-06-04] MEDS: 0.9% Normal Saline (1000mL) 1,000 ML 999 ML IV (13:51)
--- NOTE | 2023-06-04 14:43 | ED.RN ---
Dr Glass at bedside with pt discussing care plan
[2023-06-04] MEDS: metroNIDAZOLE 500 MG/100 ML BAG 100 MG IV (14:44)
--- NOTE | 2023-06-04 15:23 | ED.RN ---
Akshat was asked to come to bedside to provide pt support
--- NOTE | 2023-06-04 15:23 | ED.RN ---
pt taken off of AVAPS and placed on 10 L N. ED provider and RT aware
--- NOTE | 2023-06-04 15:35 | NURSING ---
DAISY DAVIS RESP FAILURE, METASTATIC ADENOCARCINOMA
[2023-06-04] MEDS: Morphine 4 MG/ML Syringe IV (16:15)
[2023-06-04] MEDS: Ondansetron 4 MG/2 ML Vial IV (16:15)
[2023-06-04] MEDS: LORazepam 2 MG/ML Syringe 1 MG IV (16:16)
--- NOTE | 2023-06-04 16:24 | CHAPLAIN ---
Type of Pastoral Visit ___ Initial Visit ___ Follow-up Visit ___ On-call Visit ___ General Patient Visit ___ Spiritual Assessment ___ Family Conference ___ Bereavement ___ Rapid Response ___ Code Blue _x__ Other (describe below) Pastoral Care Referral From ___ Patient ___ Family _x__ Nurse _x__ Physician ___ Education Site Manager ___ Extension Course Counselor ___ Other (describe below) Sacrament/Intervention _x__ Active listening ___ Anointing ___ Yarsani ___ Bereavement ___ Communion _x__ Christina exploration ___ ___ Life review _x__ Prayer ___ Reconciliation ___ Sacrament of Sick _x__ Supportive presence ___ Wedding ___ Other (describe below) Pastoral Comments patient is in the ED and had just been seen by this double corner cutter when admitted to the [facility] unit in past week; pt is expecting to be evaluated for hospice in patient unit; pt is anxious and on the bi-pap; a brother is with pt in the room and pt is given him directions about his finances; pt admits to fears but also that he has been trying to pray and get calm; pt speaks of his mother who is watching out for him; this double corner cutter quotes from the Bible to give assurances and comfort; prayer is given and offer of future support if needed while in the hospital
--- NOTE | 2023-06-04 16:26 | NURSING ---
HOSPICE IN ROOM
--- NOTE | 2023-06-04 18:17 | ED.RN ---
Nurse to Nurse [phone] [facility]
[2023-06-04] MEDS: LORazepam 2 MG/ML Syringe IV (19:24)
--- NOTE | 2023-06-04 19:28 | ED.RN ---
pt agitated pulling off blood pressure cuff, heart monitor leads, stating Im trying to get rid of the pain. Make this pain go away.Provider notified. Provied emotional support and help pts hand
== END 2023-06-04 21:00 | disposition hospice, inpatient (51) ==
PROVIDERS: Emergency Provider Emergency Medicine; PCP Internal Medicine; Visit Provider Emergency Medicine
DX: J96.01 Acute respiratory failure with hypoxia (principal); C79.51 Secondary malignant neoplasm of bone; D61.818 Other pancytopenia; C34.90 Malignant neoplasm of unspecified part of unspecified bronchus or lung; I11.0 Hypertensive heart disease with heart failure; J44.9 Chronic obstructive pulmonary disease, unspecified; I95.9 Hypotension, unspecified; J90 Pleural effusion, not elsewhere classified; R15.9 Full incontinence of feces; Z99.81 Dependence on supplemental oxygen; Z79.899 Other long term (current) drug therapy; Z87.891 Personal history of nicotine dependence
CPT/HCPCS: 36591; 36600; 71045; 71275; 80048; 80076; 81001; 82274; 82803; 83605; 83690; 83880; 84484; 85025; 85610; 85730; 86850; 86900; 86901; 93005; 94002; 94640; 96365; 96366; 96367; 96375; 96376; 99284; J7030; Q9967; A4216; J2405